=== PATIENT | female | born 1960 | race African-American/Black ===

== ENCOUNTER 2019-01-13 10:11 | Inpatient (IN) | payer BC, OTHER ==
[2019-01-13 10:25] VITALS: BMI 45.1
--- NOTE | 2019-01-13 10:32 | PDOC ---
History of Present Illness - General Chief Complaint: Redness To Affected Area Stated Complaint: SENT BY PCP TO BE ADMITTED Time Seen by Provider: 01/13/19 10:30 History Source: Patient Exam Limitations: No Limitations Past History - Travel Traveled outside of the country in the last 30 days: No Close contact w/someone who was outside of country & ill: No - Past Medical History Allergies/Adverse Reactions: Allergies Allergy/AdvReac Type Severity Reaction Status Date / Time No Known Allergies Allergy Verified 01/13/19 10:22 Home Medications: Ambulatory Orders Insulin Glargine,Hum.rec.anlog [Lantus] 32 unit SQ DAILY 12/13/18 Liraglutide [Victoza -] 1.8 unit SQ DAILY 12/13/18 Amlodipine Besylate 10 mg PO DAILY 01/13/19 Metoprolol Succinate 50 mg PO DAILY 01/13/19 Olmesartan/Hydrochlorothiazide [Benicar Hct 40-12.5 mg Tablet] 1 each PO DAILY 01/13/19 Rosuvastatin [Crestor -] 10 mg PO DAILY 01/13/19 Anemia: Yes Cardiac Disorders: No COPD: No Diabetes: Yes HTN: Yes Hypercholesterolemia: Yes - Surgical History Abdominal Surgery: Yes - Suicide/Smoking/Psychosocial Hx Smoking Status: No Smoking History: Never smoked Have you smoked in the past 12 months: No Number of Cigarettes Smoked Daily: 0 If you are a former smoker, when did you quit?: 47 yrs ago Hx Alcohol Use: No Drug/Substance Use Hx: No Substance Use Type: None Review of Systems - Review of Systems Able to Perform ROS?: Yes Comments:: 01/13/19 10:55 CONSTITUTIONAL: Absent: fever, chills, diaphoresis, generalized weakness, malaise, loss of appetite HEENT: Absent: rhinorrhea, nasal congestion, throat pain, throat swelling, difficulty swallowing, mouth swelling, ear pain, eye pain, visual Changes CARDIOVASCULAR: Absent: chest pain, loss of consciousness, palpitations, irregular heart rate, peripheral edema RESPIRATORY: Absent: cough, shortness of breath, dyspnea with exertion, orthopnea, wheezing, stridor, hemoptysis GASTROINTESTINAL: Absent: abdominal pain, abdominal distension, nausea, vomiting, diarrhea, constipation, melena, hematochezia GENITOURINARY: Absent: dysuria, frequency, urgency, hesitancy, hematuria, flank pain, genital pain MUSCULOSKELETAL: Absent: myalgia, arthralgia, joint swelling SKIN: Present: R 5th toe infection Absent: rash, itching, pallor HEMATOLOGIC/IMMUNOLOGIC: Absent: easy bleeding, easy bruising, lymphadenopathy, frequent infections ENDOCRINE: Absent: unexplained weight gain, unexplained weight loss, heat intolerance, cold intolerance NEUROLOGIC: Absent: headache, focal weakness or paresthesias, dizziness, unsteady gait, seizure, mental status changes, bladder or bowel incontinence PSYCHIATRIC: Absent: anxiety, depression, suicidal or homicidal ideation, hallucinations. Is the patient limited Yoruba proficient: No *Physical Exam - Vital Signs Last Vital Signs Temp Pulse Resp BP Pulse Ox 98.6 F 83 16 131/72 100 01/13/19 10:22 01/13/19 10:22 01/13/19 10:01/13/19 10:01/13/19 10:22 - Physical Exam Comments: 01/13/19 10:56 GENERAL: Well developed, well nourished. Awake and alert. No acute distress. HEENT: Normocephalic, atraumatic. PERRLA, EOMI. No conjunctival pallor. Sclera are non- icteric. Moist mucous membranes. Oropharynx is clear. NECK: Supple. Full ROM. No JVD. Carotid pulses 2+ and symmetric, without bruits. No thyromegaly. No lymphadenopathy. CARDIOVASCULAR: Regular rate and rhythm. No murmurs, rubs, or gallops. Distal pulses are 2+ and symmetric. PULMONARY: No evidence of respiratory distress. Lungs clear to auscultation bilaterally. No wheezing, rales or rhonchi. ABDOMINAL: Soft. Non-tender. Non-distended. No rebound or guarding. No organomegaly. Normoactive bowel sounds. MUSCULOSKELETAL Normal range of motion at all joints. No bony deformities or tenderness. No CVA tenderness. EXTREMITIES: No cyanosis. No clubbing. No edema. No calf tenderness. SKIN: R 5th toe with stage 2 pressure ulcer on the lateral aspect, some escar present. No overlying cellulitis. No TTP. Warm and dry. Normal capillary refill. No rashes. No jaundice. NEUROLOGICAL: Alert, awake, appropriate. Cranial nerves 2-12 intact. No deficits to light touch and temperature in face, upper extremities and lower extremities. No motor deficits in the in face, upper extremities and lower extremities. Normoreflexic in the upper and lower extremities. Normal speech. Toes are down- going bilaterally. Gait is normal without ataxia. PSYCHIATRIC: Cooperative. Good eye contact. Appropriate mood and affect. ED Treatment Course - LABORATORY CBC & Chemistry Diagram: 01/13/19 11:16 01/13/19 11:16 Medical Decision Making - Medical Decision Making 01/13/19 10:57 The patient is a 58-year-old female with past medical history of insulin- dependent diabetes, hypertension, hyperlipidemia, who presents to the emergency department today for evaluation of her right fifth toe. She was seen in wound care on Sunday and diagnosed with osteomyelitis in the right fifth toe. She was told to present on Sunday for admission and IV antibiotics as well as PICC line placement. She currently has no complaints. Denies fevers, chills, pain to the right foot, nausea, vomiting, difficulty breathing and chest pain. A/P: Right foot diabetic ulcer, osteomyelitis MRI performed on 12/27/18; shows osteomyelitis in the right 5th toe We'll order basic labs, urine, EKG, chest x-ray and blood cultures. Start vancomycin Zosyn in the ER PCP Dr. Medellin. Seen by Dr. Car and Dr. Roldan at wound care. 01/13/19 12:04 No Leukocytosis, H&H stable, no gross electrolyte abnormalities [facility] paged for admission *DC/Admit/Observation/Transfer Diagnosis at time of Disposition: Osteomyelitis Qualifiers: Osteomyelitis type: other acute Osteomyelitis location: foot Laterality: right Qualified Code(s): M86.171 - Other acute osteomyelitis, right ankle and foot - Discharge Dispostion Condition at time of disposition: Stable Decision to Admit order: Yes - Referrals - Patient Instructions - Post Discharge Activity
[2019-01-13 11:34] LABS: BASO % 1.2 % (0-2.0); EOS % 5.6 % (0-4.5); HEMATOCRIT 35.5 % (32.4-45.2); HEMOGLOBIN 11.4 GM/dL (10.7-15.3); LYMPH % 38.2 % (8-40); MCH 27.8 pg (25.7-33.7); MCHC 32.2 g/dl (32.0-36.0); MEAN CELL VOLUME 86.4 fl (80-96); MEAN PLT VOLUME 9.8 fl (7.5-11.1); MONO % 11.6 % (3.8-10.2); NEUT % 43.4 % (42.8-82.8); PLATELET COUNT 254 K/MM3 (134-434); RBC 4.11 M/mm3 (3.60-5.2); RDW 13.5 % (11.6-15.6); WHITE BLOOD COUNT 5.1 K/mm3 (4.0-10.0)
--- NOTE | 2019-01-13 11:56 | PDOC ---
*Physical Exam - Vital Signs Last Vital Signs Temp Pulse Resp BP Pulse Ox 98.6 F 83 16 131/72 100 01/13/19 10:22 01/13/19 10:22 01/13/19 11:35 01/13/19 10:22 01/13/19 11:35 ED Treatment Course - LABORATORY CBC & Chemistry Diagram: 01/15/19 07:00 01/15/19 07:00 Medical Decision Making - Medical Decision Making 01/13/19 11:56 Pt seen by the Advanced Practice Provider under my direct supervision Ancillary studies reviewed I agree with plan as outlined by the Advanced Practice Provider DARRIUS Seaman *DC/Admit/Observation/Transfer Diagnosis at time of Disposition: Osteomyelitis - Discharge Dispostion Condition at time of disposition: Stable - Referrals - Patient Instructions - Post Discharge Activity
[2019-01-13 12:01] LABS: ALBUMIN 3.4 g/dl (3.4-5.0); BILIRUBIN,TOTAL 0.2 mg/dL (0.2-1); CALCIUM 9.3 mg/dL (8.5-10.1); POTASSIUM 4.5 mmol/L (3.5-5.1); TOT PROT 6.5 g/dl (6.4-8.2)
[2019-01-13 12:10] LABS: EPI CELLS 2.8 /HPF (0-5/HPF); HYALINE CASTS 2 /lpf (0-8); PH,URINE 6.5 (5.0-8.0); URINE APPEARANCE CLEAR; URINE BILIRUBIN NEGATIVE (NEGATIVE); URINE COLOR YELLOW; URINE GLUCOSE (UA) TRACE (NEGATIVE); URINE KETONE NEGATIVE (NEGATIVE); URINE LEUK ESTERASE TRACE (NEGATIVE); URINE NITRITE NEGATIVE (NEGATIVE); URINE PROTEIN NEGATIVE (NEGATIVE); URINE RBC 2 /hpf (0-4); URINE WBC 2 /hpf (0-5)
[2019-01-13 12:10] LABS: PROTHROMBIN TIME (PATIENT) 11.8 SEC (9.7-13.0)
--- NOTE | 2019-01-13 12:37 | HP ---
CHIEF COMPLAINT: "I have a bone infection" PCP: Dr Medellin HISTORY OF PRESENT ILLNESS: This is a 58 yo F with PMH of IDDM last a1c 9, htn, hld, who was referred to ED by Dr Roldan for treatment of right fifth toe Osteomyelitis recently diagnosed om MRI 12/27/18. patient reports diabetic neuropaty abd denies prior LE infections. she follows with a net fisher who noticed an ulcer on her toe and referred her to Dr Car in wound care. She denies f/c, le pain, difficulty walking, malaise. deneis le claudication, exercise intolerance, can walk for several blocks w/o fatigue. she follows up regularly with her pcp for dm management and he rmornign glucose is usually 150-160. ER course was notable for: (1) labs Recent Travel: denies PAST MEDICAL HISTORY: as above PAST SURGICAL HISTORY: denies Social History: Smoking:denies Alcohol:denies Drugs: denies Family History: mother dm, father htn, prostate ca Allergies No Known Allergies Allergy (Verified 01/13/19 10:22) HOME MEDICATIONS: Home Medications Medication Instructions Recorded Insulin Glargine,Hum.rec.anlog 32 unit SQ DAILY 12/13/18 [Lantus] Liraglutide [Victoza -] 1.8 unit SQ DAILY 12/13/18 Amlodipine Besylate 10 mg PO DAILY 01/13/19 Metoprolol Succinate 50 mg PO DAILY 01/13/19 Olmesartan/Hydrochlorothiazide 1 each PO DAILY 01/13/19 [Benicar Hct 40-12.5 mg Tablet] Rosuvastatin [Crestor -] 10 mg PO DAILY 01/13/19 REVIEW OF SYSTEMS CONSTITUTIONAL: Absent: fever, chills HEENT: Absent: rhinorrhea, nasal congestion, throat pain CARDIOVASCULAR: Absent: chest pain, syncope, palpitations RESPIRATORY: Absent: cough, shortness of breath GASTROINTESTINAL: Absent: abdominal pain, abdominal distension, nausea, vomiting GENITOURINARY: Absent: dysuria MUSCULOSKELETAL: Absent: joint swelling SKIN: Absent: rash, itching, pallor HEMATOLOGIC/IMMUNOLOGIC: Absent: frequent infections ENDOCRINE: Absent: unexplained weight gain, unexplained weight loss NEUROLOGIC: Absent: headache PSYCHIATRIC: Absent: anxiety, depression PHYSICAL EXAMINATION Vital Signs - 24 hr 01/13/19 01/13/19 10:22 11:35 Temperature 98.6 F Pulse Rate 83 Respiratory 16 16 Rate Blood Pressure 131/72 O2 Sat by Pulse 100 100 Oximetry (%) GENERAL: Awake, alert, and fully oriented, in no acute distress. HEAD: Normal with no signs of trauma. EYES: Pupils equal, round and reactive to light, extraocular movements intact, sclera anicteric, conjunctiva clear. No lid lag. EARS, NOSE, THROAT: Moist mucous membranes. NECK: supple without lymphadenopathy LUNGS: Breath sounds equal, clear to auscultation bilaterally Breasts: no lumps, mass or axillary adenopathy HEART: Regular rate and rhythm, normal S1 and S2 ABDOMEN: Soft, nontender, not distended, normoactive bowel sounds MUSCULOSKELETAL: No CVA tenderness. LOWER EXTREMITIES: 2+ dp 1+ pt b/l, R 5th lateral toe ulcer with yellow scab, no discharge no cellulitis NEUROLOGICAL: Cranial nerves II-XII intact. extremities strenght 5/5 b/l, sensation intact b/l, patellar reflexes 2+ b/l. Normal speech. PSYCHIATRIC: Cooperative. Good eye contact. Appropriate mood and affect. SKIN: Warm, dry Laboratory Results - last 24 hr 01/13/19 01/13/19 01/13/19 11:16 11:16 11:16 WBC 5.1 RBC 4.11 Hgb 11.4 Hct 35.5 MCV 86.4 MCH 27.8 MCHC 32.2 RDW 13.5 Plt Count 254 MPV 9.8 Absolute Neuts (auto) 2.2 Neutrophils % 43.4 D Lymphocytes % 38.2 D Monocytes % 11.6 H Eosinophils % 5.6 H Basophils % 1.2 D Nucleated RBC % 0 PT with INR 11.80 INR 1.00 Sodium 138 Potassium 4.5 Chloride 103 Carbon Dioxide 31 Anion Gap 4 L BUN 21 H Creatinine 1.0 Est GFR (CKD-EPI)AfAm 71.92 Est GFR (CKD-EPI)NonAf 62.05 Random Glucose 194 H Calcium 9.3 Total Bilirubin 0.2 AST 13 L ALT 21 Alkaline Phosphatase 88 Total Protein 6.5 Albumin 3.4 Urine Color Urine Appearance Urine pH Ur Specific [place] Urine Protein Urine Glucose (UA) Urine Ketones Urine Blood Urine Nitrite Urine Bilirubin Urine Urobilinogen Ur Leukocyte Esterase Urine WBC (Auto) Urine RBC (Auto) Urine Casts (Auto) U Epithel Cells (Auto) Urine Bacteria (Auto) 01/13/19 11:25 WBC RBC Hgb Hct MCV MCH MCHC RDW Plt Count MPV Absolute Neuts (auto) Neutrophils % Lymphocytes % Monocytes % Eosinophils % Basophils % Nucleated RBC % PT with INR INR Sodium Potassium Chloride Carbon Dioxide Anion Gap BUN Creatinine Est GFR (CKD-EPI)AfAm Est GFR (CKD-EPI)NonAf Random Glucose Calcium Total Bilirubin AST ALT Alkaline Phosphatase Total Protein Albumin Urine Color Yellow Urine Appearance Clear Urine pH 6.5 Ur Specific [place] 1.022 Urine Protein Negative Urine Glucose (UA) Trace Urine Ketones Negative Urine Blood Negative Urine Nitrite Negative Urine Bilirubin Negative Urine Urobilinogen 1.0 Ur Leukocyte Esterase Trace Urine WBC (Auto) 2 Urine RBC (Auto) 2 Urine Casts (Auto) 2 U Epithel Cells (Auto) 2.8 Urine Bacteria (Auto) 43.0 ASSESSMENT/PLAN: This is a 58 yo F with PMH of IDDM last a1c 9, htn, hld, who was referred to ED by Dr Roldan for treatment of right fifth toe Osteomyelitis recently diagnosed om MRI 12/27/18. R 5th toe osteomyelitis IDDM HTN HLD morbid obesity -rocehin per ID -wound care consult -iss, victroza 1.8 mg d, levemir 32 u daily -glucose goal <180 with diabetic ulcer infection -continue toprol xl, norvasc, hctz, losartan -continue crestor Problem List - Problem (1) Diabetes Code(s): E11.9 - TYPE 2 DIABETES MELLITUS WITHOUT COMPLICATIONS (2) HLD (hyperlipidemia) Code(s): E78.5 - HYPERLIPIDEMIA, UNSPECIFIED (3) HTN (hypertension) Code(s): I10 - ESSENTIAL (PRIMARY) HYPERTENSION (4) Morbid obesity with BMI of 45.0-49.9, adult Code(s): E66.01 - MORBID (SEVERE) OBESITY DUE TO EXCESS CALORIES; Z68.42 - BODY MASS INDEX (BMI) 45.0-49.9, ADULT (5) Osteomyelitis Code(s): M86.9 - OSTEOMYELITIS, UNSPECIFIED Qualifiers: Osteomyelitis type: other acute Osteomyelitis location: foot Laterality: right Qualified Code(s): M86.171 - Other acute osteomyelitis, right ankle and foot Visit type - Emergency Visit Emergency Visit: Yes ED Registration Date: 01/13/19 Care time: The patient presented to the Emergency Department on the above date and was hospitalized for further evaluation of their emergent condition. - New Patient This patient is new to me today: Yes Date on this admission: 01/13/19 - Critical Care Critical Care patient: No
--- NOTE | 2019-01-13 17:34 | PN ---
Teaching Attending Note Name of Resident: Zayra Siu ATTENDING PHYSICIAN STATEMENT I saw and evaluated the patient. I reviewed the resident's note and discussed the case with the resident. I agree with the resident's findings and plan as documented. CC: my toe is infected HPI : Ms Amos is a very pleasant 58 year old female who comes in with osteomyelitis. She says that she was wearing shoes that caused a blister on her little toe. It began to drain and because of that she went to see her PCP. There she was referred to Dr Roldan and found to have osteomyelitis. She was sent in for further care. She otherwise has no complaints. She says it is only painful when she wears shoes. She currently does not notice any drainage. She denies fevers, chills, lightheadedness, dizziness, passing out, chest pain or pressure, coughing, shortness of breath, nausea, vomiting, diarrhea, constipation, difficulty or pain on urination, or swelling. 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 FHx: mother with diabetes, father with htn and prostate cancer ROS: full review of systems obtained, as per HPI and otherwise negative OBJECTIVE: Last Vital Signs Temp Pulse Resp BP Pulse Ox 36.6 C 78 20 131/61 98 01/13/19 16:15 01/13/19 16:15 01/13/19 16:15 01/13/19 16:15 01/13/19 15:37 Gen: nad, obese HEENT: perrla, eomi, mmm Pulm: ctab w/o w/r/r CV: rrr w/o m/r/g Abd: +bs, s/nt/nd Ext: no c/c/e, R 5th toe with ulceration CBC, BMP 01/13/19 11:16 01/13/19 11:16 ASSESSMENT AND PLAN: Problem List - Problems (1) Osteomyelitis Assessment/Plan: -patient presented with osteomyelitis -Dr Roldan aware and will see -started on rocephin -Dr Car consulted -lactobacillus Code(s): M86.9 - OSTEOMYELITIS, UNSPECIFIED Qualifiers: Osteomyelitis type: other acute Osteomyelitis location: foot Laterality: right Qualified Code(s): M86.171 - Other acute osteomyelitis, right ankle and foot (2) HTN (hypertension) Assessment/Plan: continue amlodipine 10mg daily -continue HCTZ 12.5mg daily -continue losartan 100mg daily -continue toprol xl 50mg daily Code(s): I10 - ESSENTIAL (PRIMARY) HYPERTENSION (3) Diabetes Assessment/Plan: -diabetic diet -continue Vicotoza 1.8mg SC daily -continue levemir 32 units daily -FSBS and SSI Code(s): E11.9 - TYPE 2 DIABETES MELLITUS WITHOUT COMPLICATIONS (4) HLD (hyperlipidemia) Assessment/Plan: -continue statin Code(s): E78.5 - HYPERLIPIDEMIA, UNSPECIFIED (5) Morbid obesity with BMI of 45.0-49.9, adult Assessment/Plan: -outpatient weight loss program Code(s): E66.01 - MORBID (SEVERE) OBESITY DUE TO EXCESS CALORIES; Z68.42 - BODY MASS INDEX (BMI) 45.0-49.9, ADULT
[2019-01-13] MEDS ORDERED: ACETAMINOPHEN 325 MG TABLET (FP) PO PRN (17:35)
[2019-01-13] MEDS ORDERED: WATER IVPB ONE (17:49)
[2019-01-13] MEDS ORDERED: DEXTROSE 5% IVPB ONE (17:49)
[2019-01-13] MEDS ORDERED: CEFTRIAXONE IVPB ONE (17:49)
[2019-01-13] MEDS ORDERED: CEFTRIAXONE 2 GM in DEXTROSE 5%-WATER 100 ML IVPB ONE (18:16)
[2019-01-13] MEDS ORDERED: DEXTROSE 5%-WATER 100 ML IVPB ONE (18:17)
[2019-01-13] MEDS: LACTOBACILLUS ACIDOPHILUS 1 TABLET PO SCH (18:24)
[2019-01-13] MEDS: INSULIN SLIDING SCALE (NOVOLOG) 1 VIAL SQ SCH (21:02)
[2019-01-14] MEDS: INSULIN (LEVEMIR) 100 UNITS/ML UNITS SQ SCH (06:41)
[2019-01-14] MEDS: INSULIN SLIDING SCALE (NOVOLOG) 1 VIAL SQ SCH ×4 (06:41→21:15)
[2019-01-14 07:40] LABS: ALBUMIN 3.4 g/dl (3.4-5.0); BILIRUBIN,TOTAL 0.3 mg/dL (0.2-1); CALCIUM 9.2 mg/dL (8.5-10.1); CREATININE 0.9 mg/dL (0.55-1.3); MAGNESIUM 2.1 mg/dL (1.8-2.4); PHOSPHOROUS 3.8 mg/dL (2.5-4.9); POTASSIUM 4.2 mmol/L (3.5-5.1); TOT PROT 6.3 g/dl (6.4-8.2)
[2019-01-14 07:56] LABS: BASO % 1.2 % (0-2.0); EOS % 6.4 % (0-4.5); HEMATOCRIT 34.4 % (32.4-45.2); HEMOGLOBIN 11.1 GM/dL (10.7-15.3); LYMPH % 37.5 % (8-40); MCH 27.8 pg (25.7-33.7); MCHC 32.2 g/dl (32.0-36.0); MEAN CELL VOLUME 86.3 fl (80-96); MEAN PLT VOLUME 9.3 fl (7.5-11.1); MONO % 12.6 % (3.8-10.2); NEUT % 42.3 % (42.8-82.8); PLATELET COUNT 258 K/MM3 (134-434); RBC 3.99 M/mm3 (3.60-5.2); RDW 13.3 % (11.6-15.6); WHITE BLOOD COUNT 4.8 K/mm3 (4.0-10.0)
--- NOTE | 2019-01-14 08:02 | PN ---
Physical Exam: SUBJECTIVE: Patient seen and examined resting in bed nad, afebrile hemodynamically stable, no acute events. denies f/c , malaise, rash, sob, cough. OBJECTIVE: Vital Signs Period Temp Pulse Resp BP Sys/[place] Pulse Ox Last 24 Hr 97.8 F-98.6 F 77-83 16-20 128-160/61-74 98-100 GENERAL: Awake, alert, and fully oriented, in no acute distress. HEAD: Normal with no signs of trauma. EYES: Pupils equal, round and reactive to light, extraocular movements intact, sclera anicteric, conjunctiva clear. No lid lag. EARS, NOSE, THROAT: Moist mucous membranes. NECK: supple without lymphadenopathy LUNGS: Breath sounds equal, clear to auscultation bilaterally Breasts: no lumps, mass or axillary adenopathy HEART: Regular rate and rhythm, normal S1 and S2 ABDOMEN: Soft, nontender, not distended, normoactive bowel sounds MUSCULOSKELETAL: No CVA tenderness. LOWER EXTREMITIES: 2+ dp 1+ pt b/l, R 5th lateral toe ulcer with yellow scab, no discharge no cellulitis NEUROLOGICAL: Cranial nerves II-XII intact. extremities strenght 5/5 b/l, sensation intact b/l, patellar reflexes 2+ b/l. Normal speech. PSYCHIATRIC: Cooperative. Good eye contact. Appropriate mood and affect. SKIN: Warm, dry Laboratory Results - last 24 hr 01/13/19 01/13/19 01/13/19 11:16 11:16 11:16 WBC 5.1 RBC 4.11 Hgb 11.4 Hct 35.5 MCV 86.4 MCH 27.8 MCHC 32.2 RDW 13.5 Plt Count 254 MPV 9.8 Absolute Neuts (auto) 2.2 Neutrophils % 43.4 D Lymphocytes % 38.2 D Monocytes % 11.6 H Eosinophils % 5.6 H Basophils % 1.2 D Nucleated RBC % 0 PT with INR 11.80 INR 1.00 Sodium 138 Potassium 4.5 Chloride 103 Carbon Dioxide 31 Anion Gap 4 L BUN 21 H Creatinine 1.0 Est GFR (CKD-EPI)AfAm 71.92 Est GFR (CKD-EPI)NonAf 62.05 POC Glucometer Random Glucose 194 H Calcium 9.3 Phosphorus Magnesium Total Bilirubin 0.2 AST 13 L ALT 21 Alkaline Phosphatase 88 Total Protein 6.5 Albumin 3.4 Urine Color Urine Appearance Urine pH Ur Specific [place] Urine Protein Urine Glucose (UA) Urine Ketones Urine Blood Urine Nitrite Urine Bilirubin Urine Urobilinogen Ur Leukocyte Esterase Urine WBC (Auto) Urine RBC (Auto) Urine Casts (Auto) U Epithel Cells (Auto) Urine Bacteria (Auto) 01/13/19 01/13/19 01/14/19 11:25 20:56 06:40 WBC RBC Hgb Hct MCV MCH MCHC RDW Plt Count MPV Absolute Neuts (auto) Neutrophils % Lymphocytes % Monocytes % Eosinophils % Basophils % Nucleated RBC % PT with INR INR Sodium Potassium Chloride Carbon Dioxide Anion Gap BUN Creatinine Est GFR (CKD-EPI)AfAm Est GFR (CKD-EPI)NonAf POC Glucometer 208 185 Random Glucose Calcium Phosphorus Magnesium Total Bilirubin AST ALT Alkaline Phosphatase Total Protein Albumin Urine Color Yellow Urine Appearance Clear Urine pH 6.5 Ur Specific [place] 1.022 Urine Protein Negative Urine Glucose (UA) Trace Urine Ketones Negative Urine Blood Negative Urine Nitrite Negative Urine Bilirubin Negative Urine Urobilinogen 1.0 Ur Leukocyte Esterase Trace Urine WBC (Auto) 2 Urine RBC (Auto) 2 Urine Casts (Auto) 2 U Epithel Cells (Auto) 2.8 Urine Bacteria (Auto) 43.0 01/14/19 06:54 WBC RBC Hgb Hct MCV MCH MCHC RDW Plt Count MPV Absolute Neuts (auto) Neutrophils % Lymphocytes % Monocytes % Eosinophils % Basophils % Nucleated RBC % PT with INR INR Sodium 136 Potassium 4.2 Chloride 102 Carbon Dioxide 27 Anion Gap 7 L BUN 19 H Creatinine 0.9 Est GFR (CKD-EPI)AfAm 81.69 Est GFR (CKD-EPI)NonAf 70.48 POC Glucometer Random Glucose 198 H Calcium 9.2 Phosphorus 3.8 Magnesium 2.1 Total Bilirubin 0.3 AST 12 L ALT 19 Alkaline Phosphatase 81 Total Protein 6.3 L Albumin 3.4 Urine Color Urine Appearance Urine pH Ur Specific [place] Urine Protein Urine Glucose (UA) Urine Ketones Urine Blood Urine Nitrite Urine Bilirubin Urine Urobilinogen Ur Leukocyte Esterase Urine WBC (Auto) Urine RBC (Auto) Urine Casts (Auto) U Epithel Cells (Auto) Urine Bacteria (Auto) Active Medications Generic Name Dose Route Start Last Admin Trade Name Freq PRN Reason Stop Dose Admin Acetaminophen 650 mg 01/13/19 17:35 Tylenol - PO Q4H PRN FEVER Amlodipine Besylate 10 mg 01/14/19 10:00 Norvasc - PO DAILY PAT Hydrochlorothiazide 12.5 mg 01/14/19 10:00 Hctz - PO DAILY PAT Insulin Aspart 1 vial 01/13/19 22:00 01/14/19 06:41 Novolog Vial Sliding Scale - SQ 2 unit ACHS PAT Administration Protocol Insulin Detemir 32 units 01/14/19 07:00 01/14/19 06:41 Levemir Vial SQ 32 units DAILY@0700 PAT Administration Lactobacillus Acidophilus 1 tab 01/13/19 17:45 01/13/19 18:24 Bacid - PO 1 tab DAILY PAT Administration Liraglutide 1.8 mg 01/14/19 10:00 Victoza - SQ DAILY PAT Losartan Potassium 100 mg 01/14/19 10:00 Cozaar - PO DAILY PAT Metoprolol Succinate 50 mg 01/14/19 10:00 Toprol Xl - PO DAILY PAT Rosuvastatin Calcium 10 mg 01/14/19 10:00 Crestor - PO DAILY PAT ASSESSMENT/PLAN: This is a 58 yo F with PMH of IDDM last a1c 9, htn, hld, who was referred to ED by Dr Roldan for treatment of right fifth toe Osteomyelitis recently diagnosed om MRI 12/27/18. R 5th toe osteomyelitis IDDM HTN HLD morbid obesity -rocehin and vanco per ID -f/u cultures -wound care consult -iss, victroza 1.8 mg d, levemir 32 u daily -glucose goal <180 with diabetic ulcer infection -continue toprol xl, norvasc, hctz, losartan -continue crestor Problem List - Problems (1) Diabetes Code(s): E11.9 - TYPE 2 DIABETES MELLITUS WITHOUT COMPLICATIONS (2) HLD (hyperlipidemia) Code(s): E78.5 - HYPERLIPIDEMIA, UNSPECIFIED (3) HTN (hypertension) Code(s): I10 - ESSENTIAL (PRIMARY) HYPERTENSION (4) Morbid obesity with BMI of 45.0-49.9, adult Code(s): E66.01 - MORBID (SEVERE) OBESITY DUE TO EXCESS CALORIES; Z68.42 - BODY MASS INDEX (BMI) 45.0-49.9, ADULT (5) Osteomyelitis Code(s): M86.9 - OSTEOMYELITIS, UNSPECIFIED Qualifiers: Osteomyelitis type: other acute Osteomyelitis location: foot Laterality: right Qualified Code(s): M86.171 - Other acute osteomyelitis, right ankle and foot Visit type - Emergency Visit Emergency Visit: Yes ED Registration Date: 01/13/19 Care time: The patient presented to the Emergency Department on the above date and was hospitalized for further evaluation of their emergent condition. - New Patient This patient is new to me today: No - Critical Care Critical Care patient: No - Discharge Referral Referred to [facility] Med [facility] No
--- NOTE | 2019-01-14 08:37 | CON.ID ---
Consult Consult Specialty:: infectious diseases Referred by:: Reason for Consultation:: osteo of the foot rt - History of Present Illness Chief Complaint: non healing wound of the foot History of Present Illness: This is a 58 yo F with PMH of IDDM last a1c 9, htn, hld, admitted for treatment of right fifth toe Osteomyelitis recently diagnosed om MRI 12/27/18. patient reports diabetic neuropaty abd denies prior LE infections. she follows with a obstetrics nurse practitioner who noticed an ulcer on her toe and referred her to wound care. She denies f/c, le pain, difficulty walking, malaise. deneis le claudication, exercise intolerance, can walk for several blocks w/o fatigue. she follows up regularly with her pcp for dm management and he rmornign glucose is usually 150- 160. currently patient stable and doing well - History Source History Provided By: Patient Limitations to Obtaining History: No Limitations - Alcohol/Substance Use Hx Alcohol Use: No - Smoking History Smoking history: Former smoker Have you smoked in the past 12 months: No Aproximately how many cigarettes per day: 0 If you are a former smoker, when did you quit?: 47 yrs ago Home Medications - Allergies Allergies/Adverse Reactions: Allergies Allergy/AdvReac Type Severity Reaction Status Date / Time No Known Allergies Allergy Verified 01/13/19 10:22 - Home Medications Home Medications: Ambulatory Orders Insulin Glargine,Hum.rec.anlog [Lantus] 32 unit SQ DAILY 12/13/18 Liraglutide [Victoza -] 1.8 unit SQ DAILY 12/13/18 Amlodipine Besylate 10 mg PO DAILY 01/13/19 Metoprolol Succinate 50 mg PO DAILY 01/13/19 Olmesartan/Hydrochlorothiazide [Benicar Hct 40-12.5 mg Tablet] 1 each PO DAILY 01/13/19 Rosuvastatin [Crestor -] 10 mg PO DAILY 01/13/19 Review of Systems - Review of Systems Constitutional: reports: No Symptoms Eyes: reports: No Symptoms HENT: reports: No Symptoms Neck: reports: No Symptoms Cardiovascular: reports: No Symptoms Respiratory: reports: No Symptoms Gastrointestinal: reports: No Symptoms Genitourinary: reports: No Symptoms Musculoskeletal: reports: No Symptoms Integumentary: reports: Wound (of the foot) Neurological: reports: No Symptoms Endocrine: reports: No Symptoms Hematology/Lymphatic: reports: No Symptoms Psychiatric: reports: No Symptoms Physical Exam Vital Signs: Vital Signs Temperature 97.8 F 01/14/19 05:57 Pulse Rate 77 01/14/19 05:57 Respiratory Rate 20 01/14/19 05:57 Blood Pressure 128/70 01/14/19 05:57 O2 Sat by Pulse Oximetry (%) 100 01/13/19 21:00 Constitutional: Yes: Well Nourished, No Distress, Calm, Obese HENT: Yes: Atraumatic, Normocephalic Neck: Yes: Supple, Trachea Midline Cardiovascular: Yes: Regular Rate and Rhythm Respiratory: Yes: Regular, CTA Bilaterally Gastrointestinal: Yes: Normal Bowel Sounds, Soft Musculoskeletal: Yes: WNL Extremities: Yes: Other Wound/Incision: Yes: Open to air Neurological: Yes: Alert, Oriented Psychiatric: Yes: Alert, Oriented Labs: CBC, BMP 01/14/19 06:54 01/14/19 06:54 Imaging - Results MRI: Report Reviewed, Image Reviewed Assessment/Plan Problem List - Problem (1) Diabetes Code(s): E11.9 - TYPE 2 DIABETES MELLITUS WITHOUT COMPLICATIONS (2) HLD (hyperlipidemia) Code(s): E78.5 - HYPERLIPIDEMIA, UNSPECIFIED (3) HTN (hypertension) Code(s): I10 - ESSENTIAL (PRIMARY) HYPERTENSION (4) Morbid obesity with BMI of 45.0-49.9, adult Code(s): E66.01 - MORBID (SEVERE) OBESITY DUE TO EXCESS CALORIES; Z68.42 - BODY MASS INDEX (BMI) 45.0-49.9, ADULT (5) Osteomyelitis Code(s): M86.9 - OSTEOMYELITIS, UNSPECIFIED Qualifiers: Osteomyelitis type: other acute Osteomyelitis location: foot Laterality: right Qualified Code(s): M86.171 - Other acute osteomyelitis, right ankle and foot plan will start patient on vanco monitor levels wound care rest as per the team
[2019-01-14] MEDS ORDERED: PT OWN MED DRAWER 7, Y5N ONE (09:05)
[2019-01-14] MEDS: VANCOMYCIN 1 GRAM (PRE-DOCKED) 1,000 MG/250 ML BAG IVPB SCH ×2 (09:44→21:15)
[2019-01-14] MEDS: HYDROCHLOROTHIAZIDE 12.5 MG CAPSULE (FP) PO SCH (09:45)
[2019-01-14] MEDS: LOSARTAN POTASSIUM 50 MG TABLET (FP) PO SCH (09:45)
[2019-01-14] MEDS: LACTOBACILLUS ACIDOPHILUS 1 TABLET PO SCH (09:45)
[2019-01-14] MEDS: ROSUVASTATIN CA 10 MG TABLET (FP) PO SCH (09:46)
[2019-01-14] MEDS: amLODIPine BESYLATE 10 MG TABLET (FP) PO SCH (09:46)
[2019-01-14] MEDS ORDERED: LIRAGLUTIDE 0.6 MG/0.1 ML PEN.INJCTR SQ SCH (10:00)
--- NOTE | 2019-01-14 12:04 | EKG ---
Test Reason : Blood Pressure : / mmHG Vent. Rate : 079 BPM Atrial Rate : 079 BPM P-R Int : 172 ms QRS Dur : 146 ms QT Int : 416 ms P-R-T Axes : 042 044 027 degrees QTc Int : 477 ms NORMAL SINUS RHYTHM LEFT BUNDLE BRANCH BLOCK ABNORMAL ECG Confirmed by Dino Rutledge MD ([id number]) on 01/14/2019 12:03:47 PM Referred By: Confirmed By:Dino Rutledge MD
[2019-01-14] MEDS: LIRAGLUTIDE 0.6 MG/0.1 ML PEN.INJCTR SQ SCH (12:23)
[2019-01-14] MEDS: BACITRACIN 15 GM TUBE TOPICAL OINTMENT TP SCH (14:50)
--- NOTE | 2019-01-14 17:10 | PN ---
Teaching Attending Note Name of Resident: Zayra Siu ATTENDING PHYSICIAN STATEMENT I saw and evaluated the patient. I reviewed the resident's note and discussed the case with the resident. I agree with the resident's findings and plan as documented. SUBJECTIVE: Ms Amos is without complaint. Denies cp, sob, n/v. OBJECTIVE: Last Vital Signs Temp Pulse Resp BP Pulse Ox 36.8 C 78 18 156/86 98 01/14/19 10:00 01/14/19 10:00 01/14/19 10:00 01/14/19 10:00 01/14/19 09:00 Gen: nad, morbidly obese Pulm: ctab w/o w/r/r CV: rrr w/o m/r/g Abd: +bs, s/nt/nd Ext: ulceration on L 5th toe CBC, BMP 01/14/19 06:54 01/14/19 06:54 ASSESSMENT AND PLAN: (1) Osteomyelitis Assessment/Plan: -outpatient wound cultures growing coag negative staph -changed to vancomycin -follow up trough level Code(s): M86.9 - OSTEOMYELITIS, UNSPECIFIED Qualifiers: Osteomyelitis type: other acute Osteomyelitis location: foot Laterality: right Qualified Code(s): M86.171 - Other acute osteomyelitis, right ankle and foot (2) HTN (hypertension) Assessment/Plan: -continue amlodipine 10mg daily -continue HCTZ 12.5mg daily -continue losartan 100mg daily -continue toprol xl 50mg daily Code(s): I10 - ESSENTIAL (PRIMARY) HYPERTENSION (3) Diabetes Assessment/Plan: -diabetic diet -continue Vicotoza 1.8mg SC daily -continue levemir 32 units daily -FSBS and SSI -monitor, may need to adjust insulin level Code(s): E11.9 - TYPE 2 DIABETES MELLITUS WITHOUT COMPLICATIONS (4) HLD (hyperlipidemia) Assessment/Plan: -continue statin Code(s): E78.5 - HYPERLIPIDEMIA, UNSPECIFIED (5) Morbid obesity with BMI of 45.0-49.9, adult Assessment/Plan: -outpatient weight loss program Code(s): E66.01 - MORBID (SEVERE) OBESITY DUE TO EXCESS CALORIES; Z68.42 - BODY MASS INDEX (BMI) 45.0-49.9, ADULT Problem List - Problems (1) Osteomyelitis Code(s): M86.9 - OSTEOMYELITIS, UNSPECIFIED Qualifiers: Osteomyelitis type: other acute Osteomyelitis location: foot Laterality: right Qualified Code(s): M86.171 - Other acute osteomyelitis, right ankle and foot (2) HTN (hypertension) Code(s): I10 - ESSENTIAL (PRIMARY) HYPERTENSION (3) Diabetes Code(s): E11.9 - TYPE 2 DIABETES MELLITUS WITHOUT COMPLICATIONS (4) HLD (hyperlipidemia) Code(s): E78.5 - HYPERLIPIDEMIA, UNSPECIFIED (5) Morbid obesity with BMI of 45.0-49.9, adult Code(s): E66.01 - MORBID (SEVERE) OBESITY DUE TO EXCESS CALORIES; Z68.42 - BODY MASS INDEX (BMI) 45.0-49.9, ADULT
[2019-01-15] MEDS: INSULIN (LEVEMIR) 100 UNITS/ML UNITS SQ SCH (06:37)
[2019-01-15] MEDS: INSULIN SLIDING SCALE (NOVOLOG) 1 VIAL SQ SCH ×4 (06:38→21:39)
[2019-01-15 07:22] LABS: BASO % 1.4 % (0-2.0); EOS % 6.4 % (0-4.5); HEMATOCRIT 35.6 % (32.4-45.2); HEMOGLOBIN 11.6 GM/dL (10.7-15.3); LYMPH % 38.4 % (8-40); MCH 27.8 pg (25.7-33.7); MCHC 32.4 g/dl (32.0-36.0); MEAN CELL VOLUME 85.8 fl (80-96); MEAN PLT VOLUME 9.7 fl (7.5-11.1); MONO % 10.8 % (3.8-10.2); PLATELET COUNT 275 K/MM3 (134-434); RBC 4.16 M/mm3 (3.60-5.2); RDW 13.3 % (11.6-15.6)
[2019-01-15 07:52] LABS: ALBUMIN 3.5 g/dl (3.4-5.0); BILIRUBIN,TOTAL 0.3 mg/dL (0.2-1); CALCIUM 9.3 mg/dL (8.5-10.1); CREATININE 0.9 mg/dL (0.55-1.3); MAGNESIUM 2.2 mg/dL (1.8-2.4); POTASSIUM 4.2 mmol/L (3.5-5.1); TOT PROT 6.6 g/dl (6.4-8.2)
--- NOTE | 2019-01-15 07:54 | PN ---
Physical Exam: SUBJECTIVE: Patient seen and examined resting in bed nad, afebrile hemodynamically stable, no acute events. denies f/c , malaise, rash, sob, cough. OBJECTIVE: Vital Signs Period Temp Pulse Resp BP Sys/[place] Pulse Ox Last 24 Hr 98.3 F-98.5 F 76-80 18-20 124-156/59-86 98 GENERAL: Awake, alert, and fully oriented, in no acute distress. HEAD: Normal with no signs of trauma. EYES: Pupils equal, round and reactive to light, extraocular movements intact, sclera anicteric, conjunctiva clear. No lid lag. EARS, NOSE, THROAT: Moist mucous membranes. NECK: supple without lymphadenopathy LUNGS: Breath sounds equal, clear to auscultation bilaterally Breasts: no lumps, mass or axillary adenopathy HEART: Regular rate and rhythm, normal S1 and S2 ABDOMEN: Soft, nontender, not distended, normoactive bowel sounds MUSCULOSKELETAL: No CVA tenderness. LOWER EXTREMITIES: 2+ dp 1+ pt b/l, R 5th lateral toe ulcer with yellow scab, no discharge no cellulitis NEUROLOGICAL: Cranial nerves II-XII intact. extremities strenght 5/5 b/l, sensation intact b/l, patellar reflexes 2+ b/l. Normal speech. PSYCHIATRIC: Cooperative. Good eye contact. Appropriate mood and affect. SKIN: Warm, dry Laboratory Results - last 24 hr 01/14/19 01/14/19 01/14/19 06:54 11:59 17:39 WBC 4.8 RBC 3.99 Hgb 11.1 Hct 34.4 MCV 86.3 MCH 27.8 MCHC 32.2 RDW 13.3 Plt Count 258 MPV 9.3 Absolute Neuts (auto) 2.0 Neutrophils % 42.3 L Lymphocytes % 37.5 Monocytes % 12.6 H Eosinophils % 6.4 H Basophils % 1.2 Nucleated RBC % 0 Sodium Potassium Chloride Carbon Dioxide Anion Gap BUN Creatinine Est GFR (CKD-EPI)AfAm Est GFR (CKD-EPI)NonAf POC Glucometer 246 160 Random Glucose Calcium Phosphorus Magnesium Total Bilirubin AST ALT Alkaline Phosphatase Total Protein Albumin 01/14/19 01/15/19 01/15/19 21:13 06:36 07:00 WBC 5.0 RBC 4.16 Hgb 11.6 Hct 35.6 MCV 85.8 MCH 27.8 MCHC 32.4 RDW 13.3 Plt Count 275 MPV 9.7 Absolute Neuts (auto) 2.1 Neutrophils % 43.0 Lymphocytes % 38.4 Monocytes % 10.8 H Eosinophils % 6.4 H Basophils % 1.4 Nucleated RBC % 0 Sodium Potassium Chloride Carbon Dioxide Anion Gap BUN Creatinine Est GFR (CKD-EPI)AfAm Est GFR (CKD-EPI)NonAf POC Glucometer 201 274 Random Glucose Calcium Phosphorus Magnesium Total Bilirubin AST ALT Alkaline Phosphatase Total Protein Albumin 01/15/19 07:00 WBC RBC Hgb Hct MCV MCH MCHC RDW Plt Count MPV Absolute Neuts (auto) Neutrophils % Lymphocytes % Monocytes % Eosinophils % Basophils % Nucleated RBC % Sodium 135 L Potassium 4.2 Chloride 101 Carbon Dioxide 26 Anion Gap 8 BUN 18 Creatinine 0.9 Est GFR (CKD-EPI)AfAm 81.69 Est GFR (CKD-EPI)NonAf 70.48 POC Glucometer Random Glucose 245 H Calcium 9.3 Phosphorus 4.0 Magnesium 2.2 Total Bilirubin 0.3 AST 12 L ALT 21 Alkaline Phosphatase 95 Total Protein 6.6 Albumin 3.5 Active Medications Generic Name Dose Route Start Last Admin Trade Name Freq PRN Reason Stop Dose Admin Acetaminophen 650 mg 01/13/19 17:35 Tylenol - PO Q4H PRN FEVER Amlodipine Besylate 10 mg 01/14/19 10:00 01/14/19 09:46 Norvasc - PO 10 mg DAILY PAT Administration Bacitracin 1 applic 01/14/19 10:00 01/14/19 14:50 Bacitracin - TP 1 applic DAILY PAT Administration Hydrochlorothiazide 12.5 mg 01/14/19 10:00 01/14/19 09:45 Hctz - PO 12.5 mg DAILY PAT Administration Vancomycin HCl 1,000 mg in 250 mls @ 250 mls/hr 01/14/19 09:00 01/14/19 21:15 Vancomycin (Pre-Docked) IVPB 250 mls/hr Q12H PAT Administration Protocol Insulin Aspart 1 vial 01/13/19 22:00 01/15/19 06:38 Novolog Vial Sliding Scale - SQ 6 unit ACHS PAT Administration Protocol Insulin Detemir 32 units 01/14/19 07:00 01/15/19 06:37 Levemir Vial SQ 32 units DAILY@0700 PAT Administration Lactobacillus Acidophilus 1 tab 01/13/19 17:45 06/04/19 09:45 Bacid - PO 1 tab DAILY PAT Administration Liraglutide 1.8 mg 01/14/19 10:00 01/14/19 12:23 Victoza - SQ 1.8 mg DAILY PAT Administration Losartan Potassium 100 mg 01/14/19 10:00 01/14/19 09:45 Cozaar - PO 100 mg DAILY PAT Administration Metoprolol Succinate 50 mg 01/14/19 10:00 01/14/19 09:46 Toprol Xl - PO 50 mg DAILY PAT Administration Rosuvastatin Calcium 10 mg 01/14/19 10:00 01/14/19 09:46 Crestor - PO 10 mg DAILY PAT Administration ASSESSMENT/PLAN: This is a 58 yo F with PMH of IDDM last a1c 9, htn, hld, who was referred to ED by Dr Roldan for treatment of right fifth toe Osteomyelitis recently diagnosed om MRI 12/27/18. R 5th toe osteomyelitis IDDM HTN HLD morbid obesity -rocehin and vanco per ID -wound culture diptheroid/corynebac -vascular planning RLE pci possible stent tomorrow; npo after midnight -iss, victroza 1.8 mg d, levemir 32 u daily. -glucose goal <180 with diabetic ulcer infection, so far suboptimally controlled , will increase levemir to 20 u bid (has required around 18 u iss daily) -continue toprol xl, norvasc, hctz, losartan -continue crestor Problem List - Problems (1) Diabetes Code(s): E11.9 - TYPE 2 DIABETES MELLITUS WITHOUT COMPLICATIONS (2) HLD (hyperlipidemia) Code(s): E78.5 - HYPERLIPIDEMIA, UNSPECIFIED (3) HTN (hypertension) Code(s): I10 - ESSENTIAL (PRIMARY) HYPERTENSION (4) Morbid obesity with BMI of 45.0-49.9, adult Code(s): E66.01 - MORBID (SEVERE) OBESITY DUE TO EXCESS CALORIES; Z68.42 - BODY MASS INDEX (BMI) 45.0-49.9, ADULT (5) Osteomyelitis Code(s): M86.9 - OSTEOMYELITIS, UNSPECIFIED Qualifiers: Osteomyelitis type: other acute Osteomyelitis location: foot Laterality: right Qualified Code(s): M86.171 - Other acute osteomyelitis, right ankle and foot Visit type - Emergency Visit Emergency Visit: Yes ED Registration Date: 01/13/19 Care time: The patient presented to the Emergency Department on the above date and was hospitalized for further evaluation of their emergent condition. - New Patient This patient is new to me today: No - Critical Care Critical Care patient: No - Discharge Referral Referred to [facility] Med P.C.: No
--- NOTE | 2019-01-15 08:41 | SPA.PREOP ---
- PRE-OP NOTE Dx: Right 5th toe osteomyelitis, DM, HTN, Morbid Obesity Planned Procedure: RLE Aortogram, Angiogram, possible angioplasty, possible stent Surgeon: Shon Car Last Vital Signs Temp Pulse Resp BP Pulse Ox 98.4 F 79 20 124/59 L 98 01/15/19 06:00 01/15/19 06:00 01/15/19 06:00 01/15/19 06:00 01/14/19 09:00 CBC, BMP 01/15/19 07:00 01/15/19 07:00 INR, PTT INR 1.00 (0.83-1.09) 01/13/19 11:16 - IMAGING MRI: Report Reviewed - ASSESSMENT/PLAN 1. Make NPO after midnight except PO meds 2. GI/DVT PPX 3. Medical optimization / clearance 4. Tight glycemic control 5. Consent to be obtained by surgeon after risks, benefits and alternatives discussed with patient and or Health Care Proxy. Problem List - Problems (1) Osteomyelitis Code(s): M86.9 - OSTEOMYELITIS, UNSPECIFIED Qualifiers: Osteomyelitis type: other acute Osteomyelitis location: foot Laterality: right Qualified Code(s): M86.171 - Other acute osteomyelitis, right ankle and foot (2) Diabetes Code(s): E11.9 - TYPE 2 DIABETES MELLITUS WITHOUT COMPLICATIONS (3) HTN (hypertension) Code(s): I10 - ESSENTIAL (PRIMARY) HYPERTENSION (4) Morbid obesity with BMI of 45.0-49.9, adult Code(s): E66.01 - MORBID (SEVERE) OBESITY DUE TO EXCESS CALORIES; Z68.42 - BODY MASS INDEX (BMI) 45.0-49.9, ADULT Visit type - Case Type Case Type: ED Admission - New patient This patient is new to me today: Yes Date on this admission: 01/15/19
[2019-01-15] MEDS ORDERED: PT OWN MED DRAWER 7, Y5N ONE ×2 (09:02→09:25)
[2019-01-15] MEDS: VANCOMYCIN 1 GRAM (PRE-DOCKED) 1,000 MG/250 ML BAG IVPB SCH ×2 (09:06→20:45)
[2019-01-15] MEDS: LOSARTAN POTASSIUM 50 MG TABLET (FP) PO SCH (09:11)
[2019-01-15] MEDS: LACTOBACILLUS ACIDOPHILUS 1 TABLET PO SCH (09:11)
[2019-01-15] MEDS: amLODIPine BESYLATE 10 MG TABLET (FP) PO SCH (09:12)
[2019-01-15] MEDS: HYDROCHLOROTHIAZIDE 12.5 MG CAPSULE (FP) PO SCH (09:12)
[2019-01-15] MEDS: ROSUVASTATIN CA 10 MG TABLET (FP) PO SCH (09:12)
--- NOTE | 2019-01-15 10:00 | PN ---
Progress Note, Physician History of Present Illness: stable no new issues - Current Medication List Current Medications: Active Medications Acetaminophen (Tylenol -) 650 mg PO Q4H PRN PRN Reason: FEVER Amlodipine Besylate (Norvasc -) 10 mg PO DAILY [facility] Last Admin: 01/15/19 09:12 Dose: 10 mg Bacitracin (Bacitracin -) 1 applic TP DAILY [facility] Last Admin: 01/14/19 14:50 Dose: 1 applic Hydrochlorothiazide (Hctz -) 12.5 mg PO DAILY [facility] Last Admin: 01/15/19 09:12 Dose: 12.5 mg Vancomycin HCl (Vancomycin (Pre-Docked)) 1,000 mg in 250 mls @ 250 mls/hr IVPB Q12H [facility]; Protocol Last Admin: 01/15/19 09:06 Dose: 250 mls/hr Insulin Aspart (Novolog Vial Sliding Scale -) 1 vial SQ ACHS [facility]; Protocol Last Admin: 01/15/19 06:38 Dose: 6 unit Insulin Detemir (Levemir Vial) 32 units SQ DAILY@0700 [facility] Last Admin: 01/15/19 06:37 Dose: 32 units Lactobacillus Acidophilus (Bacid -) 1 tab PO DAILY [facility] Last Admin: 01/15/19 09:11 Dose: 1 tab Liraglutide (Victoza -) 1.8 mg SQ DAILY [facility] Last Admin: 01/14/19 12:23 Dose: 1.8 mg Losartan Potassium (Cozaar -) 100 mg PO DAILY [facility] Last Admin: 01/15/19 09:11 Dose: 100 mg Metoprolol Succinate (Toprol Xl -) 50 mg PO DAILY [facility] Last Admin: 01/15/19 09:12 Dose: 50 mg Rosuvastatin Calcium (Crestor -) 10 mg PO DAILY [facility] Last Admin: 01/15/19 09:12 Dose: 10 mg - Objective Vital Signs: Vital Signs Temperature 98.4 F 01/15/19 06:00 Pulse Rate 79 01/15/19 06:00 Respiratory Rate 20 01/15/19 06:00 Blood Pressure 124/59 L 01/15/19 06:00 O2 Sat by Pulse Oximetry (%) 98 01/14/19 09:00 Constitutional: Yes: No Distress, Calm Cardiovascular: Yes: Regular Rate and Rhythm Respiratory: Yes: Regular, CTA Bilaterally Gastrointestinal: Yes: Normal Bowel Sounds, Soft Musculoskeletal: Yes: WNL Extremities: Yes: WNL Neurological: Yes: Alert, Oriented Psychiatric: Yes: Alert, Oriented Labs: CBC, BMP 01/15/19 07:00 01/15/19 07:00 INR, PTT INR 1.00 (0.83-1.09) 01/13/19 11:16 Assessment/Plan Problem List - Problem (1) Diabetes Code(s): E11.9 - TYPE 2 DIABETES MELLITUS WITHOUT COMPLICATIONS (2) HLD (hyperlipidemia) Code(s): E78.5 - HYPERLIPIDEMIA, UNSPECIFIED (3) HTN (hypertension) Code(s): I10 - ESSENTIAL (PRIMARY) HYPERTENSION (4) Morbid obesity with BMI of 45.0-49.9, adult Code(s): E66.01 - MORBID (SEVERE) OBESITY DUE TO EXCESS CALORIES; Z68.42 - BODY MASS INDEX (BMI) 45.0-49.9, ADULT (5) Osteomyelitis Code(s): M86.9 - OSTEOMYELITIS, UNSPECIFIED Qualifiers: Osteomyelitis type: other acute Osteomyelitis location: foot Laterality: right Qualified Code(s): M86.171 - Other acute osteomyelitis, right ankle and foot plan continue vanco vascular plan noted wound care rest as per the team
[2019-01-15] MEDS: LIRAGLUTIDE 0.6 MG/0.1 ML PEN.INJCTR SQ SCH (10:26)
[2019-01-15] MEDS ORDERED: INSULIN (LEVEMIR) 100 UNITS/ML UNITS SQ SCH ×2 (10:57→22:00)
--- NOTE | 2019-01-15 11:29 | CON.CARD ---
Consult Consult Specialty:: Cardiology Referred by:: Medicine Reason for Consultation:: h/o CAD - History of Present Illness Chief Complaint: osteomyelitis History of Present Illness: 58F h/o CAD, DM, HTN, HLD p/w osteomyelitis. She has been treated with IV abx here, planned aortogram and angiogram. Sees me for cardio. No chest pain, palps, dizziness, lightheadedness. Prior to admission she was active with walking, no exertional symptoms. - History Source History Provided By: Patient Limitations to Obtaining History: No Limitations - Alcohol/Substance Use Hx Alcohol Use: No - Smoking History Smoking history: Former smoker Have you smoked in the past 12 months: No Aproximately how many cigarettes per day: 0 If you are a former smoker, when did you quit?: 47 yrs ago Home Medications - Allergies Allergies/Adverse Reactions: Allergies Allergy/AdvReac Type Severity Reaction Status Date / Time No Known Allergies Allergy Verified 01/13/19 10:22 - Home Medications Home Medications: Ambulatory Orders Insulin Glargine,Hum.rec.anlog [Lantus] 32 unit SQ DAILY 12/13/18 Liraglutide [Victoza -] 1.8 unit SQ DAILY 12/13/18 Amlodipine Besylate 10 mg PO DAILY 01/13/19 Metoprolol Succinate 50 mg PO DAILY 01/13/19 Olmesartan/Hydrochlorothiazide [Benicar Hct 40-12.5 mg Tablet] 1 each PO DAILY 01/13/19 Rosuvastatin [Crestor -] 10 mg PO DAILY 01/13/19 Latanoprost 0.005% Eye Drops 01/14/19 Family Disease History - Family Disease History Family History: Unremarkable Review of Systems - Review of Systems Constitutional: reports: No Symptoms Eyes: reports: No Symptoms HENT: reports: No Symptoms Neck: reports: No Symptoms Cardiovascular: reports: No Symptoms Respiratory: reports: No Symptoms Gastrointestinal: reports: No Symptoms Genitourinary: reports: No Symptoms Musculoskeletal: reports: No Symptoms Integumentary: reports: No Symptoms Neurological: reports: No Symptoms Endocrine: reports: No Symptoms Hematology/Lymphatic: reports: No Symptoms Psychiatric: reports: No Symptoms Vital Signs: Vital Signs Temperature 98.4 F 01/15/19 06:00 Pulse Rate 79 01/15/19 06:00 Respiratory Rate 20 01/15/19 06:00 Blood Pressure 124/59 L 01/15/19 06:00 O2 Sat by Pulse Oximetry (%) 98 01/14/19 09:00 Constitutional: Yes: No Distress, Calm Eyes: Yes: Conjunctiva Clear, EOM Intact HENT: Yes: Atraumatic, Normocephalic Neck: Yes: Supple, Trachea Midline Respiratory: Yes: Regular, CTA Bilaterally Gastrointestinal: Yes: Normal Bowel Sounds, Soft Cardiovascular: Yes: Regular Rate and Rhythm JVD: No Carotid Bruit: No PMI: Non-Displaced Heart Sounds: Yes: S1, S2 Murmur: No: Systolic Murmur Musculoskeletal: No: Back Pain Extremities: No: Cold Edema: No Peripheral Pulses WNL: Yes Peripheral Pulses: 2+ Left Doralis Pedis, 2+ Right Dorsalis Pedis Integumentary: No: Jaundice Neurological: Yes: Alert, Oriented Psychiatric: No: Agitated - Other Data Labs, Other Data: CBC, BMP 01/15/19 07:00 01/15/19 07:00 INR, PTT INR 1.00 (0.83-1.09) 01/13/19 11:16 Assessment/Plan EKG: sinus, LBBB (stable compared to prior) echo 09/2017 tds, nl LV function, mild functional MS/MAC cath 2010 nl EF, OM1 70-80%, mild RCA dz - medically managed 58F h/o CAD, DM, HTN, HLD p/w osteomyelitis osteomyelitis, preop - abx per ID, primary - patient is stable from cardiac perspective, no contraindication to planned aortogram, angiogram CAD - h/o OM1 lesion, medically managed - continue aspirin, statin, bb HTN - controlled, continue current meds DM - poorly controlled - manage per primary
[2019-01-15] MEDS: BACITRACIN 15 GM TUBE TOPICAL OINTMENT TP SCH (14:56)
--- NOTE | 2019-01-15 16:48 | PN ---
Teaching Attending Note Name of Resident: Zayra Siu ATTENDING PHYSICIAN STATEMENT I saw and evaluated the patient. I reviewed the resident's note and discussed the case with the resident. I agree with the resident's findings and plan as documented. SUBJECTIVE: Ms Amos is without complaint. Denies cp, sob, n/v. OBJECTIVE: Gen: nad, obese Pulm: ctab w/o w/r/r CV: rrr w/o m/r/g Abd: +bs, s/nt/nd Ext: R 5th toe with ulceration CBC, BMP 01/15/19 07:00 01/15/19 07:00 ASSESSMENT AND PLAN: (1) Osteomyelitis Assessment/Plan: -outpatient wound cultures growing coag negative staph -continue vancomycin per ID -follow up trough level -plan for angiogram with possible stent placement -patient says she does not know if she wants the stent as she has an upcoming [place] [facility] [place] and doesn't want to miss that -explained to her the importance of a stent if she needs it Code(s): M86.9 - OSTEOMYELITIS, UNSPECIFIED Qualifiers: Osteomyelitis type: other acute Osteomyelitis location: foot Laterality: right Qualified Code(s): M86.171 - Other acute osteomyelitis, right ankle and foot (2) HTN (hypertension) Assessment/Plan: -continue amlodipine 10mg daily -continue HCTZ 12.5mg daily -continue losartan 100mg daily -continue toprol xl 50mg daily Code(s): I10 - ESSENTIAL (PRIMARY) HYPERTENSION (3) Diabetes Assessment/Plan: -diabetic diet -continue Vicotoza 1.8mg SC daily -still requiring a significant amount of SSI -will trial levemir 20 units q12h for better control -FSBS and SSI Code(s): E11.9 - TYPE 2 DIABETES MELLITUS WITHOUT COMPLICATIONS (4) HLD (hyperlipidemia) Assessment/Plan: -continue statin Code(s): E78.5 - HYPERLIPIDEMIA, UNSPECIFIED (5) Morbid obesity with BMI of 45.0-49.9, adult Assessment/Plan: -outpatient weight loss program Code(s): E66.01 - MORBID (SEVERE) OBESITY DUE TO EXCESS CALORIES; Z68.42 - BODY MASS INDEX (BMI) 45.0-49.9, ADULT Problem List - Problems (1) Osteomyelitis Code(s): M86.9 - OSTEOMYELITIS, UNSPECIFIED Qualifiers: Osteomyelitis type: other acute Osteomyelitis location: foot Laterality: right Qualified Code(s): M86.171 - Other acute osteomyelitis, right ankle and foot (2) HTN (hypertension) Code(s): I10 - ESSENTIAL (PRIMARY) HYPERTENSION (3) Diabetes Code(s): E11.9 - TYPE 2 DIABETES MELLITUS WITHOUT COMPLICATIONS (4) HLD (hyperlipidemia) Code(s): E78.5 - HYPERLIPIDEMIA, UNSPECIFIED (5) Morbid obesity with BMI of 45.0-49.9, adult Code(s): E66.01 - MORBID (SEVERE) OBESITY DUE TO EXCESS CALORIES; Z68.42 - BODY MASS INDEX (BMI) 45.0-49.9, ADULT
[2019-01-15] MEDS ORDERED: LATANOPROST 0.005% OPHTH SOLN 2.5ML BOTTLE OU SCH (22:00)
[2019-01-16] MEDS: INSULIN (LEVEMIR) 100 UNITS/ML UNITS SQ SCH ×3 (06:13→23:31)
[2019-01-16] MEDS: INSULIN SLIDING SCALE (NOVOLOG) 1 VIAL SQ SCH ×4 (06:13→21:32)
[2019-01-16] MEDS ORDERED: PT OWN MED DRAWER 7, Y5N ONE ×2 (06:38→21:16)
[2019-01-16] MEDS ORDERED: LIDOCAINE HCL 1%, 10 MG/ML (20ML VIAL) ONE (07:28)
[2019-01-16] MEDS ORDERED: HEPARIN NA (PORCINE) 5,000 UNITS/ML 1ML VIAL ONE (07:28)
--- NOTE | 2019-01-16 07:53 | PN ---
Physical Exam: SUBJECTIVE: Patient seen and examined resting in bed nad, afebrile hemodynamically stable, POD0 s/p RLE PCI. denies f/ c, malaise, rash, sob, cough. OBJECTIVE: Vital Signs Period Temp Pulse Resp BP Sys/[place] Pulse Ox Last 24 Hr 97.6 F-98.2 F 78-83 18-20 109-136/57-73 98 GENERAL: Awake, alert, and fully oriented, in no acute distress. HEAD: Normal with no signs of trauma. EYES: Pupils equal, round and reactive to light, extraocular movements intact, sclera anicteric, conjunctiva clear. No lid lag. EARS, NOSE, THROAT: Moist mucous membranes. NECK: supple without lymphadenopathy LUNGS: Breath sounds equal, clear to auscultation bilaterally Breasts: no lumps, mass or axillary adenopathy HEART: Regular rate and rhythm, normal S1 and S2 ABDOMEN: Soft, nontender, not distended, normoactive bowel sounds. L groin puncture site w/o bleeding or hematoma MUSCULOSKELETAL: No CVA tenderness. LOWER EXTREMITIES: 2+ dp 1+ pt b/l, R 5th lateral toe ulcer with yellow scab, no discharge no cellulitis NEUROLOGICAL: Cranial nerves II-XII intact. extremities strenght 5/5 b/l, sensation intact b/l, patellar reflexes 2+ b/l. Normal speech. PSYCHIATRIC: Cooperative. Good eye contact. Appropriate mood and affect. SKIN: Warm, dry Laboratory Results - last 24 hr 01/15/19 01/15/19 01/15/19 11:44 16:51 21:21 POC Glucometer 271 210 302 01/16/19 06:10 POC Glucometer 221 Active Medications Generic Name Dose Route Start Last Admin Trade Name Freq PRN Reason Stop Dose Admin Acetaminophen 650 mg 01/13/19 17:35 Tylenol - PO Q4H PRN FEVER Amlodipine Besylate 10 mg 01/14/19 10:00 01/15/19 09:12 Norvasc - PO 10 mg DAILY PAT Administration Bacitracin 1 applic 01/14/19 10:00 01/15/19 14:56 Bacitracin - TP 1 applic DAILY PAT Administration Hydrochlorothiazide 12.5 mg 01/14/19 10:00 01/15/19 09:12 Hctz - PO 12.5 mg DAILY PAT Administration Vancomycin HCl 1,000 mg in 250 mls @ 250 mls/hr 01/14/19 09:00 01/15/19 20:45 Vancomycin (Pre-Docked) IVPB 250 mls/hr Q12H PAT Administration Protocol Insulin Aspart 1 vial 01/13/19 22:00 01/16/19 06:13 Novolog Vial Sliding Scale - SQ Not Given ACHS PAT Protocol Insulin Detemir 20 units 01/16/19 07:00 01/16/19 06:13 Levemir Vial SQ Not Given BID PAT Lactobacillus Acidophilus 1 tab 01/13/19 17:45 01/15/19 09:11 Bacid - PO 1 tab DAILY PAT Administration Latanoprost 1 drop 01/15/19 22:00 01/15/19 21:40 Xalatan 0.005% Eye Drops - OU 1 drop HS PAT Administration Liraglutide 1.8 mg 01/14/19 10:00 01/15/19 10:26 Victoza - SQ 1.8 mg DAILY PAT Administration Losartan Potassium 100 mg 01/14/19 10:00 01/15/19 09:11 Cozaar - PO 100 mg DAILY PAT Administration Metoprolol Succinate 50 mg 01/14/19 10:00 01/15/19 09:12 Toprol Xl - PO 50 mg DAILY PAT Administration Rosuvastatin Calcium 10 mg 01/14/19 10:00 01/15/19 09:12 Crestor - PO 10 mg DAILY PAT Administration ASSESSMENT/PLAN: This is a 58 yo F with PMH of IDDM last a1c 9, htn, hld, who was referred to ED by Dr Roldan for treatment of right fifth toe Osteomyelitis recently diagnosed om MRI 12/27/18. R 5th toe osteomyelitis POD0 s/p RLE angiogram, r SFA atherectomy and angioplasty IDDM HTN HLD morbid obesity -rocehin and vanco per ID trough tomorrow AM. patient will need picc line tomorrow if she is willing to skip her cruise vacation in order to get 6w IV abx -wound culture diptheroid/corynebac -vascular following, plavix started. -iss, victroza 1.8 mg d, levemir 32 u daily. -glucose goal <180 with diabetic ulcer infection, so far suboptimally controlled , will increase levemir to 20 u bid (has required around 18 u iss daily) -continue toprol xl, norvasc, hctz, losartan -continue crestor Problem List - Problems (1) Diabetes Code(s): E11.9 - TYPE 2 DIABETES MELLITUS WITHOUT COMPLICATIONS (2) HLD (hyperlipidemia) Code(s): E78.5 - HYPERLIPIDEMIA, UNSPECIFIED (3) HTN (hypertension) Code(s): I10 - ESSENTIAL (PRIMARY) HYPERTENSION (4) Morbid obesity with BMI of 45.0-49.9, adult Code(s): E66.01 - MORBID (SEVERE) OBESITY DUE TO EXCESS CALORIES; Z68.42 - BODY MASS INDEX (BMI) 45.0-49.9, ADULT (5) Osteomyelitis Code(s): M86.9 - OSTEOMYELITIS, UNSPECIFIED Qualifiers: Osteomyelitis type: other acute Osteomyelitis location: foot Laterality: right Qualified Code(s): M86.171 - Other acute osteomyelitis, right ankle and foot Visit type - Emergency Visit Emergency Visit: Yes ED Registration Date: 01/13/19 Care time: The patient presented to the Emergency Department on the above date and was hospitalized for further evaluation of their emergent condition. - New Patient This patient is new to me today: No - Critical Care Critical Care patient: No - Discharge Referral Referred to [facility] No
--- NOTE | 2019-01-16 08:09 | PN ---
Teaching Attending Note Name of Resident: Zayra Siu ATTENDING PHYSICIAN STATEMENT I saw and evaluated the patient. I reviewed the resident's note and discussed the case with the resident. I agree with the resident's findings and plan as documented with exceptions below. SUBJECTIVE: Patient seen and examined, denies any leg pain, fevers, chills or new concerns. Reports poor control of blood sugars at home. Awaiting procedure today. OBJECTIVE: Vital Signs Period Temp Pulse Resp BP Sys/[place] Pulse Ox Last 24 Hr 97.6 F-98.2 F 78-83 18-20 109-128/57-73 98 Intake & Output 01/13/19 01/14/19 01/15/19 01/16/19 23:59 23:59 23:59 23:59 Intake Total 600 1300 1300 Balance 600 1300 1300 Weight 280 lb 280 lb General: lying in bed in no acute distress, morbidly obese BMI 45.2 Chest: CTAB, no rales or wheezing Abdomen:Soft, obese, NT Extremities: right 5th toe ulcer with scab on lateral aspect, no erythema, discharge, swelling, warmth or tenderness noted ASSESSMENT AND PLAN: 58 yof with PMhx of CAD (OM1 70-80%, mild RCA dz in 2010 medically managed), HTN , HLD, IDDM poorly controlled sent in by Dr. Roldan after found with right fifth toe osteomyelitis on MRI on 12/27 -Right 5th toe osteomyelitis -PVD -IDDM -CAD (OM1 70-80%, mild RCA dz in 2010 medically managed) -HTN -HLD Plan: ID/vascular surgery input noted Outpatient wound cx noted Vancomycin. Plan for angiogram +/- PCI placement today, will follow up. Cardiology input noted, continue current meds ISS, Victoza. Increase levemir based on blood glucose readings, continues to be hyperglycemic, Patient counseled on need for close home monitoring, med/dietary compliance and outpatient endocrine follow up. Hold HCTZ in david-op period. DVTPPx start Heparin post-op, plan discussed with patient and nursing in detail , all questions answered.
[2019-01-16 08:12] LABS: INR 0.99 (0.83-1.09); PROTHROMBIN TIME (PATIENT) 11.7 SEC (9.7-13.0)
[2019-01-16] MEDS ORDERED: MIDAZOLAM HCL 2 MG/2 ML SINGLE DOSE VIAL ONE ×3 (08:20→08:34)
[2019-01-16] MEDS ORDERED: ceFAZolin SODIUM 1 GM VIAL IVPB ONE (08:28)
[2019-01-16] MEDS ORDERED: LIDOCAINE HCL 1%, 10 MG/ML (50 mL VIAL) IJ ONE ×2 (08:34)
[2019-01-16 08:36] LABS: CALCIUM 9.3 mg/dL (8.5-10.1); MAGNESIUM 2.2 mg/dL (1.8-2.4); PHOSPHOROUS 3.8 mg/dL (2.5-4.9); POTASSIUM 4.5 mmol/L (3.5-5.1)
[2019-01-16 09:12] LABS: HEMOGLOBIN 11.5 GM/dL (10.7-15.3); MCH 27.9 pg (25.7-33.7); MEAN CELL VOLUME 87.3 fl (80-96); MEAN PLT VOLUME 10.1 fl (7.5-11.1); PLATELET COUNT 261 K/MM3 (134-434); RBC 4.13 M/mm3 (3.60-5.2); RDW 13.6 % (11.6-15.6); WHITE BLOOD COUNT 5.2 K/mm3 (4.0-10.0)
--- NOTE | 2019-01-16 09:30 | OP ---
Operative Note - Note: Operative Date: 01/16/19 Pre-Operative Diagnosis: Right fifth toe ulcer Operation: Aortogram, RLE angiogram, SFA atherectomy, SFA angioplasty Findings: SFA stenosis - 90% Post-Operative Diagnosis: Same as Pre-op Surgeon: Shon Car Anesthesia: Fractional Estimated Blood Loss (mls): 50 Operative Report Dictated: Yes
--- NOTE | 2019-01-16 09:35 | PN ---
Progress Note (short form) - Note Progress Note: Vascular Surgery S/P atherectomy with angioplasty right sfa. Good runoff into foot now. Pt started on plavix. Pt cleared from vascular standpoint for DC. Can follow up in clinic in one week. ID for antibiotic treatment. HBO upon DC Shon Car DO
[2019-01-16] MEDS ORDERED: CLOPIDOGREL BISULFATE 75 MG TABLET (FP) ONE (09:41)
[2019-01-16] MEDS ORDERED: ONDANSETRON 4 MG/2 ML VIAL IVPUSH PRN (09:54)
[2019-01-16] MEDS ORDERED: hydrALAZINE HCL 20 MG/ML VIAL IVPUSH ONE ×3 (09:54→10:15)
[2019-01-16] MEDS ORDERED: LACTATED RINGERS SOLUTION 1,000 ML IV SCH (10:00)
[2019-01-16] MEDS ORDERED: ACETAMINOPHEN 325 MG TABLET (FP) PO PRN (10:06)
[2019-01-16] MEDS ORDERED: CLOPIDOGREL BISULFATE 75 MG TABLET (FP) PO ONE (10:08)
[2019-01-16] MEDS: LACTOBACILLUS ACIDOPHILUS 1 TABLET PO SCH ×2 (11:50→13:17)
[2019-01-16] MEDS: CLOPIDOGREL BISULFATE 75 MG TABLET (FP) PO SCH (12:06)
--- NOTE | 2019-01-16 12:37 | PN ---
Progress Note, Physician - Current Medication List Current Medications: Active Medications Acetaminophen (Tylenol -) 650 mg PO Q4H PRN PRN Reason: FEVER Amlodipine Besylate (Norvasc -) 10 mg PO DAILY [facility] Bacitracin (Bacitracin -) 1 applic TP DAILY [facility] Clopidogrel Bisulfate (Plavix -) 75 mg PO DAILY [facility] Last Admin: 01/16/19 12:06 Dose: 75 mg Fentanyl (Sublimaze Injection -) 50 mcg IVPUSH [id number] PRN PRN Reason: PAIN-PACU ORDER X 4 DOSES ONLY Heparin Sodium (Porcine) (Heparin -) 5,000 unit SQ TID [facility] Hydrochlorothiazide (Hctz -) 12.5 mg PO DAILY [facility] Lactated Ringer's (Lactated Ringers Solution) 1,000 mls @ 75 mls/hr IV ASDIR [facility] Last Admin: 01/16/19 11:52 Dose: 75 mls/hr Vancomycin HCl (Vancomycin (Pre-Docked)) 1,000 mg in 250 mls @ 250 mls/hr IVPB Q12H [facility]; Protocol Vancomycin HCl (Vancomycin (Pre-Docked)) 1,000 mg in 250 mls @ 250 mls/hr IVPB Q12H [facility] Stop: 01/17/19 09:59 Insulin Aspart (Novolog Vial Sliding Scale -) 1 vial SQ ACHS [facility]; Protocol Last Admin: 01/16/19 11:46 Dose: 4 unit Insulin Detemir (Levemir Vial) 20 units SQ BID [facility] Lactobacillus Acidophilus (Bacid -) 1 tab PO DAILY [facility] Last Admin: 01/16/19 11:50 Dose: 1 tab Latanoprost (Xalatan 0.005% Eye Drops -) 1 drop OU HS [facility] Liraglutide (Victoza -) 1.8 mg SQ DAILY [facility] Losartan Potassium (Losartan Potassium) 100 mg PO DAILY [facility] Metoprolol Succinate (Toprol Xl -) 50 mg PO DAILY [facility] Last Admin: 01/16/19 11:50 Dose: 50 mg Ondansetron HCl (Zofran Injection) 4 mg IVPUSH Q6H PRN PRN Reason: NAUSEA AND/OR VOMITING Rosuvastatin Calcium (Crestor -) 10 mg PO DAILY [facility] - Objective Vital Signs: Vital Signs Temperature 98.0 F 01/16/19 10:30 Pulse Rate 72 01/16/19 10:30 Respiratory Rate 16 01/16/19 10:30 Blood Pressure 170/70 01/16/19 10:30 O2 Sat by Pulse Oximetry (%) 97 01/16/19 10:30 Labs: CBC, BMP 01/16/19 06:40 01/16/19 06:40 INR, PTT INR 0.99 (0.83-1.09) 01/16/19 06:40
[2019-01-16] MEDS: VANCOMYCIN 1 GRAM (PRE-DOCKED) 1,000 MG/250 ML BAG IVPB SCH ×2 (13:17→21:30)
[2019-01-16] MEDS: BACITRACIN 15 GM TUBE TOPICAL OINTMENT TP SCH (13:40)
[2019-01-16] MEDS: LOSARTAN POTASSIUM 50 MG TABLET (FP) PO SCH (13:41)
[2019-01-16] MEDS: ROSUVASTATIN CA 10 MG TABLET (FP) PO SCH (13:41)
--- NOTE | 2019-01-16 15:36 | PN ---
Progress Note (short form) - Note Progress Note: s: s/p angioplasty with atherectomy of R SFA today. no chest pain, palps, dizziness, lightheadedness Current Medications Acetaminophen (Tylenol -) 650 mg PO Q4H PRN PRN Reason: FEVER Amlodipine Besylate (Norvasc -) 10 mg PO DAILY [facility] Bacitracin (Bacitracin -) 1 applic TP DAILY [facility] Clopidogrel Bisulfate (Plavix -) 75 mg PO DAILY [facility] Last Admin: 01/16/19 12:06 Dose: 75 mg Fentanyl (Sublimaze Injection -) 50 mcg IVPUSH [id number] PRN PRN Reason: PAIN-PACU ORDER X 4 DOSES ONLY Heparin Sodium (Porcine) (Heparin -) 5,000 unit SQ TID [facility] Hydrochlorothiazide (Hctz -) 12.5 mg PO DAILY [facility] Lactated Ringer's (Lactated Ringers Solution) 1,000 mls @ 75 mls/hr IV ASDIR [facility] Last Admin: 01/16/19 11:52 Dose: 75 mls/hr Vancomycin HCl (Vancomycin (Pre-Docked)) 1,000 mg in 250 mls @ 250 mls/hr IVPB Q12H [facility]; Protocol Vancomycin HCl (Vancomycin (Pre-Docked)) 1,000 mg in 250 mls @ 250 mls/hr IVPB Q12H [facility] Stop: 01/17/19 09:59 Insulin Aspart (Novolog Vial Sliding Scale -) 1 vial SQ ACHS [facility]; Protocol Last Admin: 01/16/19 11:46 Dose: 4 unit Insulin Detemir (Levemir Vial) 20 units SQ BID [facility] Lactobacillus Acidophilus (Bacid -) 1 tab PO DAILY [facility] Last Admin: 01/16/19 11:50 Dose: 1 tab Latanoprost (Xalatan 0.005% Eye Drops -) 1 drop OU HS [facility] Liraglutide (Victoza -) 1.8 mg SQ DAILY [facility] Losartan Potassium (Losartan Potassium) 100 mg PO DAILY [facility] Metoprolol Succinate (Toprol Xl -) 50 mg PO DAILY [facility] Last Admin: 01/16/19 11:50 Dose: 50 mg Ondansetron HCl (Zofran Injection) 4 mg IVPUSH Q6H PRN PRN Reason: NAUSEA AND/OR VOMITING Rosuvastatin Calcium (Crestor -) 10 mg PO DAILY [facility] Vital Signs Period Temp Pulse Resp BP Sys/[place] Pulse Ox Last 24 Hr 97.6 F-98.2 F 70-83 16-20 109-182/57-75 97-100 Constitutional: Yes: No Distress, Calm Eyes: Yes: Conjunctiva Clear, EOM Intact HENT: Yes: Atraumatic, Normocephalic Neck: Yes: Supple, Trachea Midline Respiratory: Yes: Regular, CTA Bilaterally Gastrointestinal: Yes: Normal Bowel Sounds, Soft Cardiovascular: Yes: Regular Rate and Rhythm JVD: No Carotid Bruit: No PMI: Non-Displaced Heart Sounds: Yes: S1, S2 Murmur: No: Systolic Murmur Musculoskeletal: No: Back Pain Extremities: No: Cold Edema: No Peripheral Pulses WNL: Yes Peripheral Pulses: 2+ Left Doralis Pedis, 2+ Right Dorsalis Pedis Integumentary: No: Jaundice Neurological: Yes: Alert, Oriented Psychiatric: No: Agitated Assessment/Plan EKG: sinus, LBBB (stable compared to prior) echo 09/2017 tds, nl LV function, mild functional MS/MAC cath 2010 nl EF, OM1 70-80%, mild RCA dz - medically managed 58F h/o CAD, DM, HTN, HLD p/w osteomyelitis PAD - s/p R SFA atherectomy and angioplasty - on plavix - manage per vascular osteomyelitis - abx per ID, primary CAD - h/o OM1 lesion, medically managed - continue plavix, statin, bb HTN - controlled, continue current meds DM - poorly controlled - manage per primary
[2019-01-16] MEDS ORDERED: VANCOMYCIN 1 GRAM (PRE-DOCKED) 1,000 MG/250 ML BAG IVPB SCH (21:00)
[2019-01-16] MEDS: HEPARIN NA (PORCINE) 5,000 UNITS/ML 1ML VIAL SQ SCH (21:31)
[2019-01-16] MEDS ORDERED: HEPARIN NA (PORCINE) 5,000 UNITS/ML 1ML VIAL SQ SCH (22:00)
[2019-01-16] MEDS ORDERED: LATANOPROST 0.005% OPHTH SOLN 2.5ML BOTTLE OU SCH (22:00)
[2019-01-16] MEDS: LIRAGLUTIDE 0.6 MG/0.1 ML PEN.INJCTR SQ SCH (23:32)
[2019-01-16] MEDS: amLODIPine BESYLATE 10 MG TABLET (FP) PO SCH (23:32)
--- NOTE | 2019-01-17 00:33 | OP ---
DATE OF OPERATION: 01/16/2019 PREOPERATIVE DIAGNOSIS: Right fifth toe ulcer. POSTOPERATIVE DIAGNOSIS: Right fifth toe ulcer. PROCEDURE: Aortogram, right lower extremity angiogram, right superficial femoral artery atherectomy with angioplasty. SURGEON: Shon Stout DO ANESTHESIA: Fractional. BLOOD LOSS: 50 mL. The patient is a 58-year-old female that comes in with right fifth toe ulcer that has been longstanding. Preoperative ultrasound showed SFA disease. It was decided that she would need an angiogram. Patient was consented for the procedure, understanding all risks, benefits, and alternatives and taken to the operating room. Once in the operating room, she was placed on the operating table in supine manner. The area of the right and left groin were prepped and draped in sterile surgical manner. We then injected 10 mL of lidocaine 1% over the left common femoral artery. We then took our micropuncture needle and punctured the left common femoral artery. Micropuncture wire was inserted. A traditional 5-Polish sheath was inserted. We then placed a 0.035 floppy guidewire up into the aorta followed by Omni Flush catheter. We then shot an aortogram via hand injection showing that the aorta and the iliac arteries were without any disease. We then used our 0.035 floppy guidewire and went up and over to the right common femoral artery, and our Omni Flush catheter followed. We then shot an angiogram of the right lower extremity showing that the common femoral artery and the profunda were patent. The SFA was occluded from the origin and then reconstituted in its proximal to mid portion and came back fully distally in the adductor canal. Patient had a popliteal artery that was patent. Trifurcation was patent. Patient had 2 vessel runoff into the foot. At this point, we placed a 0.035 stiff guidewire in and selectively placed it into the SFA. Omni Flush catheter was removed, and 6 x 45 Crossover sheath was placed, and 5000 units of IV heparin was administered to the patient. We then used a Quick-Cross catheter, and we got down subintimally through the SFA and into the [place] artery at the adductor canal and placed a wire into the popliteal artery. We then exchanged the wire for a Viper wire. We then used a BioRelix Orbital Atherectomy Device and performed orbital atherectomy of the proximal SFA at its origin. We did that on low and medium. Once completed, we shot another angiogram showing that the SFA was more patent. We then went ahead and used a 5 x 220 ULTRAVERSE balloon and performed angioplasty of the entire SFA from the adductor canal up. We also then used a 6 x 6 balloon in the proximal SFA for the site that was occluded. Completion angiogram now showed that the SFA was patent. There was good brisk flow, there was 2-vessel runoff all the way into the foot. At this point, no intervention was needed. W brought our sheath up and over, StarClose Device was successfully deployed in the left common femoral artery. Pressure was held for 5 minutes. After there was no more bleeding, the areas were then dried, and Dermabond was placed. Patient tolerated the procedure with no complication. Patient transferred to PACU in stable condition. SHON STOUT DO [id number]
[2019-01-17] MEDS: HEPARIN NA (PORCINE) 5,000 UNITS/ML 1ML VIAL SQ SCH (06:17)
[2019-01-17] MEDS: INSULIN SLIDING SCALE (NOVOLOG) 1 VIAL SQ SCH ×2 (06:18→11:42)
[2019-01-17 07:29] LABS: BASO % 0.9 % (0-2.0); EOS % 4.2 % (0-4.5); HEMATOCRIT 33.7 % (32.4-45.2); LYMPH % 31.5 % (8-40); MCH 28.2 pg (25.7-33.7); MCHC 32.8 g/dl (32.0-36.0); MEAN CELL VOLUME 86.1 fl (80-96); MEAN PLT VOLUME 9.2 fl (7.5-11.1); MONO % 12.5 % (3.8-10.2); NEUT % 50.9 % (42.8-82.8); PLATELET COUNT 268 K/MM3 (134-434); RBC 3.91 M/mm3 (3.60-5.2); RDW 13.6 % (11.6-15.6); WHITE BLOOD COUNT 5.9 K/mm3 (4.0-10.0)
--- NOTE | 2019-01-17 08:34 | PN ---
Progress Note, Physician History of Present Illness: stable no issues - Current Medication List Current Medications: Active Medications Acetaminophen (Tylenol -) 650 mg PO Q4H PRN PRN Reason: FEVER Amlodipine Besylate (Norvasc -) 10 mg PO DAILY [facility] Bacitracin (Bacitracin -) 1 applic TP DAILY [facility] Clopidogrel Bisulfate (Plavix -) 75 mg PO DAILY [facility] Last Admin: 01/16/19 12:06 Dose: 75 mg Fentanyl (Sublimaze Injection -) 50 mcg IVPUSH [id number] PRN PRN Reason: PAIN-PACU ORDER X 4 DOSES ONLY Heparin Sodium (Porcine) (Heparin -) 5,000 unit SQ TID [facility] Last Admin: 01/17/19 06:17 Dose: 5,000 unit Hydrochlorothiazide (Hctz -) 12.5 mg PO DAILY [facility] Vancomycin HCl (Vancomycin (Pre-Docked)) 1,000 mg in 250 mls @ 250 mls/hr IVPB Q12H [facility]; Protocol Last Admin: 01/16/19 21:30 Dose: 250 mls/hr Insulin Aspart (Novolog Vial Sliding Scale -) 1 vial SQ ACHS [facility]; Protocol Last Admin: 01/17/19 06:18 Dose: 4 unit Insulin Detemir (Levemir Vial) 20 units SQ BID [facility] Last Admin: 01/16/19 21:31 Dose: 20 units Lactobacillus Acidophilus (Bacid -) 1 tab PO DAILY [facility] Last Admin: 01/16/19 11:50 Dose: 1 tab Latanoprost (Xalatan 0.005% Eye Drops -) 1 drop OU HS [facility] Last Admin: 01/16/19 21:33 Dose: 1 drop Liraglutide (Victoza -) 1.8 mg SQ DAILY [facility] Losartan Potassium (Cozaar -) 100 mg PO DAILY [facility] Metoprolol Succinate (Toprol Xl -) 50 mg PO DAILY [facility] Last Admin: 01/16/19 11:50 Dose: 50 mg Ondansetron HCl (Zofran Injection) 4 mg IVPUSH Q6H PRN PRN Reason: NAUSEA AND/OR VOMITING Rosuvastatin Calcium (Crestor -) 10 mg PO DAILY [facility] - Objective Vital Signs: Vital Signs Temperature 98.3 F 01/17/19 06:23 Pulse Rate 80 01/17/19 06:23 Respiratory Rate 20 01/17/19 06:23 Blood Pressure 145/63 01/17/19 06:23 O2 Sat by Pulse Oximetry (%) 96 01/16/19 21:00 Constitutional: Yes: No Distress, Calm Cardiovascular: Yes: Regular Rate and Rhythm Respiratory: Yes: Regular, CTA Bilaterally Gastrointestinal: Yes: Normal Bowel Sounds, Soft Musculoskeletal: Yes: WNL Extremities: Yes: Other Integumentary: Yes: Other Neurological: Yes: Alert, Oriented Psychiatric: Yes: Alert, Oriented Labs: CBC, BMP 01/17/19 06:54 01/16/19 06:40 INR, PTT INR 0.99 (0.83-1.09) 01/16/19 06:40 Assessment/Plan Problem List - Problem (1) Diabetes Code(s): E11.9 - TYPE 2 DIABETES MELLITUS WITHOUT COMPLICATIONS (2) HLD (hyperlipidemia) Code(s): E78.5 - HYPERLIPIDEMIA, UNSPECIFIED (3) HTN (hypertension) Code(s): I10 - ESSENTIAL (PRIMARY) HYPERTENSION (4) Morbid obesity with BMI of 45.0-49.9, adult Code(s): E66.01 - MORBID (SEVERE) OBESITY DUE TO EXCESS CALORIES; Z68.42 - BODY MASS INDEX (BMI) 45.0-49.9, ADULT (5) Osteomyelitis Code(s): M86.9 - OSTEOMYELITIS, UNSPECIFIED Qualifiers: Osteomyelitis type: other acute Osteomyelitis location: foot Laterality: right Qualified Code(s): M86.171 - Other acute osteomyelitis, right ankle and foot plan continue vanco vascular plan noted wound care will check vanco level
[2019-01-17] MEDS ORDERED: PT OWN MED DRAWER 7, Y5N ONE (09:00)
[2019-01-17] MEDS: VANCOMYCIN 1 GRAM (PRE-DOCKED) 1,000 MG/250 ML BAG IVPB SCH ×2 (09:23→11:11)
[2019-01-17] MEDS: LOSARTAN POTASSIUM 50 MG TABLET (FP) PO SCH ×2 (09:24→11:12)
[2019-01-17] MEDS: LACTOBACILLUS ACIDOPHILUS 1 TABLET PO SCH ×2 (09:24→11:12)
[2019-01-17] MEDS: ROSUVASTATIN CA 10 MG TABLET (FP) PO SCH ×2 (09:25→11:13)
[2019-01-17] MEDS: HYDROCHLOROTHIAZIDE 12.5 MG CAPSULE (FP) PO SCH ×2 (09:25→11:14)
[2019-01-17] MEDS: CLOPIDOGREL BISULFATE 75 MG TABLET (FP) PO SCH ×2 (09:26→11:14)
[2019-01-17] MEDS: amLODIPine BESYLATE 10 MG TABLET (FP) PO SCH ×2 (09:26→11:13)
[2019-01-17] MEDS: INSULIN (LEVEMIR) 100 UNITS/ML UNITS SQ SCH ×2 (09:26→11:14)
[2019-01-17] MEDS: LIRAGLUTIDE 0.6 MG/0.1 ML PEN.INJCTR SQ SCH ×2 (09:28→11:15)
[2019-01-17] MEDS ORDERED: BACITRACIN 15 GM TUBE TOPICAL OINTMENT TP SCH (10:00)
[2019-01-17] MEDS ORDERED: INSULIN (NOVOLOG) ASPART 100 UNITS/ML 10ML VIAL ONE (11:40)
[2019-01-17] MEDS ORDERED: INSULIN (LEVEMIR) 100 UNITS/ML UNITS SQ ONE (11:41)
[2019-01-17 12:54] VITALS: BP 138/69; PULSE 82; TEMP 98.7
--- NOTE | 2019-01-17 14:26 | PN ---
Progress Note (short form) - Note Progress Note: s:no chest pain, palps, dizziness, lightheadedness Current Medications Generic Name Dose Route Start Last Admin Trade Name Freq PRN Reason Stop Dose Admin Acetaminophen 650 mg 01/16/19 10:06 Tylenol - PO Q4H PRN FEVER Amlodipine Besylate 10 mg 01/17/19 10:00 01/17/19 11:13 Norvasc - PO 10 mg DAILY PAT Administration Bacitracin 1 applic 01/17/19 10:00 Bacitracin - TP DAILY PAT Clopidogrel Bisulfate 75 mg 01/16/19 10:00 01/17/19 11:14 Plavix - PO 75 mg DAILY PAT Administration Fentanyl 50 mcg 01/16/19 09:54 Sublimaze Injection - IVPUSH [id number] PRN PAIN-PACU ORDER X 4 DOSES ONLY Hydrochlorothiazide 12.5 mg 01/17/19 10:00 01/17/19 11:14 Hctz - PO 12.5 mg DAILY PAT Administration Vancomycin HCl 1,000 mg in 250 mls @ 250 mls/hr 01/16/19 21:00 01/17/19 11:11 Vancomycin (Pre-Docked) IVPB 250 mls/hr Q12H PAT Administration Protocol Insulin Aspart 1 vial 01/16/19 11:00 01/17/19 11:42 Novolog Vial Sliding Scale - SQ 8 unit ACHS PAT Administration Protocol Insulin Detemir 20 units 01/16/19 22:00 01/17/19 11:14 Levemir Vial SQ 20 units BID PAT Administration Lactobacillus Acidophilus 1 tab 01/17/19 10:00 01/17/19 11:12 Bacid - PO 1 tab DAILY PAT Administration Latanoprost 1 drop 01/16/19 22:00 01/16/19 21:33 Xalatan 0.005% Eye Drops - OU 1 drop HS PAT Administration Liraglutide 1.8 mg 01/17/19 10:00 01/17/19 11:15 Victoza - SQ 1.8 mg DAILY PAT Administration Losartan Potassium 100 mg 01/17/19 10:00 01/17/19 11:12 Cozaar - PO 100 mg DAILY PAT Administration Metoprolol Succinate 50 mg 01/17/19 10:00 01/17/19 11:14 Toprol Xl - PO 50 mg DAILY PAT Administration Ondansetron HCl 4 mg 01/16/19 09:54 Zofran Injection IVPUSH Q6H PRN NAUSEA AND/OR VOMITING Rosuvastatin Calcium 10 mg 01/17/19 10:00 01/17/19 11:13 Crestor - PO 10 mg DAILY PAT Administration Vital Signs Period Temp Pulse Resp BP Sys/[place] Pulse Ox Last 24 Hr 98.2 F-98.7 F 79-82 18-20 117-153/59-90 96 Constitutional: Yes: No Distress, Calm Eyes: Yes: Conjunctiva Clear Respiratory: Yes: Regular, CTA Bilaterally Gastrointestinal: Yes: Normal Bowel Sounds, Soft Cardiovascular: Yes: Regular Rate and Rhythm JVD: No Heart Sounds: Yes: S1, S2 Murmur: No: Systolic Murmur Extremities: No: Cold Edema: No Integumentary: No: Jaundice diaphoresis Neurological: Yes: Alert, Oriented Psychiatric: No: Agitated CBC, BMP 01/17/19 06:54 01/16/19 06:40 Assessment/Plan EKG: sinus, LBBB (stable compared to prior) echo 09/2017 tds, nl LV function, mild functional MS/MAC cath 2010 nl EF, OM1 70-80%, mild RCA dz - medically managed 58F h/o CAD, DM, HTN, HLD p/w osteomyelitis PAD - s/p R SFA atherectomy and angioplasty - on plavix - manage per vascular osteomyelitis - cont abx per ID CAD - h/o OM1 lesion, medically managed - continue plavix, statin, bb HTN - controlled, continue current meds DM - poorly controlled - manage per primary
--- NOTE | 2019-01-17 14:39 | PN ---
Progress Note, Physician Chief Complaint: s/p angiogram post op day one History of Present Illness: under sedation and monitored anesthesia care - Current Medication List Current Medications: Active Medications Acetaminophen (Tylenol -) 650 mg PO Q4H PRN PRN Reason: FEVER Amlodipine Besylate (Norvasc -) 10 mg PO DAILY [facility] Last Admin: 01/17/19 11:13 Dose: 10 mg Bacitracin (Bacitracin -) 1 applic TP DAILY [facility] Last Admin: 01/17/19 14:37 Dose: 1 applic Clopidogrel Bisulfate (Plavix -) 75 mg PO DAILY [facility] Last Admin: 01/17/19 11:14 Dose: 75 mg Fentanyl (Sublimaze Injection -) 50 mcg IVPUSH [id number] PRN PRN Reason: PAIN-PACU ORDER X 4 DOSES ONLY Hydrochlorothiazide (Hctz -) 12.5 mg PO DAILY [facility] Last Admin: 01/17/19 11:14 Dose: 12.5 mg Vancomycin HCl (Vancomycin (Pre-Docked)) 1,000 mg in 250 mls @ 250 mls/hr IVPB Q12H [facility]; Protocol Last Admin: 01/17/19 11:11 Dose: 250 mls/hr Insulin Aspart (Novolog Vial Sliding Scale -) 1 vial SQ ACHS [facility]; Protocol Last Admin: 01/17/19 11:42 Dose: 8 unit Insulin Detemir (Levemir Vial) 20 units SQ BID [facility] Last Admin: 01/17/19 11:14 Dose: 20 units Lactobacillus Acidophilus (Bacid -) 1 tab PO DAILY [facility] Last Admin: 01/17/19 11:12 Dose: 1 tab Latanoprost (Xalatan 0.005% Eye Drops -) 1 drop OU HS [facility] Last Admin: 01/16/19 21:33 Dose: 1 drop Liraglutide (Victoza -) 1.8 mg SQ DAILY [facility] Last Admin: 01/17/19 11:15 Dose: 1.8 mg Losartan Potassium (Cozaar -) 100 mg PO DAILY [facility] Last Admin: 01/17/19 11:12 Dose: 100 mg Metoprolol Succinate (Toprol Xl -) 50 mg PO DAILY [facility] Last Admin: 01/17/19 11:14 Dose: 50 mg Ondansetron HCl (Zofran Injection) 4 mg IVPUSH Q6H PRN PRN Reason: NAUSEA AND/OR VOMITING Rosuvastatin Calcium (Crestor -) 10 mg PO DAILY [facility] Last Admin: 01/17/19 11:13 Dose: 10 mg - Objective Vital Signs: Vital Signs Temperature 98.7 F 01/17/19 08:30 Pulse Rate 82 01/17/19 08:30 Respiratory Rate 18 01/17/19 08:30 Blood Pressure 138/69 01/17/19 08:30 O2 Sat by Pulse Oximetry (%) 96 01/16/19 21:00 Constitutional: Yes: Well Nourished Cardiovascular: Yes: WNL Respiratory: Yes: WNL Gastrointestinal: Yes: WNL Labs: CBC, BMP 01/17/19 06:54 01/16/19 06:40 INR, PTT INR 0.99 (0.83-1.09) 01/16/19 06:40 Assessment/Plan No advers effect of anesthetic, dept of anesthesiology will sign off care at this time
--- NOTE | 2019-01-17 15:07 | DS ---
Physical Exam: SUBJECTIVE: Patient seen and examined, no complaints, pleasant to hear that can go home today. OBJECTIVE: Vital Signs Period Temp Pulse Resp BP Sys/[place] Pulse Ox Last 24 Hr 98.3 F-98.7 F 80-82 18-20 131-153/59-90 96 Intake & Output 01/14/19 01/15/19 01/16/19 01/17/19 23:59 23:59 23:59 23:59 Intake Total 1300 1300 2350 250 Output Total 20 Balance 1300 1300 2330 250 Weight 280 lb PHYSICAL EXAM GENERAL: The patient is awake, alert, and fully oriented, in no acute distress. HEAD: Normal with no signs of trauma. EYES: PERRL, extraocular movements intact, sclera anicteric, conjunctiva clear. ENT: Ears normal, nares patent, oropharynx clear without exudates, moist mucous membranes. NECK: Trachea midline, full range of motion, supple. LUNGS: Breath sounds equal, clear to auscultation bilaterally, no wheezes, no crackles, no accessory muscle use. HEART: Regular rate and rhythm, S1, S2 without murmur, rub or gallop. ABDOMEN: Soft, nontender, nondistended, normoactive bowel sounds, no guarding, no rebound, no hepatosplenomegaly, no masses. EXTREMITIES: 2+ pulses, warm, well-perfused, no edema. NEUROLOGICAL: Cranial nerves II through XII grossly intact. Normal speech, gait not observed. PSYCH: Normal mood, normal affect. SKIN: Warm, dry, normal turgor, no rashes or lesions noted. LABS Laboratory Results - last 24 hr 01/16/19 01/16/19 01/17/19 16:56 21:29 06:16 WBC RBC Hgb Hct MCV MCH MCHC RDW Plt Count MPV Absolute Neuts (auto) Neutrophils % Lymphocytes % Monocytes % Eosinophils % Basophils % Nucleated RBC % POC Glucometer 283 288 221 Vancomycin Pre-Dose 01/17/19 01/17/19 01/17/19 06:54 08:40 11:36 WBC 5.9 RBC 3.91 Hgb 11.0 Hct 33.7 MCV 86.1 MCH 28.2 MCHC 32.8 RDW 13.6 Plt Count 268 MPV 9.2 Absolute Neuts (auto) 3.0 Neutrophils % 50.9 Lymphocytes % 31.5 Monocytes % 12.5 H Eosinophils % 4.2 Basophils % 0.9 Nucleated RBC % 0 POC Glucometer 312 Vancomycin Pre-Dose 8.8 L HOSPITAL COURSE: Date of Admission:01/13/19 Date of Discharge: 01/17/19 Minutes to complete discharge: 40 Discharge Summary Reason For Visit: OSTEOMYELITIS Current Active Problems Diabetes (Acute) HLD (hyperlipidemia) (Acute) HTN (hypertension) (Acute) Morbid obesity with BMI of 45.0-49.9, adult (Acute) Osteomyelitis (Acute) Hospital Course: 58 yof with PMhx of CAD (OM1 70-80%, mild RCA dz in 2010 medically managed), HTN , HLD, IDDM poorly controlled sent in by Dr. Roldan after found with right fifth toe osteomyelitis on MRI on 12/27. Patient was placed on vancomycin. Wound cultures were positive for coag neg staph and dipththeroid/cornyebacterium. She was continued on vancomycin. She was seen by vascular surgery and underwent aortogram, RLE angiogram showing 90% SFA stenosis s/p SFA atherectomy and SFA angioplasty. She was started on plavix and advised outpatient HBO treatment. Plan is to continue total 6 weeks of vancomycin till 02/24/2019 per infectious disease recommendations. She will be followed at wound care. Diabetic education was provided and she is advised close monitoring and outpatient endocrinology follow up. She will be discharged in stable condition with outpatient follow up at wound care center. Condition: Stable - Instructions Diet, Activity, Other Instructions: You were admitted with right fifth toe bone infection. You were placed on antibiotics. You received angiography and angioplasty of right leg by vascular surgeon, and are started on plavix You will need total of 6 weeks of antibiotic course with vancomycin till 2018 per infectious disease recommendations. MEDICATIONS; Start Plavix (please note that it is a blood thinner and monitor for bleeding) Antibiotic vancomycin 1250 mg every 12 hours for a total of 6 weeks till 2018 (please note that your vancomycin levels will need to be monitored with your doctor outpatient and dose may need to be changed based on the levels. Continue other medications as before. INSTRUCTIONS: Bacitracin to the wound, dry dressing. Follow up at Wound care center early next week On sunday or Sunday (You are advised to see Dr. Car and Dr. Roldan at the wound care center) You will be arranged for outpatient hyperbaric oxygen treatment from the wound care center. Blood work CBC, BMP, LFTs, vancomycin levels in 3-4 days, then weekly while on antibiotics. Please note that your vancomycin levels will need to be closely monitored outpatient. Strongly advise blood sugar monitoring before meals and at bedtime and maintain a diary. Notify your doctor if persistently >140 or any reading >350 or < 70 noted. Discuss with your doctor for outpatient endocrinology follow up. Routine PICC line care. PICC line to be removed after antibiotic course completed. FOLLOW UP: Wound care center early next week On Sunday or Sunday (On [facility]th floor of [facility]). Please call on discharge to arrange the same. Blood work -Vancomycin level, CBC, BMP, LFts in 3-4 days with your doctor, then weekly while on antibiotics. Follow up with Dr. Medellin in 3-5 days. Please discuss outaptient referral to learning and development specialist. Prescriptions for plavix, bacitracin have been sent to the pharmacy. Antibiotic arrangements have been made with Dr. Roldan. If you notice any fevers, chills, worsening redness, rash, decreased urination or any new concerns, please call 911 or come to ED immediately. Referrals: Summer Roldan MD [Staff Physician] - Aleta Medellin MD [Non Staff, Medical] - Shon Car DO [Staff Physician] - Disposition: VNS/HOME HEALTH CARE - Home Medications Comprehensive Discharge Medication List: Ambulatory Orders Insulin Glargine,Hum.rec.anlog [Lantus] 32 unit SQ DAILY 12/13/18 Liraglutide [Victoza -] 1.8 unit SQ DAILY 12/13/18 Amlodipine Besylate 10 mg PO DAILY 01/13/19 Metoprolol Succinate 50 mg PO DAILY 01/13/19 Olmesartan/Hydrochlorothiazide [Benicar Hct 40-12.5 mg Tablet] 1 each PO DAILY 01/13/19 Rosuvastatin [Crestor -] 10 mg PO DAILY 01/13/19 Latanoprost 0.005% Eye Drops 2 drop .ROUTE DAILY 01/14/19 Bacitracin - [Bacitracin Topical Ointment -] 1 applic TP DAILY #1 tube 01/17/19 Clopidogrel Bisulfate [Plavix -] 75 mg PO DAILY #30 tablet 01/17/19 Lactobacillus Acidophilus [Bacid -] 1 tab PO DAILY #38 tab 01/17/19 Vancomycin HCl in Water [Vancomycin 1,250 mg/12.5 ml Vl] 1.25 gm IV Q12H 38 Days #76 vial 01/17/19 This patient is new to me today: No Emergency Visit: Yes ED Registration Date: 01/13/19 Care time: The patient presented to the Emergency Department on the above date and was hospitalized for further evaluation of their emergent condition. Critical Care patient: No - Discharge Referral Referred to [facility] No
== END 2019-01-17 16:19 | disposition home health service (06) | DRG 271 ==
LOC: JER 10:11 → JERBED 13:00 → J8W 15:55
PROVIDERS: ADMIT Internal Medicine; ATTEND Hospitalist
PROC: 047K3ZZ Dilation of Right Femoral Artery, Percutaneous Approach (ICD-10-PCS; 2019-01-16)
PROC: B40FYZZ Plain Radiography of Right Lower Extremity Arteries using Other Contrast (ICD-10-PCS; 2019-01-16)
PROC: B40DYZZ Plain Radiography of Aorta and Bilateral Lower Extremity Arteries using Other Contrast (ICD-10-PCS; 2019-01-16)
PROC: 04CK3ZZ Extirpation of Matter from Right Femoral Artery, Percutaneous Approach (ICD-10-PCS; principal; 2019-01-16 11:30)
PROC: 02HV33Z Insertion of Infusion Device into Superior Vena Cava, Percutaneous Approach (ICD-10-PCS; 2019-01-17)
PROC: B518ZZA Fluoroscopy of Superior Vena Cava, Guidance (ICD-10-PCS; 2019-01-17)
DX: E11.51 Type 2 diabetes mellitus with diabetic peripheral angiopathy without gangrene (principal); Z68.42 Body mass index [BMI] 45.0-49.9, adult; L97.528 Non-pressure chronic ulcer of other part of left foot with other specified severity; M86.171 Other acute osteomyelitis, right ankle and foot; E11.69 Type 2 diabetes mellitus with other specified complication; I10 Essential (primary) hypertension; E78.5 Hyperlipidemia, unspecified; E11.40 Type 2 diabetes mellitus with diabetic neuropathy, unspecified; E66.01 Morbid (severe) obesity due to excess calories; E11.621 Type 2 diabetes mellitus with foot ulcer; I25.10 Atherosclerotic heart disease of native coronary artery without angina pectoris; I44.7 Left bundle-branch block, unspecified; Z79.4 Long term (current) use of insulin
CPT/HCPCS: 36415; 36569; 71046-TC-FY; 76000-TC-FY; 77001-TC-FY; 80048; 80053; 81003; 82962; 83735; 84100; 85025; 85027; 85610; 86850; 86900; 86901; 87040; 87070; 87077; 87086; 87205; 93005; 93010; 94760; 97116-GP; 97161-GP; 99283-25; C1751; G0480; J1644

== ENCOUNTER 2019-03-20 11:48 | Inpatient (IN) | payer BC, OTHER ==
[2019-03-20 11:55] VITALS: BMI 44.5
[2019-03-20 14:18] LABS: BASO % 1.2 % (0-2.0); EOS % 2.9 % (0-4.5); HEMATOCRIT 35.2 % (32.4-45.2); HEMOGLOBIN 11.5 GM/dL (10.7-15.3); LYMPH % 34.8 % (8-40); MCH 27.7 pg (25.7-33.7); MCHC 32.7 g/dl (32.0-36.0); MEAN CELL VOLUME 84.6 fl (80-96); MEAN PLT VOLUME 9.6 fl (7.5-11.1); MONO % 11.5 % (3.8-10.2); NEUT % 49.6 % (42.8-82.8); PLATELET COUNT 279 K/MM3 (134-434); RBC 4.16 M/mm3 (3.60-5.2); RDW 13.7 % (11.6-15.6); WHITE BLOOD COUNT 5.4 K/mm3 (4.0-10.0)
--- NOTE | 2019-03-20 14:28 | PDOC ---
History of Present Illness - General Chief Complaint: Redness To Affected Area Stated Complaint: SENT BY PCP Time Seen by Provider: 03/20/19 12:08 History Source: Patient Exam Limitations: No Limitations Past History - Past Medical History Allergies/Adverse Reactions: Allergies Allergy/AdvReac Type Severity Reaction Status Date / Time No Known Allergies Allergy Verified 01/13/19 10:22 Home Medications: Ambulatory Orders Insulin Glargine,Hum.rec.anlog [Lantus] 32 unit SQ DAILY 12/13/18 Liraglutide [Victoza -] 1.8 unit SQ DAILY 12/13/18 Amlodipine Besylate 10 mg PO DAILY 01/13/19 Metoprolol Succinate 50 mg PO DAILY 01/13/19 Olmesartan/Hydrochlorothiazide [Benicar Hct 40-12.5 mg Tablet] 1 each PO DAILY 01/13/19 Rosuvastatin [Crestor -] 10 mg PO DAILY 01/13/19 Latanoprost 0.005% Eye Drops 2 drop .ROUTE DAILY 01/14/19 Bacitracin - [Bacitracin Topical Ointment -] 1 applic TP DAILY #1 tube 01/17/19 Clopidogrel Bisulfate [Plavix -] 75 mg PO DAILY #30 tablet 01/17/19 Lactobacillus Acidophilus [Bacid -] 1 tab PO DAILY #38 tab 01/17/19 Vancomycin HCl in Water [Vancomycin 1,250 mg/12.5 ml Vl] 1.25 gm IV Q12H 38 Days #76 vial 01/17/19 Anemia: Yes Cardiac Disorders: No COPD: No Diabetes: Yes HTN: Yes Hypercholesterolemia: Yes - Surgical History Abdominal Surgery: Yes - Suicide/Smoking/Psychosocial Hx Smoking Status: No Smoking History: Former smoker Have you smoked in the past 12 months: No Number of Cigarettes Smoked Daily: 0 If you are a former smoker, when did you quit?: years ago Information on smoking cessation initiated: No Hx Alcohol Use: No Drug/Substance Use Hx: No Substance Use Type: None Hx Substance Use Treatment: No *Physical Exam - Vital Signs Last Vital Signs Temp Pulse Resp BP Pulse Ox 98.6 F 71 18 138/65 98 03/20/19 11:52 03/20/19 11:52 03/20/19 11:52 03/20/19 11:52 03/20/19 11:52 - Physical Exam General Appearance: No: Apparent Distress Respiratory/Chest: positive: Lungs Clear, Normal Breath Sounds. negative: Respiratory Distress Cardiovascular: positive: Regular Rhythm, Regular Rate, S1, S2. negative: Murmur Extremity: positive: Normal Capillary Refill, Other (around 1x1 cm wound to R 5th toe, no active drainage, no foul odor, no erythema). negative: Pedal Edema , Swelling, Calf Tenderness Integumentary: positive: Normal Color. negative: Ecchymosis, Bruising Neurologic: positive: Alert, Normal Mood/Affect ED Treatment Course - LABORATORY CBC & Chemistry Diagram: 03/20/19 14:10 03/20/19 14:10 - ADDITIONAL ORDERS Additional order review: 03/20/19 14:10 RBC 4.16 MCV 84.6 MCHC 32.7 RDW 13.7 MPV 9.6 Neutrophils % 49.6 Lymphocytes % 34.8 Monocytes % 11.5 H Eosinophils % 2.9 Basophils % 1.2 Medical Decision Making - Medical Decision Making 58 y/o F hx of HTN, HLD, DM, CAD, PAD s/p RLE angiogram showing 90% SFA stenosis s/p SFA atherectomy and SFA angioplasty 01/2019 was sent by her electronics research engineer, Dr. Bishop, for admission for chronic R 5th toe osteomyelitis ( shown on MRI 12/2018). Patient was admitted in January for OM as well and discharged for plan for 6 weeks of IV Vancomycin; however, her ID doctor, Dr. Roldan, changed it to Daptomycin in the midst due to rising kidney function; states she finished abx 2 weeks ago. Denies fever, sob, cp, abd pain, n/v. Chronic R 5th toe OM Prior wound cultures (from December and January 2019 showed normal skin lia) Currently no drainage available to culture Plan: Labs, D/W Dr. Roldan choice of abx 03/20/19 14:27 Dr. Roldan recommends Ceftriaxone 2 grams for now Will see inpatient Will admit 03/20/19 15:21 *DC/Admit/Observation/Transfer Diagnosis at time of Disposition: Osteomyelitis Qualifiers: Osteomyelitis type: other chronic Osteomyelitis location: foot Laterality: right Qualified Code(s): M86.671 - Other chronic osteomyelitis, right ankle and foot - Discharge Dispostion Decision to Admit order: Yes - Referrals - Patient Instructions - Post Discharge Activity
[2019-03-20] MEDS ORDERED: CEFTRIAXONE 2 GM-D5W BAG 2 GM/50 ML BAG IVPB ONE (14:37)
[2019-03-20 14:50] LABS: ALBUMIN 3.8 g/dl (3.4-5.0); BILIRUBIN,TOTAL 0.4 mg/dL (0.2-1); BLOOD UREA NITROGEN 30.8 mg/dL (7-18); CALCIUM 9.6 mg/dL (8.5-10.1); CREATININE 1.3 mg/dL (0.55-1.3); POTASSIUM 4.7 mmol/L (3.5-5.1); TOT PROT 7.2 g/dl (6.4-8.2)
[2019-03-20] MEDS ORDERED: CEFTRIAXONE 2 GM/100 ML BAG IVPB ONE (15:13)
[2019-03-20] MEDS ORDERED: ACETAMINOPHEN 325 MG TABLET (FP) PO PRN (16:46)
--- NOTE | 2019-03-20 16:58 | HP ---
Admitting History and Physical - Primary Care Physician PCP: Aleta Medellin - Admission Chief Complaint: I was sent in for antibiotics History of Present Illness: Ms Amos is a very pleasant 58 year old female who was sent in for chronic wound requiring IV antibiotics. She says she was here in January where she was diagnosed and treated for osteomyelitis. She had a PICC line placed and was discharged home on IV antibiotics (first it was vancomycin, this was changed to daptomycin secondary to JEANNINE). She finished the course 2 weeks ago and was following up with podiatry. Drainage was noted and she was sent in for more IV antibiotics. She herself is without complaint. She denies fevers, chills, lightheadedness, dizziness, chest pain or pressure, shortness of breath, nausea , vomiting, diarrhea, constipation, difficulty or pain on urination, or swelling. She says she is feeling fine and hopes to not have to stay long. History Source: Patient Limitations to Obtaining History: No Limitations - Past Medical History Cardiovascular: Yes: HTN, Hyperlipdemia Pulmonary: Yes: Other (PVD) Endocrine: Yes: Diabetes Mellitus - Smoking History Smoking history: Former smoker Have you smoked in the past 12 months: No Aproximately how many cigarettes per day: 0 If you are a former smoker, when did you quit?: years ago - Alcohol/Substance Use Hx Alcohol Use: No History of Substance Use: reports: None - Social History History of Recent Travel: No Home Medications - Allergies Allergies/Adverse Reactions: Allergies Allergy/AdvReac Type Severity Reaction Status Date / Time No Known Allergies Allergy Verified 01/13/19 10:22 - Home Medications Home Medications: Ambulatory Orders Insulin Glargine,Hum.rec.anlog [Lantus] 32 unit SQ DAILY 12/13/18 Liraglutide [Victoza -] 1.8 unit SQ DAILY 12/13/18 Amlodipine Besylate 10 mg PO DAILY 01/13/19 Metoprolol Succinate 50 mg PO DAILY 01/13/19 Olmesartan/Hydrochlorothiazide [Benicar Hct 40-12.5 mg Tablet] 1 each PO DAILY 01/13/19 Rosuvastatin [Crestor -] 10 mg PO DAILY 01/13/19 Latanoprost 0.005% Eye Drops 2 drop .ROUTE DAILY 01/14/19 Bacitracin - [Bacitracin Topical Ointment -] 1 applic TP DAILY #1 tube 01/17/19 Clopidogrel Bisulfate [Plavix -] 75 mg PO DAILY #30 tablet 01/17/19 Lactobacillus Acidophilus [Bacid -] 1 tab PO DAILY #38 tab 01/17/19 Family Disease History - Family Disease History Family Disease History: Diabetes: Mother, Other: Father (HTN) Review of Systems Findings/Remarks: Full review of systems obtained, as per HPI and otherwise negative Physical Examination Vital Signs: Vital Signs Temperature 37.0 C 03/20/19 11:52 Pulse Rate 71 03/20/19 11:52 Respiratory Rate 18 03/20/19 11:52 Blood Pressure 138/65 03/20/19 11:52 O2 Sat by Pulse Oximetry (%) 98 03/20/19 11:52 Constitutional: Yes: No Distress, Calm, Obese Eyes: Yes: Conjunctiva Clear, EOM Intact, PERRL HENT: Yes: Atraumatic, Normocephalic Cardiovascular: Yes: Regular Rate and Rhythm. No: Gallop, Murmur, Rub Respiratory: Yes: Regular, CTA Bilaterally. No: Rales, Rhonchi, Wheezes Gastrointestinal: Yes: Normal Bowel Sounds, Soft. No: Distention, Tenderness Extremities: Yes: Other (non-draining wound on R 5th toe) Edema: No Labs: CBC, BMP 03/20/19 14:10 03/20/19 14:10 Problem List - Problems (1) Osteomyelitis Assessment/Plan: -concern for chronic osteomyelitis needing further antibiotics -admit under observation -PICC line placement -start rocephin 2gm daily -ID consulted -will try to coordinate home antibiotics -possible discharge tomorrow Code(s): M86.9 - OSTEOMYELITIS, UNSPECIFIED Qualifiers: Osteomyelitis type: other chronic Osteomyelitis location: foot Laterality : right Qualified Code(s): M86.671 - Other chronic osteomyelitis, right ankle and foot (2) PVD (peripheral vascular disease) Assessment/Plan: -seen by Dr Car in the past -will consult Dr Diamond for evaluation -continue plavix Code(s): I73.9 - PERIPHERAL VASCULAR DISEASE, UNSPECIFIED (3) Diabetes Assessment/Plan: -diabetic diet -FSBS and SSI -continue victoza -change lantus to levemir 15 units bid -may need to increase levemir Code(s): E11.9 - TYPE 2 DIABETES MELLITUS WITHOUT COMPLICATIONS (4) HLD (hyperlipidemia) Assessment/Plan: -continue crestor Code(s): E78.5 - HYPERLIPIDEMIA, UNSPECIFIED (5) HTN (hypertension) Assessment/Plan: -continue home regimen Code(s): I10 - ESSENTIAL (PRIMARY) HYPERTENSION (6) Morbid obesity with BMI of 45.0-49.9, adult Assessment/Plan: -outpatient weight loss plan Code(s): E66.01 - MORBID (SEVERE) OBESITY DUE TO EXCESS CALORIES; Z68.42 - BODY MASS INDEX (BMI) 45.0-49.9, ADULT
--- NOTE | 2019-03-20 16:59 | PDOC ---
*Physical Exam - Vital Signs Last Vital Signs Temp Pulse Resp BP Pulse Ox 98.6 F 71 18 138/65 98 03/20/19 11:52 03/20/19 11:52 03/20/19 11:52 03/20/19 11:52 03/20/19 11:52 - Physical Exam Comments: 03/20/19 16:59 Sign out received from outgoing provider DARRIUS Kemp. Pending admission. Discussed case with admitting MD Arambula. Patient to be admitted for IV Ceftriaxone, ID consult, and PICC line placement by IR tomorrow for outpatient IV abx. ED Treatment Course - LABORATORY CBC & Chemistry Diagram: 03/20/19 14:10 03/20/19 14:10 - ADDITIONAL ORDERS Additional order review: Laboratory Results 03/20/19 14:10 Sodium 140 Potassium 4.7 Chloride 103 Carbon Dioxide 30 Anion Gap 7 L BUN 30.8 H Creatinine 1.3 Est GFR (CKD-EPI)AfAm 52.37 Est GFR (CKD-EPI)NonAf 45.18 Random Glucose 192 H Calcium 9.6 Total Bilirubin 0.4 AST 13 L ALT 19 Alkaline Phosphatase 84 Total Protein 7.2 Albumin 3.8 03/20/19 14:10 RBC 4.16 MCV 84.6 MCHC 32.7 RDW 13.7 MPV 9.6 Neutrophils % 49.6 Lymphocytes % 34.8 Monocytes % 11.5 H Eosinophils % 2.9 Basophils % 1.2 - Medications Given in the ED: ED Medications Discontinued Medications Generic Name Dose Route Start Last Admin Trade Name Freq PRN Reason Stop Dose Admin Ceftriaxone Sodium 2 gm in 50 mls @ 100 mls/hr 03/20/19 14:37 03/20/19 15:19 Ceftriaxone 2 Gm-D5w Bag IVPB 03/20/19 15:06 100 mls/hr ONCE ONE Administration *DC/Admit/Observation/Transfer Diagnosis at time of Disposition: Osteomyelitis Qualifiers: Osteomyelitis type: other chronic Osteomyelitis location: foot Laterality: right Qualified Code(s): M86.671 - Other chronic osteomyelitis, right ankle and foot - Discharge Dispostion Decision to Admit order: Yes - Referrals - Patient Instructions - Post Discharge Activity
[2019-03-20] MEDS ORDERED: INSULIN (LEVEMIR) 100 UNITS/ML UNITS SQ ONE ×2 (22:43→22:45)
[2019-03-20] MEDS ORDERED: INSULIN (NOVOLOG) ASPART 100 UNITS/ML 10ML VIAL ONE ×2 (22:44→22:45)
[2019-03-20] MEDS: INSULIN SLIDING SCALE (NOVOLOG) 1 VIAL SQ SCH (22:51)
[2019-03-20] MEDS: INSULIN (LEVEMIR) 100 UNITS/ML UNITS SQ SCH (22:51)
[2019-03-21] MEDS: INSULIN SLIDING SCALE (NOVOLOG) 1 VIAL SQ SCH ×2 (06:15→11:54)
[2019-03-21] MEDS ORDERED: LIRAGLUTIDE 0.6 MG/0.1 ML PEN.INJCTR SQ SCH (07:00)
[2019-03-21] MEDS: INSULIN (LEVEMIR) 100 UNITS/ML UNITS SQ SCH (07:03)
[2019-03-21] MEDS ORDERED: INSULIN (NOVOLOG) ASPART 100 UNITS/ML 10ML VIAL ONE ×2 (07:10→11:53)
[2019-03-21] MEDS ORDERED: INSULIN (LEVEMIR) 100 UNITS/ML UNITS SQ ONE (07:11)
[2019-03-21] MEDS ORDERED: PT OWN MED DRAWER 7, Y5N ONE ×3 (07:43→09:57)
[2019-03-21 08:16] LABS: BASO % 1.2 % (0-2.0); HEMOGLOBIN 10.9 GM/dL (10.7-15.3); LYMPH % 37.5 % (8-40); MCH 27.7 pg (25.7-33.7); MEAN CELL VOLUME 84.1 fl (80-96); MEAN PLT VOLUME 9.6 fl (7.5-11.1); MONO % 13.6 % (3.8-10.2); NEUT % 43.7 % (42.8-82.8); PLATELET COUNT 242 K/MM3 (134-434); RBC 3.93 M/mm3 (3.60-5.2); RDW 13.8 % (11.6-15.6); WHITE BLOOD COUNT 4.5 K/mm3 (4.0-10.0)
[2019-03-21 08:45] LABS: BLOOD UREA NITROGEN 26.7 mg/dL (7-18); CALCIUM 8.8 mg/dL (8.5-10.1); MAGNESIUM 2.3 mg/dL (1.8-2.4); POTASSIUM 4.3 mmol/L (3.5-5.1)
--- NOTE | 2019-03-21 08:52 | CON.ID ---
Consult Consult Specialty:: infectious diseaes Referred by:: Dr weller Reason for Consultation:: infection of the rt liitle finger of the foot - History of Present Illness Chief Complaint: pain and swelling of the rt foot History of Present Illness: 58 year old female who was sent in for chronic wound requiring IV antibiotics. She says she was here in January where she was diagnosed and treated for osteomyelitis. She had a PICC line placed and was discharged home on IV antibiotics (first it was vancomycin, this was changed to daptomycin secondary to JEANNINE). She finished the course 2 weeks ago and was following up with podiatry. Drainage was noted and she was sent in for more IV antibiotics. She herself is without complaint. She denies fevers, chills, lightheadedness, dizziness, chest pain or pressure, shortness of breath, nausea, vomiting, diarrhea, constipation, difficulty or pain on urination, or swelling. according o the patient she had some new shoes which she wore all day long and in the evening noticed that the leg was hurting a lot and there was some drainage from the wound of her little toe now on ceftriaxone - History Source History Provided By: Patient Limitations to Obtaining History: No Limitations - Past Medical History Cardio/Vascular: Yes: HTN, Hyperlipdemia Pulmonary: Yes: Other (PVD) Endocrine: Yes: Diabetes Mellitus - Alcohol/Substance Use Hx Alcohol Use: No History of Substance Use: reports: None - Smoking History Smoking history: Former smoker Have you smoked in the past 12 months: No Aproximately how many cigarettes per day: 0 If you are a former smoker, when did you quit?: years ago - Social History History of Recent Travel: No Home Medications - Allergies Allergies/Adverse Reactions: Allergies Allergy/AdvReac Type Severity Reaction Status Date / Time No Known Allergies Allergy Verified 01/13/19 10:22 - Home Medications Home Medications: Ambulatory Orders Insulin Glargine,Hum.rec.anlog [Lantus] 32 unit SQ DAILY 12/13/18 Liraglutide [Victoza -] 1.8 unit SQ DAILY 12/13/18 Amlodipine Besylate 10 mg PO DAILY 01/13/19 Metoprolol Succinate 50 mg PO DAILY 01/13/19 Olmesartan/Hydrochlorothiazide [Benicar Hct 40-12.5 mg Tablet] 1 each PO DAILY 01/13/19 Rosuvastatin [Crestor -] 10 mg PO DAILY 01/13/19 Latanoprost 0.005% Eye Drops 2 drop .ROUTE DAILY 01/14/19 Bacitracin - [Bacitracin Topical Ointment -] 1 applic TP DAILY #1 tube 01/17/19 Clopidogrel Bisulfate [Plavix -] 75 mg PO DAILY #30 tablet 01/17/19 Lactobacillus Acidophilus [Bacid -] 1 tab PO DAILY #38 tab 01/17/19 Family Disease History - Family Disease History Family Disease History: Diabetes: Mother, Other: Father (HTN) Review of Systems - Review of Systems Constitutional: reports: No Symptoms Eyes: reports: No Symptoms HENT: reports: No Symptoms Neck: reports: No Symptoms Cardiovascular: reports: No Symptoms Respiratory: reports: No Symptoms Gastrointestinal: reports: No Symptoms Genitourinary: reports: No Symptoms Musculoskeletal: reports: Other (pain of the rt foot) Integumentary: reports: Wound, Other Neurological: reports: No Symptoms Endocrine: reports: No Symptoms Hematology/Lymphatic: reports: No Symptoms Psychiatric: reports: No Symptoms Physical Exam Vital Signs: Vital Signs Temperature 97.6 F 03/21/19 06:36 Pulse Rate 61 03/21/19 06:36 Respiratory Rate 20 03/21/19 06:36 Blood Pressure 146/70 03/21/19 06:36 O2 Sat by Pulse Oximetry (%) 99 03/20/19 23:30 Constitutional: Yes: Well Nourished, No Distress, Calm HENT: Yes: Atraumatic Neck: Yes: Supple, Trachea Midline Cardiovascular: Yes: Regular Rate and Rhythm Respiratory: Yes: Regular, CTA Bilaterally Gastrointestinal: Yes: Normal Bowel Sounds, Soft Musculoskeletal: Yes: WNL Extremities: Yes: Other Wound/Incision: Yes: Clean/Dry, Open to air Neurological: Yes: Alert, Oriented Psychiatric: Yes: Alert, Oriented Labs: CBC, BMP 03/21/19 06:50 03/21/19 06:50 Assessment/Plan Problem List - Problems (1) Osteomyelitis Code(s): M86.9 - OSTEOMYELITIS, UNSPECIFIED Qualifiers: Osteomyelitis type: other chronic Osteomyelitis location: foot Laterality : right Qualified Code(s): M86.671 - Other chronic osteomyelitis, right ankle and foot (2) PVD (peripheral vascular disease) Code(s): I73.9 - PERIPHERAL VASCULAR DISEASE, UNSPECIFIED (3) Diabetes Code(s): E11.9 - TYPE 2 DIABETES MELLITUS WITHOUT COMPLICATIONS (4) HLD (hyperlipidemia) Code(s): E78.5 - HYPERLIPIDEMIA, UNSPECIFIED (5) HTN (hypertension) Code(s): I10 - ESSENTIAL (PRIMARY) HYPERTENSION (6) Morbid obesity with BMI of 45.0-49.9, adult Code(s): E66.01 - MORBID (SEVERE) OBESITY DUE TO EXCESS CALORIES; Z68.42 - BODY MASS INDEX (BMI) 45.0-49.9, ADULT plan continue ceftriaxone please get ct scan to see if thee is any collection if ct is normal patient will not need any more abx
[2019-03-21] MEDS ORDERED: DEXTROSE 5%-WATER 100 ML IVPB ONE (09:57)
[2019-03-21] MEDS ORDERED: CLOPIDOGREL BISULFATE 75 MG TABLET (FP) PO SCH (10:00)
[2019-03-21] MEDS ORDERED: amLODIPine BESYLATE 10 MG TABLET (FP) PO SCH (10:00)
[2019-03-21] MEDS ORDERED: HYDROCHLOROTHIAZIDE 12.5 MG CAPSULE (FP) PO SCH (10:00)
[2019-03-21] MEDS ORDERED: PATIENT'S OWN MEDICATION (NON-FORMULARY) (Olmesartan/Hydrochlorothiazide [Benicar Hct 40-1 PO SCH (10:00)
[2019-03-21] MEDS ORDERED: VALSARTAN 160 MG TABLET (UD) PO SCH (10:00)
[2019-03-21] MEDS ORDERED: LACTOBACILLUS ACIDOPHILUS 1 TABLET PO SCH (10:00)
[2019-03-21] MEDS ORDERED: CEFTRIAXONE 2 GM in DEXTROSE 5%-WATER 100 ML IVPB SCH (10:00)
[2019-03-21 12:02] VITALS: BP 119/57; PULSE 70; TEMP 98.3
--- NOTE | 2019-03-21 17:59 | DS ---
Physical Examination Vital Signs: Vital Signs Temperature 36.8 C 03/21/19 08:25 Pulse Rate 70 03/21/19 08:25 Respiratory Rate 20 03/21/19 08:25 Blood Pressure 119/57 L 03/21/19 08:25 O2 Sat by Pulse Oximetry (%) 99 03/20/19 23:30 Labs: CBC, BMP 03/21/19 06:50 03/21/19 06:50 Discharge Summary Reason For Visit: OSTEOMYELITIS Condition: Good - Instructions Diet, Activity, Other Instructions: resume previous diet and activity Referrals: Aleta Medellin MD [Non Staff, Medical] - Santi Brown DPM [Staff Physician] - Disposition: HOME - Home Medications Comprehensive Discharge Medication List: Ambulatory Orders Insulin Glargine,Hum.rec.anlog [Lantus] 32 unit SQ DAILY 12/13/18 Liraglutide [Victoza -] 1.8 unit SQ DAILY 12/13/18 Amlodipine Besylate 10 mg PO DAILY 01/13/19 Metoprolol Succinate 50 mg PO DAILY 01/13/19 Olmesartan/Hydrochlorothiazide [Benicar Hct 40-12.5 mg Tablet] 1 each PO DAILY 01/13/19 Rosuvastatin [Crestor -] 10 mg PO DAILY 01/13/19 Latanoprost 0.005% Eye Drops 2 drop .ROUTE DAILY 01/14/19 Bacitracin - [Bacitracin Topical Ointment -] 1 applic TP DAILY #1 tube 01/17/19 Clopidogrel Bisulfate [Plavix -] 75 mg PO DAILY #30 tablet 01/17/19 Lactobacillus Acidophilus [Bacid -] 1 tab PO DAILY #38 tab 01/17/19 Amox-Tr/K Cl [Augmentin - 875Mg Tablet] 1 tab PO BID #10 tablet 03/21/19
[2019-03-21] MEDS ORDERED: LATANOPROST 0.005% OPHTH SOLN 2.5ML BOTTLE OU SCH (22:00)
[2019-03-21] MEDS ORDERED: ROSUVASTATIN CA 10 MG TABLET (FP) PO SCH (22:00)
== END 2019-03-21 16:21 | disposition home or self-care (01) | DRG 638 ==
LOC: JER 11:48 → JERBED 16:59 → J8W 03-21 00:27
PROVIDERS: ADMIT Internal Medicine; ATTEND Internal Medicine
DX: E11.69 Type 2 diabetes mellitus with other specified complication (principal); M86.671 Other chronic osteomyelitis, right ankle and foot; Z68.42 Body mass index [BMI] 45.0-49.9, adult; E66.01 Morbid (severe) obesity due to excess calories; I10 Essential (primary) hypertension; E78.5 Hyperlipidemia, unspecified; I25.10 Atherosclerotic heart disease of native coronary artery without angina pectoris; Z79.4 Long term (current) use of insulin; E11.51 Type 2 diabetes mellitus with diabetic peripheral angiopathy without gangrene
CPT/HCPCS: 36415; 73700-TC-RT; 80048; 80053; 82962; 83735; 84100; 85025; 99282-25

== ENCOUNTER 2019-03-26 10:46 | Inpatient (IN) | payer BC, OTHER ==
[2019-03-26] MEDS ORDERED: VANCOMYCIN 1 GM in D5W (PRE-DOCKED) 1,000 MG/250 ML IVPB ONE (13:03)
[2019-03-26] MEDS ORDERED: PIPERACILLIN/TAZOB 2.25 GM 2.25 GM in DEXTROSE 5%-WATER - 50 ML IVPB ONE (13:05)
[2019-03-26] MEDS ORDERED: VANCOMYCIN 1 GRAM (PRE-DOCKED) 1,000 MG/250 ML BAG IVPB ONE (14:05)
[2019-03-26] MEDS ORDERED: PIPERACILLIN/TAZOB 2.25 GM 2.25 GM/50 ML BAG IVPB ONE (14:05)
--- NOTE | 2019-03-26 14:10 | PDOC ---
Documentation entered by Latha Zavaleta SCRIBE, acting as scribe for Stacie Negrete MD. Stacie Negrete MD: This documentation has been prepared by the Meghann bello Brenda, SCRIBE, under my direction and personally reviewed by me in its entirety. I confirm that the documentation accurately reflects all work, treatment, procedures, and medical decision making performed by me. History of Present Illness - General Chief Complaint: Wound Stated Complaint: RT FOOT PINKY INFECTED History Source: Patient Exam Limitations: No Limitations - History of Present Illness Initial Comments: 03/26/19 13:08 The patient is a 58 year old female, with a significant PMH of Anemia, HTN, HLD , DM, CAD, PAD s/p RLE angiogram showing 90% SFA stenosis s/p SFA atherectomy and SFA angioplasty 01/2019, who presents to the emergency department with right toe pain and infection. As per patient, she was seen at [facility] on 03/20/19 for a persistent right small toe wound. The patient reports, she finished her amoxicillin yesterday, and saw her dry sand molder who did the local debridement, and told her that she needed to be admitted for an infection. The patient endorses sensitivity on the sight. The patient denies chest pain, shortness of breath, headache and dizziness. Denies fever, chills, nausea, vomiting, diarrhea and constipation. Denies dysuria, frequency, urgency and hematuria. Allergies: NKA Past surgical history:Aortogram, RLE angiogram, SFA atherectomy, SFA angioplasty Social history: Former smoker, quit 40 years ago. Rod Tape Operator: Dr. Bishop PCP: Dr. Drew Medellin Past History - Past Medical History Allergies/Adverse Reactions: Allergies Allergy/AdvReac Type Severity Reaction Status Date / Time No Known Allergies Allergy Verified 03/26/19 11:01 Home Medications: Ambulatory Orders Insulin Glargine,Hum.rec.anlog [Lantus] 32 unit SQ DAILY 12/13/18 Liraglutide [Victoza -] 1.8 unit SQ DAILY 12/13/18 Amlodipine Besylate 10 mg PO DAILY 01/13/19 Metoprolol Succinate 50 mg PO DAILY 01/13/19 Olmesartan/Hydrochlorothiazide [Benicar Hct 40-12.5 mg Tablet] 1 each PO DAILY 01/13/19 Rosuvastatin [Crestor -] 10 mg PO DAILY 01/13/19 Latanoprost 0.005% Eye Drops 2 drop .ROUTE DAILY 01/14/19 Bacitracin - [Bacitracin Topical Ointment -] 1 applic TP DAILY #1 tube 01/17/19 Clopidogrel Bisulfate [Plavix -] 75 mg PO DAILY #30 tablet 01/17/19 Lactobacillus Acidophilus [Bacid -] 1 tab PO DAILY #38 tab 01/17/19 Amox-Tr/K Cl [Augmentin - 875Mg Tablet] 1 tab PO BID #10 tablet 03/21/19 Anemia: Yes Cardiac Disorders: No COPD: No Diabetes: Yes HTN: Yes Hypercholesterolemia: Yes - Surgical History Abdominal Surgery: Yes - Immunization History Immunization Up to Date: No - Suicide/Smoking/Psychosocial Hx Smoking Status: No Smoking History: Former smoker Have you smoked in the past 12 months: No Number of Cigarettes Smoked Daily: 0 If you are a former smoker, when did you quit?: 1996 Information on smoking cessation initiated: No Hx Alcohol Use: Yes (socially) Drug/Substance Use Hx: No Substance Use Type: None Hx Substance Use Treatment: No Review of Systems - Review of Systems Able to Perform ROS?: Yes Comments:: 03/26/19 13:08 GENERAL/CONSTITUTIONAL: No fever or chills. No weakness. HEAD, EYES, EARS, NOSE AND THROAT: No change in vision. No ear pain or discharge. No sore throat. CARDIOVASCULAR: No chest pain or shortness of breath. RESPIRATORY: No cough, wheezing, or hemoptysis. GASTROINTESTINAL: No nausea, vomiting, diarrhea or constipation. GENITOURINARY: No dysuria, frequency, or change in urination. MUSCULOSKELETAL: No joint or muscle swelling or pain. No neck or back pain. SKIN: (+) Right small toe pain and infection. No rash NEUROLOGIC: No headache, vertigo, loss of consciousness, or change in strength/ sensation. ENDOCRINE: No increased thirst. No abnormal weight change. HEMATOLOGIC/LYMPHATIC: No anemia, easy bleeding, or history of blood clots. ALLERGIC/IMMUNOLOGIC: No hives or skin allergy. *Physical Exam - Vital Signs Last Vital Signs Temp Pulse Resp BP Pulse Ox 98.7 F 90 16 133/67 100 03/26/19 11:01 03/26/19 11:01 03/26/19 11:01 03/26/19 11:01 03/26/19 11:01 ED Treatment Course - LABORATORY CBC & Chemistry Diagram: 03/26/19 13:36 03/26/19 13:36 - RADIOLOGY Radiology Studies Ordered: Category Date Time Status FOOT-RIGHT [RAD] Stat Radiology 03/26/19 13:02 Ordered Medical Decision Making - Medical Decision Making 03/26/19 14:27 58 yo F with ho chronic toe wound here with oozing from wound. plan xray abx admit cultures and lactate. consulted dr stevens. d/w office dr Shirley who will see pt. was sent by dry sand molder office for admission. *DC/Admit/Observation/Transfer Diagnosis at time of Disposition: Toe infection - Discharge Dispostion Decision to Admit order: Yes - Referrals Referrals: Aleta Medellin MD [Primary Care Provider] - - Patient Instructions - Post Discharge Activity
[2019-03-26 14:27] LABS: BASO % 0.3 % (0-2.0); EOS % 4.2 % (0-4.5); HEMATOCRIT 33.6 % (32.4-45.2); HEMOGLOBIN 10.9 GM/dL (10.7-15.3); LYMPH % 10.7 % (8-40); MCH 27.5 pg (25.7-33.7); MCHC 32.5 g/dl (32.0-36.0); MEAN CELL VOLUME 84.6 fl (80-96); MEAN PLT VOLUME 9.6 fl (7.5-11.1); NEUT % 76.8 % (42.8-82.8); PLATELET COUNT 307 K/MM3 (134-434); RBC 3.97 M/mm3 (3.60-5.2); RDW 14.2 % (11.6-15.6); WHITE BLOOD COUNT 10.9 K/mm3 (4.0-10.0)
[2019-03-26 14:54] LABS: ALBUMIN 3.3 g/dl (3.4-5.0); BILIRUBIN,TOTAL 0.4 mg/dL (0.2-1); BLOOD UREA NITROGEN 28.2 mg/dL (7-18); CALCIUM 9.4 mg/dL (8.5-10.1); CREATININE 1.3 mg/dL (0.55-1.3)
--- NOTE | 2019-03-26 15:36 | HP ---
CHIEF COMPLAINT: right fifth toe pain PCP: HISTORY OF PRESENT ILLNESS: The patient is a 58 year old female, with a significant PMH of Anemia, HTN, HLD , DM, CAD, PAD s/p RLE angiogram showing 90% SFA stenosis s/p SFA atherectomy and SFA angioplasty 01/2019, who presents to the emergency department with right toe pain and infection. As per patient, she was seen at [facility] on 03/20/19 for a persistent right small toe wound. The patient reports, she finished her amoxicillin yesterday, and saw her building maintenance worker who did the local debridment , and told her that she needed to be admitted for an infection. The patient endorses sensitivity on the sight. The patient denies chest pain, shortness of breath, headache and dizziness. Denies fever, chills, nausea, vomiting, diarrhea and constipation. Denies dysuria, frequency, urgency and hematuria. ER course was notable for: (1)cbc, cmp (2)MRI foot right (3) Recent Travel: denies PAST MEDICAL HISTORY: as above PAST SURGICAL HISTORY: Aortogram, RLE angiogram, SFA atherectomy, SFA angioplasty Social History: Smoking:former 1PPD for 21 years Alcohol:socially Drugs: denies Family History: mother dm, father htn, prostate ca Allergies No Known Allergies Allergy (Verified 03/26/19 11:01) HOME MEDICATIONS: Home Medications Medication Instructions Recorded Insulin Glargine,Hum.rec.anlog 32 unit SQ DAILY 12/13/18 [Lantus] Liraglutide [Victoza -] 1.8 unit SQ DAILY 12/13/18 Amlodipine Besylate 10 mg PO DAILY 01/13/19 Metoprolol Succinate 50 mg PO DAILY 01/13/19 Olmesartan/Hydrochlorothiazide 1 each PO DAILY 01/13/19 [Benicar Hct 40-12.5 mg Tablet] Rosuvastatin [Crestor -] 10 mg PO DAILY 01/13/19 Bacitracin - [Bacitracin Topical 1 applic TP DAILY #1 tube 01/17/19 Ointment -] Clopidogrel Bisulfate [Plavix -] 75 mg PO DAILY #30 tablet 01/17/19 Lactobacillus Acidophilus [Bacid -] 1 tab PO DAILY #38 tab 01/17/19 Latanoprost/Pf [Latanoprost 0.005% 7.5 ml OP DAILY 03/26/19 Eye Drop] REVIEW OF SYSTEMS CONSTITUTIONAL: Absent: fever, chills, diaphoresis, generalized weakness, malaise, loss of appetite, weight change HEENT: Absent: rhinorrhea, nasal congestion, throat pain, throat swelling, difficulty swallowing, mouth swelling, ear pain, eye pain, visual changes CARDIOVASCULAR: Absent: chest pain, syncope, palpitations, irregular heart rate, lightheadedness , peripheral edema RESPIRATORY: Absent: cough, shortness of breath, dyspnea with exertion, orthopnea, wheezing, stridor, hemoptysis GASTROINTESTINAL: Absent: abdominal pain, abdominal distension, nausea, vomiting, diarrhea, constipation, melena, hematochezia GENITOURINARY: Absent: dysuria, frequency, urgency, hesitancy, hematuria, flank pain, genital pain MUSCULOSKELETAL: Absent: myalgia, arthralgia, joint [id number] toe , back pain, neck pain SKIN: Absent: rash, itching, pallor HEMATOLOGIC/IMMUNOLOGIC: Absent: easy bleeding, easy bruising, lymphadenopathy, frequent [id number] toe ENDOCRINE: Absent: unexplained weight gain, unexplained weight loss, heat intolerance, cold intolerance NEUROLOGIC: Absent: headache, focal weakness or paresthesias, dizziness, unsteady gait, seizure, mental status changes, bladder or bowel incontinence PSYCHIATRIC: Absent: anxiety, depression, suicidal or homicidal ideation, hallucinations. PHYSICAL EXAMINATION Vital Signs - 24 hr 03/26/19 11:01 Temperature 98.7 F Pulse Rate 90 Respiratory 16 Rate Blood Pressure 133/67 O2 Sat by Pulse 100 Oximetry (%) GENERAL: Awake, alert, and fully oriented, in no acute distress. HEAD: Normal with no signs of trauma. EYES: Pupils equal, round and reactive to light, extraocular movements intact, sclera anicteric, conjunctiva clear. LUNGS: Breath sounds equal, clear to auscultation bilaterally. No wheezes, and no crackles. No accessory muscle use. HEART: Regular rate and rhythm, normal S1 and S2 without murmur, rub or gallop. ABDOMEN: Obese Soft, nontender, not distended, normoactive bowel sounds, no guarding, LOWER EXTREMITIES: 2+ pulses, warm, well-perfused. No calf tenderness. No peripheral edema. 5th toe wound open with puss and blood less than coin size NEUROLOGICAL: no focal deficit . Normal speech. Normal gait. PSYCHIATRIC: Cooperative. Good eye contact. Laboratory Results - last 24 hr 03/26/19 03/26/19 03/26/19 13:36 13:36 13:36 WBC 10.9 H RBC 3.97 Hgb 10.9 Hct 33.6 MCV 84.6 MCH 27.5 MCHC 32.5 RDW 14.2 Plt Count 307 D MPV 9.6 Absolute Neuts (auto) 8.4 H Neutrophils % 76.8 D Lymphocytes % 10.7 D Monocytes % 8.0 Eosinophils % 4.2 Basophils % 0.3 Nucleated RBC % 0 Sodium 137 Potassium 5.0 Chloride 99 Carbon Dioxide 28 Anion Gap 9 BUN 28.2 H Creatinine 1.3 Est GFR (CKD-EPI)AfAm 52.37 Est GFR (CKD-EPI)NonAf 45.18 Random Glucose 183 H Lactic Acid 1.6 Calcium 9.4 Total Bilirubin 0.4 AST 30 ALT 18 Alkaline Phosphatase 80 Total Protein 7.0 Albumin 3.3 L CBC, BMP 03/26/19 13:36 03/26/19 13:36 ASSESSMENT/PLAN: This is a 58 yo F with PMH of IDDM last a1c 9, htn, hld, who was referred to ED by building maintenance worker for treatment of right fifth toe Osteomyelitis. #R 5th toe osteomyelitis #IDDM #HTN #HLD #morbid obesity educated about life style change and diet modification , consider bariatric surgery out pt. Plan * Vanc/zosyn * ID cosnult Dr Mendoza * Tin Flipper consult * Follow MRI * cade cx , wound cx * wound care consult * iss, victroza 1.8 mg d, levemir 35 u daily, diabetic diet * glucose goal <180 with diabetic ulcer infection * continue toprol xl, norvasc, hctz, losartan * continue crestor * Mu to M/S * DVTS proph Visit type - Emergency Visit Emergency Visit: Yes ED Registration Date: 03/26/19 Care time: The patient presented to the Emergency Department on the above date and was hospitalized for further evaluation of their emergent condition. - New Patient This patient is new to me today: Yes Date on this admission: 03/26/19 - Critical Care Critical Care patient: No ATTENDING PHYSICIAN STATEMENT I saw and evaluated the patient. I reviewed the resident's note and discussed the case with the resident. I agree with the resident's findings and plan as documented. SUBJECTIVE: OBJECTIVE: ASSESSMENT AND PLAN:
[2019-03-26] MEDS ORDERED: PIPERACILLIN/TAZOB 3.375 GM 3.375 GM/50 ML BAG IVPB ONE (17:23)
[2019-03-26] MEDS: PIPERACILLIN/TAZOB 3.375 GM 3.375 GM in DEXTROSE 5%-WATER - 50 ML IVPB SCH ×2 (17:28→22:07)
[2019-03-26] MEDS: SODIUM CHLORIDE 1,000 ML IV SCH (17:28)
--- NOTE | 2019-03-26 18:11 | PN ---
Teaching Attending Note Name of Resident: Juanjo Martin ATTENDING PHYSICIAN STATEMENT I saw and evaluated the patient. I reviewed the resident's note and discussed the case with the resident. I agree with the resident's findings and plan as documented with exceptions below. SUBJECTIVE: 58 yof with PMhx of CAD (OM1 70-80%, mild RCA dz in 2010 medically managed), HTN , HLD, IDDM poorly controlled, Right fifth toe osteomyelitis in 01/2019, d/alena on 6 weeks of vancomycin, also s/p SFA angioplasty then, started on plavix recently admitted with RLE cellulitis on 03/20/2019 dced in 24 hours, comes back with 2-3 days of right fifth toe swelling, redness, was seen by Dr Dukes ( covering for Dr. Brown) had I&D and is sent to the ED. She denies any fevers, chills, nausea, vomiting, trauma to right foot, or known h/o foreign body, or new concerns. Reports her home blood glucose have been 200s for the last few weeks. OBJECTIVE: Vital Signs Period Temp Pulse Resp BP Sys/[place] Pulse Ox Last 24 Hr 98.7 F 90-91 16-18 120-133/67-68 98-100 Intake & Output 03/23/19 03/24/19 03/25/19 03/26/19 23:59 23:59 23:59 23:59 Weight 276 lb GENERAL: Awake, alert, and fully oriented, in no acute distress. HEAD: Normal with no signs of trauma. EYES: Pupils equal, round and reactive to light, extraocular movements intact, sclera anicteric, conjunctiva clear. No lid lag. EARS, NOSE, THROAT: Ears normal, nares patent, oropharynx clear without exudates. Moist mucous membranes. NECK: Normal range of motion, supple without lymphadenopathy, JVD, or masses. LUNGS: Breath sounds equal, clear to auscultation bilaterally. No wheezes, and no crackles. No accessory muscle use. HEART: Regular rate and rhythm, normal S1 and S2 ABDOMEN: Soft, nontender, not distended, normoactive bowel sounds, no guarding, no rebound, no masses. No hepatomegaly or splenomegaly. MUSCULOSKELETAL: Normal range of motion at all joints. No bony deformities or tenderness. No CVA tenderness. UPPER EXTREMITIES: 2+ pulses, warm, well-perfused. No cyanosis. No clubbing. No peripheral edema. LOWER EXTREMITIES: 2+ pulses, warm, well-perfused. right fifth toe redness/ swelling/tenderness 1 mm opening with purulent discharge expressed NEUROLOGICAL: AAox3, Cranial nerves II-XII intact. Normal speech. Normal gait. PSYCHIATRIC: Cooperative. Good eye contact. Appropriate mood and affect. SKIN: Warm, dry, normal turgor, no rashes or lesions noted, normal capillary refill. Home Medications Medication Instructions Recorded Insulin Glargine,Hum.rec.anlog 32 unit SQ DAILY 12/13/18 [Lantus] Liraglutide [Victoza -] 1.8 unit SQ DAILY 12/13/18 Amlodipine Besylate 10 mg PO DAILY 01/13/19 Metoprolol Succinate 50 mg PO DAILY 01/13/19 Olmesartan/Hydrochlorothiazide 1 each PO DAILY 01/13/19 [Benicar Hct 40-12.5 mg Tablet] Rosuvastatin [Crestor -] 10 mg PO DAILY 01/13/19 Bacitracin - [Bacitracin Topical 1 applic TP DAILY #1 tube 01/17/19 Ointment -] Clopidogrel Bisulfate [Plavix -] 75 mg PO DAILY #30 tablet 01/17/19 Lactobacillus Acidophilus [Bacid -] 1 tab PO DAILY #38 tab 01/17/19 Latanoprost/Pf [Latanoprost 0.005% 7.5 ml OP DAILY 03/26/19 Eye Drop] Active Medications Amlodipine Besylate (Norvasc -) 10 mg PO DAILY [facility] Bacitracin (Bacitracin -) 1 applic TP DAILY [facility] Clopidogrel Bisulfate (Plavix -) 75 mg PO DAILY [facility] Heparin Sodium (Porcine) (Heparin -) 5,000 unit SQ TID PAT Hydrochlorothiazide (Hctz -) 12.5 mg PO DAILY [facility] Sodium Chloride (Normal Saline -) 1,000 mls @ 100 mls/hr IV ASDIR PAT Last Admin: 03/26/19 17:28 Dose: 100 mls/hr Piperacillin Sod/Tazobactam (Sod 3.375 gm/ Dextrose) 50 mls @ 100 mls/hr IVPB Q6H-IV PAT; Protocol Piperacillin Sod/Tazobactam (Sod 3.375 gm/ Dextrose) 50 mls @ 100 mls/hr IVPB Q6H-IV PAT Stop: 03/27/19 03:29 Last Admin: 03/26/19 17:28 Dose: 100 mls/hr Insulin Aspart (Novolog Vial Sliding Scale -) 1 vial SQ ACHS [facility]; Protocol Last Admin: 03/26/19 18:13 Dose: Not Given Insulin Detemir (Levemir Vial) 35 units SQ AM PAT Lactobacillus Acidophilus (Bacid -) 1 tab PO DAILY PAT Latanoprost (Xalatan 0.005% Eye Drops -) 1 drop OU HS [facility] Liraglutide (Victoza -) 1.8 mg SQ AM PAT Metoprolol Succinate (Toprol Xl -) 50 mg PO DAILY PAT Rosuvastatin Calcium (Crestor -) 10 mg PO HS PAT Valsartan (Diovan -) 320 mg PO DAILY [facility] Laboratory Results - last 24 hr 03/26/19 03/26/19 03/26/19 13:36 13:36 13:36 WBC 10.9 H RBC 3.97 Hgb 10.9 Hct 33.6 MCV 84.6 MCH 27.5 MCHC 32.5 RDW 14.2 Plt Count 307 D MPV 9.6 Absolute Neuts (auto) 8.4 H Neutrophils % 76.8 D Lymphocytes % 10.7 D Monocytes % 8.0 Eosinophils % 4.2 Basophils % 0.3 Nucleated RBC % 0 Sodium 137 Potassium 5.0 Chloride 99 Carbon Dioxide 28 Anion Gap 9 BUN 28.2 H Creatinine 1.3 Est GFR (CKD-EPI)AfAm 52.37 Est GFR (CKD-EPI)NonAf 45.18 POC Glucometer Random Glucose 183 H Lactic Acid 1.6 Calcium 9.4 Total Bilirubin 0.4 AST 30 ALT 18 Alkaline Phosphatase 80 Total Protein 7.0 Albumin 3.3 L 03/26/19 18:02 WBC RBC Hgb Hct MCV MCH MCHC RDW Plt Count MPV Absolute Neuts (auto) Neutrophils % Lymphocytes % Monocytes % Eosinophils % Basophils % Nucleated RBC % Sodium Potassium Chloride Carbon Dioxide Anion Gap BUN Creatinine Est GFR (CKD-EPI)AfAm Est GFR (CKD-EPI)NonAf POC Glucometer 143 Random Glucose Lactic Acid Calcium Total Bilirubin AST ALT Alkaline Phosphatase Total Protein Albumin foot xray results reviewed EKG NSR, LBBB ASSESSMENT AND PLAN: 58 yof with PMhx of CAD (OM1 70-80%, mild RCA dz in 2011 medically managed), HTN , HLD, IDDM poorly controlled, Right fifth toe osteomyelitis in 01/2019, d/alena on 6 weeks of vancomycin, also s/p SFA angioplasty then, started on plavix recently admitted with RLE cellulitis on 03/20/2019 dced in 24 hours, admitted with right fifth toe cellulitis abscess +/- cellulitis -Acute right fifth toe cellulitis with abscess, r/o osteomyelitis -H/o Right fifth toe osteomyelitis in 01/2019 s/p 6 weeks of vancomycin -PAD s/p SFA angioplasty 01/2019 on plavix -CAD (OM1 70-80%, mild RCA dz in 2010 medically managed) -IDDM, poorly controlled -HTN -HLD Plan: Zosyn/Vancomycin. Blood/wound cx. CRP/ESR. MRI right foot. Podiatry input. May need I&D vs amputation pending imaging and above w/u. ID consult. Gentle hydration, hold HCTZ. Continue metoprolol/ARB. levemir/Victoza, ISS, diabetic diet. dVTPPX heparin Admit to med surg Dispo pending clinical improvement. Plan discussed with patient in detail, all questions answered. total admit time spent 65 min.
[2019-03-26] MEDS: INSULIN SLIDING SCALE (NOVOLOG) 1 VIAL SQ SCH ×2 (18:13→22:13)
[2019-03-26] MEDS ORDERED: PIPERACILLIN/TAZOBACTAM 3.375 GM VIAL IVPB ONE (21:54)
[2019-03-26] MEDS ORDERED: DEXTROSE 5%-WATER - 50 ML IVPB ONE (21:55)
[2019-03-26] MEDS ORDERED: INSULIN (LEVEMIR) 100 UNITS/ML UNITS SQ SCH (22:00)
[2019-03-26] MEDS: HEPARIN NA (PORCINE) 5,000 UNITS/ML 1ML VIAL SQ SCH (22:07)
[2019-03-26] MEDS: ROSUVASTATIN CA 10 MG TABLET (FP) PO SCH (22:07)
[2019-03-27] MEDS: LATANOPROST 0.005% OPHTH SOLN 2.5ML BOTTLE OU SCH ×2 (00:20→22:11)
[2019-03-27] MEDS ORDERED: PIPERACILLIN/TAZOBACTAM 3.375 GM VIAL IVPB ONE ×3 (03:05→17:31)
[2019-03-27] MEDS ORDERED: DEXTROSE 5%-WATER - 50 ML IVPB ONE ×3 (03:05→17:31)
[2019-03-27] MEDS: PIPERACILLIN/TAZOB 3.375 GM 3.375 GM in DEXTROSE 5%-WATER - 50 ML IVPB SCH ×4 (03:36→17:39)
[2019-03-27 03:53] VITALS: BMI 44.4
[2019-03-27] MEDS: HEPARIN NA (PORCINE) 5,000 UNITS/ML 1ML VIAL SQ SCH ×3 (06:34→22:09)
[2019-03-27] MEDS: INSULIN (LEVEMIR) 100 UNITS/ML UNITS SQ SCH (06:37)
[2019-03-27] MEDS: INSULIN SLIDING SCALE (NOVOLOG) 1 VIAL SQ SCH ×4 (06:37→22:09)
[2019-03-27] MEDS: LIRAGLUTIDE 0.6 MG/0.1 ML PEN.INJCTR SQ SCH (06:37)
--- NOTE | 2019-03-27 07:44 | PN ---
Physical Exam: SUBJECTIVE: Patient seen and examined doing well, no fever , no chills, culture done this am by roll or tape edge machine operator will start diabetic diet OBJECTIVE: Vital Signs Period Temp Pulse Resp BP Sys/Gilliland Pulse Ox Last 24 Hr 98.2 F-99.5 F 89-91 16-18 120-138/58-77 97-100 GENERAL: Awake, alert, and fully oriented, in no acute distress. HEAD: Normal with no signs of trauma. EYES: Pupils equal, round and reactive to light, extraocular movements intact, sclera anicteric, conjunctiva clear. LUNGS: Breath sounds equal, clear to auscultation bilaterally. No wheezes, and no crackles. No accessory muscle use. HEART: Regular rate and rhythm, normal S1 and S2 without murmur, rub or gallop. ABDOMEN: Obese Soft, nontender, not distended, normoactive bowel sounds, no guarding, LOWER EXTREMITIES: 2+ pulses, warm, well-perfused. No calf tenderness. No peripheral edema. 5th toe wound open with puss and blood less than coin size NEUROLOGICAL: no focal deficit . Normal speech. Normal gait. PSYCHIATRIC: Cooperative. Good eye contact. Laboratory Results - last 24 hr 03/26/19 03/26/19 03/26/19 13:36 13:36 13:36 WBC 10.9 H RBC 3.97 Hgb 10.9 Hct 33.6 MCV 84.6 MCH 27.5 MCHC 32.5 RDW 14.2 Plt Count 307 D MPV 9.6 Absolute Neuts (auto) 8.4 H Neutrophils % 76.8 D Lymphocytes % 10.7 D Monocytes % 8.0 Eosinophils % 4.2 Basophils % 0.3 Nucleated RBC % 0 Sodium 137 Potassium 5.0 Chloride 99 Carbon Dioxide 28 Anion Gap 9 BUN 28.2 H Creatinine 1.3 Est GFR (CKD-EPI)AfAm 52.37 Est GFR (CKD-EPI)NonAf 45.18 POC Glucometer Random Glucose 183 H Lactic Acid 1.6 Calcium 9.4 Total Bilirubin 0.4 AST 30 ALT 18 Alkaline Phosphatase 80 Total Protein 7.0 Albumin 3.3 L 03/26/19 03/26/19 03/27/19 18:02 22:12 06:35 WBC RBC Hgb Hct MCV MCH MCHC RDW Plt Count MPV Absolute Neuts (auto) Neutrophils % Lymphocytes % Monocytes % Eosinophils % Basophils % Nucleated RBC % Sodium Potassium Chloride Carbon Dioxide Anion Gap BUN Creatinine Est GFR (CKD-EPI)AfAm Est GFR (CKD-EPI)NonAf POC Glucometer 143 186 157 Random Glucose Lactic Acid Calcium Total Bilirubin AST ALT Alkaline Phosphatase Total Protein Albumin Active Medications Generic Name Dose Route Start Last Admin Trade Name Freq PRN Reason Stop Dose Admin Amlodipine Besylate 10 mg 03/27/19 10:00 Norvasc - PO DAILY [facility] Bacitracin 1 applic 03/27/19 10:00 Bacitracin - TP DAILY [facility] Clopidogrel Bisulfate 75 mg 03/27/19 10:00 Plavix - PO DAILY [facility] Heparin Sodium (Porcine) 5,000 unit 03/26/19 22:00 03/27/19 06:34 Heparin - SQ 5,000 unit TID PAT Administration Sodium Chloride 1,000 mls @ 100 mls/hr 03/26/19 16:30 03/26/19 17:28 Normal Saline - IV 100 mls/hr ASDIR PAT Administration Piperacillin Sod/Tazobactam 50 mls @ 100 mls/hr 03/27/19 03:00 Sod 3.375 gm/ Dextrose IVPB Q6H-IV [facility] Protocol Insulin Aspart 1 vial 03/26/19 16:30 03/27/19 06:37 Novolog Vial Sliding Scale - SQ Not Given ACHS [facility] Protocol Insulin Detemir 35 units 03/27/19 07:00 03/27/19 06:37 Levemir Vial SQ Not Given AM [facility] Lactobacillus Acidophilus 1 tab 03/27/19 10:00 Bacid - PO DAILY [facility] Latanoprost 1 drop 03/26/19 22:00 03/27/19 00:20 Xalatan 0.005% Eye Drops - OU 1 drop HS [facility] Administration Liraglutide 1.8 mg 03/27/19 07:00 03/27/19 06:37 Victoza - SQ Not Given AM [facility] Metoprolol Succinate 50 mg 03/27/19 10:00 Toprol Xl - PO DAILY [facility] Rosuvastatin Calcium 10 mg 03/26/19 22:00 03/26/19 22:07 Crestor - PO 10 mg HS PAT Administration Valsartan 320 mg 03/27/19 10:00 Diovan - PO DAILY [facility] CBC, BMP 03/27/19 08:22 03/27/19 08:22 MRI LE : Osteomilities of the fifth phalanx and middle phalanx of the 5th toe with extensive perifocal soft tissue swelling compatible with cellulites ASSESSMENT/PLAN: This is a 58 yo F with PMH of IDDM last a1c 9, htn, hld, who was referred to ED by roll or tape edge machine operator for treatment of right fifth toe Osteomyelitis. #R 5th toe osteomyelitis #IDDM #HTN #HLD #morbid obesity educated about life style change and diet modification , consider bariatric surgery out pt. Plan * Vanc/zosyn cont * ID cosnult Dr Mendoza * Instrument Mechanic consult * MRI cellulitis and OSteomilitis 5th toe as above * cade cx , wound cx * wound care consult * iss, victroza 1.8 mg d, levemir 35 u daily, diabetic diet * glucose goal <180 with diabetic ulcer infection * continue toprol xl, norvasc, hctz, losartan * continue crestor * Mu to M/S * DVTS proph Visit type - Emergency Visit Emergency Visit: Yes ED Registration Date: 03/26/19 Care time: The patient presented to the Emergency Department on the above date and was hospitalized for further evaluation of their emergent condition. - New Patient This patient is new to me today: No - Critical Care Critical Care patient: No - Discharge Referral Referred to [facility] Med [facility] No ATTENDING PHYSICIAN STATEMENT I saw and evaluated the patient. I reviewed the resident's note and discussed the case with the resident. I agree with the resident's findings and plan as documented. SUBJECTIVE: OBJECTIVE: ASSESSMENT AND PLAN:
[2019-03-27] MEDS ORDERED: PT OWN MED DRAWER 7, Y5N ONE ×2 (07:51→08:55)
--- NOTE | 2019-03-27 08:21 | PN ---
Progress Note (short form) - Note Progress Note: Dsd Patient seen at bedside and feels much better. wbc 10.9 Decrease edema Incision and drainage of toe at bedside 2 cultures sent dsd applied with betadine Waiting mri results and culture and sensitivity Dr Dukes will follow
[2019-03-27 08:47] LABS: BASO % 0.3 % (0-2.0); EOS % 4.6 % (0-4.5); HEMATOCRIT 32.5 % (32.4-45.2); HEMOGLOBIN 10.5 GM/dL (10.7-15.3); LYMPH % 20.4 % (8-40); MCH 27.4 pg (25.7-33.7); MCHC 32.4 g/dl (32.0-36.0); MEAN CELL VOLUME 84.6 fl (80-96); MEAN PLT VOLUME 9.2 fl (7.5-11.1); NEUT % 62.7 % (42.8-82.8); PLATELET COUNT 289 K/MM3 (134-434); RBC 3.85 M/mm3 (3.60-5.2); RDW 13.4 % (11.6-15.6); WHITE BLOOD COUNT 8.2 K/mm3 (4.0-10.0)
[2019-03-27] MEDS ORDERED: INSULIN (LEVEMIR) 100 UNITS/ML UNITS SQ ONE (08:54)
[2019-03-27 09:25] LABS: ALBUMIN 3.1 g/dl (3.4-5.0); BILIRUBIN,TOTAL 0.6 mg/dL (0.2-1); CALCIUM 9.3 mg/dL (8.5-10.1); CREATININE 1.2 mg/dL (0.55-1.3); POTASSIUM 4.3 mmol/L (3.5-5.1); TOT PROT 6.4 g/dl (6.4-8.2)
[2019-03-27] MEDS: VALSARTAN 160 MG TABLET (UD) PO SCH (09:43)
[2019-03-27] MEDS: LACTOBACILLUS ACIDOPHILUS 1 TABLET PO SCH (09:47)
[2019-03-27] MEDS: CLOPIDOGREL BISULFATE 75 MG TABLET (FP) PO SCH (09:47)
[2019-03-27] MEDS: amLODIPine BESYLATE 10 MG TABLET (FP) PO SCH (09:48)
[2019-03-27] MEDS ORDERED: HYDROCHLOROTHIAZIDE 12.5 MG CAPSULE (FP) PO SCH (10:00)
[2019-03-27] MEDS ORDERED: PATIENT'S OWN MEDICATION (NON-FORMULARY) (Olmesartan/Hydrochlorothiazide [Benicar Hct 40-1 PO SCH (10:00)
[2019-03-27] MEDS ORDERED: PATIENT'S OWN MEDICATION (NON-FORMULARY) (Latanoprost/Pf [Latanoprost 0.005% Eye Drop] 7.5 OP SCH (10:00)
[2019-03-27] MEDS: BACITRACIN 15 GM TUBE TOPICAL OINTMENT TP SCH (10:47)
[2019-03-27] MEDS: SODIUM CHLORIDE 1,000 ML IV SCH ×3 (11:09→22:36)
--- NOTE | 2019-03-27 11:12 | EKG ---
Test Reason : Blood Pressure : / mmHG Vent. Rate : 093 BPM Atrial Rate : 093 BPM P-R Int : 170 ms QRS Dur : 138 ms QT Int : 376 ms P-R-T Axes : 050 038 036 degrees QTc Int : 467 ms NORMAL SINUS RHYTHM LEFT BUNDLE BRANCH BLOCK CANNOT RULE OUT ANTEROSEPTAL INFARCT , AGE UNDETERMINED ABNORMAL ECG WHEN COMPARED WITH ECG OF 13-JAN-2019 11:02, NO SIGNIFICANT CHANGE WAS FOUND Confirmed by LILLIANA SANCHEZ MD ([id number]) on 03/27/2019 11:11:58 AM Referred By: Confirmed By:LILLIANA SANCHEZ MD
[2019-03-27] MEDS ORDERED: VANCOMYCIN 1 GRAM (PRE-DOCKED) 1,000 MG/250 ML BAG IVPB ONE (14:43)
--- NOTE | 2019-03-27 15:55 | PN ---
Teaching Attending Note Name of Resident: Juanjo Martin ATTENDING PHYSICIAN STATEMENT I saw and evaluated the patient. I reviewed the resident's note and discussed the case with the resident. I agree with the resident's findings and plan as documented with exceptions below. SUBJECTIVE: Patient seen and examined, right toe symptoms improved. No fevers, chills or new concerns. OBJECTIVE: Vital Signs Period Temp Pulse Resp BP Sys/Gilliland Pulse Ox Last 24 Hr 98.2 F-99.6 F 89-91 18-18 120-138/58-77 97-98 Intake & Output 03/24/19 03/25/19 03/26/19 03/27/19 23:59 23:59 23:59 23:59 Intake Total 400 1480 Balance 400 1480 Weight 275 lb General: lying in bed in no acute distress neck: soft, supple, no JVD CVS:S1S2 regular Chest: CTAb, no rales or wheezing Abdomen:soft, obese, NT Extremities: fifth toe swelling, no active discharge, dressing in place Home Medications Medication Instructions Recorded Insulin Glargine,Hum.rec.anlog 32 unit SQ DAILY 12/13/18 [Lantus] Liraglutide [Victoza -] 1.8 unit SQ DAILY 12/13/18 Amlodipine Besylate 10 mg PO DAILY 01/13/19 Metoprolol Succinate 50 mg PO DAILY 01/13/19 Olmesartan/Hydrochlorothiazide 1 each PO DAILY 01/13/19 [Benicar Hct 40-12.5 mg Tablet] Rosuvastatin [Crestor -] 10 mg PO DAILY 01/13/19 Bacitracin - [Bacitracin Topical 1 applic TP DAILY #1 tube 01/17/19 Ointment -] Clopidogrel Bisulfate [Plavix -] 75 mg PO DAILY #30 tablet 01/17/19 Lactobacillus Acidophilus [Bacid -] 1 tab PO DAILY #38 tab 01/17/19 Latanoprost/Pf [Latanoprost 0.005% 7.5 ml OP DAILY 03/26/19 Eye Drop] Active Medications Amlodipine Besylate (Norvasc -) 10 mg PO DAILY PAT Last Admin: 03/27/19 09:48 Dose: 10 mg Bacitracin (Bacitracin -) 1 applic TP DAILY PAT Last Admin: 03/27/19 10:47 Dose: 1 applic Clopidogrel Bisulfate (Plavix -) 75 mg PO DAILY [facility] Last Admin: 03/27/19 09:47 Dose: 75 mg Heparin Sodium (Porcine) (Heparin -) 5,000 unit SQ TID [facility] Last Admin: 03/27/19 15:22 Dose: 5,000 unit Sodium Chloride (Normal Saline -) 1,000 mls @ 100 mls/hr IV ASDIR [facility] Last Admin: 03/27/19 11:09 Dose: 100 mls/hr Piperacillin Sod/Tazobactam (Sod 3.375 gm/ Dextrose) 50 mls @ 100 mls/hr IVPB Q8H-IV PAT; Protocol Last Admin: 03/27/19 11:10 Dose: 100 mls/hr Insulin Aspart (Novolog Vial Sliding Scale -) 1 vial SQ ACHS [facility]; Protocol Last Admin: 03/27/19 12:07 Dose: 2 unit Insulin Detemir (Levemir Vial) 35 units SQ AM [facility] Last Admin: 03/27/19 06:37 Dose: Not Given Lactobacillus Acidophilus (Bacid -) 1 tab PO DAILY [facility] Last Admin: 03/27/19 09:47 Dose: 1 tab Latanoprost (Xalatan 0.005% Eye Drops -) 1 drop OU HS [facility] Last Admin: 03/27/19 00:20 Dose: 1 drop Liraglutide (Victoza -) 1.8 mg SQ AM [facility] Last Admin: 03/27/19 06:37 Dose: Not Given Metoprolol Succinate (Toprol Xl -) 50 mg PO DAILY [facility] Last Admin: 03/27/19 09:47 Dose: 50 mg Rosuvastatin Calcium (Crestor -) 10 mg PO HS [facility] Last Admin: 03/26/19 22:07 Dose: 10 mg Valsartan (Diovan -) 320 mg PO DAILY [facility] Last Admin: 03/27/19 09:43 Dose: 320 mg Laboratory Results - last 24 hr 03/26/19 03/26/19 03/27/19 18:02 22:12 06:35 WBC RBC Hgb Hct MCV MCH MCHC RDW Plt Count MPV Absolute Neuts (auto) Neutrophils % Lymphocytes % Monocytes % Eosinophils % Basophils % Nucleated RBC % ESR PTT (Actin FS) Sodium Potassium Chloride Carbon Dioxide Anion Gap BUN Creatinine Est GFR (CKD-EPI)AfAm Est GFR (CKD-EPI)NonAf POC Glucometer 143 186 157 Random Glucose Calcium Total Bilirubin AST ALT Alkaline Phosphatase C-Reactive Protein Total Protein Albumin 03/27/19 03/27/19 03/27/19 08:22 08:22 08:22 WBC 8.2 RBC 3.85 Hgb 10.5 L Hct 32.5 MCV 84.6 MCH 27.4 MCHC 32.4 RDW 13.4 Plt Count 289 MPV 9.2 Absolute Neuts (auto) 5.1 Neutrophils % 62.7 Lymphocytes % 20.4 D Monocytes % 12.0 H Eosinophils % 4.6 H Basophils % 0.3 Nucleated RBC % 0 ESR PTT (Actin FS) 31.2 Sodium 137 Potassium 4.3 Chloride 101 Carbon Dioxide 28 Anion Gap 8 BUN 19.0 H Creatinine 1.2 Est GFR (CKD-EPI)AfAm 57.69 Est GFR (CKD-EPI)NonAf 49.78 POC Glucometer Random Glucose 175 H Calcium 9.3 Total Bilirubin 0.6 AST 17 ALT 16 Alkaline Phosphatase 88 C-Reactive Protein Total Protein 6.4 Albumin 3.1 L 03/27/19 03/27/19 03/27/19 08:22 08:22 11:57 WBC RBC Hgb Hct MCV MCH MCHC RDW Plt Count MPV Absolute Neuts (auto) Neutrophils % Lymphocytes % Monocytes % Eosinophils % Basophils % Nucleated RBC % ESR 87 H PTT (Actin FS) Sodium Potassium Chloride Carbon Dioxide Anion Gap BUN Creatinine Est GFR (CKD-EPI)AfAm Est GFR (CKD-EPI)NonAf POC Glucometer 200 Random Glucose Calcium Total Bilirubin AST ALT Alkaline Phosphatase C-Reactive Protein 12.7 H Total Protein Albumin Microbiology 03/26/19 13:36 Blood - Peripheral Venous Blood Culture - Preliminary NO GROWTH OBTAINED AFTER 24 HOURS, INCUBATION TO CONTINUE FOR 4 DAYS. 03/26/19 13:36 Blood - Peripheral Venous Blood Culture - Preliminary NO GROWTH OBTAINED AFTER 24 HOURS, INCUBATION TO CONTINUE FOR 4 DAYS. MRI RLE results reviewed (?erroneously labelled as left foot MRI) ASSESSMENT AND PLAN: 58 yof with PMhx of CAD (OM1 70-80%, mild RCA dz in 2010 medically managed), HTN , HLD, IDDM poorly controlled, Right fifth toe osteomyelitis in 01/2019, d/alena on 6 weeks of vancomycin, also s/p SFA angioplasty then, started on plavix recently admitted with RLE cellulitis on 03/20/2019 dced in 24 hours, admitted with right fifth toe cellulitis abscess +/- cellulitis -Acute right fifth toe cellulitis with abscess and osteomyelitis -H/o Right fifth toe osteomyelitis in 01/2019 s/p 6 weeks of vancomycin -PAD s/p SFA angioplasty 01/2019 on plavix -CAD (OM1 70-80%, mild RCA dz in 2010 medically managed) -IDDM, poorly controlled -HTN -HLD Plan: MRi results noted (radiology to rectify correct side) recently treated with 6 weeks of vancomycin. Now with recurrent osteomyelitis. Podiatry input noted. Will address if needs amputation. Await ID input, zosyn/vancomycin, follow up blood/wound cx. ESR/CRP noted. Gentle hydration, hold HCTZ. Continue metoprolol/ARB. levemir/Victoza, ISS, diabetic diet. dVTPPX heparin Dispo pending clinical improvement. Plan discussed with patient and nursing in detail, all questions answered.
--- NOTE | 2019-03-27 16:02 | CON.ID ---
Consult Consult Specialty:: infectious diseases Referred by:: hospitalist Reason for Consultation:: infection of the toe and the foot - History of Present Illness Chief Complaint: swelling of the foot with infection History of Present Illness: 58 year old female, with a significant PMH of Anemia, HTN, HLD, DM, CAD, PAD s/ p RLE angiogram showing 90% SFA stenosis s/p SFA atherectomy and SFA angioplasty 01/2019, who comes back with swelling of the foot and the rt toe . patient was initially diagnosed with osteo of the toe and was treated with 6 weeks of iv abx. she was doing well till sunday and on sunday according to her she suddenly noticed an swelling of the foot and toe and went to the podiatry dept and the toes was opened with collection present according to the podiatry team patient was send to the hospital to be admitted patient also is an uncontrolled diabetic - History Source History Provided By: Patient Limitations to Obtaining History: No Limitations - Past Medical History Cardio/Vascular: Yes: HTN, Hyperlipdemia Pulmonary: Yes: Other (PVD) Endocrine: Yes: Diabetes Mellitus - Alcohol/Substance Use Hx Alcohol Use: Yes (socially) History of Substance Use: reports: None - Smoking History Smoking history: Former smoker Have you smoked in the past 12 months: No Aproximately how many cigarettes per day: 0 If you are a former smoker, when did you quit?: 1996 - Social History History of Recent Travel: No Home Medications - Allergies Allergies/Adverse Reactions: Allergies Allergy/AdvReac Type Severity Reaction Status Date / Time No Known Allergies Allergy Verified 03/26/19 11:01 - Home Medications Home Medications: Ambulatory Orders Insulin Glargine,Hum.rec.anlog [Lantus] 32 unit SQ DAILY 12/13/18 Liraglutide [Victoza -] 1.8 unit SQ DAILY 12/13/18 Amlodipine Besylate 10 mg PO DAILY 01/13/19 Metoprolol Succinate 50 mg PO DAILY 01/13/19 Olmesartan/Hydrochlorothiazide [Benicar Hct 40-12.5 mg Tablet] 1 each PO DAILY 01/13/19 Rosuvastatin [Crestor -] 10 mg PO DAILY 01/13/19 Bacitracin - [Bacitracin Topical Ointment -] 1 applic TP DAILY #1 tube 01/17/19 Clopidogrel Bisulfate [Plavix -] 75 mg PO DAILY #30 tablet 01/17/19 Lactobacillus Acidophilus [Bacid -] 1 tab PO DAILY #38 tab 01/17/19 Latanoprost/Pf [Latanoprost 0.005% Eye Drop] 7.5 ml OP DAILY 03/26/19 Family Disease History - Family Disease History Family Disease History: Diabetes: Mother, Other: Father (HTN) Review of Systems - Review of Systems Constitutional: reports: No Symptoms Eyes: reports: No Symptoms HENT: reports: No Symptoms Neck: reports: No Symptoms Cardiovascular: reports: No Symptoms Respiratory: reports: No Symptoms Gastrointestinal: reports: No Symptoms Genitourinary: reports: No Symptoms Musculoskeletal: reports: Extremity Pain Integumentary: reports: Erythema, Wound, Other Neurological: reports: No Symptoms Endocrine: reports: No Symptoms Hematology/Lymphatic: reports: No Symptoms Psychiatric: reports: No Symptoms Physical Exam Vital Signs: Vital Signs Temperature 98.9 F 03/27/19 15:18 Pulse Rate 89 03/27/19 15:18 Respiratory Rate 18 03/27/19 15:18 Blood Pressure 132/68 03/27/19 15:18 O2 Sat by Pulse Oximetry (%) 97 03/26/19 21:10 Constitutional: Yes: No Distress, Calm Cardiovascular: Yes: S1, S2 Respiratory: Yes: Regular, CTA Bilaterally Gastrointestinal: Yes: Normal Bowel Sounds, Soft Musculoskeletal: Yes: Other Extremities: Yes: Erythema (of the foot) Wound/Incision: Yes: Dressing Dry and Intact Neurological: Yes: Alert, Oriented Psychiatric: Yes: Alert, Oriented Labs: CBC, BMP 03/27/19 08:22 03/27/19 08:22 Imaging - Results MRI: Report Reviewed, Image Reviewed Assessment/Plan This is a 58 yo F with PMH of IDDM last a1c 9, htn, hld, who was referred to ED by 411 directory assistance operator for treatment of right fifth toe Osteomyelitis. R 5th toe osteomyelitis IDDM htn obesity plan images looked at d/w podiatry patient probably needs amputation wound care rest as per the team abx
[2019-03-27] MEDS: ROSUVASTATIN CA 10 MG TABLET (FP) PO SCH (22:09)
[2019-03-28] MEDS ORDERED: PIPERACILLIN/TAZOBACTAM 3.375 GM VIAL IVPB ONE ×3 (01:21→17:03)
[2019-03-28] MEDS ORDERED: DEXTROSE 5%-WATER - 50 ML IVPB ONE ×3 (01:21→17:03)
[2019-03-28] MEDS: PIPERACILLIN/TAZOB 3.375 GM 3.375 GM in DEXTROSE 5%-WATER - 50 ML IVPB SCH ×3 (01:37→17:20)
[2019-03-28] MEDS ORDERED: PT OWN MED DRAWER 7, Y5N ONE (05:34)
[2019-03-28] MEDS: HEPARIN NA (PORCINE) 5,000 UNITS/ML 1ML VIAL SQ SCH ×3 (06:24→21:35)
[2019-03-28] MEDS: INSULIN SLIDING SCALE (NOVOLOG) 1 VIAL SQ SCH ×4 (06:24→21:35)
[2019-03-28] MEDS: INSULIN (LEVEMIR) 100 UNITS/ML UNITS SQ SCH (06:25)
[2019-03-28] MEDS: LIRAGLUTIDE 0.6 MG/0.1 ML PEN.INJCTR SQ SCH (06:26)
--- NOTE | 2019-03-28 07:23 | PN ---
Physical Exam: SUBJECTIVE: Patient seen and examined no fever , no chills, toe still swollen MRI positive for Osteomilitis OBJECTIVE: Vital Signs Period Temp Pulse Resp BP Sys/Gilliland Pulse Ox Last 24 Hr 98.4 F-99.6 F 82-89 18-20 114-138/58-72 98-98 GENERAL: Awake, alert, and fully oriented, in no acute distress. HEAD: Normal with no signs of trauma. EYES: Pupils equal, round and reactive to light, extraocular movements intact, sclera anicteric, conjunctiva clear. LUNGS: Breath sounds equal, clear to auscultation bilaterally. No wheezes, and no crackles. No accessory muscle use. HEART: Regular rate and rhythm, normal S1 and S2 without murmur, rub or gallop. ABDOMEN: Obese Soft, nontender, not distended, normoactive bowel sounds, no guarding, LOWER EXTREMITIES: 2+ pulses, warm, well-perfused. No calf tenderness. No peripheral edema. 5th toe wound open with puss and blood less than coin size NEUROLOGICAL: no focal deficit . Normal speech. Normal gait. PSYCHIATRIC: Cooperative. Good eye contact. Laboratory Results - last 24 hr 03/27/19 03/27/19 03/27/19 08:22 08:22 08:22 WBC 8.2 RBC 3.85 Hgb 10.5 L Hct 32.5 MCV 84.6 MCH 27.4 MCHC 32.4 RDW 13.4 Plt Count 289 MPV 9.2 Absolute Neuts (auto) 5.1 Neutrophils % 62.7 Lymphocytes % 20.4 D Monocytes % 12.0 H Eosinophils % 4.6 H Basophils % 0.3 Nucleated RBC % 0 ESR PTT (Actin FS) 31.2 Sodium 137 Potassium 4.3 Chloride 101 Carbon Dioxide 28 Anion Gap 8 BUN 19.0 H Creatinine 1.2 Est GFR (CKD-EPI)AfAm 57.69 Est GFR (CKD-EPI)NonAf 49.78 POC Glucometer Random Glucose 175 H Calcium 9.3 Total Bilirubin 0.6 AST 17 ALT 16 Alkaline Phosphatase 88 C-Reactive Protein Total Protein 6.4 Albumin 3.1 L 03/27/19 03/27/19 03/27/19 08:22 08:22 11:57 WBC RBC Hgb Hct MCV MCH MCHC RDW Plt Count MPV Absolute Neuts (auto) Neutrophils % Lymphocytes % Monocytes % Eosinophils % Basophils % Nucleated RBC % ESR 87 H PTT (Actin FS) Sodium Potassium Chloride Carbon Dioxide Anion Gap BUN Creatinine Est GFR (CKD-EPI)AfAm Est GFR (CKD-EPI)NonAf POC Glucometer 200 Random Glucose Calcium Total Bilirubin AST ALT Alkaline Phosphatase C-Reactive Protein 12.7 H Total Protein Albumin 03/27/19 03/27/19 03/28/19 17:04 22:01 06:21 WBC RBC Hgb Hct MCV MCH MCHC RDW Plt Count MPV Absolute Neuts (auto) Neutrophils % Lymphocytes % Monocytes % Eosinophils % Basophils % Nucleated RBC % ESR PTT (Actin FS) Sodium Potassium Chloride Carbon Dioxide Anion Gap BUN Creatinine Est GFR (CKD-EPI)AfAm Est GFR (CKD-EPI)NonAf POC Glucometer 239 185 199 Random Glucose Calcium Total Bilirubin AST ALT Alkaline Phosphatase C-Reactive Protein Total Protein Albumin Active Medications Generic Name Dose Route Start Last Admin Trade Name Freq PRN Reason Stop Dose Admin Amlodipine Besylate 10 mg 03/27/19 10:00 03/27/19 09:48 Norvasc - PO 10 mg DAILY PAT Administration Bacitracin 1 applic 03/27/19 10:00 03/27/19 10:47 Bacitracin - TP 1 applic DAILY PAT Administration Clopidogrel Bisulfate 75 mg 03/27/19 10:00 03/27/19 09:47 Plavix - PO 75 mg DAILY PAT Administration Heparin Sodium (Porcine) 5,000 unit 03/26/19 22:00 03/28/19 06:24 Heparin - SQ 5,000 unit TID PAT Administration Sodium Chloride 1,000 mls @ 100 mls/hr 03/26/19 16:30 03/27/19 22:36 Normal Saline - IV 100 mls/hr ASDIR PAT Administration Piperacillin Sod/Tazobactam 50 mls @ 100 mls/hr 03/27/19 10:00 03/28/19 01:37 Sod 3.375 gm/ Dextrose IVPB 100 mls/hr Q8H-IV PAT Administration Protocol Insulin Aspart 1 vial 03/26/19 16:30 03/28/19 06:24 Novolog Vial Sliding Scale - SQ 2 unit ACHS PAT Administration Protocol Insulin Detemir 35 units 03/27/19 07:00 03/28/19 06:25 Levemir Vial SQ 35 units AM PAT Administration Lactobacillus Acidophilus 1 tab 03/27/19 10:00 03/27/19 09:47 Bacid - PO 1 tab DAILY PAT Administration Latanoprost 1 drop 03/26/19 22:00 03/27/19 22:11 Xalatan 0.005% Eye Drops - OU 1 drop HS PAT Administration Liraglutide 1.8 mg 03/27/19 07:00 03/28/19 06:26 Victoza - SQ 1.8 mg AM PAT Administration Metoprolol Succinate 50 mg 03/27/19 10:00 03/27/19 09:47 Toprol Xl - PO 50 mg DAILY PAT Administration Rosuvastatin Calcium 10 mg 03/26/19 22:00 03/27/19 22:09 Crestor - PO 10 mg HS PAT Administration Valsartan 320 mg 03/27/19 10:00 03/27/19 09:43 Diovan - PO 320 mg DAILY PAT Administration CBC, BMP 03/28/19 08:00 03/28/19 08:00 Microbiology 03/26/19 13:36 Blood - Peripheral Venous Blood Culture - Preliminary NO GROWTH OBTAINED AFTER 48 HOURS, INCUBATION TO CONTINUE FOR 3 DAYS. 03/26/19 13:36 Blood - Peripheral Venous Blood Culture - Preliminary NO GROWTH OBTAINED AFTER 48 HOURS, INCUBATION TO CONTINUE FOR 3 DAYS. 03/27/19 08:10 Toe - Right Fifth Gram Stain - Final 03/27/19 08:10 Toe - Right Fifth Wound Culture - Preliminary 03/27/19 08:10 Foot - Right Lateral Gram Stain - Final 03/27/19 08:10 Foot - Right Lateral Wound Culture - Preliminary Group D Strep Or Entero Coccus Pending Organism Pending Organism#2 MRI LE : Osteomilities of the fifth phalanx and middle phalanx of the 5th toe with extensive perifocal soft tissue swelling compatible with cellulites ASSESSMENT/PLAN: This is a 58 yo F with PMH of IDDM last a1c 9, htn, hld, who was referred to ED by inventory taker for treatment of right fifth toe Osteomyelitis. #R 5th toe osteomyelitis #IDDM #HTN #HLD #morbid obesity educated about life style change and diet modification , consider bariatric surgery out pt. Plan * s.p Vanc/zosyn cont zosyn per ID * ID cosnult Dr Mendoza * Refining Machine Operator consult * MRI cellulitis and OSteomilitis 5th toe as above * cade cx , wound cx reviwed * wound care consult dc bacitracin apply betadin and dsd * iss, victroza 1.8 mg d, levemir 35 u daily, diabetic diet * glucose goal <180 with diabetic ulcer infection * continue toprol xl, norvasc,, losartan, hold hctz * continue crestor * Mu to M/S * DVTS proph * refuse ambutation , want to try Hyper baric , * dispo pending cx and sensitivity , she will need picc line before dc Visit type - Emergency Visit Emergency Visit: Yes ED Registration Date: 03/26/19 Care time: The patient presented to the Emergency Department on the above date and was hospitalized for further evaluation of their emergent condition. - New Patient This patient is new to me today: No - Critical Care Critical Care patient: No ATTENDING PHYSICIAN STATEMENT I saw and evaluated the patient. I reviewed the resident's note and discussed the case with the resident. I agree with the resident's findings and plan as documented. SUBJECTIVE: OBJECTIVE: ASSESSMENT AND PLAN:
[2019-03-28 08:19] LABS: EOS % 3.5 % (0-4.5); HEMATOCRIT 30.1 % (32.4-45.2); MCH 27.9 pg (25.7-33.7); MCHC 33.1 g/dl (32.0-36.0); MEAN CELL VOLUME 84.3 fl (80-96); MEAN PLT VOLUME 8.8 fl (7.5-11.1); MONO % 11.7 % (3.8-10.2); NEUT % 59.8 % (42.8-82.8); PLATELET COUNT 281 K/MM3 (134-434); RBC 3.57 M/mm3 (3.60-5.2); RDW 13.5 % (11.6-15.6); WHITE BLOOD COUNT 6.9 K/mm3 (4.0-10.0)
[2019-03-28 08:44] LABS: BLOOD UREA NITROGEN 14.5 mg/dL (7-18); CALCIUM 8.8 mg/dL (8.5-10.1); POTASSIUM 3.9 mmol/L (3.5-5.1)
[2019-03-28] MEDS: CLOPIDOGREL BISULFATE 75 MG TABLET (FP) PO SCH (09:26)
[2019-03-28] MEDS: amLODIPine BESYLATE 10 MG TABLET (FP) PO SCH (09:26)
[2019-03-28] MEDS: VALSARTAN 160 MG TABLET (UD) PO SCH (09:27)
[2019-03-28] MEDS: BACITRACIN 15 GM TUBE TOPICAL OINTMENT TP SCH (09:28)
[2019-03-28] MEDS: LACTOBACILLUS ACIDOPHILUS 1 TABLET PO SCH (09:35)
--- NOTE | 2019-03-28 09:45 | PN ---
Progress Note (short form) - Note Progress Note: Patient seen at bedside Has no pain in bed only ambulating Wbc 6.9 No drainage seen on bandage Discuss with patient ampution She doesnt really want to do that She would like to try hyberaric . She knows it might not work She was told the results of the mri were positve for a bone infection. Betadine and dsd applied Discontinue bacitracin and need a surgical shoe
--- NOTE | 2019-03-28 10:08 | PN ---
Progress Note, Physician History of Present Illness: feels better no new issues dressing done spoke with podiatry team - Current Medication List Current Medications: Active Medications Amlodipine Besylate (Norvasc -) 10 mg PO DAILY [facility] Last Admin: 03/28/19 09:26 Dose: 10 mg Bacitracin (Bacitracin -) 1 applic TP DAILY [facility] Last Admin: 03/28/19 09:28 Dose: Not Given Clopidogrel Bisulfate (Plavix -) 75 mg PO DAILY [facility] Last Admin: 03/28/19 09:26 Dose: 75 mg Heparin Sodium (Porcine) (Heparin -) 5,000 unit SQ TID [facility] Last Admin: 03/28/19 06:24 Dose: 5,000 unit Sodium Chloride (Normal Saline -) 1,000 mls @ 100 mls/hr IV ASDIR [facility] Last Admin: 03/27/19 22:36 Dose: 100 mls/hr Piperacillin Sod/Tazobactam (Sod 3.375 gm/ Dextrose) 50 mls @ 100 mls/hr IVPB Q8H-IV [facility]; Protocol Last Admin: 03/28/19 09:28 Dose: 100 mls/hr Insulin Aspart (Novolog Vial Sliding Scale -) 1 vial SQ ACHS [facility]; Protocol Last Admin: 03/28/19 06:24 Dose: 2 unit Insulin Detemir (Levemir Vial) 35 units SQ AM [facility] Last Admin: 03/28/19 06:25 Dose: 35 units Lactobacillus Acidophilus (Bacid -) 1 tab PO DAILY [facility] Last Admin: 03/28/19 09:35 Dose: 1 tab Latanoprost (Xalatan 0.005% Eye Drops -) 1 drop OU HS [facility] Last Admin: 03/27/19 22:11 Dose: 1 drop Liraglutide (Victoza -) 1.8 mg SQ AM [facility] Last Admin: 03/28/19 06:26 Dose: 1.8 mg Metoprolol Succinate (Toprol Xl -) 50 mg PO DAILY [facility] Last Admin: 03/28/19 09:27 Dose: 50 mg Rosuvastatin Calcium (Crestor -) 10 mg PO HS [facility] Last Admin: 03/27/19 22:09 Dose: 10 mg Valsartan (Diovan -) 320 mg PO DAILY [facility] Last Admin: 03/28/19 09:27 Dose: 320 mg - Objective Vital Signs: Vital Signs Temperature 98.5 F 03/28/19 09:16 Pulse Rate 88 03/28/19 09:16 Respiratory Rate 20 03/28/19 09:16 Blood Pressure 135/68 03/28/19 09:16 O2 Sat by Pulse Oximetry (%) 98 03/27/19 21:00 Constitutional: Yes: No Distress, Calm, Obese Cardiovascular: Yes: S1, S2 Respiratory: Yes: Regular, CTA Bilaterally Gastrointestinal: Yes: Normal Bowel Sounds, Soft Musculoskeletal: Yes: Other Extremities: Yes: Other Wound/Incision: Yes: Dressing Dry and Intact Neurological: Yes: Alert, Oriented Psychiatric: Yes: Alert, Oriented Labs: CBC, BMP 03/28/19 08:00 03/28/19 08:00 Assessment/Plan This is a 58 yo F with PMH of IDDM last a1c 9, htn, hld, who was referred to ED by bonding supervisor for treatment of right fifth toe Osteomyelitis. R 5th toe osteomyelitis IDDM htn obesity plan continue abx await for cx report probably heading towards amputation patient still wants to save the foot
--- NOTE | 2019-03-28 12:20 | PN ---
Teaching Attending Note Name of Resident: Juanjo Martin ATTENDING PHYSICIAN STATEMENT I saw and evaluated the patient. I reviewed the resident's note and discussed the case with the resident. I agree with the resident's findings and plan as documented with exceptions below. SUBJECTIVE: Patient seen and examined. no new right foot pain or complaints. OBJECTIVE: Vital Signs Period Temp Pulse Resp BP Sys/[place] Pulse Ox Last 24 Hr 98.4 F-99.4 F 81-89 18-20 114-138/44-68 98 Intake & Output 03/25/19 03/26/19 03/27/19 03/28/19 23:59 23:59 23:59 23:59 Intake Total 400 3525 750 Balance 400 3525 750 Weight 275 lb General: lying in bed in no acute distress neck: soft, supple, no JVD CVS:S1S2 regular Chest: CTAb, no rales or wheezing Abdomen:soft, obese, NT Extremities: fifth toe swelling, no active discharge, dressing in place ASSESSMENT AND PLAN: 58 yof with PMhx of CAD (OM1 70-80%, mild RCA dz in 2010 medically managed), HTN , HLD, IDDM poorly controlled, Right fifth toe osteomyelitis in 01/2019, d/alena on 6 weeks of vancomycin, also s/p SFA angioplasty then, started on plavix recently admitted with RLE cellulitis on 03/20/2019 dced in 24 hours, admitted with right fifth toe cellulitis abscess +/- cellulitis -Acute right fifth toe cellulitis with abscess and osteomyelitis -H/o Right fifth toe osteomyelitis in 01/2019 s/p 6 weeks of vancomycin -PAD s/p SFA angioplasty 01/2019 on plavix -CAD (OM1 70-80%, mild RCA dz in 2010 medically managed) -IDDM, poorly controlled -HTN -HLD Plan: Declines amputation, high risk for recurrent infection. Podiatry/ID input noted Follow up wound cx. Anticipate d/c with PICC and abx with outpatient wound care/hyperbaric follow up. dc IVF, hold HCTZ. Continue metoprolol/ARB. levemir/Victoza, ISS, diabetic diet. dVTPPX heparin Dispo home with IV antibiotics in 2-3 days pending cultures, clinical improvement and disposition arrangements. Plan discussed with patient and nursing in detail, all questions answered.
[2019-03-28] MEDS: ROSUVASTATIN CA 10 MG TABLET (FP) PO SCH (21:34)
[2019-03-28] MEDS: LATANOPROST 0.005% OPHTH SOLN 2.5ML BOTTLE OU SCH (21:36)
[2019-03-29] MEDS ORDERED: PIPERACILLIN/TAZOBACTAM 3.375 GM VIAL IVPB ONE ×2 (01:47→09:44)
[2019-03-29] MEDS ORDERED: DEXTROSE 5%-WATER - 50 ML IVPB ONE ×2 (01:47→09:44)
[2019-03-29] MEDS: PIPERACILLIN/TAZOB 3.375 GM 3.375 GM in DEXTROSE 5%-WATER - 50 ML IVPB SCH ×2 (02:20→09:53)
[2019-03-29] MEDS ORDERED: PT OWN MED DRAWER 7, Y5N ONE (06:16)
[2019-03-29] MEDS: LIRAGLUTIDE 0.6 MG/0.1 ML PEN.INJCTR SQ SCH ×2 (06:38→06:44)
[2019-03-29] MEDS: HEPARIN NA (PORCINE) 5,000 UNITS/ML 1ML VIAL SQ SCH ×3 (06:43→22:48)
[2019-03-29] MEDS: INSULIN (LEVEMIR) 100 UNITS/ML UNITS SQ SCH (06:43)
[2019-03-29] MEDS: INSULIN SLIDING SCALE (NOVOLOG) 1 VIAL SQ SCH ×4 (06:44→22:56)
[2019-03-29 08:12] LABS: EOS % 2.7 % (0-4.5); HEMATOCRIT 30.7 % (32.4-45.2); LYMPH % 22.4 % (8-40); MCH 27.3 pg (25.7-33.7); MCHC 32.6 g/dl (32.0-36.0); MEAN CELL VOLUME 83.7 fl (80-96); MONO % 12.3 % (3.8-10.2); NEUT % 61.6 % (42.8-82.8); PLATELET COUNT 317 K/MM3 (134-434); RBC 3.67 M/mm3 (3.60-5.2); RDW 13.3 % (11.6-15.6); WHITE BLOOD COUNT 7.5 K/mm3 (4.0-10.0)
[2019-03-29 08:35] LABS: CALCIUM 9.1 mg/dL (8.5-10.1); POTASSIUM 4.2 mmol/L (3.5-5.1)
[2019-03-29] MEDS: VALSARTAN 160 MG TABLET (UD) PO SCH (09:52)
[2019-03-29] MEDS: LACTOBACILLUS ACIDOPHILUS 1 TABLET PO SCH (09:52)
[2019-03-29] MEDS: CLOPIDOGREL BISULFATE 75 MG TABLET (FP) PO SCH (09:52)
[2019-03-29] MEDS: amLODIPine BESYLATE 10 MG TABLET (FP) PO SCH (09:52)
[2019-03-29] MEDS ORDERED: INSULIN (NOVOLOG) ASPART 100 UNITS/ML 10ML VIAL ONE ×2 (11:44→17:16)
--- NOTE | 2019-03-29 12:43 | PN ---
Progress Note (short form) - Note Progress Note: Patient seen at bedside and states she is feeling a little better. She still has drainage. her wbc count 7.5 and her culture came baclk Enterococcus Faecalis Patient is still thinking about what she will do
--- NOTE | 2019-03-29 13:18 | PN ---
Physical Exam: SUBJECTIVE: Patient seen and examined, right toe symptoms improved. No new complaints. OBJECTIVE: Vital Signs Period Temp Pulse Resp BP Sys/[place] Pulse Ox Last 24 Hr 98.3 F-99.7 F 79-87 18-20 114-158/56-73 100 Intake & Output 03/26/19 03/27/19 03/28/19 03/29/19 23:59 23:59 23:59 23:59 Intake Total 400 3525 1750 50 Balance 400 3525 1750 50 Weight 275 lb 275 lb General: lying in bed in no acute distress neck: soft, supple, no JVD CVS:S1S2 regular Chest: CTAb, no rales or wheezing Abdomen:soft, obese, NT Extremities: right fifth toe swelling/redness markedly improved, clear fluid expressed from wound, not tender on exam today Laboratory Results - last 24 hr 03/28/19 03/28/19 03/29/19 17:18 21:30 06:41 WBC RBC Hgb Hct MCV MCH MCHC RDW Plt Count MPV Absolute Neuts (auto) Neutrophils % Lymphocytes % Monocytes % Eosinophils % Basophils % Nucleated RBC % Sodium Potassium Chloride Carbon Dioxide Anion Gap BUN Creatinine Est GFR (CKD-EPI)AfAm Est GFR (CKD-EPI)NonAf POC Glucometer 155 182 152 Random Glucose Calcium 03/29/19 03/29/19 03/29/19 06:55 06:55 11:38 WBC 7.5 RBC 3.67 Hgb 10.0 L Hct 30.7 L MCV 83.7 MCH 27.3 MCHC 32.6 RDW 13.3 Plt Count 317 MPV 9.0 Absolute Neuts (auto) 4.6 Neutrophils % 61.6 Lymphocytes % 22.4 Monocytes % 12.3 H Eosinophils % 2.7 Basophils % 1.0 Nucleated RBC % 0 Sodium 137 Potassium 4.2 Chloride 101 Carbon Dioxide 30 Anion Gap 7 L BUN 13.0 Creatinine 1.0 Est GFR (CKD-EPI)AfAm 71.92 Est GFR (CKD-EPI)NonAf 62.05 POC Glucometer 274 Random Glucose 162 H Calcium 9.1 Active Medications Generic Name Dose Route Start Last Admin Trade Name Freq PRN Reason Stop Dose Admin Amlodipine Besylate 10 mg 03/27/19 10:00 03/29/19 09:52 Norvasc - PO 10 mg DAILY PAT Administration Bacitracin 1 applic 03/27/19 10:00 03/28/19 09:28 Bacitracin - TP Not Given DAILY [facility] Clopidogrel Bisulfate 75 mg 03/27/19 10:00 03/29/19 09:52 Plavix - PO 75 mg DAILY PAT Administration Heparin Sodium (Porcine) 5,000 unit 03/26/19 22:00 03/29/19 06:43 Heparin - SQ 5,000 unit TID PAT Administration Piperacillin Sod/Tazobactam 50 mls @ 100 mls/hr 03/27/19 10:00 03/29/19 09:53 Sod 3.375 gm/ Dextrose IVPB 100 mls/hr Q8H-IV PAT Administration Protocol Insulin Aspart 1 vial 03/26/19 16:30 03/29/19 11:46 Novolog Vial Sliding Scale - SQ 6 unit ACHS [facility] Administration Protocol Insulin Detemir 40 units 03/29/19 07:00 03/29/19 06:43 Levemir Vial SQ 40 units AM PAT Administration Lactobacillus Acidophilus 1 tab 03/27/19 10:00 03/29/19 09:52 Bacid - PO 1 tab DAILY [facility] Administration Latanoprost 1 drop 03/26/19 22:00 03/28/19 21:36 Xalatan 0.005% Eye Drops - OU 1 drop HS [facility] Administration Liraglutide 1.8 mg 03/27/19 07:00 03/29/19 06:38 Victoza - SQ Not Given AM [facility] Metoprolol Succinate 50 mg 03/27/19 10:00 03/29/19 09:52 Toprol Xl - PO 50 mg DAILY PAT Administration Rosuvastatin Calcium 10 mg 03/26/19 22:00 03/28/19 21:34 Crestor - PO 10 mg HS [facility] Administration Valsartan 320 mg 03/27/19 10:00 03/29/19 09:52 Diovan - PO 320 mg DAILY [facility] Administration Microbiology 03/27/19 08:10 Toe - Right Fifth Gram Stain - Final 03/27/19 08:10 Toe - Right Fifth Wound Culture - Preliminary Enterococcus Faecalis Staphylococcus Coagulase Neg Gram Negative [place]lin 03/27/19 08:10 Foot - Right Lateral Gram Stain - Final 03/27/19 08:10 Foot - Right Lateral Wound Culture - Preliminary Enterococcus Faecalis Gram Negative Collin Staphylococcus Coagulase Neg 03/26/19 13:36 Blood - Peripheral Venous Blood Culture - Preliminary NO GROWTH OBTAINED AFTER 48 HOURS, INCUBATION TO CONTINUE FOR 3 DAYS. 03/26/19 13:36 Blood - Peripheral Venous Blood Culture - Preliminary NO GROWTH OBTAINED AFTER 48 HOURS, INCUBATION TO CONTINUE FOR 3 DAYS. ASSESSMENT/PLAN: 58 yof with PMhx of CAD (OM1 70-80%, mild RCA dz in 2010 medically managed), HTN , HLD, IDDM poorly controlled, Right fifth toe osteomyelitis in 01/2019, d/alena on 6 weeks of vancomycin, also s/p SFA angioplasty then, started on plavix recently admitted with RLE cellulitis on 03/20/2019 dced in 24 hours, admitted with right fifth toe cellulitis abscess +/- cellulitis -Acute right fifth Toe Cellulitis with abscess and osteomyelitis -H/o Right fifth toe osteomyelitis in 01/2019 s/p 6 weeks of vancomycin -PAD s/p SFA angioplasty 01/2019 on plavix -CAD (OM1 70-80%, mild RCA dz in 2010 medically managed) -IDDM, poorly controlled -HTN -HLD Plan: Podiatry/ID input noted. Follow up for possible intervention. Follow up final wound cx. Zosyn per ID. Off IVF, hold HCTZ. Continue metoprolol/ARB. Levemir/Victoza, ISS, diabetic diet. Levemir increased to 40 mg today, will monitor. DVTPPX heparin Dispo pending surgical plans and outpatient need for abx. Plan discussed with patient and nursing in detail, all questions answered. Visit type - Emergency Visit Emergency Visit: Yes ED Registration Date: 03/26/19 Care time: The patient presented to the Emergency Department on the above date and was hospitalized for further evaluation of their emergent condition. - New Patient This patient is new to me today: No - Critical Care Critical Care patient: No - Discharge Referral Referred to [facility] Med P.C.: No
--- NOTE | 2019-03-29 13:29 | PN ---
Progress Note, Physician History of Present Illness: Pt seen and examined, chart reviewed. States she feels well, that her foot is improving. Tmax 99.7F. Has no specific complaints. - Current Medication List Current Medications: Active Medications Amlodipine Besylate (Norvasc -) 10 mg PO DAILY [facility] Last Admin: 03/29/19 09:52 Dose: 10 mg Bacitracin (Bacitracin -) 1 applic TP DAILY [facility] Last Admin: 03/28/19 09:28 Dose: Not Given Clopidogrel Bisulfate (Plavix -) 75 mg PO DAILY [facility] Last Admin: 03/29/19 09:52 Dose: 75 mg Heparin Sodium (Porcine) (Heparin -) 5,000 unit SQ TID [facility] Last Admin: 03/29/19 06:43 Dose: 5,000 unit Piperacillin Sod/Tazobactam (Sod 4.5 gm/ Dextrose) 100 mls @ 200 mls/hr IVPB Q8H-IV [facility]; Protocol Insulin Aspart (Novolog Vial Sliding Scale -) 1 vial SQ ACHS [facility]; Protocol Last Admin: 03/29/19 11:46 Dose: 6 unit Insulin Detemir (Levemir Vial) 40 units SQ AM [facility] Last Admin: 03/29/19 06:43 Dose: 40 units Lactobacillus Acidophilus (Bacid -) 1 tab PO DAILY [facility] Last Admin: 03/29/19 09:52 Dose: 1 tab Latanoprost (Xalatan 0.005% Eye Drops -) 1 drop OU HS [facility] Last Admin: 03/28/19 21:36 Dose: 1 drop Liraglutide (Victoza -) 1.8 mg SQ AM [facility] Last Admin: 03/29/19 06:38 Dose: Not Given Metoprolol Succinate (Toprol Xl -) 50 mg PO DAILY [facility] Last Admin: 03/29/19 09:52 Dose: 50 mg Rosuvastatin Calcium (Crestor -) 10 mg PO HS [facility] Last Admin: 03/28/19 21:34 Dose: 10 mg Valsartan (Diovan -) 320 mg PO DAILY [facility] Last Admin: 03/29/19 09:52 Dose: 320 mg - Objective Vital Signs: Vital Signs Temperature 99.7 F H 03/29/19 09:36 Pulse Rate 82 03/29/19 09:36 Respiratory Rate 20 03/29/19 09:36 Blood Pressure 138/68 03/29/19 09:36 O2 Sat by Pulse Oximetry (%) 100 03/28/19 21:00 Constitutional: Yes: No Distress, Calm Cardiovascular: Yes: Regular Rate and Rhythm Respiratory: Yes: Regular Gastrointestinal: Yes: Normal Bowel Sounds, Soft, Abdomen, Obese Genitourinary: Yes: WNL Edema: No Integumentary: Yes: WNL Wound/Incision: Yes: Other (Rt 5th toe ulcer/wound +purulent drainage, no tenderness, minimal edema) Labs: CBC, BMP 03/29/19 06:55 03/29/19 06:55 Laboratory Results - last 24 hr 03/28/19 03/28/19 03/29/19 17:18 21:30 06:41 WBC RBC Hgb Hct MCV MCH MCHC RDW Plt Count MPV Absolute Neuts (auto) Neutrophils % Lymphocytes % Monocytes % Eosinophils % Basophils % Nucleated RBC % Sodium Potassium Chloride Carbon Dioxide Anion Gap BUN Creatinine Est GFR (CKD-EPI)AfAm Est GFR (CKD-EPI)NonAf POC Glucometer 155 182 152 Random Glucose Calcium 03/29/19 03/29/19 03/29/19 06:55 06:55 11:38 WBC 7.5 RBC 3.67 Hgb 10.0 L Hct 30.7 L MCV 83.7 MCH 27.3 MCHC 32.6 RDW 13.3 Plt Count 317 MPV 9.0 Absolute Neuts (auto) 4.6 Neutrophils % 61.6 Lymphocytes % 22.4 Monocytes % 12.3 H Eosinophils % 2.7 Basophils % 1.0 Nucleated RBC % 0 Sodium 137 Potassium 4.2 Chloride 101 Carbon Dioxide 30 Anion Gap 7 L BUN 13.0 Creatinine 1.0 Est GFR (CKD-EPI)AfAm 71.92 Est GFR (CKD-EPI)NonAf 62.05 POC Glucometer 274 Random Glucose 162 H Calcium 9.1 Problem List - Problems (1) Toe infection Code(s): L08.9 - LOCAL INFECTION OF THE SKIN AND SUBCUTANEOUS TISSUE, UNSP (2) Diabetes Code(s): E11.9 - TYPE 2 DIABETES MELLITUS WITHOUT COMPLICATIONS (3) HLD (hyperlipidemia) Code(s): E78.5 - HYPERLIPIDEMIA, UNSPECIFIED (4) HTN (hypertension) Code(s): I10 - ESSENTIAL (PRIMARY) HYPERTENSION (5) Morbid obesity with BMI of 45.0-49.9, adult Code(s): E66.01 - MORBID (SEVERE) OBESITY DUE TO EXCESS CALORIES; Z68.42 - BODY MASS INDEX (BMI) 45.0-49.9, ADULT (6) Osteomyelitis Code(s): M86.9 - OSTEOMYELITIS, UNSPECIFIED Qualifiers: Osteomyelitis type: other chronic Osteomyelitis location: foot Laterality : right Qualified Code(s): M86.671 - Other chronic osteomyelitis, right ankle and foot (7) PVD (peripheral vascular disease) Code(s): I73.9 - PERIPHERAL VASCULAR DISEASE, UNSPECIFIED Assessment/Plan Rt fifth toe ulcer infection/abscess/OM Rt foot cellulitis DM PAD s/p SFA angioplasty morbid obesity CAD HTN HLD s/p treatment for OM x 6 wks antibiotics -- Rt toe still with purulent drainage, low grade fever -- wound culture isolates still pending - so far +E. faecalis -- increase dose of Zosyn, will consider additional antimicrobial coverage -- ESR, CRP significantly elevated - monitor trend -- monitor temps -- continue wound care -- Pt has been resisting surgical intervention. Explained to her the possibility of persistent or worsening infection despite terminal carman antibiotics.
[2019-03-29] MEDS: BACITRACIN 15 GM TUBE TOPICAL OINTMENT TP SCH (15:33)
[2019-03-29] MEDS ORDERED: PIPERACILLIN/TAZOBACTAM 4.5 GM VIAL IVPB ONE (18:02)
[2019-03-29] MEDS ORDERED: DEXTROSE 5%-WATER 100 ML IVPB ONE (18:02)
[2019-03-29] MEDS: PIPERACILLIN/TAZOB 4.5 GM 4.5 GM in DEXTROSE 5%-WATER 100 ML IVPB SCH (18:42)
[2019-03-29] MEDS: ROSUVASTATIN CA 10 MG TABLET (FP) PO SCH (22:48)
[2019-03-29] MEDS: LATANOPROST 0.005% OPHTH SOLN 2.5ML BOTTLE OU SCH (22:49)
[2019-03-30] MEDS ORDERED: PIPERACILLIN/TAZOBACTAM 4.5 GM VIAL IVPB ONE ×3 (01:20→16:20)
[2019-03-30] MEDS ORDERED: DEXTROSE 5%-WATER 100 ML IVPB ONE ×3 (01:20→16:21)
[2019-03-30] MEDS: PIPERACILLIN/TAZOB 4.5 GM 4.5 GM in DEXTROSE 5%-WATER 100 ML IVPB SCH ×3 (02:40→17:38)
[2019-03-30] MEDS: INSULIN (LEVEMIR) 100 UNITS/ML UNITS SQ SCH (07:06)
[2019-03-30] MEDS: HEPARIN NA (PORCINE) 5,000 UNITS/ML 1ML VIAL SQ SCH ×3 (07:06→22:22)
[2019-03-30] MEDS: LIRAGLUTIDE 0.6 MG/0.1 ML PEN.INJCTR SQ SCH (07:08)
[2019-03-30] MEDS: INSULIN SLIDING SCALE (NOVOLOG) 1 VIAL SQ SCH ×4 (07:08→22:22)
[2019-03-30 09:28] LABS: BASO % 1.3 % (0-2.0); EOS % 2.8 % (0-4.5); HEMATOCRIT 32.9 % (32.4-45.2); HEMOGLOBIN 10.8 GM/dL (10.7-15.3); LYMPH % 20.9 % (8-40); MCH 27.7 pg (25.7-33.7); MCHC 32.9 g/dl (32.0-36.0); MEAN CELL VOLUME 84.3 fl (80-96); MONO % 11.3 % (3.8-10.2); NEUT % 63.7 % (42.8-82.8); PLATELET COUNT 379 K/MM3 (134-434); RDW 13.6 % (11.6-15.6); WHITE BLOOD COUNT 8.2 K/mm3 (4.0-10.0)
[2019-03-30 09:45] LABS: BLOOD UREA NITROGEN 15.3 mg/dL (7-18); CALCIUM 9.4 mg/dL (8.5-10.1); CREATININE 1.2 mg/dL (0.55-1.3); POTASSIUM 4.3 mmol/L (3.5-5.1)
[2019-03-30] MEDS ORDERED: INSULIN (NOVOLOG) ASPART 100 UNITS/ML 10ML VIAL ONE (10:57)
[2019-03-30] MEDS: CLOPIDOGREL BISULFATE 75 MG TABLET (FP) PO SCH (11:01)
[2019-03-30] MEDS: amLODIPine BESYLATE 10 MG TABLET (FP) PO SCH (11:01)
[2019-03-30] MEDS: VALSARTAN 160 MG TABLET (UD) PO SCH (11:01)
[2019-03-30] MEDS: LACTOBACILLUS ACIDOPHILUS 1 TABLET PO SCH (11:01)
--- NOTE | 2019-03-30 14:55 | PN ---
Physical Exam: SUBJECTIVE: Patient seen and examined, no new complaints, right toe pain improved. OBJECTIVE: Vital Signs Period Temp Pulse Resp BP Sys/[place] Pulse Ox Last 24 Hr 98.1 F-99.6 F 80-93 18-24 100-157/65-73 97-98 General: lying in bed in no acute distress neck: soft, supple, no JVD CVS:S1S2 regular Chest: CTAb, no rales or wheezing Abdomen:soft, obese, NT Extremities: right fifth toe swelling/redness markedly improved, clear fluid expressed from wound, not tender on exam today, DP pulse faint, good capillary refill Laboratory Results - last 24 hr 03/29/19 03/29/19 03/30/19 17:30 22:54 07:07 WBC RBC Hgb Hct MCV MCH MCHC RDW Plt Count MPV Absolute Neuts (auto) Neutrophils % Lymphocytes % Monocytes % Eosinophils % Basophils % Nucleated RBC % Sodium Potassium Chloride Carbon Dioxide Anion Gap BUN Creatinine Est GFR (CKD-EPI)AfAm Est GFR (CKD-EPI)NonAf POC Glucometer 200 170 172 Random Glucose Calcium 03/30/19 03/30/19 03/30/19 08:40 08:40 11:19 WBC 8.2 RBC 3.90 Hgb 10.8 Hct 32.9 MCV 84.3 MCH 27.7 MCHC 32.9 RDW 13.6 Plt Count 379 MPV 9.0 Absolute Neuts (auto) 5.2 Neutrophils % 63.7 Lymphocytes % 20.9 Monocytes % 11.3 H Eosinophils % 2.8 Basophils % 1.3 Nucleated RBC % 0 Sodium 138 Potassium 4.3 Chloride 100 Carbon Dioxide 29 Anion Gap 9 BUN 15.3 Creatinine 1.2 Est GFR (CKD-EPI)AfAm 57.69 Est GFR (CKD-EPI)NonAf 49.78 POC Glucometer 272 Random Glucose 171 H Calcium 9.4 Active Medications Generic Name Dose Route Start Last Admin Trade Name Freq PRN Reason Stop Dose Admin Amlodipine Besylate 10 mg 03/27/19 10:00 03/30/19 11:01 Norvasc - PO 10 mg DAILY [facility] Administration Clopidogrel Bisulfate 75 mg 03/27/19 10:00 03/30/19 11:01 Plavix - PO 75 mg DAILY [facility] Administration Heparin Sodium (Porcine) 5,000 unit 03/26/19 22:00 03/30/19 14:01 Heparin - SQ 5,000 unit TID PAT Administration Piperacillin Sod/Tazobactam 100 mls @ 200 mls/hr 03/29/19 18:00 03/30/19 11: 01 Sod 4.5 gm/ Dextrose IVPB 200 mls/hr Q8H-IV PAT Administration Protocol Insulin Aspart 1 vial 03/26/19 16:30 03/30/19 11:58 Novolog Vial Sliding Scale - SQ 6 unit ACHS PAT Administration Protocol Insulin Detemir 40 units 03/29/19 07:00 03/30/19 07:06 Levemir Vial SQ 40 units AM PAT Administration Lactobacillus Acidophilus 1 tab 03/27/19 10:00 03/30/19 11:01 Bacid - PO 1 tab DAILY [facility] Administration Latanoprost 1 drop 03/26/19 22:00 03/29/19 22:49 Xalatan 0.005% Eye Drops - OU 1 drop HS [facility] Administration Liraglutide 1.8 mg 03/27/19 07:00 03/30/19 07:08 Victoza - SQ Not Given AM PAT Metoprolol Succinate 50 mg 03/27/19 10:00 03/30/19 11:01 Toprol Xl - PO 50 mg DAILY [facility] Administration Rosuvastatin Calcium 10 mg 03/26/19 22:00 03/29/19 22:48 Crestor - PO 10 mg HS PAT Administration Valsartan 320 mg 03/27/19 10:00 03/30/19 11:01 Diovan - PO 320 mg DAILY PAT Administration Microbiology 03/26/19 13:36 Blood - Peripheral Venous Blood Culture - Preliminary NO GROWTH OBTAINED AFTER 96 HOURS, INCUBATION TO CONTINUE FOR 1 DAYS. 03/26/19 13:36 Blood - Peripheral Venous Blood Culture - Preliminary NO GROWTH OBTAINED AFTER 96 HOURS, INCUBATION TO CONTINUE FOR 1 DAYS. 03/27/19 08:10 Toe - Right Fifth Gram Stain - Final 03/27/19 08:10 Toe - Right Fifth Wound Culture - Final Enterococcus Faecalis Staphylococcus Coagulase Neg Citrobacter Koseri 03/27/19 08:10 Foot - Right Lateral Gram Stain - Final 03/27/19 08:10 Foot - Right Lateral Wound Culture - Final Enterococcus Faecalis Citrobacter Koseri Staphylococcus Coagulase Neg ASSESSMENT/PLAN: 58 yof with PMhx of CAD (OM1 70-80%, mild RCA dz in 2011 medically managed), HTN , HLD, IDDM poorly controlled, Right fifth toe osteomyelitis in 01/2019, d/alena on 6 weeks of vancomycin, also s/p SFA angioplasty then, started on plavix recently admitted with RLE cellulitis on 03/20/2019 dced in 24 hours, admitted with right fifth toe cellulitis abscess +/- cellulitis -Acute right fifth Toe Cellulitis with abscess and osteomyelitis -H/o Right fifth toe osteomyelitis in 01/2019 s/p 6 weeks of vancomycin -PAD s/p SFA angioplasty 01/2019 on plavix -CAD (OM1 70-80%, mild RCA dz in 2010 medically managed) -IDDM, poorly controlled -HTN -HLD Plan: Podiatry/ID input noted. Follow up for possible intervention. Follow up final wound cx. Zosyn per ID. vascular surgery input. Off IVF, hold HCTZ. Continue metoprolol/ARB. Levemir/Victoza, ISS, diabetic diet. Levemir increased to 40 mg , will monitor. DVTPPX heparin Dispo pending surgical plans and outpatient need for abx. Plan discussed with patient and nursing in detail, all questions answered. Visit type - Emergency Visit Emergency Visit: Yes ED Registration Date: 03/26/19 Care time: The patient presented to the Emergency Department on the above date and was hospitalized for further evaluation of their emergent condition. - New Patient This patient is new to me today: No - Critical Care Critical Care patient: No - Discharge Referral Referred to [facility] Med P.C.: No
--- NOTE | 2019-03-30 15:26 | PN ---
Progress Note (short form) - Note Progress Note: Patient seen ast bedside feeling better. Wbc count 8.2 Beatdine with dsd applied . Patient seen not wearing shoe Patient told she must wear shoe Clear fluid came out of would Will follow Dr Dukes
--- NOTE | 2019-03-30 17:08 | PN ---
Progress Note, Physician History of Present Illness: Pt states she feels well. Denies pain in Rt foot. Edema improved. Afebrile since yesterday. - Current Medication List Current Medications: Active Medications Amlodipine Besylate (Norvasc -) 10 mg PO DAILY [facility] Last Admin: 03/30/19 11:01 Dose: 10 mg Clopidogrel Bisulfate (Plavix -) 75 mg PO DAILY [facility] Last Admin: 03/30/19 11:01 Dose: 75 mg Heparin Sodium (Porcine) (Heparin -) 5,000 unit SQ TID [facility] Last Admin: 03/30/19 14:01 Dose: 5,000 unit Piperacillin Sod/Tazobactam (Sod 4.5 gm/ Dextrose) 100 mls @ 200 mls/hr IVPB Q8H-IV [facility]; Protocol Last Admin: 03/30/19 11:01 Dose: 200 mls/hr Insulin Aspart (Novolog Vial Sliding Scale -) 1 vial SQ ACHS [facility]; Protocol Last Admin: 03/30/19 11:58 Dose: 6 unit Insulin Detemir (Levemir Vial) 40 units SQ AM PAT Last Admin: 03/30/19 07:06 Dose: 40 units Lactobacillus Acidophilus (Bacid -) 1 tab PO DAILY [facility] Last Admin: 03/30/19 11:01 Dose: 1 tab Latanoprost (Xalatan 0.005% Eye Drops -) 1 drop OU HS [facility] Last Admin: 03/29/19 22:49 Dose: 1 drop Liraglutide (Victoza -) 1.8 mg SQ AM [facility] Last Admin: 03/30/19 07:08 Dose: Not Given Metoprolol Succinate (Toprol Xl -) 50 mg PO DAILY [facility] Last Admin: 03/30/19 11:01 Dose: 50 mg Rosuvastatin Calcium (Crestor -) 10 mg PO HS [facility] Last Admin: 03/29/19 22:48 Dose: 10 mg Valsartan (Diovan -) 320 mg PO DAILY [facility] Last Admin: 03/30/19 11:01 Dose: 320 mg - Objective Vital Signs: Vital Signs Temperature 98.9 F 03/30/19 15:14 Pulse Rate 78 03/30/19 15:14 Respiratory Rate 18 03/30/19 15:14 Blood Pressure 142/71 03/30/19 15:14 O2 Sat by Pulse Oximetry (%) 98 03/30/19 09:00 Constitutional: Yes: No Distress, Calm Cardiovascular: Yes: Regular Rate and Rhythm Respiratory: Yes: Regular Gastrointestinal: Yes: Normal Bowel Sounds, Soft, Abdomen, Obese Genitourinary: Yes: WNL Wound/Incision: Yes: Dressing Dry and Intact Labs: CBC, BMP 03/30/19 08:40 03/30/19 08:40 Microbiology 03/26/19 13:36 Blood - Peripheral Venous Blood Culture - Preliminary NO GROWTH OBTAINED AFTER 96 HOURS, INCUBATION TO CONTINUE FOR 1 DAYS. 03/26/19 13:36 Blood - Peripheral Venous Blood Culture - Preliminary NO GROWTH OBTAINED AFTER 96 HOURS, INCUBATION TO CONTINUE FOR 1 DAYS. 03/27/19 08:10 Toe - Right Fifth Gram Stain - Final 03/27/19 08:10 Toe - Right Fifth Wound Culture - Final Enterococcus Faecalis Staphylococcus Coagulase Neg Citrobacter Koseri 03/27/19 08:10 Foot - Right Lateral Gram Stain - Final 03/27/19 08:10 Foot - Right Lateral Wound Culture - Final Enterococcus Faecalis Citrobacter Koseri Staphylococcus Coagulase Neg Problem List - Problems (1) Toe infection Code(s): L08.9 - LOCAL INFECTION OF THE SKIN AND SUBCUTANEOUS TISSUE, UNSP (2) Diabetes Code(s): E11.9 - TYPE 2 DIABETES MELLITUS WITHOUT COMPLICATIONS (3) HLD (hyperlipidemia) Code(s): E78.5 - HYPERLIPIDEMIA, UNSPECIFIED (4) HTN (hypertension) Code(s): I10 - ESSENTIAL (PRIMARY) HYPERTENSION (5) Morbid obesity with BMI of 45.0-49.9, adult Code(s): E66.01 - MORBID (SEVERE) OBESITY DUE TO EXCESS CALORIES; Z68.42 - BODY MASS INDEX (BMI) 45.0-49.9, ADULT (6) Osteomyelitis Code(s): M86.9 - OSTEOMYELITIS, UNSPECIFIED Qualifiers: Osteomyelitis type: other chronic Osteomyelitis location: foot Laterality : right Qualified Code(s): M86.671 - Other chronic osteomyelitis, right ankle and foot (7) PVD (peripheral vascular disease) Code(s): I73.9 - PERIPHERAL VASCULAR DISEASE, UNSPECIFIED Assessment/Plan Rt fifth toe ulcer infection/abscess/OM Rt foot cellulitis DM PAD s/p SFA angioplasty morbid obesity CAD HTN HLD s/p previous treatment for OM x 6 wks antibiotics -- Pt afebrile since yesterday -- wound culture results noted -- continue Zosyn -- monitor esr/crp -- continue wound care
[2019-03-30] MEDS: ROSUVASTATIN CA 10 MG TABLET (FP) PO SCH (22:22)
[2019-03-30] MEDS: LATANOPROST 0.005% OPHTH SOLN 2.5ML BOTTLE OU SCH (22:23)
[2019-03-31] MEDS ORDERED: PIPERACILLIN/TAZOBACTAM 4.5 GM VIAL IVPB ONE ×3 (01:49→17:12)
[2019-03-31] MEDS ORDERED: DEXTROSE 5%-WATER 100 ML IVPB ONE ×3 (01:50→17:12)
[2019-03-31] MEDS: PIPERACILLIN/TAZOB 4.5 GM 4.5 GM in DEXTROSE 5%-WATER 100 ML IVPB SCH ×3 (02:16→18:08)
[2019-03-31] MEDS: INSULIN (LEVEMIR) 100 UNITS/ML UNITS SQ SCH (07:03)
[2019-03-31] MEDS: INSULIN SLIDING SCALE (NOVOLOG) 1 VIAL SQ SCH ×4 (07:03→23:25)
[2019-03-31] MEDS: HEPARIN NA (PORCINE) 5,000 UNITS/ML 1ML VIAL SQ SCH ×3 (07:04→23:25)
[2019-03-31] MEDS ORDERED: PT OWN MED DRAWER 7, Y5N ONE ×2 (07:11→07:14)
--- NOTE | 2019-03-31 07:16 | PN ---
Physical Exam: SUBJECTIVE: Patient seen and examined no new complain , pending cx and sensitivity for PICC line and iv abx , refuse surgery , want to try Hyperparic and medical treatment for now. OBJECTIVE: Vital Signs Period Temp Pulse Resp BP Sys/Gill[place]and Pulse Ox Last 24 Hr 98.1 F-98.9 F 75-80 18-18 116-142/53-71 98 GENERAL: Awake, alert, and fully oriented, in no acute distress. HEAD: Normal with no signs of trauma. EYES: Pupils equal, round and reactive to light, extraocular movements intact, sclera anicteric, conjunctiva clear. LUNGS: Breath sounds equal, clear to auscultation bilaterally. No wheezes, and no crackles. No accessory muscle use. HEART: Regular rate and rhythm, normal S1 and S2 without murmur, rub or gallop. ABDOMEN: Obese Soft, nontender, not distended, normoactive bowel sounds, no guarding, LOWER EXTREMITIES: 2+ pulses, warm, well-perfused. No calf tenderness. No peripheral edema. 5th toe wound open with puss and blood less than coin size NEUROLOGICAL: no focal deficit . Normal speech. Normal gait. PSYCHIATRIC: Cooperative. Good eye contact. Laboratory Results - last 24 hr 03/30/19 03/30/19 03/30/19 08:40 08:40 11:19 WBC 8.2 RBC 3.90 Hgb 10.8 Hct 32.9 MCV 84.3 MCH 27.7 MCHC 32.9 RDW 13.6 Plt Count 379 MPV 9.0 Absolute Neuts (auto) 5.2 Neutrophils % 63.7 Lymphocytes % 20.9 Monocytes % 11.3 H Eosinophils % 2.8 Basophils % 1.3 Nucleated RBC % 0 Sodium 138 Potassium 4.3 Chloride 100 Carbon Dioxide 29 Anion Gap 9 BUN 15.3 Creatinine 1.2 Est GFR (CKD-EPI)AfAm 57.69 Est GFR (CKD-EPI)NonAf 49.78 POC Glucometer 272 Random Glucose 171 H Calcium 9.4 03/30/19 03/30/19 03/31/19 16:54 22:02 06:13 WBC RBC Hgb Hct MCV MCH MCHC RDW Plt Count MPV Absolute Neuts (auto) Neutrophils % Lymphocytes % Monocytes % Eosinophils % Basophils % Nucleated RBC % Sodium Potassium Chloride Carbon Dioxide Anion Gap BUN Creatinine Est GFR (CKD-EPI)AfAm Est GFR (CKD-EPI)NonAf POC Glucometer 212 211 216 Random Glucose Calcium Active Medications Generic Name Dose Route Start Last Admin Trade Name Aubrey PRN Reason Stop Dose Admin Amlodipine Besylate 10 mg 03/27/19 10:00 03/30/19 11:01 Norvasc - PO 10 mg DAILY PAT Administration Clopidogrel Bisulfate 75 mg 03/27/19 10:00 03/30/19 11:01 Plavix - PO 75 mg DAILY PAT Administration Heparin Sodium (Porcine) 5,000 unit 03/26/19 22:00 03/31/19 07:04 Heparin - SQ 5,000 unit TID PAT Administration Piperacillin Sod/Tazobactam 100 mls @ 200 mls/hr 03/29/19 18:00 03/31/19 02: 16 Sod 4.5 gm/ Dextrose IVPB 200 mls/hr Q8H-IV PAT Administration Protocol Insulin Aspart 1 vial 03/26/19 16:30 03/31/19 07:03 Novolog Vial Sliding Scale - SQ 4 unit ACHS PAT Administration Protocol Insulin Detemir 40 units 03/29/19 07:00 03/31/19 07:03 Levemir Vial SQ 40 units AM PAT Administration Lactobacillus Acidophilus 1 tab 03/27/19 10:00 03/30/19 11:01 Bacid - PO 1 tab DAILY PAT Administration Latanoprost 1 drop 03/26/19 22:00 03/30/19 22:23 Xalatan 0.005% Eye Drops - OU 1 drop HS PAT Administration Liraglutide 1.8 mg 03/27/19 07:00 03/30/19 07:08 Victoza - SQ Not Given AM PAT Metoprolol Succinate 50 mg 03/27/19 10:00 03/30/19 11:01 Toprol Xl - PO 50 mg DAILY PAT Administration Rosuvastatin Calcium 10 mg 03/26/19 22:00 03/30/19 22:22 Crestor - PO 10 mg HS PAT Administration Valsartan 320 mg 03/27/19 10:00 03/30/19 11:01 Diovan - PO 320 mg DAILY PAT Administration CBC, BMP 03/31/19 06:47 03/31/19 06:47 Microbiology 03/26/19 13:36 Blood - Peripheral Venous Blood Culture - Final NO GROWTH AFTER 5 DAYS INCUBATION 03/26/19 13:36 Blood - Peripheral Venous Blood Culture - Final NO GROWTH AFTER 5 DAYS INCUBATION 03/27/19 08:10 Toe - Right Fifth Gram Stain - Final 03/27/19 08:10 Toe - Right Fifth Wound Culture - Final Enterococcus Faecalis Staphylococcus Coagulase Neg Citrobacter Koseri 03/27/19 08:10 Foot - Right Lateral Gram Stain - Final 03/27/19 08:10 Foot - Right Lateral Wound Culture - Final Enterococcus Faecalis Citrobacter Koseri Staphylococcus Coagulase Neg MRI LE : Osteomilities of the fifth phalanx and middle phalanx of the 5th toe with extensive perifocal soft tissue swelling compatible with cellulites ASSESSMENT/PLAN: This is a 58 yo F with PMH of IDDM last a1c 9, htn, hld, who was 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 #R 5th toe osteomyelitis #IDDM #HTN #HLD #morbid obesity educated about life style change and diet modification , consider bariatric surgery out pt. Plan * s.p Vanc/zosyn cont zosyn per ID * ID cosnult Dr Mendoza * Java Analyst consult * MRI cellulitis and OSteomilitis 5th toe as above * cade cx , wound cx reviewed * wound care consult dc bacitracin apply betadin and dsd * iss, victroza 1.8 mg d, levemir 35 u daily, diabetic diet * glucose goal <180 with diabetic ulcer infection * continue toprol xl, norvasc,, losartan, hctz * cont plavix and statin per vascular * continue crestor * Mu to M/S * DVTS proph * refuse ambutation , want to try Hyper baric , * dispo pending cx and sensitivity , she will need picc line before dc * surgical shoes Visit type - Emergency Visit Emergency Visit: Yes ED Registration Date: 03/26/19 Care time: The patient presented to the Emergency Department on the above date and was hospitalized for further evaluation of their emergent condition. - New Patient This patient is new to me today: No - Critical Care Critical Care patient: No ATTENDING PHYSICIAN STATEMENT I saw and evaluated the patient. I reviewed the resident's note and discussed the case with the resident. I agree with the resident's findings and plan as documented. SUBJECTIVE: OBJECTIVE: ASSESSMENT AND PLAN:
[2019-03-31] MEDS ORDERED: INSULIN (NOVOLOG) ASPART 100 UNITS/ML 10ML VIAL ONE ×2 (07:20→11:39)
[2019-03-31 07:22] LABS: BASO % 1.2 % (0-2.0); EOS % 2.6 % (0-4.5); HEMOGLOBIN 9.9 GM/dL (10.7-15.3); LYMPH % 29.2 % (8-40); MCH 27.7 pg (25.7-33.7); MCHC 33.1 g/dl (32.0-36.0); MEAN CELL VOLUME 83.9 fl (80-96); MEAN PLT VOLUME 8.7 fl (7.5-11.1); MONO % 11.5 % (3.8-10.2); NEUT % 55.5 % (42.8-82.8); PLATELET COUNT 343 K/MM3 (134-434); RBC 3.58 M/mm3 (3.60-5.2); RDW 13.6 % (11.6-15.6); WHITE BLOOD COUNT 7.6 K/mm3 (4.0-10.0)
[2019-03-31 07:43] LABS: BLOOD UREA NITROGEN 17.9 mg/dL (7-18); CALCIUM 9.2 mg/dL (8.5-10.1); CREATININE 1.1 mg/dL (0.55-1.3); POTASSIUM 4.6 mmol/L (3.5-5.1)
--- NOTE | 2019-03-31 07:55 | CONSULT ---
- Consultation REQUESTING PROVIDER: CONSULT REQUEST: We have been asked to surgically evaluate this patient for ( right toe ulcer). PCP:Ophelia Wang MD HISTORY OF PRESENT ILLNESS: 58 y/o F w/ PMHx Anemia, HTN, HLD, DM, CAD, PAD s/p RLE angiogram showing 90% SFA stenosis s/p SFA atherectomy and SFA angioplasty (Dr Car, 01/2019), a/w right toe pain and infection. Pt reports she is unsure how the ulcer began, however it has been present since December. Does not recall any trauma. Pt was admitted in January and was diagnosed with osteomyelitis, she received a PICC line and was discharged on IV abx (first Vancomycin, then changed to daptomycin secondary to JEANNINE). Pt reports course was completed 2 weeks ago and wound closed. Pt was seen by Soaker Soda Worker (Dr Brown), states wound reopened over the weekend. Drainage was noted and pt was sent back in for IV antibiotics. Pt reports some ttp over right 5th toe at site of ulcer. Denies fevers/chills, n/v/ d. Has been ambulating at home without issue. H/o tobacco abuse, (1ppd from teens to 36 years old). Denies claudication sxs or difficulty with ambulation. Reports glucose readings in 200s at home, last A1C 9.9 in December. Pt only completed 30 days of Plavix as her rx ran out. PMHx: as above PSHx: RLE angio/stent Home Medications Medication Instructions Recorded Insulin Glargine,Hum.rec.anlog 32 unit SQ DAILY 12/13/18 [Lantus] Liraglutide [Victoza -] 1.8 unit SQ DAILY 12/13/18 Amlodipine Besylate 10 mg PO DAILY 01/13/19 Metoprolol Succinate 50 mg PO DAILY 01/13/19 Olmesartan/Hydrochlorothiazide 1 each PO DAILY 01/13/19 [Benicar Hct 40-12.5 mg Tablet] Rosuvastatin [Crestor -] 10 mg PO DAILY 01/13/19 Bacitracin - [Bacitracin Topical 1 applic TP DAILY #1 tube 01/17/19 Ointment -] Clopidogrel Bisulfate [Plavix -] 75 mg PO DAILY #30 tablet 01/17/19 Lactobacillus Acidophilus [Bacid -] 1 tab PO DAILY #38 tab 01/17/19 Latanoprost/Pf [Latanoprost 0.005% 7.5 ml OP DAILY 03/26/19 Eye Drop] Allergies Allergy/AdvReac Type Severity Reaction Status Date / Time No Known Allergies Allergy Verified 03/26/19 11:01 REVIEW OF SYSTEMS: CONSTITUTIONAL: Absent: fever, chills CARDIOVASCULAR: Absent: chest pain, syncope RESPIRATORY: Absent: cough, shortness of breath GASTROINTESTINAL: Absent: abdominal pain PHYSICAL EXAM: GENERAL: Awake, alert, and fully oriented, in no acute distress. HEAD: Normal with no signs of trauma. LUNGS: Unlabored on RA LOWER EXTREMITIES: L foot with no ulcers or abrasions. R foot with approx 1.5x1.5cm ulcer at lateral aspect of 5th toe with + seropurulent drainage. + TTP. No erythema, 1+ edema right foot. Vasc: L foot with 2+ dp/pt, R foot with ?1+pt, dp not appreciated Vital Signs Temperature 97.8 F 03/31/19 06:00 Pulse Rate 78 03/31/19 06:00 Respiratory Rate 18 03/31/19 06:00 Blood Pressure 128/88 03/31/19 06:00 O2 Sat by Pulse Oximetry (%) 98 03/30/19 09:00 Lab Results WBC 8.2 K/mm3 (4.0-10.0) 03/30/19 08:40 RBC 3.90 M/mm3 (3.60-5.2) 03/30/19 08:40 Hgb 10.8 GM/dL (10.7-15.3) 03/30/19 08:40 Hct 32.9 % (32.4-45.2) 03/30/19 08:40 MCV 84.3 fl (80-96) 03/30/19 08:40 MCHC 32.9 g/dl (32.0-36.0) 03/30/19 08:40 RDW 13.6 % (11.6-15.6) 03/30/19 08:40 Plt Count 379 K/MM3 (134-434) 03/30/19 08:40 Sodium 137 mmol/L (136-145) 03/31/19 06:47 Potassium 4.6 mmol/L (3.5-5.1) 03/31/19 06:47 Chloride 101 mmol/L (98-107) 03/31/19 06:47 Carbon Dioxide 30 mmol/L (21-32) 03/31/19 06:47 Anion Gap 5 MMOL/L (8-16) L 03/31/19 06:47 BUN 17.9 mg/dL (7-18) 03/31/19 06:47 Creatinine 1.1 mg/dL (0.55-1.3) 03/31/19 06:47 Random Glucose 206 mg/dL (74-106) H 03/31/19 06:47 Calcium 9.2 mg/dL (8.5-10.1) 03/31/19 06:47 MRI (03/26/19): Osteomyelitis of the proximal phalanx and the middle phalanx of the fifth toe with extensive perifocal soft tissue swelling compatible with cellulitis. A/P: 58 y/o F w/ PMHx Anemia, HTN, HLD, DM, CAD, PAD s/p RLE angiogram showing 90% SFA stenosis s/p SFA atherectomy and SFA angioplasty (Dr Car, 01/2019), a/ w right toe pain and infection. Right foot with draining ulcer, mild cellulitis Afebrile, no leukocytosis currently Pulses not appreciated Angio in January: atherectomy and plasty -CTA les ordered to evaluate R SFA. If SFA is occluded then pt will need angio and stent -Continue wound care per sports marketing internship -Will f.u after CTA pt seen and examined with attending Dr Car
--- NOTE | 2019-03-31 08:16 | PN ---
Progress Note (short form) - Note Progress Note: Patient seen at bedside and feels better. her wbc is 7.6. Clear fluid was draining from her toe. DSvenkatesh gutierrez betatdine applied Patient advised to walk with her surgical shoe
[2019-03-31] MEDS: amLODIPine BESYLATE 10 MG TABLET (FP) PO SCH (10:08)
[2019-03-31] MEDS: CLOPIDOGREL BISULFATE 75 MG TABLET (FP) PO SCH (10:08)
[2019-03-31] MEDS: VALSARTAN 160 MG TABLET (UD) PO SCH (10:08)
[2019-03-31] MEDS: LACTOBACILLUS ACIDOPHILUS 1 TABLET PO SCH (10:08)
[2019-03-31] MEDS: LIRAGLUTIDE 0.6 MG/0.1 ML PEN.INJCTR SQ SCH (10:09)
--- NOTE | 2019-03-31 12:45 | PN ---
Progress Note, Physician History of Present Illness: stable no new issues - Current Medication List Current Medications: Active Medications Amlodipine Besylate (Norvasc -) 10 mg PO DAILY [facility] Last Admin: 03/31/19 10:08 Dose: 10 mg Clopidogrel Bisulfate (Plavix -) 75 mg PO DAILY [facility] Last Admin: 03/31/19 10:08 Dose: 75 mg Heparin Sodium (Porcine) (Heparin -) 5,000 unit SQ TID [facility] Last Admin: 03/31/19 07:04 Dose: 5,000 unit Piperacillin Sod/Tazobactam (Sod 4.5 gm/ Dextrose) 100 mls @ 200 mls/hr IVPB Q8H-IV [facility]; Protocol Last Admin: 03/31/19 10:07 Dose: 200 mls/hr Insulin Aspart (Novolog Vial Sliding Scale -) 1 vial SQ ACHS [facility]; Protocol Last Admin: 03/31/19 11:47 Dose: 6 unit Insulin Detemir (Levemir Vial) 40 units SQ AM [facility] Last Admin: 03/31/19 07:03 Dose: 40 units Lactobacillus Acidophilus (Bacid -) 1 tab PO DAILY [facility] Last Admin: 03/31/19 10:08 Dose: 1 tab Latanoprost (Xalatan 0.005% Eye Drops -) 1 drop OU HS [facility] Last Admin: 03/30/19 22:23 Dose: 1 drop Liraglutide (Victoza -) 1.8 mg SQ AM [facility] Last Admin: 03/31/19 10:09 Dose: 1.8 mg Metoprolol Succinate (Toprol Xl -) 50 mg PO DAILY [facility] Last Admin: 03/31/19 10:08 Dose: 50 mg Rosuvastatin Calcium (Crestor -) 10 mg PO HS [facility] Last Admin: 03/30/19 22:22 Dose: 10 mg Valsartan (Diovan -) 320 mg PO DAILY [facility] Last Admin: 03/31/19 10:08 Dose: 320 mg - Objective Vital Signs: Vital Signs Temperature 98.5 F 03/31/19 10:00 Pulse Rate 71 03/31/19 10:00 Respiratory Rate 18 03/31/19 10:00 Blood Pressure 125/69 03/31/19 10:00 O2 Sat by Pulse Oximetry (%) 98 03/30/19 21:00 Constitutional: Yes: No Distress, Calm Cardiovascular: Yes: Regular Rate and Rhythm Respiratory: Yes: Regular, CTA Bilaterally Gastrointestinal: Yes: Normal Bowel Sounds, Soft Musculoskeletal: Yes: WNL Extremities: Yes: Other Wound/Incision: Yes: Dressing Dry and Intact Neurological: Yes: Alert, Oriented Psychiatric: Yes: Alert, Oriented Labs: CBC, BMP 03/31/19 06:47 03/31/19 06:47 Assessment/Plan talia List - Problems (1) Toe infection Code(s): L08.9 - LOCAL INFECTION OF THE SKIN AND SUBCUTANEOUS TISSUE, UNSP (2) Diabetes Code(s): E11.9 - TYPE 2 DIABETES MELLITUS WITHOUT COMPLICATIONS (3) HLD (hyperlipidemia) Code(s): E78.5 - HYPERLIPIDEMIA, UNSPECIFIED (4) HTN (hypertension) Code(s): I10 - ESSENTIAL (PRIMARY) HYPERTENSION (5) Morbid obesity with BMI of 45.0-49.9, adult Code(s): E66.01 - MORBID (SEVERE) OBESITY DUE TO EXCESS CALORIES; Z68.42 - BODY MASS INDEX (BMI) 45.0-49.9, ADULT (6) Osteomyelitis Code(s): M86.9 - OSTEOMYELITIS, UNSPECIFIED Qualifiers: Osteomyelitis type: other chronic Osteomyelitis location: foot Laterality : right Qualified Code(s): M86.671 - Other chronic osteomyelitis, right ankle and foot (7) PVD (peripheral vascular disease) Code(s): I73.9 - PERIPHERAL VASCULAR DISEASE, UNSPECIFIED Assessment/Plan Rt fifth toe ulcer infection/abscess/OM Rt foot cellulitis DM PAD s/p SFA angioplasty morbid obesity CAD HTN HLD plan continue abx podiatry on the case wound care rest as per the team
--- NOTE | 2019-03-31 13:14 | PN ---
Teaching Attending Note Name of Resident: Juanjo Martin ATTENDING PHYSICIAN STATEMENT I saw and evaluated the patient. I reviewed the resident's note and discussed the case with the resident. I agree with the resident's findings and plan as documented with exceptions below. SUBJECTIVE: Patient seen and examined. no new complaints, doing well. Declines surgery. OBJECTIVE: Vital Signs Period Temp Pulse Resp BP Sys/Gilliland Pulse Ox Last 24 Hr 97.8 F-98.9 F 71-78 18-18 125-142/53-88 98 Intake & Output 03/28/19 03/29/19 03/30/19 03/31/19 23:59 23:59 23:59 23:59 Intake Total 1750 1150 1640 100 Balance 1750 1150 1640 100 Weight 275 lb General: sitting in chair in no acute distress Chest: CTAB, no rales or wheezing Abdomen:soft, obese, NT Extremities: Right fifth toe swelling/redness markedly improved, clear fluid expressed from wound, not tender on exam today, DP pulse dopplerable, good capillary refill ASSESSMENT AND PLAN: 58 yof with PMhx of CAD (OM1 70-80%, mild RCA dz in 2010 medically managed), HTN , HLD, IDDM poorly controlled, Right fifth toe osteomyelitis in 01/2019, d/alena on 6 weeks of vancomycin, also s/p SFA angioplasty then, started on plavix recently admitted with RLE cellulitis on 03/20/2019 dced in 24 hours, admitted with right fifth toe cellulitis abscess +/- cellulitis -Acute right fifth Toe Cellulitis with abscess and osteomyelitis -H/o Right fifth toe osteomyelitis in 01/2019 s/p 6 weeks of vancomycin -PAD s/p SFA angioplasty 01/2019 on plavix -CAD (OM1 70-80%, mild RCA dz in 2010 medically managed) -IDDM, poorly controlled -HTN -HLD Plan: Podiatry/ID input noted. patient declines surgery, wants trial with IV abx/hyperbaric. Await wound cx. Zosyn per ID. vascular surgery input. Continue plavix/statin. Resume HCTZ. Continue metoprolol/ARB. Levemir/Victoza, ISS, diabetic diet. Increase levemir to 45 units , will monitor. DVTPPX heparin Dispoin 24 hours with PICC/IV abx pending final cx and Id recs. Plan discussed with patient and nursing in detail, all questions answered.
[2019-03-31] MEDS ORDERED: methylPREDNISolone NA SUCC 40 MG/1 ML VIAL IVPUSH ONE (16:00)
[2019-03-31] MEDS: LATANOPROST 0.005% OPHTH SOLN 2.5ML BOTTLE OU SCH (23:22)
[2019-03-31] MEDS: ROSUVASTATIN CA 10 MG TABLET (FP) PO SCH (23:25)
[2019-04-01] MEDS ORDERED: DEXTROSE 5%-WATER 100 ML IVPB ONE ×3 (02:06→16:58)
[2019-04-01] MEDS ORDERED: PIPERACILLIN/TAZOBACTAM 4.5 GM VIAL IVPB ONE ×3 (02:06→16:57)
[2019-04-01] MEDS: PIPERACILLIN/TAZOB 4.5 GM 4.5 GM in DEXTROSE 5%-WATER 100 ML IVPB SCH ×3 (02:40→17:54)
[2019-04-01] MEDS: INSULIN (LEVEMIR) 100 UNITS/ML UNITS SQ SCH (07:13)
[2019-04-01] MEDS: HEPARIN NA (PORCINE) 5,000 UNITS/ML 1ML VIAL SQ SCH ×3 (07:13→21:53)
[2019-04-01] MEDS: INSULIN SLIDING SCALE (NOVOLOG) 1 VIAL SQ SCH ×4 (07:15→21:53)
[2019-04-01] MEDS: LIRAGLUTIDE 0.6 MG/0.1 ML PEN.INJCTR SQ SCH (07:16)
[2019-04-01] MEDS ORDERED: INSULIN (LEVEMIR) 100 UNITS/ML UNITS SQ ONE (07:55)
[2019-04-01] MEDS ORDERED: INSULIN (NOVOLOG) ASPART 100 UNITS/ML 10ML VIAL ONE ×2 (07:56→12:13)
[2019-04-01 08:09] LABS: BASO % 1.7 % (0-2.0); EOS % 3.5 % (0-4.5); HEMATOCRIT 31.7 % (32.4-45.2); HEMOGLOBIN 10.4 GM/dL (10.7-15.3); LYMPH % 24.4 % (8-40); MCH 27.9 pg (25.7-33.7); MCHC 32.9 g/dl (32.0-36.0); MEAN CELL VOLUME 84.7 fl (80-96); MEAN PLT VOLUME 8.6 fl (7.5-11.1); MONO % 10.8 % (3.8-10.2); NEUT % 59.6 % (42.8-82.8); PLATELET COUNT 390 K/MM3 (134-434); RBC 3.74 M/mm3 (3.60-5.2); RDW 13.4 % (11.6-15.6); WHITE BLOOD COUNT 7.3 K/mm3 (4.0-10.0)
[2019-04-01] MEDS: VALSARTAN 160 MG TABLET (UD) PO SCH (09:46)
[2019-04-01] MEDS: CLOPIDOGREL BISULFATE 75 MG TABLET (FP) PO SCH (09:46)
[2019-04-01] MEDS: LACTOBACILLUS ACIDOPHILUS 1 TABLET PO SCH (09:46)
[2019-04-01] MEDS: HYDROCHLOROTHIAZIDE 12.5 MG CAPSULE (FP) PO SCH (09:46)
[2019-04-01] MEDS: amLODIPine BESYLATE 10 MG TABLET (FP) PO SCH (09:46)
--- NOTE | 2019-04-01 10:51 | PN ---
Physical Exam: SUBJECTIVE: Patient seen and examined, no new complaints, doing well. OBJECTIVE: Vital Signs Period Temp Pulse Resp BP Sys/Gill[place]and Pulse Ox Last 24 Hr 98.5 F-99.0 F 74-83 18-20 126-148/61-64 98 Intake & Output 03/29/19 03/30/19 03/31/19 04/01/19 23:59 23:59 23:59 23:59 Intake Total 1150 1640 1340 200 Balance 1150 1640 1340 200 Weight 275 lb GENERAL: lying in bed in no acute distress Neck: soft, supple Chest: CTAB, no rales or wheezing Abdomen:Soft, obese, NT Extremities: Right fifth toe swelling/redness markedly improved, clear fluid expressed from wound, not tender on exam today, DP pulse dopplerable, good capillary refill Laboratory Results - last 24 hr 03/31/19 03/31/19 03/31/19 11:29 16:39 23:23 WBC RBC Hgb Hct MCV MCH MCHC RDW Plt Count MPV Absolute Neuts (auto) Neutrophils % Lymphocytes % Monocytes % Eosinophils % Basophils % Nucleated RBC % POC Glucometer 251 125 166 04/01/19 04/01/19 06:39 07:26 WBC 7.3 RBC 3.74 Hgb 10.4 L Hct 31.7 L MCV 84.7 MCH 27.9 MCHC 32.9 RDW 13.4 Plt Count 390 MPV 8.6 Absolute Neuts (auto) 4.3 Neutrophils % 59.6 Lymphocytes % 24.4 Monocytes % 10.8 H Eosinophils % 3.5 Basophils % 1.7 Nucleated RBC % 0 POC Glucometer 160 Active Medications Generic Name Dose Route Start Last Admin Trade Name Tiagoq PRN Reason Stop Dose Admin Amlodipine Besylate 10 mg 03/27/19 10:00 04/01/19 09:46 Norvasc - PO 10 mg DAILY PAT Administration Clopidogrel Bisulfate 75 mg 03/27/19 10:00 04/01/19 09:46 Plavix - PO 75 mg DAILY PAT Administration Heparin Sodium (Porcine) 5,000 unit 03/26/19 22:00 04/01/19 07:13 Heparin - SQ 5,000 unit TID PAT Administration Hydrochlorothiazide 12.5 mg 04/01/19 10:00 04/01/19 09:46 Hctz - PO 12.5 mg DAILY PAT Administration Piperacillin Sod/Tazobactam 100 mls @ 200 mls/hr 03/29/19 18:00 04/01/19 09: 46 Sod 4.5 gm/ Dextrose IVPB 200 mls/hr Q8H-IV PAT Administration Protocol Insulin Aspart 1 vial 03/26/19 16:30 04/01/19 07:15 Novolog Vial Sliding Scale - SQ 2 unit ACHS PAT Administration Protocol Insulin Detemir 45 units 04/01/19 07:00 04/01/19 07:13 Levemir Vial SQ 45 units AM PAT Administration Lactobacillus Acidophilus 1 tab 03/27/19 10:00 04/01/19 09:46 Bacid - PO 1 tab DAILY PAT Administration Latanoprost 1 drop 03/26/19 22:00 03/31/19 23:22 Xalatan 0.005% Eye Drops - OU 1 drop HS PAT Administration Liraglutide 1.8 mg 03/27/19 07:00 04/01/19 07:16 Victoza - SQ 1.8 mg AM PAT Administration Metoprolol Succinate 50 mg 03/27/19 10:00 04/01/19 09:46 Toprol Xl - PO 50 mg DAILY PAT Administration Rosuvastatin Calcium 10 mg 03/26/19 22:00 03/31/19 23:25 Crestor - PO 10 mg HS PAT Administration Valsartan 320 mg 03/27/19 10:00 04/01/19 09:46 Diovan - PO 320 mg DAILY PAT Administration Microbiology 03/26/19 13:36 Blood - Peripheral Venous Blood Culture - Final NO GROWTH AFTER 5 DAYS INCUBATION 03/26/19 13:36 Blood - Peripheral Venous Blood Culture - Final NO GROWTH AFTER 5 DAYS INCUBATION 03/27/19 08:10 Toe - Right Fifth Gram Stain - Final 03/27/19 08:10 Toe - Right Fifth Wound Culture - Final Enterococcus Faecalis Staphylococcus Coagulase Neg Citrobacter Koseri 03/27/19 08:10 Foot - Right Lateral Gram Stain - Final 03/27/19 08:10 Foot - Right Lateral Wound Culture - Final Enterococcus Faecalis Citrobacter Koseri Staphylococcus Coagulase Neg CTA Aorta results pending ASSESSMENT/PLAN: 58 yof with PMhx of CAD (OM1 70-80%, mild RCA dz in 2010 medically managed), HTN , HLD, IDDM poorly controlled, Right fifth toe osteomyelitis in 01/2019, d/alena on 6 weeks of vancomycin, also s/p SFA angioplasty then, started on plavix recently admitted with RLE cellulitis on 03/20/2019 dced in 24 hours, admitted with right fifth toe cellulitis abscess +/- cellulitis -Acute right fifth Toe Cellulitis with abscess and osteomyelitis -H/o Right fifth toe osteomyelitis in 01/2019 s/p 6 weeks of vancomycin -PAD s/p SFA angioplasty 01/2019 on plavix -CAD (OM1 70-80%, mild RCA dz in 2010 medically managed) -IDDM, poorly controlled -HTN -HLD Plan: Podiatry/ID input noted. patient declines surgery, wants trial with IV abx/hyperbaric. Await wound cx. Zosyn per ID. vascular surgery input. Follow up CTA. Continue plavix/statin. Continue metoprolol/ARB/HCTZ. Levemir/Victoza, ISS, diabetic diet. Continue levemir 45 units , will monitor. DVTPPX heparin Dispo in 24-48 hours with PICC/IV abx pending final cx,CTA and Id/vascular surgery recs. Plan discussed with patient and nursing in detail, all questions answered. Visit type - Emergency Visit Emergency Visit: Yes ED Registration Date: 03/26/19 Care time: The patient presented to the Emergency Department on the above date and was hospitalized for further evaluation of their emergent condition. - New Patient This patient is new to me today: No - Critical Care Critical Care patient: No - Discharge Referral Referred to [facility] No
--- NOTE | 2019-04-01 13:10 | PN ---
Progress Note, Physician - Current Medication List Current Medications: Active Medications Amlodipine Besylate (Norvasc -) 10 mg PO DAILY [facility] Last Admin: 04/01/19 09:46 Dose: 10 mg Clopidogrel Bisulfate (Plavix -) 75 mg PO DAILY [facility] Last Admin: 04/01/19 09:46 Dose: 75 mg Heparin Sodium (Porcine) (Heparin -) 5,000 unit SQ TID [facility] Last Admin: 04/01/19 07:13 Dose: 5,000 unit Hydrochlorothiazide (Hctz -) 12.5 mg PO DAILY [facility] Last Admin: 04/01/19 09:46 Dose: 12.5 mg Piperacillin Sod/Tazobactam (Sod 4.5 gm/ Dextrose) 100 mls @ 200 mls/hr IVPB Q8H-IV [facility]; Protocol Last Admin: 04/01/19 09:46 Dose: 200 mls/hr Insulin Aspart (Novolog Vial Sliding Scale -) 1 vial SQ ACHS [facility]; Protocol Last Admin: 04/01/19 12:15 Dose: 2 unit Insulin Detemir (Levemir Vial) 45 units SQ AM [facility] Last Admin: 04/01/19 07:13 Dose: 45 units Lactobacillus Acidophilus (Bacid -) 1 tab PO DAILY [facility] Last Admin: 04/01/19 09:46 Dose: 1 tab Latanoprost (Xalatan 0.005% Eye Drops -) 1 drop OU HS [facility] Last Admin: 03/31/19 23:22 Dose: 1 drop Liraglutide (Victoza -) 1.8 mg SQ AM [facility] Last Admin: 04/01/19 07:16 Dose: 1.8 mg Metoprolol Succinate (Toprol Xl -) 50 mg PO DAILY [facility] Last Admin: 04/01/19 09:46 Dose: 50 mg Rosuvastatin Calcium (Crestor -) 10 mg PO HS [facility] Last Admin: 03/31/19 23:25 Dose: 10 mg Valsartan (Diovan -) 320 mg PO DAILY [facility] Last Admin: 04/01/19 09:46 Dose: 320 mg - Objective Vital Signs: Vital Signs Temperature 99.7 F H 04/01/19 12:00 Pulse Rate 79 04/01/19 12:00 Respiratory Rate 19 04/01/19 12:00 Blood Pressure 118/66 04/01/19 12:00 O2 Sat by Pulse Oximetry (%) 98 04/01/19 09:00 Labs: CBC, BMP 04/01/19 07:26 03/31/19 06:47
--- NOTE | 2019-04-01 14:31 | PN ---
Progress Note (short form) - Note Progress Note: VAscular surgery CTA reviewed. NO officially read yet. However there seems to be multiple areas of stenosis/occlusion in the right SFA. Pt will need angiogram, possible stent. Pt booked for thurs. Please clear from a medical standpoint. Shon Car DO
--- NOTE | 2019-04-01 15:20 | CON.CARD ---
Consult Consult Specialty:: cardio - History of Present Illness Chief Complaint: preop History of Present Illness: 58 F preop for RLE angiogram and possible angioplasty. she had osteo of R foot 01/29, treated. now back with cellulitis of foot. seen by vascular, CTA done with mult stenoses/occlusions, final report pending denies cp, sob or orthopnea. walks 2 flights sometimes at home but goes slowly b/c leg and foot pain no palpit, syncope PMH: CAD--medically managed HTN HPL DM - Past Medical History Cardio/Vascular: Yes: HTN, Hyperlipdemia Pulmonary: Yes: Other (PVD) Endocrine: Yes: Diabetes Mellitus - Alcohol/Substance Use Hx Alcohol Use: Yes (socially) History of Substance Use: reports: None - Smoking History Smoking history: Former smoker Have you smoked in the past 12 months: No Aproximately how many cigarettes per day: 0 If you are a former smoker, when did you quit?: 1996 - Social History History of Recent Travel: No Home Medications - Allergies Allergies/Adverse Reactions: Allergies Allergy/AdvReac Type Severity Reaction Status Date / Time No Known Allergies Allergy Verified 03/26/19 11:01 - Home Medications Home Medications: Ambulatory Orders Insulin Glargine,Hum.rec.anlog [Lantus] 32 unit SQ DAILY 12/13/18 Liraglutide [Victoza -] 1.8 unit SQ DAILY 12/13/18 Amlodipine Besylate 10 mg PO DAILY 01/13/19 Metoprolol Succinate 50 mg PO DAILY 01/13/19 Olmesartan/Hydrochlorothiazide [Benicar Hct 40-12.5 mg Tablet] 1 each PO DAILY 01/13/19 Rosuvastatin [Crestor -] 10 mg PO DAILY 01/13/19 Bacitracin - [Bacitracin Topical Ointment -] 1 applic TP DAILY #1 tube 01/17/19 Clopidogrel Bisulfate [Plavix -] 75 mg PO DAILY #30 tablet 01/17/19 Lactobacillus Acidophilus [Bacid -] 1 tab PO DAILY #38 tab 01/17/19 Latanoprost/Pf [Latanoprost 0.005% Eye Drop] 7.5 ml OP DAILY 03/26/19 Family Disease History - Family Disease History Family Disease History: Diabetes: Mother, Other: Father (HTN) Review of Systems - Review of Systems Constitutional: denies: Chills, Fever Eyes: denies: Eye Pain HENT: denies: Nasal Congestion Neck: denies: Stiffness Cardiovascular: denies: Palpitations Respiratory: denies: Orthopnea, PND Gastrointestinal: denies: Diarrhea, Rectal Bleeding Genitourinary: denies: Burning, Hematuria Musculoskeletal: denies: Muscle Pain Integumentary: denies: Rash Neurological: denies: Numbness, Seizure, Syncope Endocrine: denies: Excessive Sweating Hematology/Lymphatic: denies: Excessive Bleeding Vital Signs: Vital Signs Temperature 99.7 F H 04/01/19 12:00 Pulse Rate 79 04/01/19 12:00 Respiratory Rate 19 04/01/19 12:00 Blood Pressure 118/66 04/01/19 12:00 O2 Sat by Pulse Oximetry (%) 98 04/01/19 09:00 Constitutional: Yes: Well Nourished, No Distress, Obese Eyes: No: Sclera Icterus HENT: No: Nasal Congestion Neck: No: Decreased ROM Respiratory: Yes: CTA Bilaterally. No: Accessory Muscle Use, Rales, Wheezes Gastrointestinal: Yes: Normal Bowel Sounds. No: Distention, Hepatomegaly, Palpable Mass, Tenderness Cardiovascular: Yes: Regular Rate and Rhythm JVD: No Carotid Bruit: No PMI: Non-Displaced Heart Sounds: Yes: S1, S2. No: Gallop Murmur: No: Systolic Murmur, Diastolic Murmur Musculoskeletal: Yes: Other (No kyphosis) Extremities: No: Cool, Cyanosis Edema: No Peripheral Pulses: 2+ Left Carotid, 2+ Right Carotid, 2+ Left Doralis Pedis, 2+ Right Dorsalis Pedis Integumentary: No: Jaundice Neurological: Yes: Alert, Oriented (x3) Psychiatric: No: Agitated - Other Data Labs, Other Data: CBC, BMP 04/01/19 07:26 03/31/19 06:47 Assessment/Plan Echo 09/2017: EF 60-65%. 1+ dusty. tds for rv size, nl RV fn. Stable functional mac/mild ms (mg 3 mmhg, 76 bpm). 2013 stress MPI (pharm): Nl perfusion, nl EF 2010 Cath [facility]: EF 60% 70-80% dOM1, mild RCA disease ECG: NSR, LBBB--no change vs 01/29 preop CV eval, R foot cellulitis (prior recent osteo) with PAD, for angiogram +/ - plasty: -known medically managed low-risk branch vessel CAD on cath 2010. no angina or ischemia since (last stress test 2013) -Revised CV Risk Index = 2, decr functional capacity -no s/sx of active cad or chf -medically optimized, at acceptable CV risk for angiogram or any surgery/ anesthesia -periop optimization of oxygenation/apnea--per hospitalist, anesthesia (+/- pulmonary if needed) -ok to hold aspirin preop up to 7d if indicated--per vascular CAD: -OM disease (distal vessel) on cath 2010, no angina or ischemia since. medically managed -cont home statin, bb (hold asa preop prn) mild mitral stenosis: -stable HTN: -bp controlled -same meds DM: -per hospitalist JANICE: -mild JANICE, mod-severe desats on prior PSG
--- NOTE | 2019-04-01 20:18 | PN ---
Progress Note, Physician Chief Complaint: Chronic wound right 5th toe History of Present Illness: Chronic toe infection. - Current Medication List Current Medications: Active Medications Amlodipine Besylate (Norvasc -) 10 mg PO DAILY [facility] Last Admin: 04/01/19 09:46 Dose: 10 mg Clopidogrel Bisulfate (Plavix -) 75 mg PO DAILY [facility] Last Admin: 04/01/19 09:46 Dose: 75 mg Heparin Sodium (Porcine) (Heparin -) 5,000 unit SQ TID [facility] Last Admin: 04/01/19 15:24 Dose: 5,000 unit Hydrochlorothiazide (Hctz -) 12.5 mg PO DAILY [facility] Last Admin: 04/01/19 09:46 Dose: 12.5 mg Piperacillin Sod/Tazobactam (Sod 4.5 gm/ Dextrose) 100 mls @ 200 mls/hr IVPB Q8H-IV [facility]; Protocol Last Admin: 04/01/19 17:54 Dose: 200 mls/hr Insulin Aspart (Novolog Vial Sliding Scale -) 1 vial SQ ACHS [facility]; Protocol Last Admin: 04/01/19 17:54 Dose: Not Given Insulin Detemir (Levemir Vial) 45 units SQ AM [facility] Last Admin: 04/01/19 07:13 Dose: 45 units Lactobacillus Acidophilus (Bacid -) 1 tab PO DAILY [facility] Last Admin: 04/01/19 09:46 Dose: 1 tab Latanoprost (Xalatan 0.005% Eye Drops -) 1 drop OU HS [facility] Last Admin: 03/31/19 23:22 Dose: 1 drop Liraglutide (Victoza -) 1.8 mg SQ AM [facility] Last Admin: 04/01/19 07:16 Dose: 1.8 mg Metoprolol Succinate (Toprol Xl -) 50 mg PO DAILY [facility] Last Admin: 04/01/19 09:46 Dose: 50 mg Rosuvastatin Calcium (Crestor -) 10 mg PO HS [facility] Last Admin: 03/31/19 23:25 Dose: 10 mg Valsartan (Diovan -) 320 mg PO DAILY [facility] Last Admin: 04/01/19 09:46 Dose: 320 mg - Objective Vital Signs: Vital Signs Temperature 98.3 F 04/01/19 18:30 Pulse Rate 80 04/01/19 18:30 Respiratory Rate 18 04/01/19 18:30 Blood Pressure 119/60 04/01/19 18:30 O2 Sat by Pulse Oximetry (%) 98 04/01/19 09:00 Extremities: Yes: Other (+draining 5th toe right,+om 5th toe, +pvd) Labs: CBC, BMP 04/01/19 07:26 03/31/19 06:47 Assessment/Plan om pvd Angiogram on . ID on case recommending amputation. Patient wants to try to save toe. Discussed slim possibility of saving with re-vascularization, hbo and abx. Patient fully understands that she might lose toe even after trying hbo and abx after re-vascularization. Will follow. Discussed with vascular. Reviewed CT from previous admission and recent MRI.
[2019-04-01] MEDS: LATANOPROST 0.005% OPHTH SOLN 2.5ML BOTTLE OU SCH (21:53)
[2019-04-01] MEDS: ROSUVASTATIN CA 10 MG TABLET (FP) PO SCH (21:53)
[2019-04-02] MEDS ORDERED: PIPERACILLIN/TAZOBACTAM 4.5 GM VIAL IVPB ONE (00:38)
[2019-04-02] MEDS ORDERED: DEXTROSE 5%-WATER 100 ML IVPB ONE (00:38)
[2019-04-02] MEDS: PIPERACILLIN/TAZOB 4.5 GM 4.5 GM in DEXTROSE 5%-WATER 100 ML IVPB SCH ×2 (02:51→11:17)
[2019-04-02] MEDS: INSULIN SLIDING SCALE (NOVOLOG) 1 VIAL SQ SCH ×4 (06:17→22:16)
[2019-04-02] MEDS: HEPARIN NA (PORCINE) 5,000 UNITS/ML 1ML VIAL SQ SCH ×2 (06:18→13:42)
[2019-04-02] MEDS: INSULIN (LEVEMIR) 100 UNITS/ML UNITS SQ SCH (06:50)
[2019-04-02] MEDS: LIRAGLUTIDE 0.6 MG/0.1 ML PEN.INJCTR SQ SCH (06:50)
[2019-04-02 09:29] LABS: BASO % 0.3 % (0-2.0); EOS % 3.8 % (0-4.5); HEMATOCRIT 33.2 % (32.4-45.2); HEMOGLOBIN 10.6 GM/dL (10.7-15.3); LYMPH % 25.9 % (8-40); MCH 27.1 pg (25.7-33.7); MCHC 31.8 g/dl (32.0-36.0); MEAN CELL VOLUME 85.2 fl (80-96); MEAN PLT VOLUME 9.3 fl (7.5-11.1); MONO % 10.7 % (3.8-10.2); NEUT % 59.3 % (42.8-82.8); PLATELET COUNT 373 K/MM3 (134-434); RDW 13.8 % (11.6-15.6); WHITE BLOOD COUNT 10.5 K/mm3 (4.0-10.0)
[2019-04-02 09:58] LABS: BILIRUBIN,TOTAL 0.2 mg/dL (0.2-1); BLOOD UREA NITROGEN 14.3 mg/dL (7-18); CALCIUM 9.2 mg/dL (8.5-10.1); CREATININE 1.1 mg/dL (0.55-1.3); POTASSIUM 4.5 mmol/L (3.5-5.1); TOT PROT 6.6 g/dl (6.4-8.2)
[2019-04-02] MEDS: amLODIPine BESYLATE 10 MG TABLET (FP) PO SCH (10:00)
[2019-04-02] MEDS: HYDROCHLOROTHIAZIDE 12.5 MG CAPSULE (FP) PO SCH (10:00)
[2019-04-02] MEDS: CLOPIDOGREL BISULFATE 75 MG TABLET (FP) PO SCH (10:01)
[2019-04-02] MEDS: LACTOBACILLUS ACIDOPHILUS 1 TABLET PO SCH (10:01)
[2019-04-02] MEDS: VALSARTAN 160 MG TABLET (UD) PO SCH (10:01)
--- NOTE | 2019-04-02 10:26 | PN ---
Progress Note, Physician History of Present Illness: stable no issues for angio tomorrow - Current Medication List Current Medications: Active Medications Amlodipine Besylate (Norvasc -) 10 mg PO DAILY [facility] Last Admin: 04/02/19 10:00 Dose: 10 mg Clopidogrel Bisulfate (Plavix -) 75 mg PO DAILY [facility] Last Admin: 04/02/19 10:01 Dose: 75 mg Heparin Sodium (Porcine) (Heparin -) 5,000 unit SQ TID [facility] Last Admin: 04/02/19 06:18 Dose: 5,000 unit Hydrochlorothiazide (Hctz -) 12.5 mg PO DAILY [facility] Last Admin: 04/02/19 10:00 Dose: 12.5 mg Piperacillin Sod/Tazobactam (Sod 4.5 gm/ Dextrose) 100 mls @ 200 mls/hr IVPB Q8H-IV [facility]; Protocol Last Admin: 04/02/19 02:51 Dose: 200 mls/hr Insulin Aspart (Novolog Vial Sliding Scale -) 1 vial SQ ACHS [facility]; Protocol Last Admin: 04/02/19 06:17 Dose: 4 unit Insulin Detemir (Levemir Vial) 45 units SQ AM [facility] Last Admin: 04/02/19 06:50 Dose: 45 units Lactobacillus Acidophilus (Bacid -) 1 tab PO DAILY [facility] Last Admin: 04/02/19 10:01 Dose: 1 tab Latanoprost (Xalatan 0.005% Eye Drops -) 1 drop OU HS [facility] Last Admin: 04/01/19 21:53 Dose: 1 drop Liraglutide (Victoza -) 1.8 mg SQ AM [facility] Last Admin: 04/02/19 06:50 Dose: 1.8 mg Metoprolol Succinate (Toprol Xl -) 50 mg PO DAILY [facility] Last Admin: 04/02/19 10:00 Dose: 50 mg Rosuvastatin Calcium (Crestor -) 10 mg PO HS [facility] Last Admin: 04/01/19 21:53 Dose: 10 mg Valsartan (Diovan -) 320 mg PO DAILY [facility] Last Admin: 04/02/19 10:01 Dose: 320 mg - Objective Vital Signs: Vital Signs Temperature 98.6 F 04/02/19 06:00 Pulse Rate 80 04/02/19 06:00 Respiratory Rate 18 04/02/19 06:00 Blood Pressure 119/56 L 04/02/19 06:00 O2 Sat by Pulse Oximetry (%) 98 04/01/19 09:00 Constitutional: Yes: No Distress, Calm Cardiovascular: Yes: Regular Rate and Rhythm Respiratory: Yes: Regular, CTA Bilaterally Gastrointestinal: Yes: Normal Bowel Sounds, Soft Musculoskeletal: Yes: WNL Extremities: Yes: Other Wound/Incision: Yes: Dressing Dry and Intact Neurological: Yes: Alert, Oriented Psychiatric: Yes: Alert, Oriented Labs: CBC, BMP 04/02/19 09:00 04/02/19 09:00 Assessment/Plan talia List - Problems (1) Toe infection Code(s): L08.9 - LOCAL INFECTION OF THE SKIN AND SUBCUTANEOUS TISSUE, UNSP (2) Diabetes Code(s): E11.9 - TYPE 2 DIABETES MELLITUS WITHOUT COMPLICATIONS (3) HLD (hyperlipidemia) Code(s): E78.5 - HYPERLIPIDEMIA, UNSPECIFIED (4) HTN (hypertension) Code(s): I10 - ESSENTIAL (PRIMARY) HYPERTENSION (5) Morbid obesity with BMI of 45.0-49.9, adult Code(s): E66.01 - MORBID (SEVERE) OBESITY DUE TO EXCESS CALORIES; Z68.42 - BODY MASS INDEX (BMI) 45.0-49.9, ADULT (6) Osteomyelitis Code(s): M86.9 - OSTEOMYELITIS, UNSPECIFIED Qualifiers: Osteomyelitis type: other chronic Osteomyelitis location: foot Laterality : right Qualified Code(s): M86.671 - Other chronic osteomyelitis, right ankle and foot (7) PVD (peripheral vascular disease) Code(s): I73.9 - PERIPHERAL VASCULAR DISEASE, UNSPECIFIED Assessment/Plan Rt fifth toe ulcer infection/abscess/OM Rt foot cellulitis DM PAD s/p SFA angioplasty morbid obesity CAD HTN HLD plan continue abx podiatry on the case wound care rest as per the team patient for angio tomorrow
--- NOTE | 2019-04-02 11:08 | PN ---
Physical Exam: SUBJECTIVE: Patient seen and examined, no complaints. OBJECTIVE: Vital Signs Period Temp Pulse Resp BP Sys/G[place]and Pulse Ox Last 24 Hr 98.0 F-99.7 F 79-83 18-19 118-128/56-66 Intake & Output 03/30/19 03/31/19 04/01/19 04/02/19 23:59 23:59 23:59 23:59 Intake Total 1640 1340 2400 100 Balance 1640 1340 2400 100 GENERAL: lying in bed in no acute distress Neck: soft, supple CVS:S1S2 regular Chest: CTAB, no rales or wheezing Abdomen:Soft, obese, NT Extremities: Right fifth toe swelling/redness markedly improved, clear fluid expressed from wound, not tender on exam today, DP pulse dopplerable, good capillary refill Psych: pleasant co-operative HEENT: PERRL Laboratory Results - last 24 hr 04/01/19 04/01/19 04/01/19 11:56 16:37 21:51 WBC RBC Hgb Hct MCV MCH MCHC RDW Plt Count MPV Absolute Neuts (auto) Neutrophils % Lymphocytes % Monocytes % Eosinophils % Basophils % Nucleated RBC % Sodium Potassium Chloride Carbon Dioxide Anion Gap BUN Creatinine Est GFR (CKD-EPI)AfAm Est GFR (CKD-EPI)NonAf POC Glucometer 153 124 237 Random Glucose Hemoglobin A1c % Calcium Total Bilirubin AST ALT Alkaline Phosphatase Total Protein Albumin 04/02/19 04/02/19 04/02/19 06:14 09:00 09:00 WBC 10.5 H RBC 3.90 Hgb 10.6 L Hct 33.2 MCV 85.2 MCH 27.1 MCHC 31.8 L RDW 13.8 Plt Count 373 MPV 9.3 Absolute Neuts (auto) 6.2 Neutrophils % 59.3 Lymphocytes % 25.9 Monocytes % 10.7 H Eosinophils % 3.8 Basophils % 0.3 Nucleated RBC % 0 Sodium Potassium Chloride Carbon Dioxide Anion Gap BUN Creatinine Est GFR (CKD-EPI)AfAm Est GFR (CKD-EPI)NonAf POC Glucometer 205 Random Glucose Hemoglobin A1c % 9.5 H Calcium Total Bilirubin AST ALT Alkaline Phosphatase Total Protein Albumin 04/02/19 09:00 WBC RBC Hgb Hct MCV MCH MCHC RDW Plt Count MPV Absolute Neuts (auto) Neutrophils % Lymphocytes % Monocytes % Eosinophils % Basophils % Nucleated RBC % Sodium 137 Potassium 4.5 Chloride 102 Carbon Dioxide 28 Anion Gap 7 L BUN 14.3 Creatinine 1.1 Est GFR (CKD-EPI)AfAm 64.09 Est GFR (CKD-EPI)NonAf 55.30 POC Glucometer Random Glucose 155 H Hemoglobin A1c % Calcium 9.2 Total Bilirubin 0.2 AST 13 L ALT 21 Alkaline Phosphatase 83 Total Protein 6.6 Albumin 3.0 L Active Medications Generic Name Dose Route Start Last Admin Trade Name Freq PRN Reason Stop Dose Admin Amlodipine Besylate 10 mg 03/27/19 10:00 04/02/19 10:00 Norvasc - PO 10 mg DAILY PAT Administration Clopidogrel Bisulfate 75 mg 03/27/19 10:00 04/02/19 10:01 Plavix - PO 75 mg DAILY PAT Administration Heparin Sodium (Porcine) 5,000 unit 03/26/19 22:00 04/02/19 06:18 Heparin - SQ 5,000 unit TID PAT Administration Hydrochlorothiazide 12.5 mg 04/01/19 10:00 04/02/19 10:00 Hctz - PO 12.5 mg DAILY PAT Administration Piperacillin Sod/Tazobactam 50 mls @ 100 mls/hr 04/02/19 10:26 Sod 3.375 gm/ Dextrose IVPB Q8H-IV PAT Protocol Sodium Chloride 1,000 mls @ 75 mls/hr 04/03/19 00:01 Normal Saline - IV ASDIR PAT Insulin Aspart 1 vial 03/26/19 16:30 04/02/19 06:17 Novolog Vial Sliding Scale - SQ 4 unit ACHS PAT Administration Protocol Insulin Detemir 45 units 04/01/19 07:00 04/02/19 06:50 Levemir Vial SQ 45 units AM PAT Administration Insulin Detemir 20 units 04/03/19 07:00 Levemir Vial SQ 04/03/19 07:01 ONCE ONE Lactobacillus Acidophilus 1 tab 03/27/19 10:00 04/02/19 10:01 Bacid - PO 1 tab DAILY PAT Administration Latanoprost 1 drop 03/26/19 22:00 04/01/19 21:53 Xalatan 0.005% Eye Drops - OU 1 drop HS PAT Administration Liraglutide 1.8 mg 03/27/19 07:00 04/02/19 06:50 Victoza - SQ 1.8 mg AM PAT Administration Metoprolol Succinate 50 mg 03/27/19 10:00 04/02/19 10:00 Toprol Xl - PO 50 mg DAILY PAT Administration Rosuvastatin Calcium 10 mg 03/26/19 22:00 04/01/19 21:53 Crestor - PO 10 mg HS PAT Administration Valsartan 320 mg 03/27/19 10:00 04/02/19 10:01 Diovan - PO 320 mg DAILY PAT Administration Microbiology 03/26/19 13:36 Blood - Peripheral Venous Blood Culture - Final NO GROWTH AFTER 5 DAYS INCUBATION 03/26/19 13:36 Blood - Peripheral Venous Blood Culture - Final NO GROWTH AFTER 5 DAYS INCUBATION 03/27/19 08:10 Toe - Right Fifth Gram Stain - Final 03/27/19 08:10 Toe - Right Fifth Wound Culture - Final Enterococcus Faecalis Staphylococcus Coagulase Neg Citrobacter Koseri 03/27/19 08:10 Foot - Right Lateral Gram Stain - Final 03/27/19 08:10 Foot - Right Lateral Wound Culture - Final Enterococcus Faecalis Citrobacter Koseri Staphylococcus Coagulase Neg ASSESSMENT/PLAN: 58 yof with PMhx of CAD (OM1 70-80%, mild RCA dz in 2010 medically managed), HTN , HLD, IDDM poorly controlled, Right fifth toe osteomyelitis in 01/2019, d/alena on 6 weeks of vancomycin, also s/p SFA angioplasty then, started on plavix recently admitted with RLE cellulitis on 03/20/2019 dced in 24 hours, admitted with right fifth toe cellulitis abscess +/- cellulitis -Acute right fifth Toe Cellulitis with abscess and osteomyelitis -H/o Right fifth toe osteomyelitis in 01/2019 s/p 6 weeks of vancomycin -PAD s/p SFA angioplasty 01/2019 on plavix -CAD (OM1 70-80%, mild RCA dz in 2010 medically managed) -IDDM, poorly controlled -HTN -HLD Plan: Podiatry/ID input noted. patient declines surgery, wants trial with IV abx/hyperbaric. Wound cx noted. Zosyn per ID. CTA noted. Plan Angiogram+/- stent tomorrow. Continue plavix/statin. NPO after midnight, hold HCTZ in david-operative period. Continue metoprolol/ARB Levemir/Victoza, ISS, diabetic diet. Levemir titrated up to 45 units. Will decrease dose to levemir 20 units x1 in AM. DVTPPX heparin Dispo anticipate dc on Sunday with PICC/IV abx pending vascular intervention if no new events. Plan discussed with patient and nursing in detail, all questions answered. Visit type - Emergency Visit Emergency Visit: Yes ED Registration Date: 03/26/19 Care time: The patient presented to the Emergency Department on the above date and was hospitalized for further evaluation of their emergent condition. - New Patient This patient is new to me today: No - Critical Care Critical Care patient: No - Discharge Referral Referred to [facility] No
--- NOTE | 2019-04-02 13:03 | PN ---
Progress Note (short form) - Note Progress Note: fuv 5th toe right +om right 5th toe, +cellulitis, +edema om pvd cellulitis HBO consult done. Angiogram tomorrow. Will follow.
--- NOTE | 2019-04-02 13:36 | SPA.PREOP ---
- PRE-OP NOTE Dx: RLE atherosclerosis Planned Procedure: RLE angioplasty, possible plasty/stent Surgeon: Dr Car Last Vital Signs Temp Pulse Resp BP Pulse Ox 98.6 F 80 18 119/56 L 98 04/02/19 06:00 04/02/19 06:00 04/02/19 06:00 04/02/19 06:00 04/01/19 09:00 Lab Results WBC 10.5 K/mm3 (4.0-10.0) H 04/02/19 09:00 RBC 3.90 M/mm3 (3.60-5.2) 04/02/19 09:00 Hgb 10.6 GM/dL (10.7-15.3) L 04/02/19 09:00 Hct 33.2 % (32.4-45.2) 04/02/19 09:00 MCV 85.2 fl (80-96) 04/02/19 09:00 MCHC 31.8 g/dl (32.0-36.0) L 04/02/19 09:00 RDW 13.8 % (11.6-15.6) 04/02/19 09:00 Plt Count 373 K/MM3 (134-434) 04/02/19 09:00 Sodium 137 mmol/L (136-145) 04/02/19 09:00 Potassium 4.5 mmol/L (3.5-5.1) 04/02/19 09:00 Chloride 102 mmol/L (98-107) 04/02/19 09:00 Carbon Dioxide 28 mmol/L (21-32) 04/02/19 09:00 Anion Gap 7 MMOL/L (8-16) L 04/02/19 09:00 BUN 14.3 mg/dL (7-18) 04/02/19 09:00 Creatinine 1.1 mg/dL (0.55-1.3) 04/02/19 09:00 Random Glucose 155 mg/dL (74-106) H 04/02/19 09:00 Calcium 9.2 mg/dL (8.5-10.1) 04/02/19 09:00 - IMAGING Chest X-ray: Pending EKG: Report Reviewed (EKG 03/26: Left BBB, cannot rule out anteroseptal infarct age indetermined, abdnormal ecg.) Other: Other (CTA (8/19/19) read and images in system) - ASSESSMENT/PLAN 1. Make NPO after midnight except po meds 2. GI/DVT PPX 3. Medical optimization / clearance 4. Consent to be obtained by surgeon after risks, benefits and alternatives discussed with patient and or Health Care Proxy. 5. Hold Heparin 5000units sq after tonight's dose
--- NOTE | 2019-04-02 15:31 | PN ---
Progress Note (short form) - Note Progress Note: s: no cp sob palps dizzy Current Medications Generic Name Dose Route Start Last Admin Trade Name Freq PRN Reason Stop Dose Admin Amlodipine Besylate 10 mg 03/27/19 10:00 04/02/19 10:00 Norvasc - PO 10 mg DAILY PAT Administration Clopidogrel Bisulfate 75 mg 03/27/19 10:00 04/02/19 10:01 Plavix - PO 75 mg DAILY PAT Administration Heparin Sodium (Porcine) 5,000 unit 03/26/19 22:00 04/02/19 13:42 Heparin - SQ 5,000 unit TID PAT Administration Hydrochlorothiazide 12.5 mg 04/01/19 10:00 04/02/19 10:00 Hctz - PO 12.5 mg DAILY PAT Administration Piperacillin Sod/Tazobactam 50 mls @ 100 mls/hr 04/02/19 10:26 Sod 3.375 gm/ Dextrose IVPB Q8H-IV PAT Protocol Sodium Chloride 1,000 mls @ 75 mls/hr 04/03/19 00:01 Normal Saline - IV ASDIR PAT Insulin Aspart 1 vial 03/26/19 16:30 04/02/19 11:39 Novolog Vial Sliding Scale - SQ 2 unit ACHS PAT Administration Protocol Insulin Detemir 45 units 04/01/19 07:00 04/02/19 06:50 Levemir Vial SQ 45 units AM PAT Administration Insulin Detemir 20 units 04/03/19 07:00 Levemir Vial SQ 04/03/19 07:01 ONCE ONE Lactobacillus Acidophilus 1 tab 03/27/19 10:00 04/02/19 10:01 Bacid - PO 1 tab DAILY PAT Administration Latanoprost 1 drop 03/26/19 22:00 04/01/19 21:53 Xalatan 0.005% Eye Drops - OU 1 drop HS PAT Administration Liraglutide 1.8 mg 03/27/19 07:00 04/02/19 06:50 Victoza - SQ 1.8 mg AM PAT Administration Metoprolol Succinate 50 mg 03/27/19 10:00 04/02/19 10:00 Toprol Xl - PO 50 mg DAILY PAT Administration Rosuvastatin Calcium 10 mg 03/26/19 22:00 04/01/19 21:53 Crestor - PO 10 mg HS PAT Administration Valsartan 320 mg 03/27/19 10:00 04/02/19 10:01 Diovan - PO 320 mg DAILY PAT Administration Vital Signs Period Temp Pulse Resp BP Sys/G[place] Pulse Ox Last 24 Hr 98.0 F-98.6 F 77-80 18-18 119-125/56-61 Constitutional: Yes: Well Nourished, No Distress, Obese Eyes: No: Sclera Icterus HENT: No: Nasal Congestion Respiratory: Yes: CTA Bilaterally. No: Accessory Muscle Use, Rales, Wheezes Gastrointestinal: Yes: Normal Bowel Sounds. No: Distention, Hepatomegaly, Palpable Mass, Tenderness Cardiovascular: Yes: Regular Rate and Rhythm JVD: No Heart Sounds: Yes: S1, S2. No: Gallop Murmur: No: Systolic Murmur, Diastolic Murmur Extremities: No: Cool, Cyanosis Edema: No Integumentary: No: Jaundice Neurological: Yes: Alert, Oriented (x3) Psychiatric: No: Agitated CBC, BMP 04/02/19 09:00 04/02/19 09:00 Assessment/Plan Echo 09/2017: EF 60-65%. 1+ dusty. tds for rv size, nl RV fn. Stable functional mac/mild ms (mg 3 mmhg, 76 bpm). 2013 stress MPI (pharm): Nl perfusion, nl EF 2011 Cath SJR: EF 60% 70-80% dOM1, mild RCA disease ECG: NSR, LBBB--no change vs 01/29 preop CV eval, R foot cellulitis (prior recent osteo) with PAD, for angiogram +/ - plasty: -known medically managed low-risk branch vessel CAD on cath 2010. no angina or ischemia since (last stress test 2013) -Revised CV Risk Index = 2, decr functional capacity -no s/sx of active cad or chf -medically optimized, at acceptable CV risk for angiogram or any surgery/ anesthesia -periop optimization of oxygenation/apnea--per hospitalist, anesthesia (+/- pulmonary if needed) -ok to hold aspirin preop up to 7d if indicated--per vascular CAD: -OM disease (distal vessel) on cath 2010, no angina or ischemia since. medically managed -cont home statin, bb (hold asa preop prn) mild mitral stenosis: -stable HTN: -bp controlled -continue same meds DM: -per hospitalist JANICE: -mild JANICE, mod-severe desats on prior PSG
[2019-04-02] MEDS ORDERED: INSULIN (NOVOLOG) ASPART 100 UNITS/ML 10ML VIAL ONE (16:27)
[2019-04-02] MEDS ORDERED: DEXTROSE 5%-WATER - 50 ML IVPB ONE (17:01)
[2019-04-02] MEDS ORDERED: PIPERACILLIN/TAZOBACTAM 3.375 GM VIAL IVPB ONE (17:01)
[2019-04-02] MEDS: PIPERACILLIN/TAZOB 3.375 GM 3.375 GM in DEXTROSE 5%-WATER - 50 ML IVPB SCH (17:23)
[2019-04-02] MEDS: ROSUVASTATIN CA 10 MG TABLET (FP) PO SCH (22:16)
[2019-04-02] MEDS: LATANOPROST 0.005% OPHTH SOLN 2.5ML BOTTLE OU SCH (22:17)
[2019-04-03] MEDS ORDERED: SODIUM CHLORIDE 1,000 ML IV SCH ×2 (00:01→18:42)
[2019-04-03] MEDS ORDERED: DEXTROSE 5%-WATER - 50 ML IVPB ONE ×2 (01:29→10:29)
[2019-04-03] MEDS ORDERED: PIPERACILLIN/TAZOBACTAM 3.375 GM VIAL IVPB ONE ×2 (01:29→10:29)
[2019-04-03] MEDS: PIPERACILLIN/TAZOB 3.375 GM 3.375 GM in DEXTROSE 5%-WATER - 50 ML IVPB SCH ×3 (01:57→19:00)
[2019-04-03] MEDS: INSULIN SLIDING SCALE (NOVOLOG) 1 VIAL SQ SCH ×4 (06:50→22:02)
[2019-04-03] MEDS: LIRAGLUTIDE 0.6 MG/0.1 ML PEN.INJCTR SQ SCH (06:51)
[2019-04-03] MEDS ORDERED: INSULIN (LEVEMIR) 100 UNITS/ML UNITS SQ ONE (07:00)
[2019-04-03 09:01] LABS: BASO % 2.5 % (0-2.0); EOS % 3.6 % (0-4.5); HEMATOCRIT 31.6 % (32.4-45.2); HEMOGLOBIN 10.3 GM/dL (10.7-15.3); LYMPH % 25.8 % (8-40); MCH 27.6 pg (25.7-33.7); MCHC 32.6 g/dl (32.0-36.0); MEAN CELL VOLUME 84.6 fl (80-96); MEAN PLT VOLUME 8.3 fl (7.5-11.1); MONO % 12.5 % (3.8-10.2); NEUT % 55.6 % (42.8-82.8); PLATELET COUNT 377 K/MM3 (134-434); RBC 3.74 M/mm3 (3.60-5.2); RDW 13.7 % (11.6-15.6); WHITE BLOOD COUNT 7.2 K/mm3 (4.0-10.0)
[2019-04-03] MEDS: CLOPIDOGREL BISULFATE 75 MG TABLET (FP) PO SCH (10:36)
[2019-04-03] MEDS: VALSARTAN 160 MG TABLET (UD) PO SCH (10:36)
[2019-04-03] MEDS: amLODIPine BESYLATE 10 MG TABLET (FP) PO SCH (10:36)
[2019-04-03] MEDS: LACTOBACILLUS ACIDOPHILUS 1 TABLET PO SCH (10:36)
[2019-04-03 12:33] LABS: BLOOD UREA NITROGEN 17.8 mg/dL (7-18); CALCIUM 9.5 mg/dL (8.5-10.1); CREATININE 1.2 mg/dL (0.55-1.3); MAGNESIUM 2.4 mg/dL (1.8-2.4); PHOSPHOROUS 3.6 mg/dL (2.5-4.9)
--- NOTE | 2019-04-03 12:49 | PN ---
Progress Note (short form) - Note Progress Note: s: no cp sob palps dizzy Current Medications Generic Name Dose Route Start Last Admin Trade Name Tiagoq PRN Reason Stop Dose Admin Amlodipine Besylate 10 mg 03/27/19 10:00 04/03/19 10:36 Norvasc - PO 10 mg DAILY PAT Administration Clopidogrel Bisulfate 75 mg 03/27/19 10:00 04/03/19 10:36 Plavix - PO 75 mg DAILY PAT Administration Hydrochlorothiazide 12.5 mg 04/01/19 10:00 04/02/19 10:00 Hctz - PO 12.5 mg DAILY PAT Administration Piperacillin Sod/Tazobactam 50 mls @ 100 mls/hr 04/02/19 10:26 04/03/19 11:26 Sod 3.375 gm/ Dextrose IVPB 100 mls/hr Q8H-IV PAT Administration Protocol Sodium Chloride 1,000 mls @ 75 mls/hr 04/03/19 00:01 04/03/19 00:04 Normal Saline - IV 75 mls/hr ASDIR PAT Administration Insulin Aspart 1 vial 03/26/19 16:30 04/03/19 11:27 Novolog Vial Sliding Scale - SQ 2 unit ACHS PAT Administration Protocol Insulin Detemir 45 units 04/01/19 07:00 04/02/19 06:50 Levemir Vial SQ 45 units AM PAT Administration Lactobacillus Acidophilus 1 tab 03/27/19 10:00 04/03/19 10:36 Bacid - PO 1 tab DAILY PAT Administration Latanoprost 1 drop 03/26/19 22:00 04/02/19 22:17 Xalatan 0.005% Eye Drops - OU 1 drop HS PAT Administration Liraglutide 1.8 mg 03/27/19 07:00 04/03/19 06:51 Victoza - SQ Not Given AM PAT Metoprolol Succinate 50 mg 03/27/19 10:00 04/03/19 10:36 Toprol Xl - PO 50 mg DAILY PAT Administration Rosuvastatin Calcium 10 mg 03/26/19 22:00 04/02/19 22:16 Crestor - PO 10 mg HS PAT Administration Valsartan 320 mg 03/27/19 10:00 04/03/19 10:36 Diovan - PO 320 mg DAILY PAT Administration Vital Signs Period Temp Pulse Resp BP Sys/G[place]and Pulse Ox Last 24 Hr 98 F-98.4 F 77-82 18-18 114-147/53-78 98 Constitutional: Yes: Well Nourished, No Distress, Obese Eyes: No: Sclera Icterus HENT: No: Nasal Congestion Respiratory: Yes: CTA Bilaterally. No: Accessory Muscle Use, Rales, Wheezes Gastrointestinal: Yes: Normal Bowel Sounds. No: Distention, Hepatomegaly, Palpable Mass, Tenderness Cardiovascular: Yes: Regular Rate and Rhythm JVD: No Heart Sounds: Yes: S1, S2. No: Gallop Murmur: No: Systolic Murmur, Diastolic Murmur Extremities: No: Cool, Cyanosis Edema: No Integumentary: No: Jaundice Neurological: Yes: Alert, Oriented (x3) Psychiatric: No: Agitated CBC, BMP 04/03/19 08:00 04/03/19 10:33 Assessment/Plan Echo 09/2017: EF 60-65%. 1+ dusty. tds for rv size, nl RV fn. Stable functional mac/mild ms (mg 3 mmhg, 76 bpm). 2013 stress MPI (pharm): Nl perfusion, nl EF 2011 Cath [facility]: EF 60% 70-80% dOM1, mild RCA disease ECG: NSR, LBBB--no change vs 01/29 preop CV eval, R foot cellulitis (prior recent osteo) with PAD, for angiogram +/ - plasty: -known medically managed low-risk branch vessel CAD on cath 2010. no angina or ischemia since (last stress test 2013) -Revised CV Risk Index = 2, decr functional capacity -no s/sx of active cad or chf -medically optimized, at acceptable CV risk for angiogram or any surgery/ anesthesia -periop optimization of oxygenation/apnea--per hospitalist, anesthesia (+/- pulmonary if needed) -ok to hold aspirin preop up to 7d if indicated--per vascular CAD: -OM disease (distal vessel) on cath 2010, no angina or ischemia since. medically managed -cont home statin, bb (hold asa preop prn) mild mitral stenosis: -stable HTN: -bp controlled -continue same meds DM: -per hospitalist JANICE: -mild JANICE, mod-severe desats on prior PSG
--- NOTE | 2019-04-03 14:17 | PN ---
Progress Note, Physician History of Present Illness: stable awaiting for angioplasty - Current Medication List Current Medications: Active Medications Amlodipine Besylate (Norvasc -) [address] [facility] Last Admin: 04/03/19 10:36 Dose: 10 mg Clopidogrel Bisulfate (Plavix -) [address] [facility] Last Admin: 04/03/19 10:36 Dose: 75 mg Hydrochlorothiazide (Hctz -) 12.[address] [facility] Last Admin: 04/02/19 10:00 Dose: 12.5 mg Piperacillin Sod/Tazobactam (Sod 3.375 gm/ Dextrose) 50 mls @ 100 mls/hr IVPB Q8H-IV PAT; Protocol Last Admin: 04/03/19 11:26 Dose: 100 mls/hr Sodium Chloride (Normal Saline -) 1,000 mls @ 75 mls/hr IV ASDIR [facility] Last Admin: 04/03/19 00:04 Dose: 75 mls/hr Insulin Aspart (Novolog Vial Sliding Scale -) [address] [facility]; Protocol Last Admin: 04/03/19 11:27 Dose: 2 unit Insulin Detemir (Levemir Vial) 45 units SQ AM PAT Last Admin: 04/02/19 06:50 Dose: 45 units Lactobacillus Acidophilus (Bacid -) [address] [facility] Last Admin: 04/03/19 10:36 Dose: 1 tab Latanoprost (Xalatan 0.005% Eye Drops -) [address] [facility] Last Admin: 04/02/19 22:17 Dose: 1 drop Liraglutide (Victoza -) 1.[address] [facility] Last Admin: 04/03/19 06:51 Dose: Not Given Metoprolol Succinate (Toprol Xl -) [address] [facility] Last Admin: 04/03/19 10:36 Dose: 50 mg Rosuvastatin Calcium (Crestor -) [address] [facility] Last Admin: 04/02/19 22:16 Dose: 10 mg Valsartan (Diovan -) [address] [facility] Last Admin: 04/03/19 10:36 Dose: 320 mg - Objective Vital Signs: Vital Signs Temperature 98.4 F 04/03/19 06:00 Pulse Rate 77 04/03/19 06:00 Respiratory Rate 18 04/03/19 06:00 Blood Pressure 147/69 04/03/19 06:00 O2 Sat by Pulse Oximetry (%) 98 04/02/19 21:00 Constitutional: Yes: No Distress, Calm Cardiovascular: Yes: S1, S2 Respiratory: Yes: Regular, CTA Bilaterally Gastrointestinal: Yes: Normal Bowel Sounds, Soft Musculoskeletal: Yes: WNL Extremities: Yes: Other Wound/Incision: Yes: Dressing Dry and Intact Neurological: Yes: Alert, Oriented Psychiatric: Yes: Alert, Oriented Labs: CBC, BMP 04/03/19 08:00 04/03/19 10:33 Assessment/Plan talia List - Problems (1) Toe infection Code(s): L08.9 - LOCAL INFECTION OF THE SKIN AND SUBCUTANEOUS TISSUE, UNSP (2) Diabetes Code(s): E11.9 - TYPE 2 DIABETES MELLITUS WITHOUT COMPLICATIONS (3) HLD (hyperlipidemia) Code(s): E78.5 - HYPERLIPIDEMIA, UNSPECIFIED (4) HTN (hypertension) Code(s): I10 - ESSENTIAL (PRIMARY) HYPERTENSION (5) Morbid obesity with BMI of 45.0-49.9, adult Code(s): E66.01 - MORBID (SEVERE) OBESITY DUE TO EXCESS CALORIES; Z68.42 - BODY MASS INDEX (BMI) 45.0-49.9, ADULT (6) Osteomyelitis Code(s): M86.9 - OSTEOMYELITIS, UNSPECIFIED Qualifiers: Osteomyelitis type: other chronic Osteomyelitis location: foot Laterality : right Qualified Code(s): M86.671 - Other chronic osteomyelitis, right ankle and foot (7) PVD (peripheral vascular disease) Code(s): I73.9 - PERIPHERAL VASCULAR DISEASE, UNSPECIFIED Assessment/Plan Rt fifth toe ulcer infection/abscess/OM Rt foot cellulitis DM PAD s/p SFA angioplasty morbid obesity CAD HTN HLD plan continue abx podiatry on the case wound care rest as per the team patient for angio
--- NOTE | 2019-04-03 15:00 | PN ---
Physical Exam: SUBJECTIVE: Patient seen and examined. She has no complaints. OBJECTIVE: Vital Signs Period Temp Pulse Resp BP Sys/[place]and Pulse Ox Last 24 Hr 98 F-98.4 F 77-83 18-18 107-147/50-78 98 GENERAL: The patient is awake, alert, and fully oriented, in no acute distress. LUNGS: Breath sounds equal, clear to auscultation bilaterally, no wheezes, no crackles, no accessory muscle use. HEART: Regular rate and rhythm, S1, S2 without murmur, rub or gallop. ABDOMEN: Obese, soft, nontender, nondistended, normoactive bowel sounds, no guarding, no rebound, no hepatosplenomegaly, no masses. EXTREMITIES: 2+ pulses, warm, well-perfused, no edema. Decreased erythema and swelling of right 5th toe. Laboratory Results - last 24 hr 04/02/19 04/02/19 04/03/19 16:23 21:20 06:05 WBC RBC Hgb Hct MCV MCH MCHC RDW Plt Count MPV Absolute Neuts (auto) Neutrophils % Lymphocytes % Monocytes % Eosinophils % Basophils % Nucleated RBC % Sodium Potassium Chloride Carbon Dioxide Anion Gap BUN Creatinine Est GFR (CKD-EPI)AfAm Est GFR (CKD-EPI)NonAf POC Glucometer 198 164 173 Random Glucose Calcium Phosphorus Magnesium 04/03/19 04/03/19 04/03/19 08:00 10:33 11:25 WBC 7.2 RBC 3.74 Hgb 10.3 L Hct 31.6 L MCV 84.6 MCH 27.6 MCHC 32.6 RDW 13.7 Plt Count 377 MPV 8.3 D Absolute Neuts (auto) 4.0 Neutrophils % 55.6 Lymphocytes % 25.8 Monocytes % 12.5 H Eosinophils % 3.6 Basophils % 2.5 H D Nucleated RBC % 0 Sodium 139 Potassium 5.0 Chloride 102 Carbon Dioxide 27 Anion Gap 11 BUN 17.8 Creatinine 1.2 Est GFR (CKD-EPI)AfAm 57.69 Est GFR (CKD-EPI)NonAf 49.78 POC Glucometer 170 Random Glucose 171 H Calcium 9.5 Phosphorus 3.6 Magnesium 2.4 Active Medications Generic Name Dose Route Start Last Admin Trade Name Freq PRN Reason Stop Dose Admin Amlodipine Besylate 10 mg 03/27/19 10:00 04/03/19 10:36 Norvasc - PO 10 mg DAILY PAT Administration Clopidogrel Bisulfate 75 mg 03/27/19 10:00 04/03/19 10:36 Plavix - PO 75 mg DAILY PAT Administration Hydrochlorothiazide 12.5 mg 04/01/19 10:00 04/02/19 10:00 Hctz - PO 12.5 mg DAILY PAT Administration Piperacillin Sod/Tazobactam 50 mls @ 100 mls/hr 04/02/19 10:26 04/03/19 11:26 Sod 3.375 gm/ Dextrose IVPB 100 mls/hr Q8H-IV PAT Administration Protocol Sodium Chloride 1,000 mls @ 75 mls/hr 04/03/19 00:01 04/03/19 00:04 Normal Saline - IV 75 mls/hr ASDIR PAT Administration Insulin Aspart 1 vial 03/26/19 16:30 04/03/19 11:27 Novolog Vial Sliding Scale - SQ 2 unit ACHS PAT Administration Protocol Insulin Detemir 45 units 04/01/19 07:00 04/02/19 06:50 Levemir Vial SQ 45 units AM PAT Administration Lactobacillus Acidophilus 1 tab 03/27/19 10:00 04/03/19 10:36 Bacid - PO 1 tab DAILY PAT Administration Latanoprost 1 drop 03/26/19 22:00 04/02/19 22:17 Xalatan 0.005% Eye Drops - OU 1 drop HS PAT Administration Liraglutide 1.8 mg 03/27/19 07:00 04/03/19 06:51 Victoza - SQ Not Given AM PAT Metoprolol Succinate 50 mg 03/27/19 10:00 04/03/19 10:36 Toprol Xl - PO 50 mg DAILY PAT Administration Rosuvastatin Calcium 10 mg 03/26/19 22:00 04/02/19 22:16 Crestor - PO 10 mg HS PAT Administration Valsartan 320 mg 03/27/19 10:00 04/03/19 10:36 Diovan - PO 320 mg DAILY PAT Administration ASSESSMENT/PLAN: This is a 58 year old woman with a history of CAD, HTN, hyperlipidemia, type 2 DM, osteomyelitis of right 5th toe, PAD, angioplasty of right SFA who presented to the ED with pain in her right 5th toe. 1. Cellulitis/abscess with osteomyelitis of right 5th toe - Patient does not want amputation - Continue Zosyn - Plan for hyperbaric therapy after discharge 2. PAD - Continue Plavix, Crestor - Plan for angiogram today 3. CAD - Continue Plavix, Toprol XL, Crestor 4. HTN - Continue Norvasc, Diovan, HCTZ, Toprol XL 5. Hyperlipidemia - Continue Crestor 6. Type 2 DM, uncontrolled - Continue Levemir, Novolog sliding scale, Victoza 7. Morbid obesity with BMI 44.4 Visit type - Emergency Visit Emergency Visit: Yes ED Registration Date: 03/26/19 Care time: The patient presented to the Emergency Department on the above date and was hospitalized for further evaluation of their emergent condition. - New Patient This patient is new to me today: Yes Date on this admission: 04/03/19 - Critical Care Critical Care patient: No - Discharge Referral Referred to [facility] Med P.C.: No
[2019-04-03] MEDS ORDERED: LIDOCAINE HCL 1%, 10 MG/ML (20ML VIAL) ONE (15:14)
[2019-04-03] MEDS ORDERED: HEPARIN NA (PORCINE) 5,000 UNITS/ML 1ML VIAL ONE (15:14)
[2019-04-03] MEDS ORDERED: PROMETHAZINE HCL 25 MG/1 ML VIAL IVPUSH PRN ×2 (15:37→18:42)
[2019-04-03] MEDS ORDERED: ONDANSETRON 4 MG/2 ML VIAL IVPUSH PRN ×2 (15:37→18:42)
[2019-04-03] MEDS ORDERED: LACTATED RINGERS SOLUTION 1,000 ML IV SCH (15:45)
[2019-04-03] MEDS ORDERED: MIDAZOLAM HCL 2 MG/2 ML SINGLE DOSE VIAL ONE ×2 (16:08→16:41)
[2019-04-03] MEDS ORDERED: ceFAZolin SODIUM 1 GM VIAL ONE (16:38)
[2019-04-03] MEDS ORDERED: SODIUM CHLORIDE 0.9% P/F 10 ML VIAL IJ ONE (16:38)
[2019-04-03] MEDS ORDERED: ceFAZolin SODIUM 1 GM VIAL IVPB ONE (16:39)
[2019-04-03] MEDS ORDERED: LIDOCAINE HCL 1%, 10 MG/ML (20ML VIAL) NR ONE ×2 (16:54)
[2019-04-03] MEDS ORDERED: METOPROLOL TARTRATE 5 MG/5 ML VIAL ONE (17:33)
--- NOTE | 2019-04-03 18:16 | OP ---
Operative Note - Note: Operative Date: 04/03/19 Pre-Operative Diagnosis: RLE foot ulcer Operation: Aortogram, RLE angiogram, SFA atherectomy, angioplasty with stent placement. Findings: SFA stenosis 80% Post-Operative Diagnosis: Same as Pre-op Surgeon: Shon Car Anesthesia: Fractional Estimated Blood Loss (mls): 50 Operative Report Dictated: Yes
[2019-04-03] MEDS: LACTATED RINGERS SOLUTION 1,000 ML IV SCH (21:25)
[2019-04-03] MEDS: LATANOPROST 0.005% OPHTH SOLN 2.5ML BOTTLE OU SCH (22:01)
[2019-04-03] MEDS: ROSUVASTATIN CA 10 MG TABLET (FP) PO SCH (22:02)
[2019-04-04] MEDS ORDERED: PIPERACILLIN/TAZOBACTAM 3.375 GM VIAL IVPB ONE ×3 (01:43→17:17)
[2019-04-04] MEDS ORDERED: DEXTROSE 5%-WATER - 50 ML IVPB ONE ×2 (01:44→11:11)
[2019-04-04] MEDS: PIPERACILLIN/TAZOB 3.375 GM 3.375 GM in DEXTROSE 5%-WATER - 50 ML IVPB SCH ×3 (02:05→17:24)
[2019-04-04] MEDS ORDERED: PT OWN MED DRAWER 7, Y5N ONE (06:43)
[2019-04-04] MEDS: INSULIN (LEVEMIR) 100 UNITS/ML UNITS SQ SCH (06:57)
[2019-04-04] MEDS: INSULIN SLIDING SCALE (NOVOLOG) 1 VIAL SQ SCH ×4 (06:58→22:05)
[2019-04-04] MEDS ORDERED: INSULIN (NOVOLOG) ASPART 100 UNITS/ML 10ML VIAL ONE (07:02)
[2019-04-04] MEDS: LIRAGLUTIDE 0.6 MG/0.1 ML PEN.INJCTR SQ SCH (08:00)
--- NOTE | 2019-04-04 08:08 | PN ---
Progress Note (short form) - Note Progress Note: fuv 5th toe right. S/P angioplasty. +om right 5th toe, +cellulitis, +edema om pvd cellulitis HBO consult done. Will start on DC. IVABX as per ID. Patient aware that hbo and abx might not save toe. Dr. Dukes to follow over week end.
[2019-04-04 08:14] LABS: HEMATOCRIT 30.3 % (32.4-45.2); HEMOGLOBIN 9.9 GM/dL (10.7-15.3); MCH 27.7 pg (25.7-33.7); MCHC 32.8 g/dl (32.0-36.0); MEAN CELL VOLUME 84.4 fl (80-96); MEAN PLT VOLUME 8.3 fl (7.5-11.1); PLATELET COUNT 371 K/MM3 (134-434); RBC 3.59 M/mm3 (3.60-5.2); RDW 13.4 % (11.6-15.6); WHITE BLOOD COUNT 7.2 K/mm3 (4.0-10.0)
[2019-04-04 08:45] LABS: BLOOD UREA NITROGEN 15.3 mg/dL (7-18); CALCIUM 9.1 mg/dL (8.5-10.1); CREATININE 1.1 mg/dL (0.55-1.3); POTASSIUM 4.6 mmol/L (3.5-5.1)
--- NOTE | 2019-04-04 09:06 | PN ---
Progress Note, Physician History of Present Illness: patient stable post angioplasty - Current Medication List Current Medications: Active Medications Amlodipine Besylate (Norvasc -) 10 mg PO DAILY [facility] Clopidogrel Bisulfate (Plavix -) 75 mg PO DAILY [facility] Fentanyl (Sublimaze Injection -) 50 mcg IVPUSH [id number] PRN PRN Reason: PAIN-PACU ORDER X 4 DOSES ONLY Hydrochlorothiazide (Hctz -) 12.5 mg PO DAILY [facility] Lactated Ringer's (Lactated Ringers Solution) 1,000 mls @ 125 mls/hr IV ASDIR [facility] Last Admin: 04/03/19 21:25 Dose: Not Given Piperacillin Sod/Tazobactam (Sod 3.375 gm/ Dextrose) 50 mls @ 100 mls/hr IVPB Q8H-IV [facility]; Protocol Last Admin: 04/04/19 02:05 Dose: 100 mls/hr Insulin Aspart (Novolog Vial Sliding Scale -) 1 vial SQ ACHS [facility]; Protocol Last Admin: 04/04/19 06:58 Dose: 4 units Insulin Detemir (Levemir Vial) 45 units SQ AM [facility] Last Admin: 04/04/19 06:57 Dose: 45 units Lactobacillus Acidophilus (Bacid -) 1 tab PO DAILY [facility] Latanoprost (Xalatan 0.005% Eye Drops -) 1 drop OU HS [facility] Last Admin: 04/03/19 22:01 Dose: 1 drop Liraglutide (Victoza -) 1.8 mg SQ AM [facility] Last Admin: 04/04/19 08:00 Dose: 1.8 mg Metoprolol Succinate (Toprol Xl -) 50 mg PO DAILY [facility] Ondansetron HCl (Zofran Injection) 4 mg IVPUSH Q6H PRN PRN Reason: NAUSEA AND/OR VOMITING Promethazine HCl (Phenergan Injection -) 12.5 mg IVPUSH Q6H PRN PRN Reason: NAUSEA-FOR RESCUE AFTER 15 MIN Rosuvastatin Calcium (Crestor -) 10 mg PO HS [facility] Last Admin: 04/03/19 22:02 Dose: 10 mg Valsartan (Diovan -) 320 mg PO DAILY [facility] - Objective Vital Signs: Vital Signs Temperature 98.1 F 04/04/19 08:00 Pulse Rate 85 04/04/19 08:00 Respiratory Rate 18 04/04/19 08:00 Blood Pressure 138/72 04/04/19 08:00 O2 Sat by Pulse Oximetry (%) 98 04/03/19 21:00 Constitutional: Yes: No Distress, Calm Cardiovascular: Yes: Regular Rate and Rhythm Respiratory: Yes: Regular, CTA Bilaterally Gastrointestinal: Yes: Normal Bowel Sounds, Soft Musculoskeletal: Yes: WNL Extremities: Yes: Other Neurological: Yes: Alert, Oriented Psychiatric: Yes: Alert, Oriented Labs: CBC, BMP 04/04/19 07:40 04/04/19 07:40 Assessment/Plan robaronm List - Problems (1) Toe infection Code(s): L08.9 - LOCAL INFECTION OF THE SKIN AND SUBCUTANEOUS TISSUE, UNSP (2) Diabetes Code(s): E11.9 - TYPE 2 DIABETES MELLITUS WITHOUT COMPLICATIONS (3) HLD (hyperlipidemia) Code(s): E78.5 - HYPERLIPIDEMIA, UNSPECIFIED (4) HTN (hypertension) Code(s): I10 - ESSENTIAL (PRIMARY) HYPERTENSION (5) Morbid obesity with BMI of 45.0-49.9, adult Code(s): E66.01 - MORBID (SEVERE) OBESITY DUE TO EXCESS CALORIES; Z68.42 - BODY MASS INDEX (BMI) 45.0-49.9, ADULT (6) Osteomyelitis Code(s): M86.9 - OSTEOMYELITIS, UNSPECIFIED Qualifiers: Osteomyelitis type: other chronic Osteomyelitis location: foot Laterality : right Qualified Code(s): M86.671 - Other chronic osteomyelitis, right ankle and foot (7) PVD (peripheral vascular disease) Code(s): I73.9 - PERIPHERAL VASCULAR DISEASE, UNSPECIFIED Assessment/Plan Rt fifth toe ulcer infection/abscess/OM Rt foot cellulitis DM PAD s/p SFA angioplasty morbid obesity CAD HTN HLD plan continue abx podiatry on the case wound care rest as per the team another 5 weeks of abx
--- NOTE | 2019-04-04 10:28 | PN ---
Physical Exam: SUBJECTIVE: Patient seen and examined. She has no complaints. OBJECTIVE: Vital Signs Period Temp Pulse Resp BP Sys/Gilliland Pulse Ox Last 24 Hr 98.0 F-98.9 F 77-90 14-18 107-179/50-80 96-98 GENERAL: The patient is awake, alert, and fully oriented, in no acute distress. LUNGS: Breath sounds equal, clear to auscultation bilaterally, no wheezes, no crackles, no accessory muscle use. HEART: Regular rate and rhythm, S1, S2 without murmur, rub or gallop. ABDOMEN: Obese, soft, nontender, nondistended, normoactive bowel sounds, no guarding, no rebound, no hepatosplenomegaly, no masses. EXTREMITIES: 2+ pulses, warm, well-perfused, no edema. Decreased erythema and swelling of right 5th toe. Laboratory Results - last 24 hr 04/03/19 04/03/19 04/03/19 10:33 11:25 21:21 WBC RBC Hgb Hct MCV MCH MCHC RDW Plt Count MPV Sodium 139 Potassium 5.0 Chloride 102 Carbon Dioxide 27 Anion Gap 11 BUN 17.8 Creatinine 1.2 Est GFR (CKD-EPI)AfAm 57.69 Est GFR (CKD-EPI)NonAf 49.78 POC Glucometer 170 224 Random Glucose 171 H Calcium 9.5 Phosphorus 3.6 Magnesium 2.4 04/04/19 04/04/19 04/04/19 06:28 07:40 07:40 WBC 7.2 RBC 3.59 L Hgb 9.9 L Hct 30.3 L MCV 84.4 MCH 27.7 MCHC 32.8 RDW 13.4 Plt Count 371 MPV 8.3 Sodium 139 Potassium 4.6 Chloride 105 Carbon Dioxide 26 Anion Gap 8 BUN 15.3 Creatinine 1.1 Est GFR (CKD-EPI)AfAm 64.09 Est GFR (CKD-EPI)NonAf 55.30 POC Glucometer 203 Random Glucose 195 H Calcium 9.1 Phosphorus Magnesium Active Medications Generic Name Dose Route Start Last Admin Trade Name Freq PRN Reason Stop Dose Admin Amlodipine Besylate 10 mg 04/04/19 10:00 Norvasc - PO DAILY [facility] Clopidogrel Bisulfate 75 mg 04/04/19 10:00 Plavix - PO DAILY [facility] Fentanyl 50 mcg 04/03/19 18:42 Sublimaze Injection - IVPUSH [id number] PRN PAIN-PACU ORDER X 4 DOSES ONLY Hydrochlorothiazide 12.5 mg 04/04/19 10:00 Hctz - PO DAILY [facility] Lactated Ringer's 1,000 mls @ 125 mls/hr 04/03/19 18:42 04/03/19 21:25 Lactated Ringers Solution IV Not Given ASDIR PAT Piperacillin Sod/Tazobactam 50 mls @ 100 mls/hr 04/04/19 02:00 04/04/19 02:05 Sod 3.375 gm/ Dextrose IVPB 100 mls/hr Q8H-IV PAT Administration Protocol Insulin Aspart 1 vial 04/03/19 22:00 04/04/19 06:58 Novolog Vial Sliding Scale - SQ 4 units ACHS PAT Administration Protocol Insulin Detemir 45 units 04/04/19 07:00 04/04/19 06:57 Levemir Vial SQ 45 units AM PAT Administration Lactobacillus Acidophilus 1 tab 04/04/19 10:00 Bacid - PO DAILY [facility] Latanoprost 1 drop 04/03/19 22:00 04/03/19 22:01 Xalatan 0.005% Eye Drops - OU 1 drop HS PAT Administration Liraglutide 1.8 mg 04/04/19 07:00 04/04/19 08:00 Victoza - SQ 1.8 mg AM PAT Administration Metoprolol Succinate 50 mg 04/04/19 10:00 Toprol Xl - PO DAILY [facility] Ondansetron HCl 4 mg 04/03/19 18:42 Zofran Injection IVPUSH Q6H PRN NAUSEA AND/OR VOMITING Promethazine HCl 12.5 mg 04/03/19 18:42 Phenergan Injection - IVPUSH Q6H PRN NAUSEA-FOR RESCUE AFTER 15 MIN Rosuvastatin Calcium 10 mg 04/03/19 22:00 04/03/19 22:02 Crestor - PO 10 mg HS PAT Administration Valsartan 320 mg 04/04/19 10:00 Diovan - PO DAILY [facility] ASSESSMENT/PLAN: This is a 58 year old woman with a history of CAD, HTN, hyperlipidemia, type 2 DM, osteomyelitis of right 5th toe, PAD, angioplasty of right SFA who presented to the ED with pain in her right 5th toe. 1. Cellulitis/abscess with osteomyelitis of right 5th toe - Patient does not want amputation - Continue Zosyn - will need PICC to complete 5 more weeks - Plan for hyperbaric therapy after discharge 2. PAD - s/p aortogram, RLE angiogram, SFA atherectomy, angioplasty with stent placement 04/03 - Continue Plavix, Crestor 3. CAD - Continue Plavix, Toprol XL, Crestor 4. HTN - Continue Norvasc, Diovan, HCTZ, Toprol XL 5. Hyperlipidemia - Continue Crestor 6. Type 2 DM, uncontrolled - Continue Levemir, Novolog sliding scale, Victoza 7. Morbid obesity with BMI 44.4 Visit type - Emergency Visit Emergency Visit: Yes ED Registration Date: 03/26/19 Care time: The patient presented to the Emergency Department on the above date and was hospitalized for further evaluation of their emergent condition. - New Patient This patient is new to me today: No - Critical Care Critical Care patient: No - Discharge Referral Referred to [facility] P[facility] No
[2019-04-04] MEDS: amLODIPine BESYLATE 10 MG TABLET (FP) PO SCH (11:00)
[2019-04-04] MEDS: HYDROCHLOROTHIAZIDE 12.5 MG CAPSULE (FP) PO SCH (11:00)
[2019-04-04] MEDS: LACTOBACILLUS ACIDOPHILUS 1 TABLET PO SCH (11:00)
[2019-04-04] MEDS: VALSARTAN 160 MG TABLET (UD) PO SCH (11:00)
[2019-04-04] MEDS: CLOPIDOGREL BISULFATE 75 MG TABLET (FP) PO SCH (11:00)
--- NOTE | 2019-04-04 11:08 | PN ---
Progress Note (short form) - Note Progress Note: Anesthesiology Post-op 58 y.o. woman POD#1 s/p RLE angiogram with SFA stent placement under MAC. She is feeling well, resting comfortably in bed. No anesthesia-related issues. VSS. 58 y.o. woman with stable post-operative course. Continue management as per primary team.
--- NOTE | 2019-04-04 13:10 | PN ---
Progress Note (short form) - Note Progress Note: s: no cp sob palps dizzy Current Medications Generic Name Dose Route Start Last Admin Trade Name Freq PRN Reason Stop Dose Admin Amlodipine Besylate 10 mg 04/04/19 10:00 04/04/19 11:00 Norvasc - PO 10 mg DAILY PAT Administration Clopidogrel Bisulfate 75 mg 04/04/19 10:00 04/04/19 11:00 Plavix - PO 75 mg DAILY PAT Administration Fentanyl 50 mcg 04/03/19 18:42 Sublimaze Injection - IVPUSH [id number] PRN PAIN-PACU ORDER X 4 DOSES ONLY Hydrochlorothiazide 12.5 mg 04/04/19 10:00 04/04/19 11:00 Hctz - PO 12.5 mg DAILY PAT Administration Lactated Ringer's 1,000 mls @ 125 mls/hr 04/03/19 18:42 04/03/19 21:25 Lactated Ringers Solution IV Not Given ASDIR PAT Piperacillin Sod/Tazobactam 50 mls @ 100 mls/hr 04/04/19 02:00 04/04/19 11:00 Sod 3.375 gm/ Dextrose IVPB 100 mls/hr Q8H-IV PAT Administration Protocol Insulin Aspart 1 vial 04/03/19 22:00 04/04/19 12:24 Novolog Vial Sliding Scale - SQ 2 units ACHS PAT Administration Protocol Insulin Detemir 45 units 04/04/19 07:00 04/04/19 06:57 Levemir Vial SQ 45 units AM PAT Administration Lactobacillus Acidophilus 1 tab 04/04/19 10:00 04/04/19 11:00 Bacid - PO 1 tab DAILY PAT Administration Latanoprost 1 drop 04/03/19 22:00 04/03/19 22:01 Xalatan 0.005% Eye Drops - OU 1 drop HS PAT Administration Liraglutide 1.8 mg 04/04/19 07:00 04/04/19 08:00 Victoza - SQ 1.8 mg AM PAT Administration Metoprolol Succinate 50 mg 04/04/19 10:00 04/04/19 11:00 Toprol Xl - PO 50 mg DAILY PAT Administration Ondansetron HCl 4 mg 04/03/19 18:42 Zofran Injection IVPUSH Q6H PRN NAUSEA AND/OR VOMITING Promethazine HCl 12.5 mg 04/03/19 18:42 Phenergan Injection - IVPUSH Q6H PRN NAUSEA-FOR RESCUE AFTER 15 MIN Rosuvastatin Calcium 10 mg 04/03/19 22:00 04/03/19 22:02 Crestor - PO 10 mg HS PAT Administration Valsartan 320 mg 04/04/19 10:00 04/04/19 11:00 Diovan - PO 320 mg DAILY PAT Administration Vital Signs Period Temp Pulse Resp BP Sys/Gill[place]and Pulse Ox Last 24 Hr 98.0 F-98.9 F 77-90 14-20 107-179/50-80 96-98 Constitutional: Yes: Well Nourished, No Distress, Obese Eyes: No: Sclera Icterus HENT: No: Nasal Congestion Respiratory: Yes: CTA Bilaterally. No: Accessory Muscle Use, Rales, Wheezes Gastrointestinal: Yes: Normal Bowel Sounds. No: Distention, Hepatomegaly, Palpable Mass, Tenderness Cardiovascular: Yes: Regular Rate and Rhythm JVD: No Heart Sounds: Yes: S1, S2. No: Gallop Murmur: No: Systolic Murmur, Diastolic Murmur Extremities: No: Cool, Cyanosis Edema: No Integumentary: No: Jaundice Neurological: Yes: Alert, Oriented (x3) Psychiatric: No: Agitated CBC, BMP 04/04/19 07:40 04/04/19 07:40 Assessment/Plan Echo 09/2017: EF 60-65%. 1+ dusty. tds for rv size, nl RV fn. Stable functional mac/mild ms (mg 3 mmhg, 76 bpm). 2013 stress MPI (pharm): Nl perfusion, nl EF 2010 Cath [facility]: EF 60% 70-80% dOM1, mild RCA disease ECG: NSR, LBBB--no change vs 01/29 pad: -s/p rle stenting, cont plavix per vascular -on abx for foot infection CAD: -OM disease (distal vessel) on cath 2010, no angina or ischemia since. medically managed -cont home statin, bb (hold asa preop prn) mild mitral stenosis: -stable HTN: -bp controlled -continue same meds DM: -per hospitalist JANICE: -mild JANICE, mod-severe desats on prior PSG
[2019-04-04] MEDS: LACTATED RINGERS SOLUTION 1,000 ML IV SCH (19:42)
[2019-04-04] MEDS: ROSUVASTATIN CA 10 MG TABLET (FP) PO SCH (22:05)
[2019-04-04] MEDS: LATANOPROST 0.005% OPHTH SOLN 2.5ML BOTTLE OU SCH (22:10)
[2019-04-05] MEDS ORDERED: PIPERACILLIN/TAZOBACTAM 3.375 GM VIAL IVPB ONE ×3 (02:46→17:01)
[2019-04-05] MEDS ORDERED: DEXTROSE 5%-WATER - 50 ML IVPB ONE ×3 (02:47→17:01)
[2019-04-05] MEDS: PIPERACILLIN/TAZOB 3.375 GM 3.375 GM in DEXTROSE 5%-WATER - 50 ML IVPB SCH ×3 (02:57→17:42)
[2019-04-05] MEDS: INSULIN (LEVEMIR) 100 UNITS/ML UNITS SQ SCH (07:02)
[2019-04-05] MEDS: LIRAGLUTIDE 0.6 MG/0.1 ML PEN.INJCTR SQ SCH (07:03)
[2019-04-05] MEDS: INSULIN SLIDING SCALE (NOVOLOG) 1 VIAL SQ SCH ×4 (07:03→21:32)
[2019-04-05] MEDS ORDERED: INSULIN (LEVEMIR) 100 UNITS/ML UNITS SQ ONE (07:11)
[2019-04-05] MEDS ORDERED: INSULIN (NOVOLOG) ASPART 100 UNITS/ML 10ML VIAL ONE ×2 (07:11→11:15)
[2019-04-05 07:18] LABS: HEMATOCRIT 28.3 % (32.4-45.2); HEMOGLOBIN 9.4 GM/dL (10.7-15.3); MCH 27.8 pg (25.7-33.7); MCHC 33.1 g/dl (32.0-36.0); MEAN PLT VOLUME 8.6 fl (7.5-11.1); PLATELET COUNT 328 K/MM3 (134-434); RBC 3.37 M/mm3 (3.60-5.2); RDW 13.6 % (11.6-15.6); WHITE BLOOD COUNT 8.3 K/mm3 (4.0-10.0)
[2019-04-05 07:28] LABS: CALCIUM 8.8 mg/dL (8.5-10.1); POTASSIUM 4.4 mmol/L (3.5-5.1)
--- NOTE | 2019-04-05 09:05 | PN ---
Physical Exam: SUBJECTIVE: Patient seen and examined. She has no complaints. OBJECTIVE: Vital Signs Period Temp Pulse Resp BP Sys/Gilliland Pulse Ox Last 24 Hr 98.0 F-98.5 F 84-89 18-20 118-150/53-78 97 GENERAL: The patient is awake, alert, and fully oriented, in no acute distress. LUNGS: Breath sounds equal, clear to auscultation bilaterally, no wheezes, no crackles, no accessory muscle use. HEART: Regular rate and rhythm, S1, S2 without murmur, rub or gallop. ABDOMEN: Obese, soft, nontender, nondistended, normoactive bowel sounds, no guarding, no rebound, no hepatosplenomegaly, no masses. EXTREMITIES: 2+ pulses, warm, well-perfused, no edema. Right 5th toe with mild swelling and erythema. Laboratory Results - last 24 hr 04/04/19 04/04/19 04/04/19 12:13 17:58 21:28 WBC RBC Hgb Hct MCV MCH MCHC RDW Plt Count MPV Sodium Potassium Chloride Carbon Dioxide Anion Gap BUN Creatinine Est GFR (CKD-EPI)AfAm Est GFR (CKD-EPI)NonAf POC Glucometer 198 197 204 Random Glucose Calcium 04/05/19 04/05/19 04/05/19 06:00 06:00 07:00 WBC 8.3 RBC 3.37 L Hgb 9.4 L Hct 28.3 L MCV 84.0 MCH 27.8 MCHC 33.1 RDW 13.6 Plt Count 328 MPV 8.6 Sodium 137 Potassium 4.4 Chloride 102 Carbon Dioxide 27 Anion Gap 8 BUN 13.0 Creatinine 1.0 Est GFR (CKD-EPI)AfAm 71.92 Est GFR (CKD-EPI)NonAf 62.05 POC Glucometer 177 Random Glucose 190 H Calcium 8.8 Active Medications Generic Name Dose Route Start Last Admin Trade Name Freq PRN Reason Stop Dose Admin Amlodipine Besylate 10 mg 04/04/19 10:00 04/04/19 11:00 Norvasc - PO 10 mg DAILY PAT Administration Clopidogrel Bisulfate 75 mg 04/04/19 10:00 04/04/19 11:00 Plavix - PO 75 mg DAILY PAT Administration Fentanyl 50 mcg 04/03/19 18:42 Sublimaze Injection - IVPUSH [id number] PRN PAIN-PACU ORDER X 4 DOSES ONLY Hydrochlorothiazide 12.5 mg 04/04/19 10:00 04/04/19 11:00 Hctz - PO 12.5 mg DAILY PAT Administration Piperacillin Sod/Tazobactam 50 mls @ 100 mls/hr 04/04/19 02:00 04/05/19 02:57 Sod 3.375 gm/ Dextrose IVPB 100 mls/hr Q8H-IV PAT Administration Protocol Insulin Aspart 1 vial 04/03/19 22:00 04/05/19 07:03 Novolog Vial Sliding Scale - SQ 2 units ACHS PAT Administration Protocol Insulin Detemir 45 units 04/04/19 07:00 04/05/19 07:02 Levemir Vial SQ 45 units AM PAT Administration Lactobacillus Acidophilus 1 tab 04/04/19 10:00 04/04/19 11:00 Bacid - PO 1 tab DAILY PAT Administration Latanoprost 1 drop 04/03/19 22:00 04/04/19 22:10 Xalatan 0.005% Eye Drops - OU 1 drop HS PAT Administration Liraglutide 1.8 mg 04/04/19 07:00 04/05/19 07:03 Victoza - SQ 1.8 mg AM PAT Administration Metoprolol Succinate 50 mg 04/04/19 10:00 04/04/19 11:00 Toprol Xl - PO 50 mg DAILY PAT Administration Ondansetron HCl 4 mg 04/03/19 18:42 Zofran Injection IVPUSH Q6H PRN NAUSEA AND/OR VOMITING Promethazine HCl 12.5 mg 04/03/19 18:42 Phenergan Injection - IVPUSH Q6H PRN NAUSEA-FOR RESCUE AFTER 15 MIN Rosuvastatin Calcium 10 mg 04/03/19 22:00 04/04/19 22:05 Crestor - PO 10 mg HS PAT Administration Valsartan 320 mg 04/04/19 10:00 04/04/19 11:00 Diovan - PO 320 mg DAILY PAT Administration ASSESSMENT/PLAN: This is a 58 year old woman with a history of CAD, HTN, hyperlipidemia, type 2 DM, osteomyelitis of right 5th toe, PAD, angioplasty of right SFA who presented to the ED with pain in her right 5th toe. 1. Cellulitis/abscess with osteomyelitis of right 5th toe - Patient does not want amputation - Continue Zosyn - will need PICC to complete 5 more weeks - Plan for hyperbaric therapy after discharge 2. PAD - s/p aortogram, RLE angiogram, SFA atherectomy, angioplasty with stent placement 04/03 - Continue Plavix, Crestor 3. CAD - Continue Plavix, Toprol XL, Crestor 4. HTN - Continue Norvasc, Diovan, HCTZ, Toprol XL 5. Hyperlipidemia - Continue Crestor 6. Type 2 DM, uncontrolled - Will increase Levemir - Continue Novolog sliding scale, Victoza 7. Anemia, likely secondary to chronic illness 8. Morbid obesity with BMI 44.4 Visit type - Emergency Visit Emergency Visit: Yes ED Registration Date: 03/26/19 Care time: The patient presented to the Emergency Department on the above date and was hospitalized for further evaluation of their emergent condition. - New Patient This patient is new to me today: No - Critical Care Critical Care patient: No - Discharge Referral Referred to [facility] No
--- NOTE | 2019-04-05 09:20 | PN ---
Progress Note (short form) - Note Progress Note: FUV 5th digit right foot +OM 5th digit right foot +edema +cellulitis IVABX as perID Patient aware this treatment might not save her toe
[2019-04-05] MEDS: amLODIPine BESYLATE 10 MG TABLET (FP) PO SCH (09:25)
[2019-04-05] MEDS: LACTOBACILLUS ACIDOPHILUS 1 TABLET PO SCH (09:26)
[2019-04-05] MEDS: HYDROCHLOROTHIAZIDE 12.5 MG CAPSULE (FP) PO SCH (09:26)
[2019-04-05] MEDS: VALSARTAN 160 MG TABLET (UD) PO SCH (09:27)
[2019-04-05] MEDS: CLOPIDOGREL BISULFATE 75 MG TABLET (FP) PO SCH (09:28)
--- NOTE | 2019-04-05 10:32 | PN ---
Progress Note, Physician History of Present Illness: stable no new issues - Current Medication List Current Medications: Active Medications Amlodipine Besylate (Norvasc -) 10 mg PO DAILY [facility] Last Admin: 04/05/19 09:25 Dose: 10 mg Clopidogrel Bisulfate (Plavix -) 75 mg PO DAILY [facility] Last Admin: 04/05/19 09:28 Dose: 75 mg Fentanyl (Sublimaze Injection -) 50 mcg IVPUSH [id number] PRN PRN Reason: PAIN-PACU ORDER X 4 DOSES ONLY Hydrochlorothiazide (Hctz -) 12.5 mg PO DAILY [facility] Last Admin: 04/05/19 09:26 Dose: 12.5 mg Piperacillin Sod/Tazobactam (Sod 3.375 gm/ Dextrose) 50 mls @ 100 mls/hr IVPB Q8H-IV [facility]; Protocol Last Admin: 04/05/19 09:24 Dose: 100 mls/hr Insulin Aspart (Novolog Vial Sliding Scale -) 1 vial SQ ACHS [facility]; Protocol Last Admin: 04/05/19 07:03 Dose: 2 units Insulin Detemir (Levemir Vial) 48 units SQ AM [facility] Lactobacillus Acidophilus (Bacid -) 1 tab PO DAILY [facility] Last Admin: 04/05/19 09:26 Dose: 1 tab Latanoprost (Xalatan 0.005% Eye Drops -) 1 drop OU HS [facility] Last Admin: 04/04/19 22:10 Dose: 1 drop Liraglutide (Victoza -) 1.8 mg SQ AM [facility] Last Admin: 04/05/19 07:03 Dose: 1.8 mg Metoprolol Succinate (Toprol Xl -) 50 mg PO DAILY [facility] Last Admin: 04/05/19 09:25 Dose: 50 mg Ondansetron HCl (Zofran Injection) 4 mg IVPUSH Q6H PRN PRN Reason: NAUSEA AND/OR VOMITING Promethazine HCl (Phenergan Injection -) 12.5 mg IVPUSH Q6H PRN PRN Reason: NAUSEA-FOR RESCUE AFTER 15 MIN Rosuvastatin Calcium (Crestor -) 10 mg PO HS [facility] Last Admin: 04/04/19 22:05 Dose: 10 mg Valsartan (Diovan -) 320 mg PO DAILY [facility] Last Admin: 04/05/19 09:27 Dose: 320 mg - Objective Vital Signs: Vital Signs Temperature 98.1 F 04/05/19 08:17 Pulse Rate 84 04/05/19 08:17 Respiratory Rate 18 04/05/19 08:17 Blood Pressure 118/57 L 04/05/19 08:17 O2 Sat by Pulse Oximetry (%) 97 04/04/19 21:00 Constitutional: Yes: No Distress, Calm Cardiovascular: Yes: S1, S2 Respiratory: Yes: Regular, CTA Bilaterally Gastrointestinal: Yes: Normal Bowel Sounds, Soft Musculoskeletal: Yes: WNL Extremities: Yes: Other Neurological: Yes: Alert, Oriented Psychiatric: Yes: Alert, Oriented Labs: CBC, BMP 04/05/19 06:00 04/05/19 06:00 Assessment/Plan talia List - Problems (1) Toe infection Code(s): L08.9 - LOCAL INFECTION OF THE SKIN AND SUBCUTANEOUS TISSUE, UNSP (2) Diabetes Code(s): E11.9 - TYPE 2 DIABETES MELLITUS WITHOUT COMPLICATIONS (3) HLD (hyperlipidemia) Code(s): E78.5 - HYPERLIPIDEMIA, UNSPECIFIED (4) HTN (hypertension) Code(s): I10 - ESSENTIAL (PRIMARY) HYPERTENSION (5) Morbid obesity with BMI of 45.0-49.9, adult Code(s): E66.01 - MORBID (SEVERE) OBESITY DUE TO EXCESS CALORIES; Z68.42 - BODY MASS INDEX (BMI) 45.0-49.9, ADULT (6) Osteomyelitis Code(s): M86.9 - OSTEOMYELITIS, UNSPECIFIED Qualifiers: Osteomyelitis type: other chronic Osteomyelitis location: foot Laterality : right Qualified Code(s): M86.671 - Other chronic osteomyelitis, right ankle and foot (7) PVD (peripheral vascular disease) Code(s): I73.9 - PERIPHERAL VASCULAR DISEASE, UNSPECIFIED Assessment/Plan Rt fifth toe ulcer infection/abscess/OM Rt foot cellulitis DM PAD s/p SFA angioplasty morbid obesity CAD HTN HLD plan continue abx podiatry on the case wound care rest as per the team another 5 weeks of abx
[2019-04-05] MEDS: LATANOPROST 0.005% OPHTH SOLN 2.5ML BOTTLE OU SCH (21:32)
[2019-04-05] MEDS: ROSUVASTATIN CA 10 MG TABLET (FP) PO SCH (21:32)
[2019-04-06] MEDS ORDERED: PIPERACILLIN/TAZOBACTAM 3.375 GM VIAL IVPB ONE ×3 (02:01→16:47)
[2019-04-06] MEDS ORDERED: DEXTROSE 5%-WATER - 50 ML IVPB ONE ×3 (02:02→16:47)
[2019-04-06] MEDS: PIPERACILLIN/TAZOB 3.375 GM 3.375 GM in DEXTROSE 5%-WATER - 50 ML IVPB SCH ×3 (02:27→17:26)
[2019-04-06] MEDS: INSULIN SLIDING SCALE (NOVOLOG) 1 VIAL SQ SCH ×4 (06:47→22:05)
[2019-04-06] MEDS: INSULIN (LEVEMIR) 100 UNITS/ML UNITS SQ SCH (06:47)
[2019-04-06] MEDS: LIRAGLUTIDE 0.6 MG/0.1 ML PEN.INJCTR SQ SCH (06:47)
[2019-04-06] MEDS ORDERED: INSULIN (NOVOLOG) ASPART 100 UNITS/ML 10ML VIAL ONE ×2 (06:58→11:14)
[2019-04-06] MEDS ORDERED: INSULIN (LEVEMIR) 100 UNITS/ML UNITS SQ ONE (06:58)
[2019-04-06 07:56] LABS: HEMATOCRIT 30.7 % (32.4-45.2); MCH 27.7 pg (25.7-33.7); MCHC 32.7 g/dl (32.0-36.0); MEAN CELL VOLUME 84.6 fl (80-96); MEAN PLT VOLUME 8.7 fl (7.5-11.1); PLATELET COUNT 362 K/MM3 (134-434); RBC 3.63 M/mm3 (3.60-5.2); RDW 13.8 % (11.6-15.6); WHITE BLOOD COUNT 8.1 K/mm3 (4.0-10.0)
[2019-04-06 08:15] LABS: BLOOD UREA NITROGEN 16.7 mg/dL (7-18); CALCIUM 9.6 mg/dL (8.5-10.1); CREATININE 1.2 mg/dL (0.55-1.3); POTASSIUM 4.2 mmol/L (3.5-5.1)
[2019-04-06] MEDS ORDERED: PT OWN MED DRAWER 7, Y5N ONE (09:22)
[2019-04-06] MEDS: LACTOBACILLUS ACIDOPHILUS 1 TABLET PO SCH (09:36)
[2019-04-06] MEDS: VALSARTAN 160 MG TABLET (UD) PO SCH (09:36)
[2019-04-06] MEDS: CLOPIDOGREL BISULFATE 75 MG TABLET (FP) PO SCH (09:36)
[2019-04-06] MEDS: HYDROCHLOROTHIAZIDE 12.5 MG CAPSULE (FP) PO SCH (09:37)
[2019-04-06] MEDS: amLODIPine BESYLATE 10 MG TABLET (FP) PO SCH (09:37)
--- NOTE | 2019-04-06 09:55 | PN ---
Progress Note, Physician History of Present Illness: stable o new issues - Current Medication List Current Medications: Active Medications Amlodipine Besylate (Norvasc -) 10 mg PO DAILY [facility] Last Admin: 04/06/19 09:37 Dose: 10 mg Clopidogrel Bisulfate (Plavix -) 75 mg PO DAILY [facility] Last Admin: 04/06/19 09:36 Dose: 75 mg Fentanyl (Sublimaze Injection -) 50 mcg IVPUSH [id number] PRN PRN Reason: PAIN-PACU ORDER X 4 DOSES ONLY Hydrochlorothiazide (Hctz -) 12.5 mg PO DAILY [facility] Last Admin: 04/06/19 09:37 Dose: 12.5 mg Piperacillin Sod/Tazobactam (Sod 3.375 gm/ Dextrose) 50 mls @ 100 mls/hr IVPB Q8H-IV [facility]; Protocol Last Admin: 04/06/19 09:36 Dose: 100 mls/hr Insulin Aspart (Novolog Vial Sliding Scale -) 1 vial SQ ACHS [facility]; Protocol Last Admin: 04/06/19 06:47 Dose: Not Given Insulin Detemir (Levemir Vial) 48 units SQ AM [facility] Last Admin: 04/06/19 06:47 Dose: 48 units Lactobacillus Acidophilus (Bacid -) 1 tab PO DAILY [facility] Last Admin: 04/06/19 09:36 Dose: 1 tab Latanoprost (Xalatan 0.005% Eye Drops -) 1 drop OU HS [facility] Last Admin: 04/05/19 21:32 Dose: 1 drop Liraglutide (Victoza -) 1.8 mg SQ AM [facility] Last Admin: 04/06/19 06:47 Dose: 1.8 mg Metoprolol Succinate (Toprol Xl -) 50 mg PO DAILY [facility] Last Admin: 04/06/19 09:36 Dose: 50 mg Ondansetron HCl (Zofran Injection) 4 mg IVPUSH Q6H PRN PRN Reason: NAUSEA AND/OR VOMITING Promethazine HCl (Phenergan Injection -) 12.5 mg IVPUSH Q6H PRN PRN Reason: NAUSEA-FOR RESCUE AFTER 15 MIN Rosuvastatin Calcium (Crestor -) 10 mg PO HS [facility] Last Admin: 04/05/19 21:32 Dose: 10 mg Valsartan (Diovan -) 320 mg PO DAILY [facility] Last Admin: 04/06/19 09:36 Dose: 320 mg - Objective Vital Signs: Vital Signs Temperature 98.3 F 04/06/19 08:37 Pulse Rate 88 04/06/19 08:37 Respiratory Rate 18 04/06/19 08:37 Blood Pressure 112/59 L 04/06/19 08:37 O2 Sat by Pulse Oximetry (%) 97 04/05/19 21:00 Constitutional: Yes: No Distress, Calm Cardiovascular: Yes: S1, S2 Respiratory: Yes: Regular, CTA Bilaterally Gastrointestinal: Yes: Normal Bowel Sounds, Soft Musculoskeletal: Yes: WNL Extremities: Yes: Other Wound/Incision: Yes: Dressing Dry and Intact Neurological: Yes: Alert, Oriented Psychiatric: Yes: Alert, Oriented Labs: CBC, BMP 04/06/19 07:20 04/06/19 07:20 Assessment/Plan robaronm List - Problems (1) Toe infection Code(s): L08.9 - LOCAL INFECTION OF THE SKIN AND SUBCUTANEOUS TISSUE, UNSP (2) Diabetes Code(s): E11.9 - TYPE 2 DIABETES MELLITUS WITHOUT COMPLICATIONS (3) HLD (hyperlipidemia) Code(s): E78.5 - HYPERLIPIDEMIA, UNSPECIFIED (4) HTN (hypertension) Code(s): I10 - ESSENTIAL (PRIMARY) HYPERTENSION (5) Morbid obesity with BMI of 45.0-49.9, adult Code(s): E66.01 - MORBID (SEVERE) OBESITY DUE TO EXCESS CALORIES; Z68.42 - BODY MASS INDEX (BMI) 45.0-49.9, ADULT (6) Osteomyelitis Code(s): M86.9 - OSTEOMYELITIS, UNSPECIFIED Qualifiers: Osteomyelitis type: other chronic Osteomyelitis location: foot Laterality : right Qualified Code(s): M86.671 - Other chronic osteomyelitis, right ankle and foot (7) PVD (peripheral vascular disease) Code(s): I73.9 - PERIPHERAL VASCULAR DISEASE, UNSPECIFIED Assessment/Plan Rt fifth toe ulcer infection/abscess/OM Rt foot cellulitis DM PAD s/p SFA angioplasty morbid obesity CAD HTN HLD plan continue abx podiatry on the case wound care rest as per the team another 5 weeks of abx
--- NOTE | 2019-04-06 13:54 | PN ---
Physical Exam: SUBJECTIVE: Patient seen and examined. She is doing well and has no complaints. OBJECTIVE: Vital Signs Period Temp Pulse Resp BP Sys/Gilliland Pulse Ox Last 24 Hr 97.8 F-98.7 F 84-89 18-20 112-146/59-75 97-97 GENERAL: The patient is awake, alert, and fully oriented, in no acute distress. LUNGS: Breath sounds equal, clear to auscultation bilaterally, no wheezes, no crackles, no accessory muscle use. HEART: Regular rate and rhythm, S1, S2 without murmur, rub or gallop. ABDOMEN: Obese, soft, nontender, nondistended, normoactive bowel sounds, no guarding, no rebound, no hepatosplenomegaly, no masses. EXTREMITIES: 2+ pulses, warm, well-perfused, no edema. Right 5th toe with mild swelling and erythema. Laboratory Results - last 24 hr 04/05/19 04/05/19 04/06/19 16:41 21:30 06:46 WBC RBC Hgb Hct MCV MCH MCHC RDW Plt Count MPV Sodium Potassium Chloride Carbon Dioxide Anion Gap BUN Creatinine Est GFR (CKD-EPI)AfAm Est GFR (CKD-EPI)NonAf POC Glucometer 141 179 140 Random Glucose Calcium 04/06/19 04/06/19 04/06/19 07:20 07:20 11:08 WBC 8.1 RBC 3.63 Hgb 10.0 L Hct 30.7 L MCV 84.6 MCH 27.7 MCHC 32.7 RDW 13.8 Plt Count 362 MPV 8.7 Sodium 136 Potassium 4.2 Chloride 101 Carbon Dioxide 26 Anion Gap 9 BUN 16.7 Creatinine 1.2 Est GFR (CKD-EPI)AfAm 57.69 Est GFR (CKD-EPI)NonAf 49.78 POC Glucometer 170 Random Glucose 151 H Calcium 9.6 Active Medications Generic Name Dose Route Start Last Admin Trade Name Freq PRN Reason Stop Dose Admin Amlodipine Besylate 10 mg 04/04/19 10:00 04/06/19 09:37 Norvasc - PO 10 mg DAILY PAT Administration Clopidogrel Bisulfate 75 mg 04/04/19 10:00 04/06/19 09:36 Plavix - PO 75 mg DAILY PAT Administration Fentanyl 50 mcg 04/03/19 18:42 Sublimaze Injection - IVPUSH [id number] PRN PAIN-PACU ORDER X 4 DOSES ONLY Hydrochlorothiazide 12.5 mg 04/04/19 10:00 04/06/19 09:37 Hctz - PO 12.5 mg DAILY PAT Administration Piperacillin Sod/Tazobactam 50 mls @ 100 mls/hr 04/04/19 02:00 04/06/19 09:36 Sod 3.375 gm/ Dextrose IVPB 100 mls/hr Q8H-IV PAT Administration Protocol Insulin Aspart 1 vial 04/03/19 22:00 04/06/19 11:16 Novolog Vial Sliding Scale - SQ 2 units ACHS PAT Administration Protocol Insulin Detemir 48 units 04/06/19 07:00 04/06/19 06:47 Levemir Vial SQ 48 units AM PAT Administration Lactobacillus Acidophilus 1 tab 04/04/19 10:00 04/06/19 09:36 Bacid - PO 1 tab DAILY PAT Administration Latanoprost 1 drop 04/03/19 22:00 04/05/19 21:32 Xalatan 0.005% Eye Drops - OU 1 drop HS PAT Administration Liraglutide 1.8 mg 04/04/19 07:00 04/06/19 06:47 Victoza - SQ 1.8 mg AM PAT Administration Metoprolol Succinate 50 mg 04/04/19 10:00 04/06/19 09:36 Toprol Xl - PO 50 mg DAILY PAT Administration Ondansetron HCl 4 mg 04/03/19 18:42 Zofran Injection IVPUSH Q6H PRN NAUSEA AND/OR VOMITING Promethazine HCl 12.5 mg 04/03/19 18:42 Phenergan Injection - IVPUSH Q6H PRN NAUSEA-FOR RESCUE AFTER 15 MIN Rosuvastatin Calcium 10 mg 04/03/19 22:00 04/05/19 21:32 Crestor - PO 10 mg HS PAT Administration Valsartan 320 mg 04/04/19 10:00 04/06/19 09:36 Diovan - PO 320 mg DAILY PAT Administration ASSESSMENT/PLAN: This is a 58 year old woman with a history of CAD, HTN, hyperlipidemia, type 2 DM, osteomyelitis of right 5th toe, PAD, angioplasty of right SFA who presented to the ED with pain in her right 5th toe. 1. Cellulitis/abscess with osteomyelitis of right 5th toe - Patient does not want amputation - Continue Zosyn - will need PICC/tunneled catheter to complete 6 weeks total - Plan for hyperbaric therapy after discharge 2. PAD - s/p aortogram, RLE angiogram, SFA atherectomy, angioplasty with stent placement 04/03 - Continue Plavix, Crestor 3. CAD - Continue Plavix, Toprol XL, Crestor 4. HTN - Continue Norvasc, Diovan, HCTZ, Toprol XL 5. Hyperlipidemia - Continue Crestor 6. Type 2 DM, uncontrolled - Continue Levemir, Novolog sliding scale, Victoza 7. Anemia, likely secondary to chronic illness 8. Morbid obesity with BMI 44.4 9. Disposition - Plan for PICC/tunneled catheter tomorrow and she can be discharged after with home IV infusion Visit type - Emergency Visit Emergency Visit: Yes ED Registration Date: 03/26/19 Care time: The patient presented to the Emergency Department on the above date and was hospitalized for further evaluation of their emergent condition. - New Patient This patient is new to me today: No - Critical Care Critical Care patient: No - Discharge Referral Referred to [facility] No
[2019-04-06] MEDS: HEPARIN NA (PORCINE) 5,000 UNITS/ML 1ML VIAL SQ SCH ×2 (15:16→22:04)
--- NOTE | 2019-04-06 21:18 | OP ---
DATE OF OPERATION: 04/03/2019 PREOPERATIVE DIAGNOSIS: Right lower extremity foot ulcer. POSTOPERATIVE DIAGNOSIS: Right lower extremity foot ulcer. PROCEDURE: Aortogram, right lower extremity angiogram, right superficial femoral artery atherectomy, right superficial femoral artery angioplasty with stent placement. SURGEON: Shon Stout DO ANESTHESIA: Fractional. BLOOD LOSS: 50 mL. The patient is a 58-year-old female who has a recurring 2nd toe ulcer on her right foot. She had angioplasty performed about 3 to 4 months ago, had a PICC line placed, and now developed the same ulcer again. Preoperative CTA showed SFA disease, and it was decided that she would need an angiogram. Patient was consented for the procedure, understanding all risks, benefits, alternatives. She was cleared by Medicine and Cardiology for the procedure as well. Patient was then brought to the operating room and laid down on the operating room table in a supine manner. The area of the left and right groin were prepped and draped in a sterile surgical manner. We then took our micropuncture needle and punctured the left common femoral artery. Micropuncture wire inserted, micropuncture sheath was inserted, and a 5-Beninese sheath was inserted. A 0.035 floppy guidewire was inserted into the aorta, followed by Omni Flush catheter. We then shot an aortogram via hand injection, showing that the aorta and iliac arteries were without any disease. We then used our 0.035 floppy guidewire and went up and over to the right common femoral artery, and our Omni Flush catheter followed. We then shot an angiogram of the right lower extremity, showing that the common femoral artery and the profunda were patent. The SFA was diseased from its origin and had significant stenosis of 90% to 95% all the way down to the adductor canal. The popliteal artery was patent and patient had 2-vessel runoff into the foot. At this point, we placed a 0.035 stiff guidewire down into the SFA. We removed our Omni Flush catheter. A 6 x 45 crossover sheath was placed. Heparin 5000 units IV was administered to patient. Using our Quick-Cross catheter, we were able to get through all the stenosis and the occlusions in the SFA and placed a wire in popliteal artery and we exchanged it for a Viper wire. We then performed CSI orbital atherectomy of the proximal SFA from its origin to the mid SFA under low and medium. Once completed, we shot an aortogram via hand injection, showing that the SFA is more patent now. We then went ahead and used a 5 x 220 balloon and performed angioplasty of the SFA from the adductor canal to our origin. We then went ahead and had to place a stent from the adductor canal to the origin, and we used a 6 x 200 balloon and a 6 x 100 balloon and 2 LifeStents were placed and they were ballooned in place using a 5 x 220 balloon. Completion angiogram now showed that the SFA was patent, there was good brisk flow into the foot, and there was no more intervention needed. At this point we brought our sheath up and over. StarClose device was successfully deployed in the left common femoral artery. Pressure was held for 5 minutes. After there was no more bleeding, the area was wet and dried and Dermabond was placed. Patient tolerated the procedure with no complications. Patient transferred to PACU in stable condition. SHON STOUT DO [id number]
[2019-04-06] MEDS: ROSUVASTATIN CA 10 MG TABLET (FP) PO SCH (22:04)
[2019-04-06] MEDS: LATANOPROST 0.005% OPHTH SOLN 2.5ML BOTTLE OU SCH (22:05)
[2019-04-07] MEDS ORDERED: PIPERACILLIN/TAZOBACTAM 3.375 GM VIAL IVPB ONE ×2 (02:28→10:10)
[2019-04-07] MEDS ORDERED: DEXTROSE 5%-WATER - 50 ML IVPB ONE ×2 (02:28→10:10)
[2019-04-07] MEDS: PIPERACILLIN/TAZOB 3.375 GM 3.375 GM in DEXTROSE 5%-WATER - 50 ML IVPB SCH ×2 (02:37→10:58)
[2019-04-07] MEDS: INSULIN (LEVEMIR) 100 UNITS/ML UNITS SQ SCH (06:54)
[2019-04-07] MEDS: INSULIN SLIDING SCALE (NOVOLOG) 1 VIAL SQ SCH ×3 (06:57→16:23)
[2019-04-07] MEDS: LIRAGLUTIDE 0.6 MG/0.1 ML PEN.INJCTR SQ SCH (06:57)
[2019-04-07] MEDS: HEPARIN NA (PORCINE) 5,000 UNITS/ML 1ML VIAL SQ SCH ×2 (06:57→15:54)
[2019-04-07] MEDS ORDERED: INSULIN (NOVOLOG) ASPART 100 UNITS/ML 10ML VIAL ONE (07:08)
[2019-04-07] MEDS ORDERED: INSULIN (LEVEMIR) 100 UNITS/ML UNITS SQ ONE (07:08)
--- NOTE | 2019-04-07 09:51 | PN ---
Progress Note, Physician History of Present Illness: stable no issues - Current Medication List Current Medications: Active Medications Amlodipine Besylate (Norvasc -) 10 mg PO DAILY [facility] Last Admin: 04/06/19 09:37 Dose: 10 mg Clopidogrel Bisulfate (Plavix -) 75 mg PO DAILY [facility] Last Admin: 04/06/19 09:36 Dose: 75 mg Fentanyl (Sublimaze Injection -) 50 mcg IVPUSH [id number] PRN PRN Reason: PAIN-PACU ORDER X 4 DOSES ONLY Heparin Sodium (Porcine) (Heparin -) 5,000 unit SQ TID [facility] Last Admin: 04/07/19 06:57 Dose: 5,000 unit Hydrochlorothiazide (Hctz -) 12.5 mg PO DAILY [facility] Last Admin: 04/06/19 09:37 Dose: 12.5 mg Piperacillin Sod/Tazobactam (Sod 3.375 gm/ Dextrose) 50 mls @ 100 mls/hr IVPB Q8H-IV [facility]; Protocol Last Admin: 04/07/19 02:37 Dose: 100 mls/hr Insulin Aspart (Novolog Vial Sliding Scale -) 1 vial SQ ACHS [facility]; Protocol Last Admin: 04/07/19 06:57 Dose: Not Given Insulin Detemir (Levemir Vial) 48 units SQ AM [facility] Last Admin: 04/07/19 06:54 Dose: 48 units Lactobacillus Acidophilus (Bacid -) 1 tab PO DAILY [facility] Last Admin: 04/06/19 09:36 Dose: 1 tab Latanoprost (Xalatan 0.005% Eye Drops -) 1 drop OU HS [facility] Last Admin: 04/06/19 22:05 Dose: 1 drop Liraglutide (Victoza -) 1.8 mg SQ AM [facility] Last Admin: 04/07/19 06:57 Dose: 1.8 mg Metoprolol Succinate (Toprol Xl -) 50 mg PO DAILY [facility] Last Admin: 04/06/19 09:36 Dose: 50 mg Ondansetron HCl (Zofran Injection) 4 mg IVPUSH Q6H PRN PRN Reason: NAUSEA AND/OR VOMITING Promethazine HCl (Phenergan Injection -) 12.5 mg IVPUSH Q6H PRN PRN Reason: NAUSEA-FOR RESCUE AFTER 15 MIN Rosuvastatin Calcium (Crestor -) 10 mg PO HS [facility] Last Admin: 04/06/19 22:04 Dose: 10 mg Valsartan (Diovan -) 320 mg PO DAILY [facility] Last Admin: 04/06/19 09:36 Dose: 320 mg - Objective Vital Signs: Vital Signs Temperature 98.8 F 04/07/19 09:24 Pulse Rate 82 04/07/19 09:24 Respiratory Rate 20 04/07/19 09:24 Blood Pressure 106/51 L 04/07/19 06:13 O2 Sat by Pulse Oximetry (%) 97 04/06/19 21:00 Constitutional: Yes: No Distress, Calm, Obese Cardiovascular: Yes: Regular Rate and Rhythm Respiratory: Yes: Regular, CTA Bilaterally Gastrointestinal: Yes: Normal Bowel Sounds, Soft Musculoskeletal: Yes: WNL Extremities: Yes: Other Wound/Incision: Yes: Dressing Dry and Intact Neurological: Yes: Alert, Oriented Psychiatric: Yes: Alert, Oriented Labs: CBC, BMP 04/06/19 07:20 04/06/19 07:20 Assessment/Plan robaron List - Problems (1) Toe infection Code(s): L08.9 - LOCAL INFECTION OF THE SKIN AND SUBCUTANEOUS TISSUE, UNSP (2) Diabetes Code(s): E11.9 - TYPE 2 DIABETES MELLITUS WITHOUT COMPLICATIONS (3) HLD (hyperlipidemia) Code(s): E78.5 - HYPERLIPIDEMIA, UNSPECIFIED (4) HTN (hypertension) Code(s): I10 - ESSENTIAL (PRIMARY) HYPERTENSION (5) Morbid obesity with BMI of 45.0-49.9, adult Code(s): E66.01 - MORBID (SEVERE) OBESITY DUE TO EXCESS CALORIES; Z68.42 - BODY MASS INDEX (BMI) 45.0-49.9, ADULT (6) Osteomyelitis Code(s): M86.9 - OSTEOMYELITIS, UNSPECIFIED Qualifiers: Osteomyelitis type: other chronic Osteomyelitis location: foot Laterality : right Qualified Code(s): M86.671 - Other chronic osteomyelitis, right ankle and foot (7) PVD (peripheral vascular disease) Code(s): I73.9 - PERIPHERAL VASCULAR DISEASE, UNSPECIFIED Assessment/Plan Rt fifth toe ulcer infection/abscess/OM Rt foot cellulitis DM PAD s/p SFA angioplasty morbid obesity CAD HTN HLD plan continue abx podiatry on the case wound care rest as per the team another 4 weeks of abx
--- NOTE | 2019-04-07 09:57 | PN ---
Physical Exam: SUBJECTIVE: Patient seen and examined OBJECTIVE: Vital Signs Period Temp Pulse Resp BP Sys/Gilliland Pulse Ox Last 24 Hr 98.2 F-98.8 F 79-88 18-20 106-134/51-74 97 GENERAL: The patient is awake, alert, and fully oriented, in no acute distress. HEAD: Normal with no signs of trauma. EYES: PERRL, extraocular movements intact, sclera anicteric, conjunctiva clear. No ptosis. ENT: Ears normal, nares patent, oropharynx clear without exudates, moist mucous membranes. NECK: Trachea midline, full range of motion, supple. LUNGS: Breath sounds equal, clear to auscultation bilaterally, no wheezes, no crackles, no accessory muscle use. HEART: Regular rate and rhythm, S1, S2 without murmur, rub or gallop. ABDOMEN: Soft, nontender, nondistended, normoactive bowel sounds, no guarding, no rebound, no hepatosplenomegaly, no masses. EXTREMITIES: 2+ pulses, warm, well-perfused, no edema. NEUROLOGICAL: Cranial nerves II through XII grossly intact. Normal speech, gait not observed. PSYCH: Normal mood, normal affect. SKIN: Warm, dry, normal turgor, no rashes or lesions noted Laboratory Results - last 24 hr 04/06/19 04/06/19 04/06/19 11:08 17:12 21:53 POC Glucometer 170 111 136 04/07/19 06:51 POC Glucometer 147 Active Medications Generic Name Dose Route Start Last Admin Trade Name Freq PRN Reason Stop Dose Admin Amlodipine Besylate 10 mg 04/04/19 10:00 04/06/19 09:37 Norvasc - PO 10 mg DAILY PAT Administration Clopidogrel Bisulfate 75 mg 04/04/19 10:04/06/19 09:36 Plavix - PO 75 mg DAILY PAT Administration Fentanyl 50 mcg 04/03/19 18:42 Sublimaze Injection - IVPUSH [id number] PRN PAIN-PACU ORDER X 4 DOSES ONLY Heparin Sodium (Porcine) 5,000 unit 04/06/19 14:00 04/07/19 06:57 Heparin - SQ 5,000 unit TID PAT Administration Hydrochlorothiazide 12.5 mg 04/04/19 10:00 04/06/19 09:37 Hctz - PO 12.5 mg DAILY PAT Administration Piperacillin Sod/Tazobactam 50 mls @ 100 mls/hr 04/04/19 02:00 04/07/19 02:37 Sod 3.375 gm/ Dextrose IVPB 100 mls/hr Q8H-IV PAT Administration Protocol Insulin Aspart 1 vial 04/03/19 22:00 04/07/19 06:57 Novolog Vial Sliding Scale - SQ Not Given ACHS [facility] Protocol Insulin Detemir 48 units 04/06/19 07:00 04/07/19 06:54 Levemir Vial SQ 48 units AM PAT Administration Lactobacillus Acidophilus 1 tab 04/04/19 10:00 04/06/19 09:36 Bacid - PO 1 tab DAILY [facility] Administration Latanoprost 1 drop 04/03/19 22:00 04/06/19 22:05 Xalatan 0.005% Eye Drops - OU 1 drop HS [facility] Administration Liraglutide 1.8 mg 04/04/19 07:00 04/07/19 06:57 Victoza - SQ 1.8 mg AM PAT Administration Metoprolol Succinate 50 mg 04/04/19 10:00 04/06/19 09:36 Toprol Xl - PO 50 mg DAILY [facility] Administration Ondansetron HCl 4 mg 04/03/19 18:42 Zofran Injection IVPUSH Q6H PRN NAUSEA AND/OR VOMITING Promethazine HCl 12.5 mg 04/03/19 18:42 Phenergan Injection - IVPUSH Q6H PRN NAUSEA-FOR RESCUE AFTER 15 MIN Rosuvastatin Calcium 10 mg 04/03/19 22:00 04/06/19 22:04 Crestor - PO 10 mg HS [facility] Administration Valsartan 320 mg 04/04/19 10:00 04/06/19 09:36 Diovan - PO 320 mg DAILY [facility] Administration Active Medications Amlodipine Besylate (Norvasc -) 10 mg PO DAILY [facility] Last Admin: 04/06/19 09:37 Dose: 10 mg Clopidogrel Bisulfate (Plavix -) 75 mg PO DAILY [facility] Last Admin: 04/06/19 09:36 Dose: 75 mg Fentanyl (Sublimaze Injection -) 50 mcg IVPUSH [id number] PRN PRN Reason: PAIN-PACU ORDER X 4 DOSES ONLY Heparin Sodium (Porcine) (Heparin -) 5,000 unit SQ TID [facility] Last Admin: 04/07/19 06:57 Dose: 5,000 unit Hydrochlorothiazide (Hctz -) 12.5 mg PO DAILY [facility] Last Admin: 04/06/19 09:37 Dose: 12.5 mg Piperacillin Sod/Tazobactam (Sod 3.375 gm/ Dextrose) 50 mls @ 100 mls/hr IVPB Q8H-IV [facility]; Protocol Last Admin: 04/07/19 02:37 Dose: 100 mls/hr Insulin Aspart (Novolog Vial Sliding Scale -) 1 vial SQ ACHS [facility]; Protocol Last Admin: 04/07/19 06:57 Dose: Not Given Insulin Detemir (Levemir Vial) 48 units SQ AM [facility] Last Admin: 04/07/19 06:54 Dose: 48 units Lactobacillus Acidophilus (Bacid -) 1 tab PO DAILY [facility] Last Admin: 04/06/19 09:36 Dose: 1 tab Latanoprost (Xalatan 0.005% Eye Drops -) 1 drop OU HS [facility] Last Admin: 04/06/19 22:05 Dose: 1 drop Liraglutide (Victoza -) 1.8 mg SQ AM [facility] Last Admin: 04/07/19 06:57 Dose: 1.8 mg Metoprolol Succinate (Toprol Xl -) 50 mg PO DAILY [facility] Last Admin: 04/06/19 09:36 Dose: 50 mg Ondansetron HCl (Zofran Injection) 4 mg IVPUSH Q6H PRN PRN Reason: NAUSEA AND/OR VOMITING Promethazine HCl (Phenergan Injection -) 12.5 mg IVPUSH Q6H PRN PRN Reason: NAUSEA-FOR RESCUE AFTER 15 MIN Rosuvastatin Calcium (Crestor -) 10 mg PO HS [facility] Last Admin: 04/06/19 22:04 Dose: 10 mg Valsartan (Diovan -) 320 mg PO DAILY [facility] Last Admin: 04/06/19 09:36 Dose: 320 mg ASSESSMENT/PLAN: ATTENDING PHYSICIAN STATEMENT I saw and evaluated the patient. I reviewed the resident's note and discussed the case with the resident. I agree with the resident's findings and plan as documented. SUBJECTIVE: OBJECTIVE: ASSESSMENT AND PLAN:
--- NOTE | 2019-04-07 10:55 | PN ---
Progress Note, Physician Chief Complaint: denies CP; no SOB - Current Medication List Current Medications: Active Medications Amlodipine Besylate (Norvasc -) 10 mg PO DAILY [facility] Last Admin: 04/06/19 09:37 Dose: 10 mg Clopidogrel Bisulfate (Plavix -) 75 mg PO DAILY [facility] Last Admin: 04/06/19 09:36 Dose: 75 mg Fentanyl (Sublimaze Injection -) 50 mcg IVPUSH [id number] PRN PRN Reason: PAIN-PACU ORDER X 4 DOSES ONLY Heparin Sodium (Porcine) (Heparin -) 5,000 unit SQ TID [facility] Last Admin: 04/07/19 06:57 Dose: 5,000 unit Hydrochlorothiazide (Hctz -) 12.5 mg PO DAILY [facility] Last Admin: 04/06/19 09:37 Dose: 12.5 mg Piperacillin Sod/Tazobactam (Sod 3.375 gm/ Dextrose) 50 mls @ 100 mls/hr IVPB Q8H-IV [facility]; Protocol Last Admin: 04/07/19 02:37 Dose: 100 mls/hr Insulin Aspart (Novolog Vial Sliding Scale -) 1 vial SQ ACHS [facility]; Protocol Last Admin: 04/07/19 06:57 Dose: Not Given Insulin Detemir (Levemir Vial) 48 units SQ AM [facility] Last Admin: 04/07/19 06:54 Dose: 48 units Lactobacillus Acidophilus (Bacid -) 1 tab PO DAILY [facility] Last Admin: 04/06/19 09:36 Dose: 1 tab Latanoprost (Xalatan 0.005% Eye Drops -) 1 drop OU HS [facility] Last Admin: 04/06/19 22:05 Dose: 1 drop Liraglutide (Victoza -) 1.8 mg SQ AM [facility] Last Admin: 04/07/19 06:57 Dose: 1.8 mg Metoprolol Succinate (Toprol Xl -) 50 mg PO DAILY [facility] Last Admin: 04/06/19 09:36 Dose: 50 mg Ondansetron HCl (Zofran Injection) 4 mg IVPUSH Q6H PRN PRN Reason: NAUSEA AND/OR VOMITING Promethazine HCl (Phenergan Injection -) 12.5 mg IVPUSH Q6H PRN PRN Reason: NAUSEA-FOR RESCUE AFTER 15 MIN Rosuvastatin Calcium (Crestor -) 10 mg PO [facility] Last Admin: 04/06/19 22:04 Dose: 10 mg Valsartan (Diovan -) 320 mg PO DAILY [facility] Last Admin: 04/06/19 09:36 Dose: 320 mg - Objective Vital Signs: Vital Signs Temperature 98.8 F 04/07/19 09:24 Pulse Rate 82 04/07/19 09:24 Respiratory Rate 20 04/07/19 09:24 Blood Pressure 106/51 L 04/07/19 06:13 O2 Sat by Pulse Oximetry (%) 98 04/07/19 09:00 Constitutional: Yes: No Distress, Calm Cardiovascular: Yes: Regular Rate and Rhythm Respiratory: Yes: CTA Bilaterally Gastrointestinal: Yes: Soft Edema: No Neurological: Yes: Alert, Oriented Labs: CBC, BMP 04/06/19 07:20 04/06/19 07:20 Assessment/Plan DATA: Echo 09/2017: EF 60-65%. 1+ dusty. tds for rv size, nl RV fn. Stable functional mac/mild ms (mg 3 mmhg, 76 bpm). 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 Portillo's note) CAD: -OM disease (distal vessel) on cath 2010, no angina or ischemia since. medically managed -cont home statin, bb Mild mitral stenosis: -stable HTN: -bp controlled -continue same meds DM: -per hospitalist JANICE: -mild JANICE, mod-severe desats on prior PSG
[2019-04-07] MEDS: CLOPIDOGREL BISULFATE 75 MG TABLET (FP) PO SCH (10:59)
[2019-04-07] MEDS: LACTOBACILLUS ACIDOPHILUS 1 TABLET PO SCH (11:00)
[2019-04-07] MEDS: HYDROCHLOROTHIAZIDE 12.5 MG CAPSULE (FP) PO SCH (12:11)
[2019-04-07] MEDS: VALSARTAN 160 MG TABLET (UD) PO SCH (12:11)
[2019-04-07] MEDS: amLODIPine BESYLATE 10 MG TABLET (FP) PO SCH (12:12)
--- NOTE | 2019-04-07 15:13 | PN ---
Teaching Attending Note Name of Resident: Prashanth Egan ATTENDING PHYSICIAN STATEMENT I saw and evaluated the patient. I reviewed the resident's note and discussed the case with the resident. I agree with the resident's findings and plan as documented. SUBJECTIVE: Patient has no complaints. OBJECTIVE: Vital Signs Period Temp Pulse Resp BP Sys/Gilliland Pulse Ox Last 24 Hr 98.2 F-98.8 F 79-88 18-20 106-130/51-74 97-98 GENERAL: The patient is awake, alert, and fully oriented, in no acute distress. LUNGS: Breath sounds equal, clear to auscultation bilaterally, no wheezes, no crackles, no accessory muscle use. HEART: Regular rate and rhythm, S1, S2 without murmur, rub or gallop. ABDOMEN: Obese, soft, nontender, nondistended, normoactive bowel sounds, no guarding, no rebound, no hepatosplenomegaly, no masses. EXTREMITIES: 2+ pulses, warm, well-perfused, no edema. Right 5th toe with mild swelling and erythema. Laboratory Results - last 24 hr 04/06/19 04/06/19 04/07/19 17:12 21:53 06:51 POC Glucometer 111 136 147 04/07/19 11:44 POC Glucometer 107 Current Medications Generic Name Dose Route Start Last Admin Trade Name Freq PRN Reason Stop Dose Admin Amlodipine Besylate 10 mg 04/04/19 10:00 04/07/19 12:12 Norvasc - PO 10 mg DAILY PAT Administration Clopidogrel Bisulfate 75 mg 04/04/19 10:00 04/07/19 10:59 Plavix - PO 75 mg DAILY PAT Administration Fentanyl 50 mcg 04/03/19 18:42 Sublimaze Injection - IVPUSH [id number] PRN PAIN-PACU ORDER X 4 DOSES ONLY Heparin Sodium (Porcine) 5,000 unit 04/06/19 14:00 04/07/19 06:57 Heparin - SQ 5,000 unit TID PAT Administration Hydrochlorothiazide 12.5 mg 04/04/19 10:00 04/07/19 12:11 Hctz - PO 12.5 mg DAILY PAT Administration Piperacillin Sod/Tazobactam 50 mls @ 100 mls/hr 04/04/19 02:00 04/07/19 10:58 Sod 3.375 gm/ Dextrose IVPB 100 mls/hr Q8H-IV PAT Administration Protocol Insulin Aspart 1 vial 04/03/19 22:00 04/07/19 12:15 Novolog Vial Sliding Scale - SQ Not Given ACHS [facility] Protocol Insulin Detemir 48 units 04/06/19 07:00 04/07/19 06:54 Levemir Vial SQ 48 units AM PAT Administration Lactobacillus Acidophilus 1 tab 04/04/19 10:00 04/07/19 11:00 Bacid - PO 1 tab DAILY [facility] Administration Latanoprost 1 drop 04/03/19 22:00 04/06/19 22:05 Xalatan 0.005% Eye Drops - OU 1 drop HS [facility] Administration Liraglutide 1.8 mg 04/04/19 07:00 04/07/19 06:57 Victoza - SQ 1.8 mg AM PAT Administration Metoprolol Succinate 50 mg 04/04/19 10:00 04/07/19 12:12 Toprol Xl - PO 50 mg DAILY PAT Administration Ondansetron HCl 4 mg 04/03/19 18:42 Zofran Injection IVPUSH Q6H PRN NAUSEA AND/OR VOMITING Promethazine HCl 12.5 mg 04/03/19 18:42 Phenergan Injection - IVPUSH Q6H PRN NAUSEA-FOR RESCUE AFTER 15 MIN Rosuvastatin Calcium 10 mg 04/03/19 22:00 04/06/19 22:04 Crestor - PO 10 mg HS PAT Administration Valsartan 320 mg 04/04/19 10:00 04/07/19 12:11 Diovan - PO 320 mg DAILY PAT Administration ASSESSMENT AND PLAN: This is a 58 year old woman with a history of CAD, HTN, hyperlipidemia, type 2 DM, osteomyelitis of right 5th toe, PAD, angioplasty of right SFA who presented to the ED with pain in her right 5th toe. 1. Cellulitis/abscess with osteomyelitis of right 5th toe - Patient does not want amputation - Continue Zosyn - will need PICC/tunneled catheter to complete 6 weeks total - Plan for hyperbaric therapy after discharge 2. PAD - s/p aortogram, RLE angiogram, SFA atherectomy, angioplasty with stent placement 04/03 - Continue Plavix, Crestor 3. CAD - Continue Plavix, Toprol XL, Crestor 4. HTN - Continue Norvasc, Diovan, HCTZ, Toprol XL 5. Hyperlipidemia - Continue Crestor 6. Type 2 DM, uncontrolled - Continue Levemir, Novolog sliding scale, Victoza 7. Anemia, likely secondary to chronic illness 8. Morbid obesity with BMI 44.4 9. Disposition - Plan for discharge once PICC/tunneled catheter inserted
[2019-04-07 15:57] VITALS: BP 125/57; PULSE 79; TEMP 98.3
--- NOTE | 2019-04-08 15:05 | DS ---
Physical Exam: SUBJECTIVE: Patient seen and examined at bedside. No complaints. OBJECTIVE: PHYSICAL EXAM GEN: AAOx3 NAD LUNGS: cta b/l HEART: rrr, S1, S2 without murmur, rub or gallop. ABDOMEN: Obese, soft, nontender, nondistended, EXTREMITIES: 2+ pulses, warm, well-perfused, no edema. Right 5th toe with mild swelling and erythema. LABS Laboratory Results - last 24 hr 04/07/19 16:13 POC Glucometer 111 HOSPITAL COURSE: Date of Admission:03/26/19 Date of Discharge: 04/08/19 This is a 58 year old woman with a history of CAD, HTN, hyperlipidemia, type 2 DM, osteomyelitis of right 5th toe, PAD, angioplasty of right SFA who presented to the ED with pain in her right 5th toe. She was found to have cellulitis and osteomyelitis of the R 5th toe. She was treated with IV ABx (Zosyn). She had a PICC placed and is to receive shelter Zosyn, likely for at least 4 weeks. She may benefit from hyperbaric therapy. The patient was treated for her recent SFA angioplasty as well as her other medical issues with her home medications. Pt feels well and is stable for discharge. Minutes to complete discharge: 30 Discharge Summary Reason For Visit: INFECTION OF TOE Condition: Good - Instructions Diet, Activity, Other Instructions: You were in the hospital because of peripheral arterial disease and were found to have a bone infection. You need to follow up with your primary doctor within a week. Please also follow up with your strategy manager, Dr. Brown and the infectious diseases doctor, Dr. Roldan. You should also see the vascular surgeon, Dr. Car as well as the bowl sander , Dr. Small. You will need wound care. On one of your scans, an abnormality of your gallbladder was noted. You should see a surgeon, Dr. Spicer who may need to take your gall bladder out. Please take your medications as directed. You will need IV antibiotics for several more weeks. Make sure you take your blood thinners. Take the rest of your medications as before. If your symptoms get worse or if you develop new symptoms, please call your doctor or return to the emergency department. Referrals: Reid Spicer MD [Staff Physician] - Summer Roldan MD [Staff Physician] - Santi Brown DPM [Staff Physician] - Disposition: HOME - Home Medications Comprehensive Discharge Medication List: Ambulatory Orders RX: Insulin Glargine,Hum.rec.anlog [Lantus] 32 unit SQ DAILY 12/13/18 RX: Liraglutide [Victoza -] 1.8 unit SQ DAILY 12/13/18 RX: Amlodipine Besylate 10 mg PO DAILY 01/13/19 RX: Metoprolol Succinate 50 mg PO DAILY 01/13/19 RX: Olmesartan/Hydrochlorothiazide [Benicar Hct 40-12.5 mg Tablet] 1 each PO DAILY 01/13/19 RX: Rosuvastatin [Crestor -] 10 mg PO DAILY 01/13/19 RX: Bacitracin - [Bacitracin Topical Ointment -] 1 applic TP DAILY #1 tube 01/17 RX: Clopidogrel Bisulfate [Plavix -] 75 mg PO DAILY #30 tablet 01/17/19 RX: Lactobacillus Acidophilus [Bacid -] 1 tab PO DAILY #38 tab 01/17/19 RX: Latanoprost/Pf [Latanoprost 0.005% Eye Drop] 7.5 ml OP DAILY 03/26/19 RX: Hydrochlorothiazide [Hctz -] 12.5 mg PO DAILY cap 04/07/19 RX: Piperacillin/Tazob 3.375 gm [Zosyn -] 3.375 gm IVPB Q8H-IV #0 vial 04/07/19 RX: Valsartan [Diovan] 320 mg PO DAILY tablet 04/07/19 This patient is new to me today: No Emergency Visit: No Critical Care patient: No - Discharge Referral Referred to [facility] No ATTENDING PHYSICIAN STATEMENT I saw and evaluated the patient. I reviewed the resident's note and discussed the case with the resident. I agree with the resident's findings and plan as documented. SUBJECTIVE: OBJECTIVE: ASSESSMENT AND PLAN:
== END 2019-04-07 16:43 | disposition home or self-care (01) | DRG 271 ==
LOC: JER 10:46 → JERBED 14:10 → J5S 19:35
PROVIDERS: ADMIT Hospitalist; ATTEND Internal Medicine
PROC: 047K35Z Dilation of Right Femoral Artery with Two Drug-eluting Intraluminal Devices, Percutaneous Approach (ICD-10-PCS; 2019-04-03)
PROC: B40DYZZ Plain Radiography of Aorta and Bilateral Lower Extremity Arteries using Other Contrast (ICD-10-PCS; 2019-04-03)
PROC: B42FZZZ Computerized Tomography (CT Scan) of Right Lower Extremity Arteries (ICD-10-PCS; 2019-04-03)
PROC: 02HV33Z Insertion of Infusion Device into Superior Vena Cava, Percutaneous Approach (ICD-10-PCS; 2019-04-03)
PROC: B518ZZA Fluoroscopy of Superior Vena Cava, Guidance (ICD-10-PCS; 2019-04-03)
PROC: 04CK3ZZ Extirpation of Matter from Right Femoral Artery, Percutaneous Approach (ICD-10-PCS; principal; 2019-04-03 16:30)
DX: E11.51 Type 2 diabetes mellitus with diabetic peripheral angiopathy without gangrene (principal); Z68.41 Body mass index [BMI] 40.0-44.9, adult; L97.518 Non-pressure chronic ulcer of other part of right foot with other specified severity; M86.8X7 Other osteomyelitis, ankle and foot; E11.69 Type 2 diabetes mellitus with other specified complication; E11.621 Type 2 diabetes mellitus with foot ulcer; I10 Essential (primary) hypertension; I25.10 Atherosclerotic heart disease of native coronary artery without angina pectoris; E78.5 Hyperlipidemia, unspecified; D64.9 Anemia, unspecified; L03.031 Cellulitis of right toe; E66.01 Morbid (severe) obesity due to excess calories; L08.9 Local infection of the skin and subcutaneous tissue, unspecified; B95.4 Other streptococcus as the cause of diseases classified elsewhere; G47.33 Obstructive sleep apnea (adult) (pediatric); B95.2 Enterococcus as the cause of diseases classified elsewhere; D63.8 Anemia in other chronic diseases classified elsewhere; I44.7 Left bundle-branch block, unspecified; I05.0 Rheumatic mitral stenosis; Z79.4 Long term (current) use of insulin; Z87.891 Personal history of nicotine dependence
CPT/HCPCS: 36415; 36558; 71045-TC-FY; 73630-TC-RT-FY; 73718-TC-LT; 75635-TC; 77001-TC-FY; 80048; 80053; 82962; 83036; 83605; 83735; 84100; 85025; 85027; 85651; 85730; 86140; 87040; 87070; 87186; 87205; 93005; 93010; 94760; 97116-GP; 97161-GP; 99284-25; C1751; J1644; J7030

== ENCOUNTER → 2019-04-28 | Day surgery (SDC) | payer BC, OTHER | LOC: JRADIR 10:54 ==

== ENCOUNTER 2019-05-21 20:18 | Emergency (ER) | payer BC, OTHER ==
[2019-05-21 20:22] VITALS: BP 178/65; PULSE 86; TEMP 98.2; BMI 25.8
--- NOTE | 2019-05-21 21:45 | PDOC ---
History of Present Illness - General Chief Complaint: Rash Stated Complaint: CHEST/RASH Time Seen by Provider: 05/21/19 21:20 History Source: Patient, Old Records Exam Limitations: No Limitations - History of Present Illness Initial Comments: 05/21/19 21:41 HISTORY OF PRESENT ILLNESS: 59-year-old woman with past medical history of NIDDM with right foot osteomyelitis currently being treated with IV Zosyn at home who presents to the emergency department for evaluation of pruritic rash to chest and upper back which is been worsening over the past 2 to 3 days. Patient has been taking Zosyn infusions since March for her osteomyelitis and has had no reaction until today. She denies any shortness of breath, fevers, chills vocal changes or hoarseness. No recent travel or sick contacts. PAST MEDICAL HISTORY: Denies past medical history SURGICAL HISTORY: Denies ALLERGIES: No known drug allergies REVIEW OF SYSTEMS General/Constitutional: Denies fever or chills. Denies weakness, weight change. HEENT: Denies change in vision. Denies ear pain or discharge. Denies sore throat. Cardiovascular: Denies chest pain or shortness of breath. Respiratory: Denies cough, wheezing, or hemoptysis. Gastrointestinal: Denies nausea, vomiting, diarrhea or constipation. Denies rectal bleeding. Genitourinary: Denies dysuria, frequency, or change in urination. Musculoskeletal: Denies joint or muscle swelling or pain. Denies neck or back pain. Skin and breasts: see HPI Neurologic: Denies headache, vertigo, loss of consciousness, or loss of sensation. Psychiatric: Denies depression or anxiety. Endocrine: Denies increased thirst. Denies abnormal weight change. Hematologic/Lymphatic: Denies anemia, easy bleeding, or history of blood clots. Allergic/Immunologic: Denies hives or skin allergy. Denies latex allergy. PHYSICAL EXAM General Appearance: Well-appearing, appropriately dressed. No apparent distress , no intoxication. Respiratory/Chest: Lungs CTAB. No shortness of breath, chest tenderness, respiratory distress, accessory muscle use. No crackles, rales, rhonchi, stridor , wheezing, dullness Cardiovascular: RRR. S1, S2. No JVD, murmur, bradycardia, tachycardia. Vascular Pulses: Dorsalis-Pedis (R): 2+, Dorsalis-Pedis (L): 2+ Musculoskeletal/Extremities: Normal inspection. FROM of all extremities, normal capillary refill. Pelvis Stable. No CVA tenderness. No tenderness to extremities, pedal edema, swelling, erythema or deformity. Integumentary: Maculopapular rash present to right anterior chest wall and right upper back. Rashes red with irregular patches with occasional raised areas that are irregularly spaced. Neurologic: will call order clerk II-XII intact. Fully oriented, alert. Appropriate mood/affect. Motor strength 5/5. No appreciable EOM palsy, facial droop or sensory deficit. Past History - Past Medical History Allergies/Adverse Reactions: Allergies Allergy/AdvReac Type Severity Reaction Status Date / Time No Known Allergies Allergy Verified 05/21/19 20:22 Home Medications: Ambulatory Orders Insulin Glargine,Hum.rec.anlog [Lantus] 32 unit SQ DAILY 12/13/18 Amlodipine Besylate 10 mg PO DAILY 01/13/19 Metoprolol Succinate 50 mg PO DAILY 01/13/19 Olmesartan/Hydrochlorothiazide [Benicar Hct 40-12.5 mg Tablet] 1 each PO DAILY 01/13/19 Rosuvastatin [Crestor -] 10 mg PO DAILY 01/13/19 Clopidogrel Bisulfate [Plavix -] 75 mg PO DAILY #30 tablet 01/17/19 Lactobacillus Acidophilus [Bacid -] 1 tab PO DAILY #38 tab 01/17/19 Latanoprost/Pf [Latanoprost 0.005% Eye Drop] 7.5 ml OP DAILY 03/26/19 Hydrochlorothiazide [Hctz -] 12.5 mg PO DAILY cap 04/07/19 Piperacillin/Tazob 3.375 gm [Zosyn -] 3.375 gm IVPB Q8H-IV #0 vial 04/07/19 Valsartan [Diovan] 320 mg PO DAILY tablet 04/07/19 Saxenda 2.4 units SQ DAILY 04/25/19 Mupirocin Ointment [Bactroban 2% Ointment -] 1 applic TP DAILY #1 applic Epinephrine [Epipen 2-George] 0.3 mg IJ ASDIR #1 kit 05/21/19 Mometasone Furoate [Elocon] 45 gm TP TID #1 tube 05/21/19 Prednisone [Prednisone 50 MG TABLETS] 50 mg PO DAILY #2 tablet 05/21/19 Anemia: Yes Cardiac Disorders: No COPD: No Diabetes: Yes HTN: Yes Hypercholesterolemia: Yes - Surgical History Abdominal Surgery: Yes - Immunization History Immunization Up to Date: No - Psycho Social/Smoking Cessation Hx Smoking Status: No Smoking History: Never smoked Have you smoked in the past 12 months: No Number of Cigarettes Smoked Daily: 0 If you are a former smoker, when did you quit?: 1996 Hx Alcohol Use: Yes (socially) Drug/Substance Use Hx: No Substance Use Type: None Hx Substance Use Treatment: No *Physical Exam - Vital Signs Last Vital Signs Temp Pulse Resp BP Pulse Ox 98.2 F 86 18 178/65 H 99 05/21/19 20:20 05/21/19 20:20 05/21/19 20:20 05/21/19 20:20 05/21/19 20:20 Medical Decision Making - Medical Decision Making 05/21/19 21:45 A/P: 59-year-old woman with rash to right anterior chest and upper back No stridor noted No vocal changes noted Respirations even and unlabored. Lungs clear to auscultation bilaterally Case has been discussed with Dr. Roldan who recommends admission for observation and potential IV antibiotic change. Discussion with Dr. Roldan has been discussed with the patient. Patient does not want to be admitted and is leaving the hospital AGAINST MEDICAL ADVICE. The patient has requested to leave the ED against medical advice. Pt refused admission. The patient reason(s) for leaving include, but are not limited to, the following : She did not want to be admitted as she is the only one responsible for her job tomorrow morning. I believe this patient is of sound mind and competent to refuse medical care. The patient is responding and asking questions appropriately. The patient is oriented to person, place and time. The patient is not psychotic, delusional, suicidal, homicidal or hallucinating. The patient demonstrates a normal mental capacity to make decisions regarding their healthcare. The patient is clinically sober and does not appear to be under the influence of any illicit drugs at this time. The patient has been advised of the risks, in layman terms, of leaving AMA which include, but are not limited to: anaphylaxis, dehydration, severe permanent disability, loss of current lifestyle, delay in diagnosis and . Alternatives have been offered - the patient remains steadfast in their wish to leave. The patient has been advised that should they change their mind they are welcome to return to this hospital, or any other, at any time. The patient understands that in no way does an AMA discharge mean that I do not want them to have the best medical care available. To this end, I have provided appropriate prescriptions, referrals, and discharge instructions. The patient did sign AMA paperwork. The above discussion was witnessed by another member of staff, OSITO Foster. 05/21/19 22:04 Prescription for EpiPen, Elocon cream and prednisone of been sent to patient's preferred pharmacy. Patient given a dose of prednisone 60 mg orally here by OSITO Campos. Discharge - Discharge Information Problems reviewed: Yes Clinical Impression/Diagnosis: Allergic drug reaction Qualifiers: Encounter type: initial encounter Qualified Code(s): T78.40XA - Allergy, unspecified, initial encounter Condition: Fair Disposition: AGAINST MEDICAL ADVICE - Admission No - Additional Discharge Information Prescriptions: Epinephrine [Epipen 2-George] 0.3 mg IJ ASDIR #1 kit Mometasone Furoate [Elocon] 45 gm TP TID #1 tube Prednisone [Prednisone 50 MG TABLETS] 50 mg PO DAILY #2 tablet - Follow up/Referral Referrals: Aleta Medellin MD [Primary Care Provider] - - Patient Discharge Instructions Additional Instructions: It is recommended that you are admitted to the hospital for overnight observations with Dr. Land we can reevaluate and potentially change her antibiotics. You are leaving the hospital AGAINST MEDICAL ADVICE. Prescription for steroid cream has been sent to your preferred pharmacy. It is recommended that she use follow-up with Dr. Hicks for potential antibiotic change to continue treatment of your osteomyelitis. Please return to the emergency department for any new or worsening symptoms. - Post Discharge Activity
[2019-05-21] MEDS ORDERED: predniSONE 20 MG TABLET (UD) PO ONE (22:04)
== END 2019-05-21 21:55 | disposition left against medical advice (07) ==
LOC: JERFT 20:18
DX: T78.40XA Allergy, unspecified, initial encounter (principal); Z87.891 Personal history of nicotine dependence; E11.9 Type 2 diabetes mellitus without complications; I10 Essential (primary) hypertension; E78.00 Pure hypercholesterolemia, unspecified; D64.9 Anemia, unspecified
CPT/HCPCS: 99281-25

== ENCOUNTER 2019-06-02 10:10 | Emergency (ER) | payer BC, OTHER ==
[2019-06-02 10:23] VITALS: BP 153/70; PULSE 82; TEMP 98.8; BMI 97.4
[2019-06-02] MEDS ORDERED: diphenhydrAMINE HCL 25 MG CAPSULE (FP) PO ONE ×2 (11:09→11:15)
[2019-06-02 11:36] LABS: BASO % 1.6 % (0-2.0); EOS % 10.8 % (0-4.5); HEMATOCRIT 33.9 % (32.4-45.2); HEMOGLOBIN 10.7 GM/dL (10.7-15.3); LYMPH % 24.6 % (8-40); MCH 26.6 pg (25.7-33.7); MCHC 31.5 g/dl (32.0-36.0); MEAN CELL VOLUME 84.5 fl (80-96); MEAN PLT VOLUME 8.9 fl (7.5-11.1); MONO % 11.6 % (3.8-10.2); NEUT % 51.4 % (42.8-82.8); PLATELET COUNT 273 K/MM3 (134-434); RBC 4.02 M/mm3 (3.60-5.2); RDW 14.7 % (11.6-15.6); WHITE BLOOD COUNT 5.8 K/mm3 (4.0-10.0)
[2019-06-02 11:51] LABS: INR 0.99 (0.83-1.09); PROTHROMBIN TIME (PATIENT) 11.7 SEC (9.7-13.0)
[2019-06-02 12:09] LABS: ALBUMIN 3.7 g/dl (3.4-5.0); BILIRUBIN,TOTAL 0.2 mg/dL (0.2-1); BLOOD UREA NITROGEN 22.7 mg/dL (7-18); CALCIUM 9.3 mg/dL (8.5-10.1); CREATININE 1.2 mg/dL (0.55-1.3); POTASSIUM 4.5 mmol/L (3.5-5.1); TOT PROT 6.9 g/dl (6.4-8.2)
--- NOTE | 2019-06-02 12:11 | PDOC ---
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 Patient states was due to have a removed this past Sunday but did not go for the appointment and on Sunday while she was doing yard work it was pulled which caused it to be dislodged. Patient states minimal bleeding noted at site but had slight itching since placement of catheter and continues with today. Patient states continues with hyperbaric treatment and wound care with no other complaints including fever, chills, difficulty breathing, cough or elevated glucose Is this a multiple visit Asthma Patient?: No Timing/Duration: resolved prior to arrival Associated Symptoms: reports: denies symptoms Past History - Travel Traveled outside of the country in the last 30 days: No Close contact w/someone who was outside of country & ill: No - Past Medical History Allergies/Adverse Reactions: Allergies Allergy/AdvReac Type Severity Reaction Status Date / Time No Known Allergies Allergy Verified 06/02/19 11:14 Home Medications: Ambulatory Orders Insulin Glargine,Hum.rec.anlog [Lantus] 32 unit SQ DAILY 12/13/18 Amlodipine Besylate 10 mg PO DAILY 01/13/19 Metoprolol Succinate 50 mg PO DAILY 01/13/19 Olmesartan/Hydrochlorothiazide [Benicar Hct 40-12.5 mg Tablet] 1 each PO DAILY 01/13/19 Rosuvastatin [Crestor -] 10 mg PO DAILY 01/13/19 Clopidogrel Bisulfate [Plavix -] 75 mg PO DAILY #30 tablet 01/17/19 Lactobacillus Acidophilus [Bacid -] 1 tab PO DAILY #38 tab 01/17/19 Latanoprost/Pf [Latanoprost 0.005% Eye Drop] 7.5 ml OP DAILY 03/26/19 Piperacillin/Tazob 3.375 gm [Zosyn -] 3.375 gm IVPB Q8H-IV #0 vial 04/07/19 Saxenda 2.4 units SQ DAILY 04/25/19 Epinephrine [Epipen 2-George] 0.3 mg IJ ASDIR #1 kit 05/21/19 metFORMIN HCL [Metformin HCl] 500 mg PO DAILY 06/02/19 Anemia: Yes Cardiac Disorders: No COPD: No Diabetes: Yes HTN: Yes Hypercholesterolemia: Yes - Surgical History Abdominal Surgery: Yes - Immunization History Immunization Up to Date: No - Psycho Social/Smoking Cessation Hx Smoking Status: No Smoking History: Never smoked Have you smoked in the past 12 months: No Number of Cigarettes Smoked Daily: 0 If you are a former smoker, when did you quit?: 1996 Information on smoking cessation initiated: No Hx Alcohol Use: Yes Drug/Substance Use Hx: No Substance Use Type: None Hx Substance Use Treatment: No Patient Lives Alone: No Lives with/in: spouse/SO Review of Systems - Review of Systems Able to Perform ROS?: Yes Constitutional: No: Symptoms Reported HEENTM: No: Symptoms Reported Respiratory: No: Symptoms reported Cardiac (ROS): No: Symptoms Reported ABD/GI: No: Symptoms Reported : No: Symptoms Reported Musculoskeletal: No: Symptoms Reported Integumentary: Yes: Pruritus Neurological: No: Symptoms reported Endocrine: No: Symptoms Reported Hematologic/Lymphatic: No: Symptoms Reported *Physical Exam - Vital Signs Last Vital Signs Temp Pulse Resp BP Pulse Ox 98.8 F 82 16 153/70 98 06/02/19 10:20 06/02/19 10:20 06/02/19 10:20 06/02/19 10:20 06/02/19 10:20 - Physical Exam General Appearance: Yes: Nourished, Appropriately Dressed. No: Apparent Distress HEENT: negative: Pale Conjunctivae Neck: positive: Normal Thyroid Respiratory/Chest: positive: Lungs Clear, Normal Breath Sounds. negative: Chest Tender, Respiratory Distress, Accessory Muscle Use Cardiovascular: positive: Regular Rhythm, Regular Rate. negative: Murmur Gastrointestinal/Abdominal: positive: Soft. negative: Tenderness Extremity: negative: Pedal Edema Integumentary: positive: Normal Color, Warm, Other (Dry scaly mildly erythematous skin surrounding the right upper chest catheter site measuring approximately 10 x 10 inches. Closed dry catheter site noted with no palpable tenderness swelling or increased warmth) Neurologic: positive: Motor Strength 5/5 (Ambulatory) ED Treatment Course - LABORATORY CBC & Chemistry Diagram: 06/02/19 11:20 06/02/19 11:13 - ADDITIONAL ORDERS Additional order review: Laboratory Results 06/02/19 06/02/19 11:20 11:20 WBC 5.8 RBC 4.02 Hgb 10.7 Hct 33.9 MCV 84.5 MCH 26.6 MCHC 31.5 L RDW 14.7 Plt Count 273 D MPV 8.9 Absolute Neuts (auto) 3.0 Neutrophils % 51.4 Lymphocytes % 24.6 Monocytes % 11.6 H Eosinophils % 10.8 H D Basophils % 1.6 Nucleated RBC % 0 PT with INR 11.70 INR 0.99 06/02/19 11:20 RBC 4.02 MCV 84.5 MCHC 31.5 L RDW 14.7 MPV 8.9 Neutrophils % 51.4 Lymphocytes % 24.6 Monocytes % 11.6 H Eosinophils % 10.8 H D Basophils % 1.6 - Medications Given in the ED: ED Medications Discontinued Medications Generic Name Dose Route Start Last Admin Trade Name Freq PRN Reason Stop Dose Admin Diphenhydramine HCl 25 mg 06/02/19 11:09 06/02/19 11:19 Benadryl - PO 06/02/19 11:10 25 mg ONCE ONE Administration Medical Decision Making - Medical Decision Making 06/02/19 12:13 Chief complaint: Patient here for evaluation of accidental removal of her catheter from her right chest wall which was due for removal last week. Patient has no complaints at this time except for itching around catheter site Exam: No signs or symptoms of infection lungs clear noted dry excoriated erythematous skin surrounding catheter site which is dry . Plan: Patient was able to obtain the catheter from home. Went over to interventional radiologist Dr. Sykes. He reviewed the notes and the catheter and states no concern for possible breakage of the catheter. Will obtain lab coag CBC and comp. 06/02/19 12:17 Laboratory Tests 06/02/19 06/02/19 06/02/19 11:13 11:20 11:20 WBC 5.8 Hgb 10.7 Hct 33.9 MCH 26.6 MCHC 31.5 L RDW 14.7 Neutrophils % 51.4 Lymphocytes % 24.6 Monocytes % 11.6 H Eosinophils % 10.8 H D PT with INR 11.70 INR 0.99 Sodium 139 Potassium 4.5 Chloride 106 Carbon Dioxide 27 Anion Gap 6 L BUN 22.7 H Creatinine 1.2 Est GFR (CKD-EPI)AfAm 57.29 Est GFR (CKD-EPI)NonAf 49.43 Random Glucose 138 H Calcium 9.3 Total Bilirubin 0.2 AST 14 L ALT 21 Alkaline Phosphatase 82 Total Protein 6.9 Albumin 3.7 Patient may be discharged home and states will go to hyperbarics today Discharge - Discharge Information Problems reviewed: Yes Clinical Impression/Diagnosis: Accidental removal of catheter Condition: Stable Disposition: HOME - Follow up/Referral - Patient Discharge Instructions Patient Printed Discharge Instructions: DI for Itching Additional Instructions: At this time I recommend applying Aquaphor to the irritated area to the right chest wall for the next 3 days. If you have no improvement of itchiness then I recommend switching to the fungal cream which I prescribed for you today. - Post Discharge Activity
== END 2019-06-02 12:45 | disposition home or self-care (01) ==
LOC: JER 10:10
DX: T82.524A Displacement of infusion catheter, initial encounter (principal); I10 Essential (primary) hypertension; E11.9 Type 2 diabetes mellitus without complications; Z79.4 Long term (current) use of insulin; E78.00 Pure hypercholesterolemia, unspecified; D64.9 Anemia, unspecified; M86.9 Osteomyelitis, unspecified; E11.621 Type 2 diabetes mellitus with foot ulcer; M86.671 Other chronic osteomyelitis, right ankle and foot
CPT/HCPCS: 36415; 80053; 82962; 85025; 85610; 99282-25; G0277

== ENCOUNTER 2022-01-03 07:53 | Inpatient (IN) | payer BC, OTHER ==
[2022-01-03 08:02] VITALS: BMI 45.1
[2022-01-03] MEDS ORDERED: ASPIRIN 81 MG CHEWABLE TABLETS PO ONE (08:33)
[2022-01-03] MEDS ORDERED: ASPIRIN 81 MG CHEWABLE TABLETS ONE (08:51)
[2022-01-03 09:11] LABS: BASO % 0.7 % (0-2.0); EOS % 2.4 % (0-4.5); HEMATOCRIT 34.7 % (32.4-45.2); HEMOGLOBIN 11.1 GM/dL (10.7-15.3); MCH 27.1 pg (25.7-33.7); MCHC 31.9 g/dl (32.0-36.0); MEAN CELL VOLUME 84.9 fl (80-96); MEAN PLT VOLUME 9.7 fl (7.5-11.1); MONO % 11.6 % (3.8-10.2); NEUT % 64.3 % (42.8-82.8); PLATELET COUNT 284 10^3/uL (134-434); RBC 4.09 M/mm3 (3.60-5.2); RDW 14.5 % (11.6-15.6); WHITE BLOOD COUNT 6.5 K/mm3 (4.0-10.0)
[2022-01-03 09:14] LABS: INR 1.03 (0.83-1.09); PROTHROMBIN TIME (PATIENT) 11.8 SEC (9.7-13.0)
[2022-01-03 09:25] LABS: ALBUMIN 3.5 g/dl (3.4-5.0); BLOOD UREA NITROGEN 22.4 mg/dL (7-18); CALCIUM 9.4 mg/dL (8.5-10.1)
[2022-01-03 09:29] LABS: BILIRUBIN,TOTAL 0.4 mg/dL (0.2-1); TOT PROT 6.7 g/dl (6.4-8.2)
[2022-01-03 15:01] LABS: URINE APPEARANCE CLEAR; URINE BILIRUBIN NEGATIVE (NEGATIVE); URINE COLOR YELLOW; URINE GLUCOSE (UA) TRACE (NEGATIVE); URINE KETONE NEGATIVE (NEGATIVE); URINE LEUK ESTERASE NEGATIVE (NEGATIVE); URINE NITRITE NEGATIVE (NEGATIVE); URINE PROTEIN NEGATIVE (NEGATIVE)
[2022-01-03] MEDS ORDERED: INSULIN SLIDING SCALE (NOVOLOG) 1 VIAL SQ SCH (16:30)
[2022-01-03] MEDS: INSULIN SLIDING SCALE (NOVOLOG) 1 VIAL SQ SCH ×2 (16:32→21:50)
[2022-01-03] MEDS: ROSUVASTATIN CA 20 MG TABLET PO SCH (21:50)
[2022-01-04] MEDS: INSULIN SLIDING SCALE (NOVOLOG) 1 VIAL SQ SCH ×4 (06:33→21:10)
[2022-01-04] MEDS: INSULIN (LEVEMIR) 100 UNITS/ML UNITS SQ SCH (06:33)
[2022-01-04 08:48] LABS: CALCIUM 9.1 mg/dL (8.5-10.1)
[2022-01-04 08:49] LABS: BLOOD UREA NITROGEN 19.6 mg/dL (7-18)
[2022-01-04 08:52] LABS: CREATININE 0.9 mg/dL (0.55-1.3)
[2022-01-04] MEDS: CLOPIDOGREL BISULFATE 75 MG TABLET (FP) PO SCH (10:15)
[2022-01-04] MEDS: ASPIRIN COATED 81 MG TABLET.EC PO SCH (10:15)
[2022-01-04] MEDS: amLODIPine BESYLATE 10 MG TABLET (FP) PO SCH (10:15)
[2022-01-04] MEDS: ENOXAPARIN NA (PORCINE) 40 MG/0.4 ML DISP.SYRIN SQ SCH (11:03)
[2022-01-04] MEDS: HYDROCHLOROTHIAZIDE 25 MG TABLET (FP) PO SCH (21:10)
[2022-01-04] MEDS: ROSUVASTATIN CA 20 MG TABLET PO SCH (21:10)
[2022-01-05] MEDS: INSULIN (LEVEMIR) 100 UNITS/ML UNITS SQ SCH (06:41)
[2022-01-05] MEDS: INSULIN SLIDING SCALE (NOVOLOG) 1 VIAL SQ SCH ×3 (06:44→17:35)
[2022-01-05] MEDS: amLODIPine BESYLATE 10 MG TABLET (FP) PO SCH (09:49)
[2022-01-05] MEDS: ASPIRIN COATED 81 MG TABLET.EC PO SCH (09:49)
[2022-01-05] MEDS: ENOXAPARIN NA (PORCINE) 40 MG/0.4 ML DISP.SYRIN SQ SCH (09:50)
[2022-01-05] MEDS: CLOPIDOGREL BISULFATE 75 MG TABLET (FP) PO SCH (09:51)
[2022-01-05] MEDS: HYDROCHLOROTHIAZIDE 25 MG TABLET (FP) PO SCH (09:51)
[2022-01-05] MEDS ORDERED: LOSARTAN POTASSIUM 50 MG TABLET PO SCH (10:00)
[2022-01-05 12:15] LABS: ALBUMIN 3.5 g/dl (3.4-5.0); BLOOD UREA NITROGEN 22.3 mg/dL (7-18); CALCIUM 9.4 mg/dL (8.5-10.1)
[2022-01-05 12:19] LABS: BILIRUBIN,TOTAL 0.4 mg/dL (0.2-1); TOT PROT 6.7 g/dl (6.4-8.2)
[2022-01-05 17:58] VITALS: BP 137/74; PULSE 81; TEMP 98.4
[2022-01-05] MEDS ORDERED: INSULIN (LEVEMIR) 100 UNITS/ML UNITS SQ SCH (22:00)
== END 2022-01-05 18:00 | disposition home or self-care (01) | DRG 69 ==
LOC: JER 07:53 → JERBED 09:20 → OBSVTOIN 10:42 → J4S 15:51
PROVIDERS: ADMIT Internal Medicine
DX: G45.8 Other transient cerebral ischemic attacks and related syndromes (principal); I10 Essential (primary) hypertension; E78.5 Hyperlipidemia, unspecified; E11.65 Type 2 diabetes mellitus with hyperglycemia; E11.42 Type 2 diabetes mellitus with diabetic polyneuropathy
CPT/HCPCS: 36415; 70450-TC; 70547-TC; 70551-TC; 71045-TC-FY; 80048; 80053; 80061; 81003; 82962; 83036; 84439; 84443; 84484; 85025; 85610; 85730; 93005; 93010; 93306-TC; 97116-GP; 97161-GP; 99285-25; C9803-CS; G0378; U0003; U0005

== ENCOUNTER 2023-07-29 06:32 | Inpatient (IN) | payer BC, OTHER ==
[2023-07-29] MEDS ORDERED: SODIUM CHLORIDE 1,000 ML IV SCH (06:45)
[2023-07-29] MEDS ORDERED: NALOXONE HCL 0.4 MG/ML VIAL ONE (07:18)
[2023-07-29] MEDS ORDERED: NALOXONE HCL 0.4 MG/ML VIAL IVPUSH ONE (07:22)
[2023-07-29] MEDS ORDERED: ASPIRIN SUPPOSITORY 600 MG SUPP.RECT RC ONE (07:46)
[2023-07-29] MEDS ORDERED: levETIRAcetam 500 MG/5 ML INJECTION VIAL IVPB ONE (08:17)
[2023-07-29 09:04] LABS: PH,URINE 5.5 (5.0-8.0); URINE APPEARANCE CLEAR; URINE BILIRUBIN NEGATIVE (NEGATIVE); URINE COLOR YELLOW; URINE GLUCOSE (UA) 3+ (NEGATIVE); URINE KETONE NEGATIVE (NEGATIVE); URINE LEUK ESTERASE NEGATIVE (NEGATIVE); URINE NITRITE NEGATIVE (NEGATIVE); URINE PROTEIN NEGATIVE (NEGATIVE); URINE UROBILINOGEN 0.2 mg/dL (0.2-1.0)
[2023-07-29 09:08] LABS: BASO % 0.8 % (0-2.0); EOS % 0.8 % (0-4.5); HEMOGLOBIN 11.1 GM/dL (10.7-15.3); LYMPH % 11.1 % (8-40); MCH 26.8 pg (25.7-33.7); MCHC 31.7 g/dl (32.0-36.0); MEAN CELL VOLUME 84.7 fl (80-96); MEAN PLT VOLUME 10.3 fl (7.5-11.1); MONO % 4.4 % (3.8-10.2); NEUT % 82.9 % (42.8-82.8); PLATELET COUNT 215 10^3/uL (134-434); RBC 4.14 M/mm3 (3.60-5.2); RDW 14.2 % (11.6-15.6); WHITE BLOOD COUNT 8.4 K/mm3 (4.0-10.0)
[2023-07-29 09:09] LABS: INR 0.99 (0.83-1.09); PROTHROMBIN TIME (PATIENT) 11.5 SEC (9.7-13.0)
[2023-07-29 09:11] LABS: ACTIVATED PTT 24.7 SECONDS (25.2-36.5)
[2023-07-29] MEDS ORDERED: SODIUM CHLORIDE IVPB ONE (09:15)
[2023-07-29] MEDS ORDERED: LEVETIRACETAM IVPB ONE (09:15)
[2023-07-29 09:22] LABS: VENOUS BASE EXCESS -8.5 mmol/L (-2-2); VENOUS O2 SATURATION 72.5 % (70-80)
[2023-07-29 09:23] LABS: ALBUMIN 3.4 g/dl (3.4-5.0)
[2023-07-29 09:24] LABS: BLOOD UREA NITROGEN 42.8 mg/dL (7-18)
[2023-07-29 09:24] LABS: VENOUS PH 7.111 (7.310-7.410)
[2023-07-29 09:26] LABS: CREATININE 1.4 mg/dL (0.55-1.3)
[2023-07-29 09:28] LABS: TOT PROT 6.5 g/dl (6.4-8.2)
[2023-07-29 09:29] LABS: BILIRUBIN,TOTAL 0.3 mg/dL (0.2-1)
[2023-07-29 09:41] LABS: COCAINE, UR NEGATIVE (NEGATIVE); OPIATES, URI NEGATIVE (NEGATIVE); URINE BARBITURATES NEGATIVE (NEGATIVE)
[2023-07-29 09:42] LABS: METHADONE, UR NEGATIVE (NEGATIVE); PHENCYCLIDINE,URINE NEGATIVE (NEGATIVE)
[2023-07-29] MEDS ORDERED: levETIRAcetam 500 MG/5 ML INJECTION VIAL IVPB SCH (10:00)
[2023-07-29] MEDS ORDERED: ONDANSETRON 4 MG/2 ML VIAL ONE (10:01)
[2023-07-29] MEDS ORDERED: ONDANSETRON 4 MG/2 ML VIAL IVPUSH ONE (10:01)
[2023-07-29 10:04] LABS: URINE AMPHETAMINES NEGATIVE (NEGATIVE); URINE BENZODIAZEPINES POSITIVE (NEGATIVE)
[2023-07-29 10:05] LABS: LACTIC ACID 7.3 mmol/L (0.4-2.0)
[2023-07-29 10:46] LABS: VENOUS BASE EXCESS -5.4 mmol/L (-2-2); VENOUS O2 SATURATION 93.1 % (70-80); VENOUS PCO2 38.4 mmHg (38-52); VENOUS PH 7.333 (7.310-7.410)
[2023-07-29 11:51] LABS: LACTIC ACID 2.9 mmol/L (0.4-2.0)
[2023-07-29] MEDS ORDERED: PATIENT'S OWN MEDICATION (NON-FORMULARY) (Latanoprost/Pf [Latanoprost 0.005% Eye Drop] 7.5 SCH (13:45)
[2023-07-29] MEDS ORDERED: ASPIRIN 81 MG CHEWABLE TABLETS ONE (14:10)
[2023-07-29] MEDS ORDERED: CLOPIDOGREL BISULFATE 75 MG TABLET (FP) ONE (14:10)
[2023-07-29] MEDS: ASPIRIN COATED 81 MG TABLET.EC PO SCH (14:59)
[2023-07-29] MEDS: CLOPIDOGREL BISULFATE 75 MG TABLET (FP) PO SCH (14:59)
[2023-07-29 15:40] VITALS: BMI 47.7
[2023-07-29] MEDS ORDERED: ROSUVASTATIN CA 40 MG TABLET PO SCH (22:00)
[2023-07-29] MEDS: levETIRAcetam 500 MG/5 ML INJECTION VIAL IVPB SCH (22:00)
[2023-07-29] MEDS: ROSUVASTATIN CA 20 MG TABLET PO SCH ×2 (22:00→22:18)
[2023-07-29] MEDS: INSULIN (LEVEMIR) 100 UNITS/ML UNITS SQ SCH (22:04)
[2023-07-30] MEDS: INSULIN (LEVEMIR) 100 UNITS/ML UNITS SQ SCH ×2 (06:10→22:00)
[2023-07-30 07:46] LABS: BASO % 0.9 % (0-2.0); EOS % 0.9 % (0-4.5); HEMATOCRIT 35.1 % (32.4-45.2); LYMPH % 21.7 % (8-40); MCH 26.5 pg (25.7-33.7); MCHC 31.4 g/dl (32.0-36.0); MEAN CELL VOLUME 84.5 fl (80-96); MEAN PLT VOLUME 10.5 fl (7.5-11.1); MONO % 11.7 % (3.8-10.2); NEUT % 64.8 % (42.8-82.8); PLATELET COUNT 204 10^3/uL (134-434); RBC 4.16 M/mm3 (3.60-5.2); RDW 14.1 % (11.6-15.6)
[2023-07-30 08:07] LABS: CALCIUM 9.3 mg/dL (8.5-10.1)
[2023-07-30 08:08] LABS: BLOOD UREA NITROGEN 30.2 mg/dL (7-18); MAGNESIUM 2.4 mg/dL (1.8-2.4)
[2023-07-30 08:10] LABS: PHOSPHOROUS 2.6 mg/dL (2.5-4.9)
[2023-07-30 08:11] LABS: CREATININE 1.1 mg/dL (0.55-1.3)
[2023-07-30] MEDS ORDERED: CHLORTHALIDONE 25 MG TABLET PO SCH (10:00)
[2023-07-30] MEDS: ENOXAPARIN NA (PORCINE) 40 MG/0.4 ML DISP.SYRIN SQ SCH (10:18)
[2023-07-30] MEDS: CLOPIDOGREL BISULFATE 75 MG TABLET (FP) PO SCH (10:18)
[2023-07-30] MEDS: levETIRAcetam 500 MG/5 ML INJECTION VIAL IVPB SCH (10:19)
[2023-07-30] MEDS: ASPIRIN COATED 81 MG TABLET.EC PO SCH (10:19)
[2023-07-30] MEDS: LOSARTAN POTASSIUM 50 MG TABLET PO SCH (10:20)
[2023-07-30] MEDS: INSULIN SLIDING SCALE (NOVOLOG) 1 VIAL SQ SCH ×2 (18:08→22:02)
[2023-07-30] MEDS: ROSUVASTATIN CA 20 MG TABLET PO SCH (22:00)
[2023-07-30] MEDS ORDERED: levETIRAcetam 500 MG/5 ML INJECTION VIAL IVPB SCH (22:00)
[2023-07-31] MEDS ORDERED: levETIRAcetam 500 MG/5 ML INJECTION VIAL IVPB SCH ×2 (00:15→10:00)
[2023-07-31] MEDS ORDERED: INSULIN (LEVEMIR) 100 UNITS/ML UNITS SQ ONE (00:18)
[2023-07-31 00:46] LABS: POTASSIUM 3.9 mmol/L (3.5-5.1)
[2023-07-31 00:49] LABS: ALBUMIN 3.6 g/dl (3.4-5.0); BLOOD UREA NITROGEN 26.5 mg/dL (7-18); CALCIUM 9.4 mg/dL (8.5-10.1)
[2023-07-31 00:52] LABS: CREATININE 1.3 mg/dL (0.55-1.3); PHOSPHOROUS 2.5 mg/dL (2.5-4.9)
[2023-07-31 00:54] LABS: BILIRUBIN,TOTAL 0.3 mg/dL (0.2-1)
[2023-07-31 00:56] LABS: LACTIC ACID 2.2 mmol/L (0.4-2.0)
[2023-07-31] MEDS: INSULIN (LEVEMIR) 100 UNITS/ML UNITS SQ SCH ×2 (06:23→21:02)
[2023-07-31] MEDS: INSULIN SLIDING SCALE (NOVOLOG) 1 VIAL SQ SCH ×3 (06:27→16:46)
[2023-07-31 07:05] LABS: EPI CELLS 1 /uL (0-25.1); HYALINE CASTS 0 /uL (0-3.1); PH,URINE 6.5 (5.0-8.0); URINE APPEARANCE CLEAR; URINE BACTERIA 33 /uL (0-1359); URINE BILIRUBIN NEGATIVE (NEGATIVE); URINE COLOR YELLOW; URINE GLUCOSE (UA) 3+ (NEGATIVE); URINE KETONE NEGATIVE (NEGATIVE); URINE LEUK ESTERASE NEGATIVE (NEGATIVE); URINE NITRITE NEGATIVE (NEGATIVE); URINE PROTEIN NEGATIVE (NEGATIVE); URINE RBC 72 /uL (0-23.9); URINE WBC 6 /uL (0-25.8)
[2023-07-31 07:24] LABS: HEMATOCRIT 33.9 % (32.4-45.2); MCH 27.2 pg (25.7-33.7); MCHC 32.4 g/dl (32.0-36.0); MEAN CELL VOLUME 83.9 fl (80-96); MEAN PLT VOLUME 10.1 fl (7.5-11.1); PLATELET COUNT 227 10^3/uL (134-434); RBC 4.04 M/mm3 (3.60-5.2); RDW 13.8 % (11.6-15.6); WHITE BLOOD COUNT 5.7 K/mm3 (4.0-10.0)
[2023-07-31 07:37] LABS: POTASSIUM 4.3 mmol/L (3.5-5.1)
[2023-07-31 07:50] LABS: ALBUMIN 3.3 g/dl (3.4-5.0); CALCIUM 9.2 mg/dL (8.5-10.1)
[2023-07-31 07:51] LABS: BLOOD UREA NITROGEN 21.7 mg/dL (7-18)
[2023-07-31 07:52] LABS: MAGNESIUM 1.9 mg/dL (1.8-2.4)
[2023-07-31 07:53] LABS: TOT PROT 6.5 g/dl (6.4-8.2)
[2023-07-31 07:54] LABS: PHOSPHOROUS 2.6 mg/dL (2.5-4.9)
[2023-07-31 07:55] LABS: BILIRUBIN,TOTAL 0.4 mg/dL (0.2-1)
[2023-07-31] MEDS: ASPIRIN COATED 81 MG TABLET.EC PO SCH (09:07)
[2023-07-31] MEDS: ENOXAPARIN NA (PORCINE) 40 MG/0.4 ML DISP.SYRIN SQ SCH (09:07)
[2023-07-31] MEDS: CLOPIDOGREL BISULFATE 75 MG TABLET (FP) PO SCH (09:08)
[2023-07-31] MEDS: LOSARTAN POTASSIUM 50 MG TABLET PO SCH (09:08)
[2023-07-31] MEDS: levETIRAcetam 250 MG TABLET PO SCH ×2 (09:11→20:59)
[2023-07-31] MEDS: ROSUVASTATIN CA 20 MG TABLET PO SCH (20:59)
[2023-07-31] MEDS ORDERED: diphenhydrAMINE HCL 25 MG CAPSULE (FP) PO ONE (23:23)
[2023-08-01] MEDS: INSULIN SLIDING SCALE (NOVOLOG) 1 VIAL SQ SCH ×3 (06:30→17:20)
[2023-08-01] MEDS: INSULIN (LEVEMIR) 100 UNITS/ML UNITS SQ SCH ×2 (06:32→22:21)
[2023-08-01] MEDS: INSULIN (NOVOLOG) ASPART 100 UNITS/ML 10ML VIAL SQ SCH ×3 (06:33→17:20)
[2023-08-01 07:46] LABS: HEMATOCRIT 37.1 % (32.4-45.2); HEMOGLOBIN 12.1 GM/dL (10.7-15.3); MCHC 32.6 g/dl (32.0-36.0); MEAN PLT VOLUME 9.9 fl (7.5-11.1); PLATELET COUNT 220 10^3/uL (134-434); RBC 4.47 M/mm3 (3.60-5.2); RDW 13.9 % (11.6-15.6); WHITE BLOOD COUNT 6.2 K/mm3 (4.0-10.0)
[2023-08-01 07:54] LABS: POTASSIUM 4.1 mmol/L (3.5-5.1)
[2023-08-01 07:57] LABS: MAGNESIUM 1.9 mg/dL (1.8-2.4)
[2023-08-01 07:59] LABS: ALBUMIN 3.4 g/dl (3.4-5.0)
[2023-08-01 08:00] LABS: BLOOD UREA NITROGEN 18.7 mg/dL (7-18); CALCIUM 9.4 mg/dL (8.5-10.1)
[2023-08-01 08:02] LABS: PHOSPHOROUS 3.3 mg/dL (2.5-4.9); TOT PROT 6.6 g/dl (6.4-8.2)
[2023-08-01 08:03] LABS: BILIRUBIN,TOTAL 0.4 mg/dL (0.2-1)
[2023-08-01] MEDS: ASPIRIN COATED 81 MG TABLET.EC PO SCH (09:39)
[2023-08-01] MEDS: CLOPIDOGREL BISULFATE 75 MG TABLET (FP) PO SCH (09:39)
[2023-08-01] MEDS: LOSARTAN POTASSIUM 50 MG TABLET PO SCH (09:39)
[2023-08-01] MEDS: ENOXAPARIN NA (PORCINE) 40 MG/0.4 ML DISP.SYRIN SQ SCH (09:39)
[2023-08-01] MEDS: levETIRAcetam 250 MG TABLET PO SCH (09:39)
[2023-08-01] MEDS ORDERED: PATIENT'S OWN MEDICATION (NON-FORMULARY) (Dorzolamide/Timolol/Pf [Dorzolamide-Timolol 2%-0 OP SCH (10:00)
[2023-08-01] MEDS: DORZOLAMIDE 2% HCL OPHTHALMIC SOLUTION 10 ML BOTTLE OU SCH ×2 (11:15→22:21)
[2023-08-01] MEDS: TIMOLOL 0.5% OPHTHALMIC SOL 5 ML BOTTLE OU SCH ×2 (11:16→22:21)
[2023-08-01] MEDS: levETIRAcetam 500 MG TABLET (FP) PO SCH (22:20)
[2023-08-01] MEDS: ROSUVASTATIN CA 20 MG TABLET PO SCH (22:20)
[2023-08-01] MEDS ORDERED: levETIRAcetam 500 MG/5 ML INJECTION VIAL IVPB ONE (22:42)
[2023-08-02] MEDS: INSULIN (LEVEMIR) 100 UNITS/ML UNITS SQ SCH ×2 (06:04→22:52)
[2023-08-02] MEDS: INSULIN SLIDING SCALE (NOVOLOG) 1 VIAL SQ SCH ×3 (06:04→17:26)
[2023-08-02] MEDS: INSULIN (NOVOLOG) ASPART 100 UNITS/ML 10ML VIAL SQ SCH ×3 (06:04→17:28)
[2023-08-02 07:15] LABS: HEMATOCRIT 35.8 % (32.4-45.2); HEMOGLOBIN 11.7 GM/dL (10.7-15.3); MCH 27.2 pg (25.7-33.7); MCHC 32.7 g/dl (32.0-36.0); MEAN CELL VOLUME 83.2 fl (80-96); MEAN PLT VOLUME 9.6 fl (7.5-11.1); PLATELET COUNT 240 10^3/uL (134-434); RDW 13.9 % (11.6-15.6); WHITE BLOOD COUNT 6.5 K/mm3 (4.0-10.0)
[2023-08-02 07:34] LABS: POTASSIUM 4.1 mmol/L (3.5-5.1)
[2023-08-02 07:59] LABS: ALBUMIN 3.1 g/dl (3.4-5.0); CALCIUM 9.3 mg/dL (8.5-10.1)
[2023-08-02 08:00] LABS: BLOOD UREA NITROGEN 26.9 mg/dL (7-18); MAGNESIUM 1.9 mg/dL (1.8-2.4)
[2023-08-02 08:02] LABS: CREATININE 1.1 mg/dL (0.55-1.3)
[2023-08-02 08:04] LABS: BILIRUBIN,TOTAL 0.3 mg/dL (0.2-1)
[2023-08-02] MEDS: CLOPIDOGREL BISULFATE 75 MG TABLET (FP) PO SCH (10:40)
[2023-08-02] MEDS: levETIRAcetam 500 MG TABLET (FP) PO SCH ×2 (10:40→22:51)
[2023-08-02] MEDS: LOSARTAN POTASSIUM 50 MG TABLET PO SCH (10:40)
[2023-08-02] MEDS: ASPIRIN COATED 81 MG TABLET.EC PO SCH (10:40)
[2023-08-02] MEDS: ENOXAPARIN NA (PORCINE) 40 MG/0.4 ML DISP.SYRIN SQ SCH (10:41)
[2023-08-02] MEDS: DORZOLAMIDE 2% HCL OPHTHALMIC SOLUTION 10 ML BOTTLE OU SCH ×2 (12:29→22:53)
[2023-08-02] MEDS: TIMOLOL 0.5% OPHTHALMIC SOL 5 ML BOTTLE OU SCH ×2 (12:29→22:53)
[2023-08-02] MEDS: ROSUVASTATIN CA 20 MG TABLET PO SCH (22:51)
[2023-08-03] MEDS: INSULIN SLIDING SCALE (NOVOLOG) 1 VIAL SQ SCH ×3 (06:43→17:32)
[2023-08-03] MEDS: INSULIN (LEVEMIR) 100 UNITS/ML UNITS SQ SCH ×2 (06:44→21:59)
[2023-08-03] MEDS: INSULIN (NOVOLOG) ASPART 100 UNITS/ML 10ML VIAL SQ SCH ×3 (06:44→17:33)
[2023-08-03 08:11] LABS: HEMATOCRIT 35.4 % (32.4-45.2); HEMOGLOBIN 11.3 GM/dL (10.7-15.3); MCH 26.9 pg (25.7-33.7); MCHC 31.9 g/dl (32.0-36.0); MEAN CELL VOLUME 84.3 fl (80-96); MEAN PLT VOLUME 9.8 fl (7.5-11.1); PLATELET COUNT 241 10^3/uL (134-434); RDW 13.9 % (11.6-15.6); WHITE BLOOD COUNT 6.1 K/mm3 (4.0-10.0)
[2023-08-03 08:24] LABS: POTASSIUM 4.4 mmol/L (3.5-5.1)
[2023-08-03 08:34] LABS: ALBUMIN 3.2 g/dl (3.4-5.0); BLOOD UREA NITROGEN 29.4 mg/dL (7-18); MAGNESIUM 1.9 mg/dL (1.8-2.4)
[2023-08-03 08:36] LABS: CREATININE 1.2 mg/dL (0.55-1.3); PHOSPHOROUS 3.6 mg/dL (2.5-4.9)
[2023-08-03 08:38] LABS: BILIRUBIN,TOTAL 0.3 mg/dL (0.2-1); TOT PROT 6.1 g/dl (6.4-8.2)
[2023-08-03] MEDS: LOSARTAN POTASSIUM 50 MG TABLET PO SCH (11:45)
[2023-08-03] MEDS: CLOPIDOGREL BISULFATE 75 MG TABLET (FP) PO SCH (11:45)
[2023-08-03] MEDS: ENOXAPARIN NA (PORCINE) 40 MG/0.4 ML DISP.SYRIN SQ SCH (11:45)
[2023-08-03] MEDS: ASPIRIN COATED 81 MG TABLET.EC PO SCH (11:45)
[2023-08-03] MEDS: TIMOLOL 0.5% OPHTHALMIC SOL 5 ML BOTTLE OU SCH ×2 (11:46→21:34)
[2023-08-03] MEDS: levETIRAcetam 500 MG TABLET (FP) PO SCH ×2 (11:46→21:32)
[2023-08-03] MEDS: DORZOLAMIDE 2% HCL OPHTHALMIC SOLUTION 10 ML BOTTLE OU SCH ×2 (11:46→21:33)
[2023-08-03] MEDS: ROSUVASTATIN CA 20 MG TABLET PO SCH (21:32)
[2023-08-04] MEDS: INSULIN SLIDING SCALE (NOVOLOG) 1 VIAL SQ SCH ×3 (06:53→17:07)
[2023-08-04] MEDS: INSULIN (NOVOLOG) ASPART 100 UNITS/ML 10ML VIAL SQ SCH ×3 (06:53→17:06)
[2023-08-04] MEDS: INSULIN (LEVEMIR) 100 UNITS/ML UNITS SQ SCH ×2 (06:54→21:13)
[2023-08-04 08:27] LABS: HEMATOCRIT 34.3 % (32.4-45.2); MCHC 32.1 g/dl (32.0-36.0); MEAN CELL VOLUME 84.2 fl (80-96); MEAN PLT VOLUME 9.8 fl (7.5-11.1); PLATELET COUNT 240 10^3/uL (134-434); RBC 4.08 M/mm3 (3.60-5.2); RDW 13.7 % (11.6-15.6); WHITE BLOOD COUNT 6.2 K/mm3 (4.0-10.0)
[2023-08-04 08:39] LABS: POTASSIUM 4.1 mmol/L (3.5-5.1)
[2023-08-04 08:48] LABS: ALBUMIN 3.1 g/dl (3.4-5.0)
[2023-08-04 08:49] LABS: CALCIUM 9.4 mg/dL (8.5-10.1)
[2023-08-04 08:51] LABS: PHOSPHOROUS 3.8 mg/dL (2.5-4.9)
[2023-08-04 08:53] LABS: BILIRUBIN,TOTAL 0.3 mg/dL (0.2-1)
[2023-08-04] MEDS: DORZOLAMIDE 2% HCL OPHTHALMIC SOLUTION 10 ML BOTTLE OU SCH ×2 (09:49→21:07)
[2023-08-04] MEDS: levETIRAcetam 500 MG TABLET (FP) PO SCH ×2 (09:49→21:06)
[2023-08-04] MEDS: ASPIRIN COATED 81 MG TABLET.EC PO SCH (09:49)
[2023-08-04] MEDS: LOSARTAN POTASSIUM 50 MG TABLET PO SCH (09:49)
[2023-08-04] MEDS: CLOPIDOGREL BISULFATE 75 MG TABLET (FP) PO SCH (09:49)
[2023-08-04] MEDS: TIMOLOL 0.5% OPHTHALMIC SOL 5 ML BOTTLE OU SCH ×2 (09:49→21:07)
[2023-08-04] MEDS: ENOXAPARIN NA (PORCINE) 40 MG/0.4 ML DISP.SYRIN SQ SCH (09:49)
[2023-08-04] MEDS ORDERED: diphenhydrAMINE HCL 25 MG CAPSULE (FP) PO ONE (15:00)
[2023-08-04] MEDS: ROSUVASTATIN CA 20 MG TABLET PO SCH (21:06)
[2023-08-05] MEDS: INSULIN (LEVEMIR) 100 UNITS/ML UNITS SQ SCH ×3 (06:09→21:27)
[2023-08-05] MEDS: INSULIN (NOVOLOG) ASPART 100 UNITS/ML 10ML VIAL SQ SCH ×3 (06:09→16:41)
[2023-08-05] MEDS: INSULIN SLIDING SCALE (NOVOLOG) 1 VIAL SQ SCH ×3 (06:10→16:40)
[2023-08-05 07:34] LABS: HEMATOCRIT 33.3 % (32.4-45.2); HEMOGLOBIN 10.7 GM/dL (10.7-15.3); MCHC 32.2 g/dl (32.0-36.0); MEAN CELL VOLUME 83.7 fl (80-96); MEAN PLT VOLUME 9.7 fl (7.5-11.1); PLATELET COUNT 225 10^3/uL (134-434); RBC 3.98 M/mm3 (3.60-5.2); WHITE BLOOD COUNT 4.9 K/mm3 (4.0-10.0)
[2023-08-05 07:46] LABS: POTASSIUM 4.4 mmol/L (3.5-5.1)
[2023-08-05 07:52] LABS: CALCIUM 8.8 mg/dL (8.5-10.1)
[2023-08-05 07:53] LABS: BLOOD UREA NITROGEN 27.4 mg/dL (7-18); MAGNESIUM 2.1 mg/dL (1.8-2.4)
[2023-08-05 07:56] LABS: CREATININE 0.9 mg/dL (0.55-1.3); PHOSPHOROUS 3.2 mg/dL (2.5-4.9)
[2023-08-05 07:57] LABS: TOT PROT 5.8 g/dl (6.4-8.2)
[2023-08-05 08:16] LABS: BILIRUBIN,TOTAL 0.4 mg/dL (0.2-1)
[2023-08-05] MEDS: ENOXAPARIN NA (PORCINE) 40 MG/0.4 ML DISP.SYRIN SQ SCH (10:31)
[2023-08-05] MEDS: CLOPIDOGREL BISULFATE 75 MG TABLET (FP) PO SCH (10:32)
[2023-08-05] MEDS: LOSARTAN POTASSIUM 50 MG TABLET PO SCH (10:32)
[2023-08-05] MEDS: ASPIRIN COATED 81 MG TABLET.EC PO SCH (10:32)
[2023-08-05] MEDS: levETIRAcetam 500 MG TABLET (FP) PO SCH ×2 (10:32→21:21)
[2023-08-05] MEDS ORDERED: METOPROLOL TARTRATE 50 MG TABLET (FP) PO ONE (11:00)
[2023-08-05] MEDS: DORZOLAMIDE 2% HCL OPHTHALMIC SOLUTION 10 ML BOTTLE OU SCH ×2 (11:12→21:21)
[2023-08-05] MEDS: TIMOLOL 0.5% OPHTHALMIC SOL 5 ML BOTTLE OU SCH ×2 (11:12→21:21)
[2023-08-05] MEDS: ROSUVASTATIN CA 20 MG TABLET PO SCH (21:21)
[2023-08-06] MEDS: INSULIN (LEVEMIR) 100 UNITS/ML UNITS SQ SCH ×2 (06:17→22:17)
[2023-08-06] MEDS: INSULIN SLIDING SCALE (NOVOLOG) 1 VIAL SQ SCH ×3 (06:17→16:36)
[2023-08-06] MEDS: INSULIN (NOVOLOG) ASPART 100 UNITS/ML 10ML VIAL SQ SCH ×3 (06:17→16:35)
[2023-08-06 08:59] LABS: HEMATOCRIT 36.2 % (32.4-45.2); HEMOGLOBIN 11.5 GM/dL (10.7-15.3); MCH 26.6 pg (25.7-33.7); MCHC 31.8 g/dl (32.0-36.0); MEAN CELL VOLUME 83.7 fl (80-96); MEAN PLT VOLUME 9.1 fl (7.5-11.1); PLATELET COUNT 258 10^3/uL (134-434); RBC 4.33 M/mm3 (3.60-5.2); RDW 14.3 % (11.6-15.6); WHITE BLOOD COUNT 5.8 K/mm3 (4.0-10.0)
[2023-08-06 09:12] LABS: POTASSIUM 4.2 mmol/L (3.5-5.1)
[2023-08-06 09:17] LABS: BLOOD UREA NITROGEN 23.7 mg/dL (7-18); CALCIUM 9.1 mg/dL (8.5-10.1); MAGNESIUM 2.2 mg/dL (1.8-2.4)
[2023-08-06 09:20] LABS: CREATININE 1.1 mg/dL (0.55-1.3); PHOSPHOROUS 2.7 mg/dL (2.5-4.9)
[2023-08-06] MEDS: CLOPIDOGREL BISULFATE 75 MG TABLET (FP) PO SCH (09:51)
[2023-08-06] MEDS: ASPIRIN COATED 81 MG TABLET.EC PO SCH (09:51)
[2023-08-06] MEDS: levETIRAcetam 500 MG TABLET (FP) PO SCH ×2 (09:51→22:16)
[2023-08-06] MEDS: LOSARTAN POTASSIUM 50 MG TABLET PO SCH (09:51)
[2023-08-06] MEDS: ENOXAPARIN NA (PORCINE) 40 MG/0.4 ML DISP.SYRIN SQ SCH ×2 (09:52→22:10)
[2023-08-06] MEDS: TIMOLOL 0.5% OPHTHALMIC SOL 5 ML BOTTLE OU SCH ×2 (09:53→22:19)
[2023-08-06] MEDS: DORZOLAMIDE 2% HCL OPHTHALMIC SOLUTION 10 ML BOTTLE OU SCH ×2 (09:53→22:18)
[2023-08-06] MEDS ORDERED: metoPROLOL SUCCINATE 25 MG TAB.SR.24H (FP) PO SCH (14:29)
[2023-08-06] MEDS: ROSUVASTATIN CA 20 MG TABLET PO SCH (22:17)
[2023-08-07] MEDS: INSULIN (NOVOLOG) ASPART 100 UNITS/ML 10ML VIAL SQ SCH ×3 (06:54→17:20)
[2023-08-07] MEDS: INSULIN (LEVEMIR) 100 UNITS/ML UNITS SQ SCH ×2 (06:54→21:19)
[2023-08-07] MEDS: INSULIN SLIDING SCALE (NOVOLOG) 1 VIAL SQ SCH ×3 (06:55→17:19)
[2023-08-07] MEDS: ENOXAPARIN NA (PORCINE) 40 MG/0.4 ML DISP.SYRIN SQ SCH ×2 (10:09→21:19)
[2023-08-07] MEDS: LOSARTAN POTASSIUM 50 MG TABLET PO SCH (10:09)
[2023-08-07] MEDS: ASPIRIN COATED 81 MG TABLET.EC PO SCH (10:09)
[2023-08-07] MEDS: levETIRAcetam 500 MG TABLET (FP) PO SCH ×2 (10:10→21:19)
[2023-08-07] MEDS: CLOPIDOGREL BISULFATE 75 MG TABLET (FP) PO SCH (10:10)
[2023-08-07] MEDS: TIMOLOL 0.5% OPHTHALMIC SOL 5 ML BOTTLE OU SCH ×2 (10:10→21:28)
[2023-08-07] MEDS: DORZOLAMIDE 2% HCL OPHTHALMIC SOLUTION 10 ML BOTTLE OU SCH ×2 (10:14→21:28)
[2023-08-07] MEDS ORDERED: metoPROLOL SUCCINATE 25 MG TAB.SR.24H (FP) PO SCH ×2 (13:41→13:42)
[2023-08-07] MEDS: ROSUVASTATIN CA 20 MG TABLET PO SCH (21:19)
[2023-08-08] MEDS: INSULIN (LEVEMIR) 100 UNITS/ML UNITS SQ SCH (06:26)
[2023-08-08] MEDS: INSULIN SLIDING SCALE (NOVOLOG) 1 VIAL SQ SCH ×3 (06:30→17:46)
[2023-08-08] MEDS: INSULIN (NOVOLOG) ASPART 100 UNITS/ML 10ML VIAL SQ SCH ×3 (06:31→17:47)
[2023-08-08 08:05] LABS: POTASSIUM 4.3 mmol/L (3.5-5.1)
[2023-08-08 08:08] LABS: BLOOD UREA NITROGEN 18.2 mg/dL (7-18); CALCIUM 9.4 mg/dL (8.5-10.1)
[2023-08-08 08:11] LABS: CREATININE 0.9 mg/dL (0.55-1.3)
[2023-08-08] MEDS: ASPIRIN COATED 81 MG TABLET.EC PO SCH (11:39)
[2023-08-08] MEDS: ENOXAPARIN NA (PORCINE) 40 MG/0.4 ML DISP.SYRIN SQ SCH (11:39)
[2023-08-08] MEDS: CLOPIDOGREL BISULFATE 75 MG TABLET (FP) PO SCH (11:39)
[2023-08-08] MEDS: levETIRAcetam 500 MG TABLET (FP) PO SCH (11:39)
[2023-08-08] MEDS: DORZOLAMIDE 2% HCL OPHTHALMIC SOLUTION 10 ML BOTTLE OU SCH (11:40)
[2023-08-08] MEDS: TIMOLOL 0.5% OPHTHALMIC SOL 5 ML BOTTLE OU SCH (11:40)
[2023-08-08] MEDS: LOSARTAN POTASSIUM 50 MG TABLET PO SCH (11:40)
[2023-08-08 13:59] VITALS: BP 145/79; PULSE 60; RESP 17; TEMP 97.7
== END 2023-08-08 16:15 | disposition home or self-care (01) | DRG 64 ==
LOC: JER 06:32 → JERBED 10:32 → J4W 14:51 → J4S 08-01 20:41
PROVIDERS: ADMIT Internal Medicine; ATTEND Internal Medicine
DX: I63.89 Other cerebral infarction (principal); J96.92 Respiratory failure, unspecified with hypercapnia; E87.20 Acidosis, unspecified; N17.9 Acute kidney failure, unspecified; I47.20 Ventricular tachycardia, unspecified; Z68.42 Body mass index [BMI] 45.0-49.9, adult; G40.909 Epilepsy, unspecified, not intractable, without status epilepticus; I44.7 Left bundle-branch block, unspecified; I10 Essential (primary) hypertension; E78.5 Hyperlipidemia, unspecified; E11.51 Type 2 diabetes mellitus with diabetic peripheral angiopathy without gangrene; E11.65 Type 2 diabetes mellitus with hyperglycemia; E11.42 Type 2 diabetes mellitus with diabetic polyneuropathy; R47.1 Dysarthria and anarthria; E66.01 Morbid (severe) obesity due to excess calories; G47.33 Obstructive sleep apnea (adult) (pediatric); I65.01 Occlusion and stenosis of right vertebral artery
CPT/HCPCS: 36415; 70450-TC; 70496-TC; 70498-TC; 70551-TC; 71045-TC-FY; 80048; 80053; 80061; 80177; 80307; 81003; 82550; 82553; 82607; 82746; 82803; 82962; 83036; 83605; 83735; 84100; 84443; 84484; 85025; 85027; 85610; 85730; 86850; 86900; 86901; 87086; 93005; 93010; 93225; 93226; 93306-TC; 93880-TC; 95705; 97116-GP; 97161-GP; 99291; 99292